=== PATIENT | male | born 1995 | race Two or more races ===

== ENCOUNTER 2021-02-23 09:22 | Inpatient (IN) | payer OTHER, SELFPAY ==
[2021-02-23] VITALS (10 sets, daily range): BP systolic 85–107; BP diastolic 37–70; PULSE 52–71; RESP 12–17; TEMP 36.6–37.1; O2SAT 96–99; BMI 24.3
--- NOTE | 2021-02-23 09:36 | ED_ITS ---
HPI - Psych General Chief Complaint: Overdose Stated Complaint: CRISIS Time Seen by Provider: 02/23/21 09:31 Source: patient and family Mode of arrival: ambulatory Limitations: other (patient is under the influence) History of Present Illness MD complaint: suicidal ideation, feels depressed and substance abuse Onset (ago): day(s) (few) Duration: getting worse History of same: Yes Relieving factors: none Exacerbating factors: drug use Context: recent drug abuse Associated psychiatric symptoms: depression and suicidal ideation Associated symptoms: denies other symptoms Treatments prior to arrival: none If self harm: admits thoughts of self harm, has acted on plan and intentional overdose Related Data Home Medications Medication Instructions Recorded Confirmed buprenorphine 100 mg/0.5 mL 100 mg SUBCUT QWEEK 02/23/21 02/23/21 solution,exten.rel.subcutaneous syringe (Sublocade) buprenorphine 8 mg-naloxone 2 mg 1 strip SUBLINGUAL DAILY 02/23/21 02/23/21 sublingual film (Suboxone) hydroxyzine HCl 25 mg tablet 1 tab PO QID 02/23/21 ibuprofen 600 mg tablet 1 tab PO BID PRN 02/23/21 nicotine (polacrilex) 4 mg buccal mg PO 02/23/21 mini lozenge nicotine (polacrilex) 4 mg gum mg PO 02/23/21 nicotine 21 mg/24 hr daily 1 patch TOPICAL DAILY 02/23/21 transdermal patch quetiapine 200 mg tablet tab PO 02/23/21 quetiapine 50 mg tablet tab PO 02/23/21 Allergies Allergy/AdvReac Type Severity Reaction Status Date / Time No Known Allergies Allergy Unverified 01/12/20 19:49 [No Known Allergies*] Review of Systems Review of Systems: Constitutional : No Fever, No Chills ENT/Mouth : No Ear Pain, No Nasal Congestion, No sore throat Eyes: No Eye Pain, No Swelling, No Redness Cardiovascular : No Chest Pain, No SOB Respiratory : No Cough, No Sputum, No Dyspnea Gastrointestinal : No Nausea, No Vomiting, No Diarrhea, No Hematochezia, No Melena Genitourinary : No Dysuria, No Urinary Frequency, No Hematuria Musculoskeletal : No Myalgias Skin : No Skin Lesions, No rash Neuro : No Weakness, No Numbness, No Paresthesias, No Dizziness, No Headache Psych : positive Anxiety, positive Depression, positive SI no HI Heme/Lymph: No Lymphadenopathy Endocrine : No Polyuria, No Polydipsia All other systems reviewed and are negative [facility] Past Medical History Attestation statement: The following information was validated with the patient. Medical History Substance abuse Social History Social History (Updated 02/23/21 @ 09:39 by Luzmaria Vo DO) Patient Tobacco Use Status: Current everyday Tobacco user Use of substances other than those prescribed or required for medical reasons: Yes Substance Use Type: Crack/Cocaine, Heroin and Opiates Last Used Substance: Just Prior to Admission Advance Directives: No Advance Directives Information Provided: No Physical Exam Vital Signs: Vital Signs: Last Vital Signs Temp 98.1 F 02/23/21 13:46 Pulse 71 02/23/21 13:49 Resp 12 02/23/21 13:46 BP 92/52 L 02/23/21 13:49 Pulse Ox 98 02/23/21 13:46 Oxygen Flow Rate 2 02/23/21 09:26 Body Mass Index 24.3 Appearance: Somnolent but wakes to verbal stimuli Oriented X3. Mild acute distress. Eyes: Pinpoint pupils ENT: Pharynx normal. Neck: Normal inspection. Neck supple. CVS: Normal heart rate and rhythm. Pulses normal. Respiratory: No respiratory distress. Breath sounds normal. Abdomen: Soft and non-tender. Skin: Skin warm and dry. Normal skin color. Normal skin turgor. Extremities: No lower extremity edema. No calf ttp Neuro: Oriented X 3. No motor deficit. No sensory deficit. CN 2-12 intact Psych: under the influence, + SI Course Course Course Narrative: patient used again in bathroom - handed hot pipe over to RN went to use bathroom and locked door - RN tried to get in, at this time his BP is low 80s due to intoxication and not infection or severe sepsis given his low BP and drowsiness will give IM narcan for overdose BP improved will continue to monitor no need for repeat narcan Physician observation started at 1135am Patient placed in physician observation because the patient needed more time for clinical sobriety and BHN evaluation. At the time observation was started the patient's vitals were stable, patient is alert and oriented but slightly agitated, Neuro: nonfocal, CV RRR, Lungs clear blood pressure dropped again, likely due to his recent heroin use - IVF and 1mg narcan ordered responded to IV narcan, ripped IV out before fluids BP 107 no narcan for 2 hours at this time, still refusing IVF BP low due to opiate abuse and not infection or severe sepsis MDM - Psych MDM Narrative Medical decision making narrative: 25 yo male with substance abuse states he tried to go to [place] for detox yesterday, had sublocade on 02/05 ([facility] [employer]) used today in SI attempt and told mom. He is currently still trying to use in our ED. At this time labs, COVID swab, BHN consult, close observation and will repeat BP to ensure he does not need narcan. Lab Data Result diagrams: 02/23/21 10:24 02/23/21 10:24 Labs: Lab Results 02/23/21 02/23/21 02/23/21 Range/Units 10:13 10:24 10:24 WBC 14.2 H (4.8-10.8) X10*3/uL RBC 4.29 L (4.60-5.80) X10*6/uL Hgb 12.3 L (14.0-18.0) g/dl Hct 37.2 L (42.0-52.0) % MCV 86.7 (80.0-98.0) fL MCH 28.7 (27.0-33.0) pg MCHC 33.1 (31.0-36.0) g/dl RDW 13.9 (11.0-16.0) % Plt Count 283 (160-400) X10*3/uL MPV 10.5 (9.4-12.4) fL Immature Gran % (Auto) 0.3 (0.0-0.4) % Neut % (Auto) 69.0 (45-73) % Lymph % (Auto) 22.7 (20-40) % Evangeline % (Auto) 7.1 (2-11) % Eos % (Auto) 0.7 (0-4) % Baso % (Auto) 0.2 (0-2) % Lymph # (Auto) 3.2 (1.2-4.9) X10*3/uL Evangeline # (Auto) 1.0 (0.1-1.2) X10*3/uL Eos # (Auto) 0.1 (0.0-0.4) X10*3/uL Baso # (Auto) 0.0 (0.0-0.2) X10*3/uL Abs Immat Gran (auto) 0.04 H (0.00-0.03) X10*3/uL Absolute Neuts (auto) 9.76 H (2.0-8.3) x10*3/uL Absolute Nucleated RBC 0.000 (0.0-0.012) X10*3/uL Nucleated RBC % (auto) 0.0 (0.0-0.2) /100WBC Sodium 139 (135-145) mmol/L Potassium 3.5 (3.3-5.1) mmol/L Chloride 107 (96-108) mmol/L Carbon Dioxide 23 (22-29) mmol/L Anion Gap 13 (12-20) BUN 12 (9-16) mg/dL Creatinine 1.14 (0.5-1.4) mg/dL Estim Creat Clear Calc 99.0 Estimated GFR > 60 Random Glucose 124 H (60-115) mg/dL Calcium 8.9 (8.4-10.2) mg/dL Magnesium 1.9 (1.6-2.6) mg/dL Total Bilirubin 0.3 (0.0-1.0) mg/dL Direct Bilirubin < 0.2 (0.0-0.5) mg/dL AST 18 (5-37) U/L ALT 17 (0-40) U/L Alkaline Phosphatase 86 (39-117) U/L Total Protein 6.7 (6.5-8.0) g/dL Albumin 4.0 (3.5-5.0) g/dL Urine Opiates Screen POSITIVE H (Not Detect) Urine Fentanyl Screen POSITIVE H (Not Detect) Ur Barbiturates Screen Not Detected (Not Detect) Ur Phencyclidine Scrn Not Detected (Not Detect) Ur Amphetamines Screen Not Detected (Not Detect) U Benzodiazepines Scrn Not Detected (Not Detect) Urine Cocaine Screen POSITIVE H (Not Detect) U Marijuana (THC) Screen Not Detected (Not Detect) Ethyl Alcohol mg/dL COVID-19 (DO) (Negative) COVID-19 Clin Com 02/23/21 02/23/21 Range/Units 10:24 10:24 WBC (4.8-10.8) X10*3/uL RBC (4.60-5.80) X10*6/uL Hgb (14.0-18.0) g/dl Hct (42.0-52.0) % MCV (80.0-98.0) fL MCH (27.0-33.0) pg MCHC (31.0-36.0) g/dl RDW (11.0-16.0) % Plt Count (160-400) X10*3/uL MPV (9.4-12.4) fL Immature Gran % (Auto) (0.0-0.4) % Neut % (Auto) (45-73) % Lymph % (Auto) (20-40) % Evangeline % (Auto) (2-11) % Eos % (Auto) (0-4) % Baso % (Auto) (0-2) % Lymph # (Auto) (1.2-4.9) X10*3/uL Evangeline # (Auto) (0.1-1.2) X10*3/uL Eos # (Auto) (0.0-0.4) X10*3/uL Baso # (Auto) (0.0-0.2) X10*3/uL Abs Immat Gran (auto) (0.00-0.03) X10*3/uL Absolute Neuts (auto) (2.0-8.3) x10*3/uL Absolute Nucleated RBC (0.0-0.012) X10*3/uL Nucleated RBC % (auto) (0.0-0.2) /100WBC Sodium (135-145) mmol/L Potassium (3.3-5.1) mmol/L Chloride (96-108) mmol/L Carbon Dioxide (22-29) mmol/L Anion Gap (12-20) BUN (9-16) mg/dL Creatinine (0.5-1.4) mg/dL Estim Creat Clear Calc Estimated GFR Random Glucose (60-115) mg/dL Calcium (8.4-10.2) mg/dL Magnesium (1.6-2.6) mg/dL Total Bilirubin (0.0-1.0) mg/dL Direct Bilirubin (0.0-0.5) mg/dL AST (5-37) U/L ALT (0-40) U/L Alkaline Phosphatase (39-117) U/L Total Protein (6.5-8.0) g/dL Albumin (3.5-5.0) g/dL Urine Opiates Screen (Not Detect) Urine Fentanyl Screen (Not Detect) Ur Barbiturates Screen (Not Detect) Ur Phencyclidine Scrn (Not Detect) Ur Amphetamines Screen (Not Detect) U Benzodiazepines Scrn (Not Detect) Urine Cocaine Screen (Not Detect) U Marijuana (THC) Screen (Not Detect) Ethyl Alcohol < 10 mg/dL COVID-19 (DO) Positive A (Negative) COVID-19 Clin Com See Note Critical Care Time Critical Care Time Critical Care Time: Yes Total Critical Care Time: 60 Attestation: repeat narcan, observation, labs, reasessments I attest to this time spent taking care of the patient Discharge Plan Discharge Clinical Impression: Opiate abuse, continuous, COVID-19 Drug overdose Qualifiers: Encounter type: initial encounter Injury intent: intentional self-harm Qualified Code(s): T50.902A - Poisoning by unspecified drugs, medicaments and biological substances, intentional self-harm, initial encounter Prescriptions: No Action quetiapine 200 mg tablet PO RF: 0 nicotine (polacrilex) 4 mg gum PO RF: 0 nicotine 21 mg/24 hr patch 24 hour 1 patch topical DAILY RF: 0 hydroxyzine HCl 25 mg tablet 1 tab PO QID RF: 0 ibuprofen 600 mg tablet 1 tab PO BID PRN (Reason: Pain) RF: 0 quetiapine 50 mg tablet PO RF: 0 buprenorphine-naloxone [Suboxone] 8-2 mg film 1 strip sublingual DAILY RF: 0 nicotine (polacrilex) 4 mg mini lozenge PO RF: 0 Sublocade 100 mg/0.5 mL solution, extended rel syringe 100 mg subcut QWEEK RF: 0
--- NOTE | 2021-02-23 10:06 | PC.NURSE ---
PT REPEAT CHIEF WTIH WAREHOUSEMAN, PT USED IN THE BATHROOM. SECURITY CALLED FOR ASSISTANCE
[2021-02-23] MEDS: Ondansetron ODT 4 MG TAB.RAPDIS TRANSLINGU (10:27)
[2021-02-23] MEDS: Naloxone HCl 2 MG/2 ML SYRINGE IM (10:27)
[2021-02-23 10:29] LABS: MANUAL DIFF FLAG NO
[2021-02-23 10:39] LABS: COVID-19 Test Positive (Negative); IDNOW Serial# 9DD0AD1C
[2021-02-23 10:46] LABS: Amphetamine Screen Urine Not Detected (Not Detect); Barbiturates, Urine Not Detected (Not Detect); Benzodiazepines Screen Urine Not Detected (Not Detect); Cannabinoid Screen Urine Not Detected (Not Detect); Cocaine Screen Urine POSITIVE (Not Detect); Fentanyl, urine POSITIVE (Not Detect); Opiate Screen Urine POSITIVE (Not Detect); Phencyclidine Screen Urine Not Detected (Not Detect)
[2021-02-23 10:51] LABS: Alanine Aminotransferase 17 U/L (0-40); Alkaline Phosphatase 86 U/L (39-117); Anion Gap 13 (12-20); Aspartate Amino Transferase 18 U/L (5-37); Basophils Percent Auto 0.2 % (0-2); Bilirubin Direct < 0.2 mg/dL (0.0-0.5); Bilirubin Total 0.3 mg/dL (0.0-1.0); Blood Urea Nitrogen 12 mg/dL (9-16); Calcium 8.9 mg/dL (8.4-10.2); Carbon Dioxide 23 mmol/L (22-29); Chloride 107 mmol/L (96-108); Eosinophils Absolute Auto 0.1 X10*3/uL (0.0-0.4); Eosinophils Percent Auto 0.7 % (0-4); Estimated Glomerular Filt Rate > 60; Glucose Random 124 mg/dL (60-115); Hematocrit 37.2 % (42.0-52.0); Hemoglobin 12.3 g/dl (14.0-18.0); Imm Gran Abs Auto 0.04 X10*3/uL (0.00-0.03); Imm Gran Pct Auto 0.3 % (0.0-0.4); Lymphocytes Absolute Auto 3.2 X10*3/uL (1.2-4.9); Lymphocytes Percent Auto 22.7 % (20-40); Magnesium 1.9 mg/dL (1.6-2.6); Mean Corpuscular HGB Conc 33.1 g/dl (31.0-36.0); Mean Corpuscular Hemoglobin 28.7 pg (27.0-33.0); Mean Corpuscular Volume 86.7 fL (80.0-98.0); Mean Platelet Volume 10.5 fL (9.4-12.4); Monocytes Percent Auto 7.1 % (2-11); Neutrophils Absolute Auto 9.76 x10*3/uL (2.0-8.3); Platelet Count 283 X10*3/uL (160-400); Potassium 3.5 mmol/L (3.3-5.1); Red Blood Count 4.29 X10*6/uL (4.60-5.80); Red Cell Distribution Width 13.9 % (11.0-16.0); Sodium 139 mmol/L (135-145); Total Protein 6.7 g/dL (6.5-8.0); White Blood Count 14.2 X10*3/uL (4.8-10.8)
[2021-02-23 10:57] LABS: Ethanol < 10 mg/dL
--- NOTE | 2021-02-23 11:03 | PC.NURSE ---
MARU data transfer sent over
[2021-02-23] MEDS: 0.9 % Sodium Chloride 1,000 ML 999 ML IV (12:12)
[2021-02-23] MEDS: Naloxone HCl 2 MG/2 ML SYRINGE 1 MG IVPUSH (12:17)
--- NOTE | 2021-02-23 12:30 | PC.NURSE ---
pt received 2mg of Narcan with IV fluids. pt proceeded to become more awake, he pulled his IV out. Pt educated related to the need for fluids as his BP was low at 85/45 - pt said I don't care, you gave me way too much Narcan .
--- NOTE | 2021-02-23 13:19 | PC.NURSE ---
MOTHER REPRESENTED TO THE ED FOR AN UPDATE. (THE PT HAD PROVIDED PERMISSION TO SHARE HIS DISPOSITION WITH MOTHER ON HIS ARRIVAL). SHE IS AWARE HE IS COVID + AND CANNOT HAVE BEDSIDE VISITORS. AWAITING MARU DE DIOS
--- NOTE | 2021-02-23 14:03 | PC.NURSE ---
pt asleep, woke again and encouraged to stay, stay awake - pt BP low again. pt requesting food.
--- NOTE | 2021-02-23 14:22 | PC.NURSE ---
pt asleep, easy to wake. pt ate sandwhich. pt awaiting BHN cristinaal
--- NOTE | 2021-02-23 20:02 | PC.NURSE ---
spoke with [facility] crisis regarding ETA for interview who reported the pt will be seen tomorrow.
--- NOTE | 2021-02-23 20:05 | PC.NURSE ---
spoke with CARE team who is planning on taking over the case from MARU
--- NOTE | 2021-02-24 00:04 | PC.NURSE ---
Patient in bed appears sleeping/snoring, no distress observed/reported, sitter at bedside, patient is on section 12 per report, will continue to monitor.
--- NOTE | 2021-02-24 06:28 | PC.NURSE ---
Patient slept through the night, no distress observed/reported, asymptomatic of withdrawal, patient will be reassess by care team in the morning, behavior non concerning at this time, patient is COVID +, will continue to monitor.
[2021-02-24 06:38] VITALS: BP 105/68; PULSE 50; RESP 16; TEMP 36.3; O2SAT 98
--- NOTE | 2021-02-24 07:20 | PC.NURSE ---
Report recieved from Servando RN, pt to be seen by Care team this morning.
[2021-02-24 11:14] VITALS: BP 93/53; PULSE 55; RESP 16
[2021-02-24 13:52] VITALS: BP 107/61; PULSE 45; RESP 14
--- NOTE | 2021-02-24 15:36 | PC.NURSE ---
Report received, pt resting comfortably in bed at current, no complaints at this time, calm and cooperative, continues to be a section 12 bed search.
[2021-02-24 20:13] LABS: COVID-19 Test Negative (Negative); IDNOW Serial# 9DD0AD1C
--- NOTE | 2021-02-25 05:43 | PC.NURSE ---
Patient slept through the night, no distress observed/reported, behavior non concerning, med rec completed/pending provider's approval, contracted for the safety, patient is on section 12 inpatient bed search, will continue to monitor.
--- NOTE | 2021-02-25 07:01 | PC.NURSE ---
patient appears to remain asleep at present with even unlabored breaths, patient appears in no distress
--- NOTE | 2021-02-25 08:55 | PC.NURSE ---
patient briefly visited by Fadumo Roper, who checked on wd sx, provider informed t/w and patient to update with emergence of wd sx.
[2021-02-25 09:12] VITALS: BP 111/69; PULSE 50; RESP 16; TEMP 36.8; O2SAT 100
[2021-02-25 10:15] LABS: COVID-19 Test Negative (Negative)
--- NOTE | 2021-02-25 14:08 | MHC.CARE ---
Patient to remain in the ED until a psychiatric placement is secured. Referrals sent to dual diagnosis unit [facility].
--- NOTE | 2021-02-25 15:09 | PC.NURSE ---
client had c/o aches and pains, declined offered flexeril
[2021-02-25 17:05] VITALS: BP 105/67; PULSE 71; RESP 18; TEMP 36.8; O2SAT 98
--- NOTE | 2021-02-25 17:21 | MHC.CARE ---
Both facilities full tonight, call in the morning.
--- NOTE | 2021-02-26 | ECG_ITS ---
Test Reason : MEDICAL CLEARANCE Blood Pressure : / mmHG Vent. Rate : 045 BPM Atrial Rate : 045 BPM P-R Int : 172 ms QRS Dur : 098 ms QT Int : 420 ms P-R-T Axes : 038 069 039 degrees QTc Int : 363 ms Sinus bradycardia with sinus arrhythmia peaked T waves Anterior leads Abnormal ECG No previous ECGs available Referred By: Luzmaria Vo Electronically Signed By:TASHIA LYNNE MD
[2021-02-26 00:07] VITALS: BP 112/72; PULSE 57; RESP 16; TEMP 36.6; O2SAT 99
--- NOTE | 2021-02-26 05:13 | PC.NURSE ---
Patient slept through the night, no distress observed/reported, asymptomatic of withdrawal, disposition is section 12 inpatient bed search, appetite good, behavior appropriate and non concerning at this time, VSS, will continue to monitor.
--- NOTE | 2021-02-26 07:25 | PC.NURSE ---
patient appears to remain asleep at present respirations are even and unlabored, patient appears in no distress
[2021-02-26 07:59] VITALS: BP 89/54; PULSE 51; RESP 14; TEMP 36.8; O2SAT 98
[2021-02-26 16:00] VITALS: PULSE 62
[2021-02-26 16:46] VITALS: BMI 23.5
--- NOTE | 2021-02-26 17:16 | PC.ADMIT ---
Pt is a 21 year old male admitted after the pt attempted overdose on heroin. Pt reports using Heroin when he was 18yrs old. However, it increased when the pt lost his sister through drug overdose. Pt has been kicked out of different treatment program due to violence behavior. Diagnosis: Opioid use disorder, severe. VSS, Covid negative. Tox scrfeen show positive for cocaine, fentanyl and opiates. Lab: elevated WBC's 14.2, decreased RBC's 4.29, Hgb 12.3. Pt was engaged during assessment, denies HI/SI, AH/VH. thought is clear with no blocking. Speech is clear with normal rhythm, tone and omero. Provider notified, admission orders obtained.
[2021-02-27 06:00] VITALS: BP 114/68; PULSE 52; RESP 18; TEMP 36.9; O2SAT 100
[2021-02-27 08:00] VITALS: PULSE 52
[2021-02-27 08:39] LABS: Estimated Average Glucose 103 mg/dL; Hemoglobin A1C 123.1284 umol/L; Hemoglobin A1c % 5.2 %
[2021-02-27 08:57] LABS: Cholesterol 159 mg/dL; HDL Cholesterol 45 mg/dL; LDL Cholesterol Calculated 101 mg/dl; Triglycerides 67 mg/dL
[2021-02-27] MEDS: Buprenorphine/Naloxone 8/2 mg FILM 1 FILM SUBLINGUAL (09:02)
[2021-02-27 09:18] LABS: Free T4 (Free Thyroxine) 0.96 ng/dL (0.71-1.85); Thyroid Stimulating Hormone 2.66 uIU/mL (0.32-4.0)
[2021-02-27 09:30] LABS: Folate 15.2 ng/mL (> or = 4.0); Vitamin B12 428 pg/mL (200-900)
--- NOTE | 2021-02-27 14:51 | P.HPPS_ITS ---
HPI Date of Service: 02/27/21 Chief Complaint: S/P Overdose Suicide Attempt Sources of Information: patient interviewed, chart reviewed and crisis/core team assessment reviewed HPI Subjective Notes: Heck Warning, Conditional Voluntary and 3 Day (03/01/21) Healthcare Proxy: No Guardianship: No Medical Problems Affecting Mental Status: No Narrative: 25 yo male s/p suicide attempt via heroin od in front of his mother with intent to , admitted on CV with filing of TDN to on 03/01. Pt reports stressors include losing sister to murder by boyfriend earlier this year in [place]. Thus far, he reports two people have been arrested. Also, watching mother's grief over loss of sister has been overwhelming. Pt reports sister's birthday is coming up and his feelings intensify as the day grows closer. Reports addictive symptoms since age [age], mainly opiates, fentanyl. Toxicology positive for cocaine, opiates, fentanyl. Reports drugs have made him mad-he has been involved in fights, leaving programs, with brief incarcerations. States he believes he needs residential-asks for [facility], a therapist, psychiatrist, physician primary care sports medicine and a good out patient plan. Past Psychiatric History: IP: This is pt's first psychiatric admission. OP: No alliances Trials: Seroquel- 50 mg daily prn and 200 mg hs, some others he does not recall. Medical Evaluation Reviewed: Yes [facility] Medical History Substance abuse Narrative: Pinched nerve left shoulder/arm-Hx Gabapentin Family History: Father-Bipolar, addicted, PTSD Social History: Pt is single, unemployed, homeless with no children. He moved from [place] to [place] at age 8, which he found to be traumatic-he witnessed his first murder at age 8. Father was absent due to addiction and mental illness Pt has a sister-murdered earlier this year and a younger half sister whom he has not seen recently Denies current legal issues, except he is following his sister's case in [place] Substance History: Pt reports addiction since age 20. Daily heroin-up to 50-100 bags, no injecting. Has been to several detoxes and programs. No hx of injecting. Longest sobriety ~7 months Hx of H placments with fighting-dismissals, use while in program Pt reports sublicade has helped Pt has all included support services Trauma History: Affirms Diagnostics Vital Signs (24Hr): Vital Signs - 24 hr 02/27/21 06:00 Temperature 98.4 F Pulse Rate 52 Respiratory Rate 18 Blood Pressure 114/68 Pulse Oximetry 100 Body Mass Index 23.5 Labs Results: 02/23/21 10:24 02/23/21 10:24 Labs: Laboratory Results - last 48 hr 02/27/21 02/27/21 02/27/21 07:48 07:48 07:48 Estimat Average Glucose 103 Hemoglobin A1c % 5.2 Triglycerides 67 Cholesterol 159 LDL Cholesterol, Calc 101 HDL Cholesterol 45 Vitamin B12 428 Folate 15.2 TSH 2.66 Free T4 0.96 EKG EKG: reviewed Meds/Allergies Meds Home Medications Acetaminophen (Acetaminophen 325 Mg Tablet) 650 mg PO Q6H PRN PRN Reason: Headache/Pain Mild Scale (1-3) Al Hydroxide/Mg Hydroxide (Magnesium Hydrox/Alum Hydrox 30 Ml Oral.Susp) 30 ml PO Q6H PRN PRN Reason: Heartburn/Nausea Buprenorphine/Naloxone (Buprenorphine/Naloxone 8/2 Mg Film) 1 film SUBLINGUAL DAILY [facility] Last Admin: 02/27/21 09:02 Dose: 1 film Documented by: Magnesium Hydroxide (Milk Of Magnesia 30 Ml Oral.Susp) 30 ml PO DAILY PRN PRN Reason: Constipation Multivitamins/Vitamin C (Multivitamin Tablet) 1 tab PO DAILY [facility] Last Admin: 02/27/21 09:02 Dose: Not Given Documented by: Nicotine (Nicotine 21 Mg Patch.Td24) 21 mg TRANSDERMA DAILY [facility] Last Admin: 02/27/21 09:01 Dose: Not Given Documented by: Pharmacy Consult (Consult Rx Perform Med Rec) 1 each MISCELLANE ONCE PRN PRN Reason: Consult order Trazodone HCl (Trazodone Hcl 50 Mg Tablet) 50 mg PO BEDTIME PRN PRN Reason: Insomnia Allergies Allergies Allergy/AdvReac Type Severity Reaction Status Date / Time No Known Allergies Allergy Unverified 01/12/20 19:49 [No Known Allergies*] Mental Status Exam Mental Status Exam Patient Appearance: Appropriate Patient Orientation: Person, Place, Time and Situation Level of Consciousness: Awake, Appropriate and Alert Patient Behavior: Guarded, Talkative, Cooperative, Suspicious, Distractible and Good Eye Contact Mood Description: Blunted Affect Description: Blunted Patient Cognition Impaired: No Ability to Follow Directions: Good Speech Pattern: Clear, Appropriate, Spontaneous Speech, Coherent and Soft-Spoken Memory Description: Intact Hallucinations: None Delusions: Not Present Perceptual Disturbances: Depersonalization and Derealization Thought Process: Distracted, Rumination and Goal Oriented Thought Content: positive for [place], positive for Circumstantial, positive for Goal Oriented and positive for Suicidal Ideation (s/p attempt) Depressive Symptoms: Difficulty Sleeping, Loss of Int. in Activity, Unhappiness and Thoughts of /Suicide Abnormal Motor Activity Signs and Symptoms: Restlessness Judgement: Fair Assessment & Plan Assessment & Plan (1) Recurrent major depression-severe: Status: Acute Code(s): F33.2 - Major depressive disorder, recurrent severe without psychotic features (2) PTSD (post-traumatic stress disorder): Status: Acute Code(s): F43.10 - Post-traumatic stress disorder, unspecified (3) Opiate abuse, continuous: Status: Acute Code(s): F11.10 - Opioid abuse, uncomplicated Assessment and Plan: 25 yo male, hx of depression, PTSD, polysubstance abuse s/p OD in response to the murder of his sister and her upcoming birthday along with intolerance of watching his mother grieve this loss. Pt asks for referral to [facility] and for connections with a PCP, Therapist and Prescriber. He has signed a TDN to on 03/01/21. Seroquel 50 mg HS Remeron 7.5 mg HS Addiction Consult Team will work on referral to [facility]. Patient educated on: medication risk/benefits, substance abuse and therapeutic strategies Informed Consent: understands Reason for continued inpatient stay Substantial Risk for: harm to self, harm to others, inability to function and rapid decompensation
[2021-02-27 18:00] VITALS: BP 137/66; PULSE 78; TEMP 36.4
[2021-02-27] MEDS: QUEtiapine Fumarate 50 MG TABLET PO (22:24)
[2021-02-27] MEDS: Mirtazapine 7.5 MG TABLET PO (22:24)
[2021-02-28] MEDS: Buprenorphine/Naloxone 8/2 mg FILM 1 FILM SUBLINGUAL (09:27)
--- NOTE | 2021-02-28 16:20 | HO.SUDE ---
25 yr old male presented to [facility] ED on 02/23 s/p intentional opiate overdose requiring naloxone. Pt received 3 mg while in ED. Once stable, pt was evaluated and admitted to .T/w met with pt in group room on M5 to discuss substance use. Pt reports psych dx: bipolar d/o, PTSD, anxiety, depression. Please see psychiatry notes for further information regarding mental health.? Pt currently receiving Sublocade through [facility] on [address] x 7 months. Pt reports Sublocade has decreased amount and frequency of use.? Prior to that, pt had been receiving Suboxone x 2 years. Past hx (age 21) methadone at [facility], 98 mg daily x 2 years.? Pt began using opiates at age 19, has used on and off since then. Longest time in recovery was 7 months, pt attributes this to working and staying busy. Pt had been using up to 1 pack daily, [place]. Recently, pt has used 5-10 bags approx 3 times weekly, attributes this to Sublocade.? Pt reports first cocaine use age 16, 1 gram, [place], approx every other day. Last use 02/20.? Pt denies other substances.? Pt reports engaging in OUD tx many times including [facility], [facility], [facility], and sober house admissions (including [facility] in [place]). Pts most recent admission was 02/20-02/22 at [facility] in [place]. Pt discharged due to smoking in program.? Currently, pts supports include mother and friends as well as BHN.? Pt being referred to other providers (psych and PCP) while inpatient. Pt also referred to many [facility] programs across [place].? Pt educated regarding additional resources and supports, t/w will f/u tomorrow to provide pt written information.? Pt denies questions or concerns at this time. T/w available as needed.?
--- NOTE | 2021-02-28 16:48 | P.PNPSI_ITS ---
Subjective Subjective Date of Service: 02/28/21 Reason For Visit: S/P Overdose Suicide Attempt Subjective Notes: 3 Day (03/04/21) Healthcare Proxy: No Guardianship: No Medical Problems Affecting Mental Status: No Interim History: Three day notice to on 03/04/21. Pt reports he slept well last evening. Tolerating low dose Seroquel. Denies SI/HI. Denies sx depression, anxiety-affirms having a difficult time with sisters upcoming birthday. Anxious for a placement-referral resources-asking tw several times during the day if we have remembered to apply for services for him. Seen in the evening-in bed-reports feeling bored, wanting to leave, finding some of his peers difficult to tolerate. Medication Compliance: Yes Side effects from medications: No Attending Groups: No Review of Systems Acute medical concerns: No Medical Review of Systems: unchanged Review of Systems Psychiatric: Reports depression, Reports homicidal ideation (denies) and Reports suicidal ideation (denies) Mental Status Exam Mental Status Exam Patient Appearance: Fatigued and Appropriate Patient Orientation: Person, Place, Time and Situation Level of Consciousness: Awake and Alert Patient Behavior: Talkative and Good Eye Contact Mood Description: Withdrawn and Depressed Affect Description: Flat Patient Cognition Impaired: No Ability to Follow Directions: Good Speech Pattern: Spontaneous Speech Memory Description: Intact Hallucinations: None Delusions: Not Present Thought Process: Rumination Thought Content: positive for [place] and positive for Circumstantial Depressive Symptoms: Increased Irritability and Thoughts of /Suicide (denies) Judgement: Fair Diagnostics Vital Signs (24Hr): Vital Signs - 24 hr 02/27/21 18:00 Temperature 97.5 F Pulse Rate 78 Blood Pressure 137/66 Body Mass Index 23.5 Labs Results: 02/23/21 10:24 02/23/21 10:24 Labs: Laboratory Results - last 48 hr 02/27/21 02/27/21 02/27/21 07:48 07:48 07:48 Estimat Average Glucose 103 Hemoglobin A1c % 5.2 Triglycerides 67 Cholesterol 159 LDL Cholesterol, Calc 101 HDL Cholesterol 45 Vitamin B12 428 Folate 15.2 TSH 2.66 Free T4 0.96 Medications Medications Current Medications Acetaminophen (Acetaminophen 325 Mg Tablet) 650 mg PO Q6H PRN PRN Reason: Headache/Pain Mild Scale (1-3) Al Hydroxide/Mg Hydroxide (Magnesium Hydrox/Alum Hydrox 30 Ml Oral.Susp) 30 ml PO Q6H PRN PRN Reason: Heartburn/Nausea Buprenorphine/Naloxone (Buprenorphine/Naloxone 8/2 Mg Film) 1 film SUBLINGUAL DAILY [facility] Last Admin: 02/28/21 09:27 Dose: 1 film Documented by: Magnesium Hydroxide (Milk Of Magnesia 30 Ml Oral.Susp) 30 ml PO DAILY PRN PRN Reason: Constipation Mirtazapine (Mirtazapine 7.5 Mg Tablet) 7.5 mg PO BEDTIME [facility] Last Admin: 02/27/21 22:24 Dose: 7.5 mg Documented by: Multivitamins/Vitamin C (Multivitamin Tablet) 1 tab PO DAILY [facility] Last Admin: 02/28/21 09:05 Dose: Not Given Documented by: Nicotine (Nicotine 21 Mg Patch.Td24) 21 mg TRANSDERMA DAILY [facility] Last Admin: 02/28/21 09:05 Dose: Not Given Documented by: Pharmacy Consult (Consult Rx Perform Med Rec) 1 each MISCELLANE ONCE PRN PRN Reason: Consult order Quetiapine Fumarate (Quetiapine Fumarate 50 Mg Tablet) 50 mg PO BEDTIME [facility] Last Admin: 02/27/21 22:24 Dose: 50 mg Documented by: Trazodone HCl (Trazodone Hcl 50 Mg Tablet) 50 mg PO BEDTIME PRN PRN Reason: Insomnia Allergies Allergies Allergy/AdvReac Type Severity Reaction Status Date / Time No Known Allergies Allergy Unverified 01/12/20 19:49 [No Known Allergies*] Assessment & Plan Assessment & Plan (1) Recurrent major depression-severe: Status: Acute Code(s): F33.2 - Major depressive disorder, recurrent severe without psychotic features (2) PTSD (post-traumatic stress disorder): Status: Acute Code(s): F43.10 - Post-traumatic stress disorder, unspecified (3) Opiate abuse, continuous: Status: Acute Code(s): F11.10 - Opioid abuse, uncomplicated Assessment and Plan: 25 yo male, hx of depression, PTSD, polysubstance abuse s/p OD in response to the murder of his sister and her upcoming birthday along with intolerance of watching his mother grieve this loss. Pt asks for referral to [facility] and for connections with a PCP, Therapist and Prescriber. He has signed a TDN to on 03/01/21. Seroquel 50 mg HS Remeron 7.5 mg HS Addiction Consult Team will work on referral to [facility]. 02/28/21: TDN-new date of expiration 03/04/21. Pt reports regime to be tolerated and helpful at this time Continue current plan of care. I spent 20 minutes with the patient and/or on the patient floor today, greater than?50% of which was spent counseling/coordinating care. Patient educated on: medication risk/benefits Informed Consent: understands Reason for contiued inpatient stay Substantial Risk for: harm to self, inability to function and rapid decompensation
[2021-02-28 18:00] VITALS: BP 122/78; PULSE 74; RESP 16; TEMP 36.1; O2SAT 99
[2021-02-28] MEDS: Mirtazapine 7.5 MG TABLET PO (21:07)
[2021-02-28] MEDS: QUEtiapine Fumarate 50 MG TABLET PO (21:07)
[2021-03-01 06:00] VITALS: BP 108/61; PULSE 63; RESP 16; TEMP 36.6; O2SAT 97
[2021-03-01] MEDS: Buprenorphine/Naloxone 8/2 mg FILM 1 FILM SUBLINGUAL (10:02)
[2021-03-01 16:00] VITALS: PULSE 70
--- NOTE | 2021-03-01 17:43 | P.PNPSI_ITS ---
Subjective Subjective Date of Service: 03/01/21 Reason For Visit: S/P Overdose Suicide Attempt Subjective Notes: Conditional Voluntary and 3 Day Healthcare Proxy: No Guardianship: No Medical Problems Affecting Mental Status: No Interim History: Pt hoping to be accepted to [facility]. He has a TDN active for 03/04/21. Today we learned that he has had 17 placements since April 2020 all substance related. Pt reports regime of medication to be adequate for his needs-sleep, appetite are regulating. Mood he reports to be stable. He denies SI, HI, however sister's birthday is upcoming-a triggering time for pt and he does not have a current mgt plan for sx. Medication Compliance: Yes Side effects from medications: No Attending Groups: No Review of Systems Acute medical concerns: No Medical Review of Systems: unchanged Review of Systems Psychiatric: Reports depression, Reports homicidal ideation (denies) and Reports suicidal ideation (denies) Mental Status Exam Mental Status Exam Patient Appearance: Fatigued and Appropriate Patient Orientation: Person, Place, Time and Situation Level of Consciousness: Awake and Alert Patient Behavior: Talkative and Good Eye Contact Mood Description: Withdrawn and Depressed Affect Description: Flat Patient Cognition Impaired: No Ability to Follow Directions: Good Speech Pattern: Spontaneous Speech Memory Description: Intact Hallucinations: None Delusions: Not Present Thought Process: Rumination Thought Content: positive for [place] and positive for Circumstantial Depressive Symptoms: Increased Irritability and Thoughts of /Suicide (denies) Judgement: Fair Diagnostics Vital Signs (24Hr): Vital Signs - 24 hr 02/28/21 18:00 03/01/21 06:00 Temperature 97 F 97.9 F Pulse Rate 74 63 Respiratory Rate 16 16 Blood Pressure 122/78 108/61 Pulse Oximetry 99 97 Body Mass Index 23.5 Labs Results: 02/23/21 10:24 02/23/21 10:24 Medications Medications Current Medications Acetaminophen (Acetaminophen 325 Mg Tablet) 650 mg PO Q6H PRN PRN Reason: Headache/Pain Mild Scale (1-3) Al Hydroxide/Mg Hydroxide (Magnesium Hydrox/Alum Hydrox 30 Ml Oral.Susp) 30 ml PO Q6H PRN PRN Reason: Heartburn/Nausea Buprenorphine/Naloxone (Buprenorphine/Naloxone 8/2 Mg Film) 1 film SUBLINGUAL DAILY [facility] Last Admin: 03/01/21 10:02 Dose: 1 film Documented by: Magnesium Hydroxide (Milk Of Magnesia 30 Ml Oral.Susp) 30 ml PO DAILY PRN PRN Reason: Constipation Mirtazapine (Mirtazapine 7.5 Mg Tablet) 7.5 mg PO BEDTIME [facility] Last Admin: 02/28/21 21:07 Dose: 7.5 mg Documented by: Multivitamins/Vitamin C (Multivitamin Tablet) 1 tab PO DAILY [facility] Last Admin: 03/01/21 08:09 Dose: Not Given Documented by: Nicotine (Nicotine 21 Mg Patch.Td24) 21 mg TRANSDERMA DAILY [facility] Last Admin: 03/01/21 08:09 Dose: Not Given Documented by: Pharmacy Consult (Consult Rx Perform Med Rec) 1 each MISCELLANE ONCE PRN PRN Reason: Consult order Quetiapine Fumarate (Quetiapine Fumarate 50 Mg Tablet) 50 mg PO BEDTIME [facility] Last Admin: 02/28/21 21:07 Dose: 50 mg Documented by: Trazodone HCl (Trazodone Hcl 50 Mg Tablet) 50 mg PO BEDTIME PRN PRN Reason: Insomnia Allergies Allergies Allergy/AdvReac Type Severity Reaction Status Date / Time lamotrigine [From Lamictal] AdvReac Severe pt reports Verified 03/01/21 17:42 lamictal precipitates panic attacks Assessment & Plan Assessment & Plan (1) Recurrent major depression-severe: Status: Acute Code(s): F33.2 - Major depressive disorder, recurrent severe without psychotic features (2) PTSD (post-traumatic stress disorder): Status: Acute Code(s): F43.10 - Post-traumatic stress disorder, unspecified (3) Opiate abuse, continuous: Status: Acute Code(s): F11.10 - Opioid abuse, uncomplicated Assessment and Plan: 25 yo male, hx of depression, PTSD, polysubstance abuse s/p OD in response to the murder of his sister and her upcoming birthday along with intolerance of watching his mother grieve this loss. Pt asks for referral to [facility] and for connections with a PCP, Therapist and Prescriber. He has signed a TDN to on 03/01/21. Seroquel 50 mg HS Remeron 7.5 mg HS Addiction Consult Team will work on referral to [facility]. 02/28/21: TDN-new date of expiration 03/04/21. Pt reports regime to be tolerated and helpful at this time Continue current plan of care. 03/01/21: REYNALDO 03/04/21 Today we were informed of several interventions for pt this year without success Continue current plan of care. I spent 20 minutes with the patient and/or on the patient floor today, greater than?50% of which was spent counseling/coordinating care. Informed Consent: understands Reason for contiued inpatient stay Substantial Risk for: harm to self, inability to function, rapid decompensation and med/psych decompensation
[2021-03-01] MEDS: Mirtazapine 7.5 MG TABLET PO (20:18)
[2021-03-01] MEDS: QUEtiapine Fumarate 50 MG TABLET PO (20:18)
[2021-03-02] MEDS: Buprenorphine/Naloxone 8/2 mg FILM 1 FILM SUBLINGUAL (09:47)
[2021-03-02 18:00] VITALS: BP 121/73; PULSE 77; RESP 16; TEMP 36.2; O2SAT 99
--- NOTE | 2021-03-02 19:04 | P.PNPSI_ITS ---
Subjective Subjective Date of Service: 03/02/21 Reason For Visit: S/P Overdose Suicide Attempt Medical Problems Affecting Mental Status: No Interim History: patient reported feeling fine and did not want to engage in interview. Did Note from chart that he has been isolative, guarded and anxious. Also noted of his sister and her being around this time. Medication Compliance: Yes Side effects from medications: No Review of Systems Acute medical concerns: No Review of Systems Review of Systems unremarkable Mental Status Exam Mental Status Exam Narrative: seen in room. Isolated. Guarded. Denied depression. No SI or HI evident. No overt psychosis evident. Insight and judgment okay Diagnostics Vital Signs (24Hr): Body Mass Index 23.5 Labs Results: 02/23/21 10:24 02/23/21 10:24 Medications Medications Current Medications Acetaminophen (Acetaminophen 325 Mg Tablet) 650 mg PO Q6H PRN PRN Reason: Headache/Pain Mild Scale (1-3) Al Hydroxide/Mg Hydroxide (Magnesium Hydrox/Alum Hydrox 30 Ml Oral.Susp) 30 ml PO Q6H PRN PRN Reason: Heartburn/Nausea Buprenorphine/Naloxone (Buprenorphine/Naloxone 8/2 Mg Film) 1 film SUBLINGUAL DAILY [facility] Last Admin: 03/02/21 09:47 Dose: 1 film Documented by: Magnesium Hydroxide (Milk Of Magnesia 30 Ml Oral.Susp) 30 ml PO DAILY PRN PRN Reason: Constipation Mirtazapine (Mirtazapine 7.5 Mg Tablet) 7.5 mg PO BEDTIME [facility] Last Admin: 03/01/21 20:18 Dose: 7.5 mg Documented by: Multivitamins/Vitamin C (Multivitamin Tablet) 1 tab PO DAILY [facility] Last Admin: 03/02/21 08:49 Dose: Not Given Documented by: Nicotine (Nicotine 21 Mg Patch.Td24) 21 mg TRANSDERMA DAILY [facility] Last Admin: 03/02/21 08:49 Dose: Not Given Documented by: Pharmacy Consult (Consult Rx Perform Med Rec) 1 each MISCELLANE ONCE PRN PRN Reason: Consult order Quetiapine Fumarate (Quetiapine Fumarate 50 Mg Tablet) 50 mg PO BEDTIME [facility] Last Admin: 03/01/21 20:18 Dose: 50 mg Documented by: Trazodone HCl (Trazodone Hcl 50 Mg Tablet) 50 mg PO BEDTIME PRN PRN Reason: Insomnia Allergies Allergies Allergy/AdvReac Type Severity Reaction Status Date / Time lamotrigine [From Lamictal] AdvReac Severe pt reports Verified 03/01/21 17:42 lamictal precipitates panic attacks Assessment & Plan Assessment & Plan (1) Recurrent major depression-severe: Status: Acute Code(s): F33.2 - Major depressive disorder, recurrent severe without psychotic features (2) PTSD (post-traumatic stress disorder): Status: Acute Code(s): F43.10 - Post-traumatic stress disorder, unspecified (3) Opiate abuse, continuous: Status: Acute Code(s): F11.10 - Opioid abuse, uncomplicated Assessment and Plan: 25 yo male, hx of depression, PTSD, polysubstance abuse s/p OD in response to the murder of his sister and her upcoming birthday along with intolerance of watching his mother grieve this loss. Pt asks for referral to [facility] and for connections with a PCP, Therapist and Prescriber. He has signed a TDN to on 03/01/21. Seroquel 50 mg HS Remeron 7.5 mg HS Addiction Consult Team will work on referral to [facility]. 02/28/21: TDN-new date of expiration 03/04/21. Pt reports regime to be tolerated and helpful at this time Continue current plan of care. 03/01/21: TDN 03/04/21 Today we were informed of several interventions for pt this year without success Continue current plan of care. 03/02/2021: No changes to primary team treatment plan. Exploring [facility] for recovery I spent minutes with the patient and/or on the patient floor today, greater than?50% of which was spent counseling/coordinating care. Reason for contiued inpatient stay Substantial Risk for: harm to self
[2021-03-02] MEDS: QUEtiapine Fumarate 50 MG TABLET PO (20:22)
[2021-03-02] MEDS: Mirtazapine 7.5 MG TABLET PO (20:22)
[2021-03-03] MEDS: Buprenorphine/Naloxone 8/2 mg FILM 1 FILM SUBLINGUAL (09:39)
--- NOTE | 2021-03-03 12:32 | P.PNPSI_ITS ---
Subjective Subjective Date of Service: 03/03/21 Reason For Visit: S/P Overdose Suicide Attempt Medical Problems Affecting Mental Status: No Interim History: patient reported feeling fine and did not want to engage in interview again today. Has been isolative and guarded at times. He did report that he hoped to get in the [facility] and was simply waiting. Medication Compliance: Yes Side effects from medications: No Attending Groups: No Review of Systems Acute medical concerns: No Review of Systems Review of Systems unremarkable Mental Status Exam Mental Status Exam Narrative: seen in room. Isolated. Denied depression. No SI or HI evident. No overt psychosis evident. Insight and judgment okay Diagnostics Vital Signs (24Hr): Vital Signs - 24 hr 03/02/21 18:00 Temperature 97.2 F Pulse Rate 77 Respiratory Rate 16 Blood Pressure 121/73 Pulse Oximetry 99 Body Mass Index 23.5 Labs Results: 02/23/21 10:24 02/23/21 10:24 Medications Medications Current Medications Acetaminophen (Acetaminophen 325 Mg Tablet) 650 mg PO Q6H PRN PRN Reason: Headache/Pain Mild Scale (1-3) Al Hydroxide/Mg Hydroxide (Magnesium Hydrox/Alum Hydrox 30 Ml Oral.Susp) 30 ml PO Q6H PRN PRN Reason: Heartburn/Nausea Buprenorphine/Naloxone (Buprenorphine/Naloxone 8/2 Mg Film) 1 film SUBLINGUAL DAILY [facility] Last Admin: 03/03/21 09:39 Dose: 1 film Documented by: Magnesium Hydroxide (Milk Of Magnesia 30 Ml Oral.Susp) 30 ml PO DAILY PRN PRN Reason: Constipation Mirtazapine (Mirtazapine 7.5 Mg Tablet) 7.5 mg PO BEDTIME [facility] Last Admin: 03/02/21 20:22 Dose: 7.5 mg Documented by: Multivitamins/Vitamin C (Multivitamin Tablet) 1 tab PO DAILY [facility] Last Admin: 03/03/21 08:17 Dose: Not Given Documented by: Nicotine (Nicotine 21 Mg Patch.Td24) 21 mg TRANSDERMA DAILY [facility] Last Admin: 03/03/21 08:17 Dose: Not Given Documented by: Pharmacy Consult (Consult Rx Perform Med Rec) 1 each MISCELLANE ONCE PRN PRN Reason: Consult order Quetiapine Fumarate (Quetiapine Fumarate 50 Mg Tablet) 50 mg PO BEDTIME [facility] Last Admin: 03/02/21 20:22 Dose: 50 mg Documented by: Trazodone HCl (Trazodone Hcl 50 Mg Tablet) 50 mg PO BEDTIME PRN PRN Reason: Insomnia Allergies Allergies Allergy/AdvReac Type Severity Reaction Status Date / Time lamotrigine [From Lamictal] AdvReac Severe pt reports Verified 03/01/21 17:42 lamictal precipitates panic attacks Assessment & Plan Assessment & Plan (1) Recurrent major depression-severe: Status: Acute Code(s): F33.2 - Major depressive disorder, recurrent severe without psychotic features (2) PTSD (post-traumatic stress disorder): Status: Acute Code(s): F43.10 - Post-traumatic stress disorder, unspecified (3) Opiate abuse, continuous: Status: Acute Code(s): F11.10 - Opioid abuse, uncomplicated Assessment and Plan: 25 yo male, hx of depression, PTSD, polysubstance abuse s/p OD in response to the murder of his sister and her upcoming birthday along with intolerance of watching his mother grieve this loss. Pt asks for referral to [facility] and for connections with a PCP, Therapist and Prescriber. He has signed a TDN to on 03/01/21. Seroquel 50 mg HS Remeron 7.5 mg HS Addiction Consult Team will work on referral to [facility]. 02/28/21: TDN-new date of expiration 03/04/21. Pt reports regime to be tolerated and helpful at this time Continue current plan of care. 03/01/21: TDN 03/04/21 Today we were informed of several interventions for pt this year without success Continue current plan of care. 03/03/2021: No changes to primary team treatment plan. Exploring [facility] for recovery I spent minutes with the patient and/or on the patient floor today, greater than?50% of which was spent counseling/coordinating care. Reason for contiued inpatient stay Substantial Risk for: harm to self
[2021-03-03 17:19] VITALS: BP 140/85; PULSE 83; RESP 16; TEMP 36.2; O2SAT 98
[2021-03-03] MEDS: Mirtazapine 7.5 MG TABLET PO (19:47)
[2021-03-03] MEDS: QUEtiapine Fumarate 50 MG TABLET PO (19:47)
[2021-03-04] MEDS: traZODone HCL 50 MG TABLET PO (01:28)
[2021-03-04] MEDS: Buprenorphine/Naloxone 8/2 mg FILM 1 FILM SUBLINGUAL (08:46)
--- NOTE | 2021-03-04 17:30 | P.PNPSI_ITS ---
Subjective Subjective Date of Service: 03/04/21 Reason For Visit: S/P Overdose Suicide Attempt Subjective Notes: Conditional Voluntary Healthcare Proxy: No Guardianship: No Interim History: Pt retracted TDN today-He is hoping for acceptance to [facility] and in discussion will remain to clarify acceptance before discharge. Discussed sister's upcoming birthday and increase risks due to this anniversary along with relapse risk. Pt agrees, stating he can go home with mother, however, will remain until his plan is clarified. Reports regime to be useful, denies SI, HI. Denies medication SE. Medication Compliance: Yes Side effects from medications: No Attending Groups: No Review of Systems Acute medical concerns: No Medical Review of Systems: unchanged Review of Systems Psychiatric: Reports anxiety, Reports depression, Reports homicidal ideation (denies) and Reports suicidal ideation (denies) Mental Status Exam Mental Status Exam Patient Appearance: Appropriate Patient Orientation: Person, Place, Time and Situation Level of Consciousness: Awake and Alert Patient Behavior: Talkative, Cooperative, Isolative and Good Eye Contact Mood Description: Constricted and Flat Affect Description: Constricted and Flat Patient Cognition Impaired: No Ability to Follow Directions: Good Speech Pattern: Spontaneous Speech Memory Description: Intact Hallucinations: None Delusions: Not Present Thought Process: Rumination Thought Content: positive for [place], positive for Circumstantial and positive for Suicidal Ideation (denies) Depressive Symptoms: Low Self Esteem Judgement: Good Diagnostics Vital Signs (24Hr): Body Mass Index 23.5 Labs Results: 02/23/21 10:24 02/23/21 10:24 Medications Medications Current Medications Acetaminophen (Acetaminophen 325 Mg Tablet) 650 mg PO Q6H PRN PRN Reason: Headache/Pain Mild Scale (1-3) Al Hydroxide/Mg Hydroxide (Magnesium Hydrox/Alum Hydrox 30 Ml Oral.Susp) 30 ml PO Q6H PRN PRN Reason: Heartburn/Nausea Buprenorphine/Naloxone (Buprenorphine/Naloxone 8/2 Mg Film) 1 film SUBLINGUAL DAILY [facility] Last Admin: 03/04/21 08:46 Dose: 1 film Documented by: Magnesium Hydroxide (Milk Of Magnesia 30 Ml Oral.Susp) 30 ml PO DAILY PRN PRN Reason: Constipation Mirtazapine (Mirtazapine 7.5 Mg Tablet) 7.5 mg PO BEDTIME [facility] Last Admin: 03/03/21 19:47 Dose: 7.5 mg Documented by: Multivitamins/Vitamin C (Multivitamin Tablet) 1 tab PO DAILY [facility] Last Admin: 03/04/21 08:47 Dose: Not Given Documented by: Nicotine (Nicotine 21 Mg Patch.Td24) 21 mg TRANSDERMA DAILY [facility] Last Admin: 03/04/21 08:47 Dose: Not Given Documented by: Pharmacy Consult (Consult Rx Perform Med Rec) 1 each MISCELLANE ONCE PRN PRN Reason: Consult order Quetiapine Fumarate (Quetiapine Fumarate 50 Mg Tablet) 50 mg PO BEDTIME [facility] Last Admin: 03/03/21 19:47 Dose: 50 mg Documented by: Trazodone HCl (Trazodone Hcl 50 Mg Tablet) 50 mg PO BEDTIME PRN PRN Reason: Insomnia Last Admin: 03/04/21 01:28 Dose: 50 mg Documented by: Allergies Allergies Allergy/AdvReac Type Severity Reaction Status Date / Time lamotrigine [From Lamictal] AdvReac Severe pt reports Verified 03/01/21 17:42 lamictal precipitates panic attacks Assessment & Plan Assessment & Plan (1) Recurrent major depression-severe: Status: Acute Code(s): F33.2 - Major depressive disorder, recurrent severe without psychotic features (2) PTSD (post-traumatic stress disorder): Status: Acute Code(s): F43.10 - Post-traumatic stress disorder, unspecified (3) Opiate abuse, continuous: Status: Acute Code(s): F11.10 - Opioid abuse, uncomplicated Assessment and Plan: 25 yo male, hx of depression, PTSD, polysubstance abuse s/p OD in response to the murder of his sister and her upcoming birthday along with intolerance of watching his mother grieve this loss. Pt asks for referral to [facility] and for connections with a PCP, Therapist and Prescriber. He has signed a TDN to on 03/01/21. Seroquel 50 mg HS Remeron 7.5 mg HS Addiction Consult Team will work on referral to [facility]. 02/28/21: TDN-new date of expiration 03/04/21. Pt reports regime to be tolerated and helpful at this time Continue current plan of care. 03/01/21: TDN 03/04/21 Today we were informed of several interventions for pt this year without success Continue current plan of care. 03/03/2021: No changes to primary team treatment plan. Exploring [facility] for recovery 03/04/21: Pt has retracted TDN. Continue current medication regime. I spent 20 minutes with the patient and/or on the patient floor today, greater than?50% of which was spent counseling/coordinating care. Patient educated on: therapeutic strategies Informed Consent: understands Reason for contiued inpatient stay Substantial Risk for: harm to self, inability to function and rapid decompensation
[2021-03-04 20:20] VITALS: BP 112/62; PULSE 74; RESP 18; TEMP 36.5; O2SAT 97
[2021-03-05] MEDS: QUEtiapine Fumarate 50 MG TABLET PO (00:15)
[2021-03-05] MEDS: Mirtazapine 7.5 MG TABLET PO (00:15)
[2021-03-05] MEDS: Buprenorphine/Naloxone 8/2 mg FILM 1 FILM SUBLINGUAL (08:53)
--- NOTE | 2021-03-05 20:43 | PM.PSYDC ---
DS: Providers Provider Date of Service: 03/05/21 Date of admission: 02/26/21 14:10 Date of discharge: 03/05/21 Primary care physician: Unknown Physician Admitting clinician: Bernice Hanks Attending physician on admission: Jim Wylie Consults: 02/27/21 16:37 Addiction Medicine Routine Consulting Provider: Fadumo Roper Reason for consultation: s/p heroin OD Has provider been notified: No Attending physician on discharge: Jim Wylie Discharging clinician: Bernice Hanks DS: Diagnosis Discharge Diagnosis (1) Recurrent major depression-severe: Status: Acute (2) PTSD (post-traumatic stress disorder): Status: Acute (3) Opiate abuse, continuous: Status: Acute DS: Medications Discharge Medications Home Medications: Home Medications Medication Instructions Recorded Confirmed buprenorphine 100 mg/0.5 mL 100 mg SUBCUT QWEEK 02/23/21 02/23/21 solution,exten.rel.subcutaneous syringe (Sublocade) buprenorphine 8 mg-naloxone 2 mg 1 strip SUBLINGUAL DAILY 02/23/21 02/23/21 sublingual film (Suboxone) Previous Rx's Medication Instructions Recorded mirtazapine 7.5 mg tablet 7.5 mg PO BEDTIME #15 tab 03/05/21 multivitamin (Daily-Faustino) 1 tab PO DAILY #30 tab 03/05/21 naloxone 4 mg/actuation nasal 4 mg INTRANASAL Q2M PRN #2 ea 03/05/21 spray (Narcan) nicotine 21 mg/24 hr daily 1 patch TOPICAL DAILY #30 ea 03/05/21 transdermal patch quetiapine 25 mg tablet (Seroquel) 25 mg PO DAILY PRN #7 tab 03/05/21 quetiapine 50 mg tablet 50 mg PO BEDTIME #15 tab 03/05/21 Mental Status Exam Mental Status Exam Patient Appearance: Appropriate Patient Orientation: Person, Place, Time and Situation Level of Consciousness: Awake and Alert Patient Behavior: Talkative, Cooperative, Isolative and Good Eye Contact Mood Description: Constricted and Flat Affect Description: Constricted and Flat Patient Cognition Impaired: No Ability to Follow Directions: Good Speech Pattern: Spontaneous Speech Memory Description: Intact Hallucinations: None Delusions: Not Present Thought Process: Rumination Thought Content: positive for [place], positive for Circumstantial and positive for Suicidal Ideation (denies) Depressive Symptoms: Low Self Esteem Judgement: Good Data Data Completed and Pending Completed studies during hospitalization [Text1]: 02/27/21 02/27/21 02/27/21 07:48 07:48 07:48 Estimat Average Glucose 103 Hemoglobin A1c % 5.2 Triglycerides 67 Cholesterol 159 LDL Cholesterol, Calc 101 HDL Cholesterol 45 Vitamin B12 428 Folate 15.2 TSH 2.66 Free T4 0.96 DS: Summary Hospital Course Hospital Course: Admission to adult psychiatry to address symptoms of PTSD, severe, recurrent major depression, Opiate use disorder. Care plan, medication regime and out patient plan of care prior to admission were reviewed. Education was provided regarding management of symptoms, medication and side effects. Nursing and social director worked extensively with patient on collateral contacts, plan of care, education regarding management of symptoms, medications and discharge planning. Mirtazapine and Seroquel were initiated. Pt will return to [facility] for Sublocade. Time spent discussing smoking cessation with patient: 3 to 10 minutes Status at Discharge Cognitive/behavioral status at discharge: non-psychotic, non-suicidal Functional status at discharge: independent ambulation Overall status at discharge: patient is back to baseline Time Spent with Patient Time attestation: Total time spent providing and/or coordinating discharge services: 35 Time spent: Greater than 30 minutes Discharge Plan Discharge Patient Disposition: Xfer Other Discharge Diagnosis: PTSD Recurrent Major Depression, Severe Opiate Use [id number]-Zkswygcfrd-Ipumxryna prescribed Referrals: JOYCE Aguilar [Other] - 03/05/21 10:00 am ([facility]erral to [facility] Patient needs to follow-up with program after discharge to assess availability for placement.) [facility]ENETTA DEGROOT [Other] - 1 Week (DR. LOCKETT WILL CALL PATIENT BACK WITH APPOINTMENT DATE) [facility] [Other] - 03/05/21 10:00 am (Referral to [facility] Patient needs to follow-up with program to assess ability for placement at program following [place] [facility] [facility] - 03/05/21 10:00 am ([facility] Patient needs to follow-up with program to assess ability for placement at program following [place] [facility] [facility] [Other] - 03/05/21 10:00 am ([facility]erral to [facility] to [facility] with [facility] [place] [facility] [place] determine availability for placement.) [facility] [Other] - 03/05/21 10:00 am (Referral to [facility] Patient needs to follow-up with [facility] after discharge [place] [facility] to determine availability for placement.) [facility] [Other] - 03/05/21 10:00 am (Referral to [facility] Patient needs to follow-up with [facility] after discharge to determine availability for placement) [facility] [Other] - 03/07/21 2:00 pm (Outpatient Therapy appointment Initial Assessment by Therapist Patient needs to show for Appointment in order to receive medication management services Appointment in office at [facility] ) Elizabeth Huitron [Other] - 04/02/21 10:00 am (Initial Appointment (Psychiatric Evaluation) Patient needs to show for psychiatric evaluation in order to receive medication management services Appointment is in office at [facility]) Elizabeth Huitron [Other] - 04/30/21 11:00 am (Psychiatric Medication Management appointment Patient needs to attend appointment to continue medication management services at [facility] Appointment in Office) Discharge Medications: New multivitamin [Daily-Faustino] Tablet 1 tab PO DAILY Qty: 30 RF: 0 mirtazapine 7.5 mg Tablet 7.5 mg PO BEDTIME Qty: 15 RF: 1 quetiapine 50 mg Tablet 50 mg PO BEDTIME Qty: 15 RF: 1 Narcan 4 mg/actuation spray,non-aerosol 4 mg intranasal Q2M PRN (Reason: opioid overdose) Qty: 2 RF: 0 quetiapine [Seroquel] 25 mg tablet 25 mg PO DAILY PRN (Reason: agitation) Qty: 7 RF: 2 Continued buprenorphine-naloxone [Suboxone] 8-2 mg film 1 strip sublingual DAILY RF: 0 Sublocade 100 mg/0.5 mL solution, extended rel syringe 100 mg subcut QWEEK RF: 0 nicotine 21 mg/24 hr patch 24 hour 1 patch topical DAILY Qty: 30 RF: 0 Discharge Orders: Discharge Order (Routine); Ordered 03/05/21 Ordered By: Bernice Hanks Diet: advance to usual diet Activity on Discharge: As tolerated Stand Alone Forms: Patient Portal Discharge page, Community Support Care Plan Goals: Mood Stabilization Sobriety Health Concerns: PTSD Major Depression Opiate Use Dsorder Plan of Treatment: Continue Sublocade with [facility] provider[facility] Take medications as directed Attend scheduled appointments Assessment: Alert, non-suicidal, non-psychotic. Interviewing with programs prior to discharge for residential level of care. Discharge Date/Time: 03/05/21 13:05
== END 2021-03-05 13:05 | disposition other institution (70) | DRG 751 ==
LOC: HO.ED 02-24 20:40 → HO.PM5 02-26 15:41
PROVIDERS: Internal Medicine; Admitting Provider Psychiatry & Neurology Psychiatry; Emergency Provider Emergency Medicine; Visit Provider Clinical Nurse Specialist Psychiatric/Mental Health, Adult
DX: F33.2 Major depressive disorder, recurrent severe without psychotic features (principal); U07.1 COVID-19; R45.851 Suicidal ideations; F11.20 Opioid dependence, uncomplicated; F43.10 Post-traumatic stress disorder, unspecified; F17.210 Nicotine dependence, cigarettes, uncomplicated; Z59.02 Unsheltered homelessness; Z91.51 Personal history of suicidal behavior; Z71.6 Tobacco abuse counseling; Z79.899 Other long term (current) drug therapy
CPT/HCPCS: 36415; 80048; 80061; 80076; 80307; 82077; 82607; 82746; 83036; 83735; 84439; 84443; 85025; 87635; 93005; 96361; 96372; 96374; 99285; 99291

== ENCOUNTER 2021-12-19 08:34 | Emergency (ER) | payer OTHER, SELFPAY ==
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
[2021-12-19 08:46] VITALS: BP 137/50; PULSE 90; RESP 20; TEMP 36.7; BMI 26.6
[2021-12-19] MEDS: Diphth,Pertus(ACell),Tet Adult 0.5 ML SYRINGE IM (08:59)
[2021-12-19] MEDS: cephALEXin 500 MG CAPSULE PO (08:59)
[2021-12-19] MEDS: Lidocaine HCl 1 % MPF 2 ML VIAL INFILTRATI (09:02)
--- NOTE | 2021-12-19 09:03 | PC.NURSE ---
pt sutured by lorne chinchilla pt yelling and restless during procedure. security at bedside suturing complete medicated as ordered
== END 2021-12-19 09:47 | disposition home or self-care (01) ==
PROVIDERS: Emergency Provider Emergency Medicine Emergency Medical Services
DX: S61.216A Laceration without foreign body of right little finger without damage to nail, initial encounter (principal); X99.1XXA Assault by knife, initial encounter; Y93.9 Activity, unspecified; Y92.9 Unspecified place or not applicable; Y99.9 Unspecified external cause status; F11.20 Opioid dependence, uncomplicated; F19.10 Other psychoactive substance abuse, uncomplicated; F17.200 Nicotine dependence, unspecified, uncomplicated
CPT/HCPCS: 12001; 90471; 90715; 99282; 99284

== ENCOUNTER 2022-03-21 17:10 | Emergency (ER) | payer OTHER, SELFPAY ==
--- NOTE | 2022-03-21 17:51 | ED_ITS ---
HPI - General Adult General Chief complaint: Psychiatric Symptoms <CARLOS Vanegas - Last Filed: 03/21/22 21:54> Stated complaint: crisis <CARLOS Vanegas Last Filed: 03/21/22 21:54> Time Seen by Provider: 03/21/22 17:26 <CARLOS Vanegas Last Filed: 03/21/22 21:54> Source: patient <CARLOS Vanegas - Last Filed: 03/21/22 21:54> Mode of arrival: ambulatory <CARLOS Vanegas Last Filed: 03/21/22 21:54> Limitations: no limitations <CARLOS Vanegas Last Filed: 03/21/22 21:54> History of Present Illness HPI narrative: 26-year-old male history of PTSD, major depression, opiate abuse presenting to the emergency department with suicidal ideation with plan to jump in front of a moving vehicle. Patient presents to the emergency department willingly and tells me that he is full of hatred. He tells me he is going down [address] punching random people and then running away. He reports he has been cutting himself throughout his body. When I went to go evaluate the patient I found him smoking cigarettes in the bathroom. He had cigarettes hit in in the bathroom as well with a tester regulator. Denies visual, auditory tactile hallucinations. Denies drugs, alcohol tobacco however was noted to be smoking. Patient poor historian, unwilling to answer questions. No medical complaints at this time. <CARLOS Vanegas Last Filed: 03/21/22 21:54> Related Data Home medications: Home Medications Medication Instructions Recorded Confirmed buprenorphine 8 mg-naloxone 2 mg 1 strip sublingual DAILY 03/21/22 03/21/22 sublingual film (Suboxone) quetiapine 100 mg tablet 1 tab PO BID@0700,1200 03/21/22 03/21/22 quetiapine 300 mg tablet 1 tab PO BEDTIME 03/21/22 03/21/22 <CRALOS Vanegas Last Filed: 03/21/22 21:54> Allergies/adverse reactions: Allergies Allergy/AdvReac Type Severity Reaction Status Date / Time lamotrigine [From Lamictal] AdvReac Severe pt reports Verified 03/21/22 18:06 lamictal precipitates panic attacks <CARLOS Vanegas - Last Filed: 03/21/22 21:54> Review of Systems Review of Systems: Constitutional : No Fever, No Chills ENT/Mouth : No Ear Pain, No Nasal Congestion, No sore throat Eyes: No Eye Pain, No Swelling, No Redness Cardiovascular : No Chest Pain, No SOB Respiratory : No Cough, No Sputum, No Dyspnea Gastrointestinal : No Nausea, No Vomiting, No Diarrhea, No Hematochezia, No Melena Genitourinary : No Dysuria, No Urinary Frequency, No Hematuria Musculoskeletal : No Myalgias Skin : No Skin Lesions, No rash Neuro : No Weakness, No Numbness, No Paresthesias, No Dizziness, No Headache Psych : positive Anxiety, positive Depression, positive SI, No HI All other systems reviewed and are negative <CARLOS Vanegas - Last Filed: 03/21/22 21:54> Yes all other systems are reviewed and are negative <CARLOS Vanegas - Last Filed: 03/21/22 21:54> PMFSH Past Medical History Attestation statement: The following information was validated with the patient. <CARLOS Vanegas Last Filed: 03/21/22 21:54> Source: old records reviewed and nursing notes reviewed <CARLOS Vanegas - Last Filed: 03/21/22 21:54> Medical History: Medical History COVID-19 Drug overdose Substance abuse <CARLOS Vanegas - Last Filed: 03/21/22 21:54> Social History Social History: Social History Household Members: Other Household Members Other:: Pt states he is homeless Housing: Homeless Do you presently have visiting nurse or other home services: No Alcohol intake: unknown Patient Tobacco Use Status: Current everyday Tobacco user Second Hand Smoke Exposure: No Use of substances other than those prescribed or required for medical reasons: Unknown Substance Use Type: Crack/Cocaine, Heroin, Opiates and Caffiene Advance Directives: No Advance Directives Information Provided: No service: No Sexual orientation: Straight/Heterosexual <CARLOS Vanegas - Last Filed: 03/21/22 21:54> Physical Exam ED Vital Signs: Vital Signs - 24 hr 03/21/22 17:57 03/22/22 06:31 03/22/22 07:54 Temperature 98.1 F 98.3 F Pulse Rate 105 H 82 53 Respiratory Rate 20 16 18 Blood Pressure 138/79 134/72 94/51 L Pulse Oximetry 96 98 96 Oxygen Delivery Method Room Air Room Air Room Air BMI result Body Mass Index 25.8 vss <CARLOS Vanegas - Last Filed: 03/21/22 21:54> Vital Signs - 24 hr 03/21/22 17:57 03/22/22 06:31 03/22/22 07:54 Temperature 98.1 F 98.3 F Pulse Rate 105 H 82 53 Respiratory Rate 20 16 18 Blood Pressure 138/79 134/72 94/51 L Pulse Oximetry 96 98 96 Oxygen Delivery Method Room Air Room Air Room Air BMI result Body Mass Index 25.8 <Tanesha Kathleen MD - Last Filed: 03/22/22 08:19> Appearance: Alert.? Oriented X3.? No acute distress.? Head: Normocephalic, atraumatic, no step-offs or deformities Eyes: Pupils equal, round and reactive to light.? Neck: Normal inspection.? Neck supple.? CVS: Normal heart rate and rhythm.? Pulses normal.? Respiratory: No respiratory distress.? Breath sounds normal.? Abdomen: Soft and nontender.? Skin: Skin warm and dry.? Normal skin color.? Normal skin turgor.?+ old superficial healing self-inflicted wounds to abdomen bilateral forearms. Extremities: No lower extremity edema.? No calf ttp. 5/5 strength to bilateral upper and lower extremities Neuro: Oriented X 3.? No motor deficit.? No sensory deficit. CN 2-12 intact <CARLOS Vanegas - Last Filed: 03/21/22 21:54> Course Reevaluation(s) Reevaluation #1: Patient noted to have a slightly elevated white blood cell count however I do not suspect it is from infectious, it appears to be that patient has chronically elevated white blood cell count. Chemistry with no acute findings. Ethanol negative. <CARLOS Vanegas - Last Filed: 03/21/22 21:54> Time: 20:16 <CARLOS Vanegas - Last Filed: 03/21/22 21:54> Reevaluation #2: UA without infection. Behavioral health team evaluated patient states patient will be N follow-up. <CARLOS Vanegas - Last Filed: 03/21/22 21:54> Time: 21:53 <CARLOS Vanegas - Last Filed: 03/21/22 21:54> Reevaluation #3: 26-year-old male presented with suicidal ideation labs reviewed with chronic leukocytosis, stable vital signs, physician observation to continue. <Tanesha Kathleen MD - Last Filed: 03/22/22 08:19> Time: 08:18 <Tanesha Kathleen MD - Last Filed: 03/22/22 08:19> Medical Decision Making MDM Narrative Medical decision making narrative: 1753 26 year old male presents w/ SI w/ plan. PE benign Plan- labs, urine, hernandez <CARLOS Vanegas - Last Filed: 03/21/22 21:54> Medical Records Medical records reviewed: Yes I reviewed the patient's medical records. <CARLOS Vanegas - Last Filed: 03/21/22 21:54> Lab Data Lab results reviewed: Yes I reviewed the patient's lab results. <CARLOS Vanegas - Last Filed: 03/21/22 21:54> Result diagrams: : 03/21/22 18:06 03/21/22 18:06 <CARLOS Vanegas - Last Filed: 03/21/22 21:54> Labs: Lab Results 03/21/22 03/21/22 03/21/22 Range/Units 18:06 18:06 18:06 WBC 12.0 H (4.8-10.8) X10*3/uL RBC 4.81 (4.60-5.80) X10*6/uL Hgb 13.5 L (14.0-18.0) g/dl Hct 39.7 L (42.0-52.0) % MCV 82.5 (80.0-98.0) fL MCH 28.1 (27.0-33.0) pg MCHC 34.0 (31.0-36.0) g/dl RDW 14.0 (11.0-16.0) % Plt Count 309 (160-400) X10*3/uL MPV 9.9 (9.4-12.4) fL Immature Gran % (Auto) 0.4 (0.0-0.4) % Neut % (Auto) 64.0 (45-73) % Lymph % (Auto) 25.4 (20-40) % [place] % (Auto) 9.7 (2-11) % Eos % (Auto) 0.2 (0-4) % Baso % (Auto) 0.3 (0-2) % Lymph # (Auto) 3.1 (1.2-4.9) X10*3/uL [place] # (Auto) 1.2 (0.1-1.2) X10*3/uL Eos # (Auto) 0.0 (0.0-0.4) X10*3/uL Baso # (Auto) 0.0 (0.0-0.2) X10*3/uL Abs Immat Gran (auto) 0.05 H (0.00-0.03) X10*3/uL Absolute Neuts (auto) 7.7 (2.0-8.3) x10*3/uL Absolute Nucleated RBC 0.000 (0.0-0.012) X10*3/uL Nucleated RBC % (auto) 0.0 (0.0-0.2) /100WBC Sodium 141 (135-145) mmol/L Potassium 4.2 (3.3-5.1) mmol/L Chloride 102 (96-108) mmol/L Carbon Dioxide 27 (22-29) mmol/L Anion Gap 16 (12-20) BUN 11 (9-16) mg/dL Creatinine 0.86 (0.5-1.4) mg/dL Estim Creat Clear Calc 130.1 Estimated GFR > 60 Random Glucose 101 (60-115) mg/dL Calcium 10.0 D (8.4-10.2) mg/dL Magnesium 2.1 (1.6-2.6) mg/dL Total Bilirubin 0.4 (0.0-1.0) mg/dL AST 42 H (5-37) U/L ALT 47 H (0-40) U/L Alkaline Phosphatase 111 (39-117) U/L Total Protein 8.0 (6.5-8.0) g/dL Albumin 4.8 (3.5-5.0) g/dL Urine Color Urine Appearance Urine pH (5.0-9.0) Ur Specific [place] (1.005-1.025) Urine Protein (Neg-Trace) mg/dL Urine Glucose (UA) (Negative) mg/dL Urine Ketones (Negative) mg/dL Urine Blood (Negative) Urine Nitrite (Negative) Ur Leukocyte Esterase (Negative) Urine Opiates Screen (Not Detect) Urine Fentanyl Screen (Not Detect) Ur Barbiturates Screen (Not Detect) Ur Phencyclidine Scrn (Not Detect) Ur Amphetamines Screen (Not Detect) U Benzodiazepines Scrn (Not Detect) Urine Cocaine Screen (Not Detect) U Marijuana (THC) Screen (Not Detect) Ethyl Alcohol mg/dL COVID-19 (DO) Negative (Negative) COVID-19 Clin Com See Note 03/21/22 03/21/22 03/21/22 Range/Units 18:06 21:37 21:37 WBC (4.8-10.8) X10*3/uL RBC (4.60-5.80) X10*6/uL Hgb (14.0-18.0) g/dl Hct (42.0-52.0) % MCV (80.0-98.0) fL MCH (27.0-33.0) pg MCHC (31.0-36.0) g/dl RDW (11.0-16.0) % Plt Count (160-400) X10*3/uL MPV (9.4-12.4) fL Immature Gran % (Auto) (0.0-0.4) % Neut % (Auto) (45-73) % Lymph % (Auto) (20-40) % [place] % (Auto) (2-11) % Eos % (Auto) (0-4) % Baso % (Auto) (0-2) % Lymph # (Auto) (1.2-4.9) X10*3/uL [place] # (Auto) (0.1-1.2) X10*3/uL Eos # (Auto) (0.0-0.4) X10*3/uL Baso # (Auto) (0.0-0.2) X10*3/uL Abs Immat Gran (auto) (0.00-0.03) X10*3/uL Absolute Neuts (auto) (2.0-8.3) x10*3/uL Absolute Nucleated RBC (0.0-0.012) X10*3/uL Nucleated RBC % (auto) (0.0-0.2) /100WBC Sodium (135-145) mmol/L Potassium (3.3-5.1) mmol/L Chloride (96-108) mmol/L Carbon Dioxide (22-29) mmol/L Anion Gap (12-20) BUN (9-16) mg/dL Creatinine (0.5-1.4) mg/dL Estim Creat Clear Calc Estimated GFR Random Glucose (60-115) mg/dL Calcium (8.4-10.2) mg/dL Magnesium (1.6-2.6) mg/dL Total Bilirubin (0.0-1.0) mg/dL AST (5-37) U/L ALT (0-40) U/L Alkaline Phosphatase (39-117) U/L Total Protein (6.5-8.0) g/dL Albumin (3.5-5.0) g/dL Urine Color Yellow Urine Appearance Clear Urine pH 6.5 (5.0-9.0) Ur Specific [place] 1.025 (1.005-1.025) Urine Protein Negative (Neg-Trace) mg/dL Urine Glucose (UA) Negative (Negative) mg/dL Urine Ketones Negative (Negative) mg/dL Urine Blood Negative (Negative) Urine Nitrite Negative (Negative) Ur Leukocyte Esterase Negative (Negative) Urine Opiates Screen POSITIVE H (Not Detect) Urine Fentanyl Screen POSITIVE H (Not Detect) Ur Barbiturates Screen Not Detected (Not Detect) Ur Phencyclidine Scrn Not Detected (Not Detect) Ur Amphetamines Screen Not Detected (Not Detect) U Benzodiazepines Scrn Not Detected (Not Detect) Urine Cocaine Screen POSITIVE H (Not Detect) U Marijuana (THC) Screen Not Detected (Not Detect) Ethyl Alcohol < 10 mg/dL COVID-19 (DO) (Negative) COVID-19 Clin Com <CARLOS Vanegas - Last Filed: 03/21/22 21:54> Lab Results 03/21/22 03/21/22 03/21/22 Range/Units 18:06 18:06 18:06 WBC 12.0 H (4.8-10.8) X10*3/uL RBC 4.81 (4.60-5.80) X10*6/uL Hgb 13.5 L (14.0-18.0) g/dl Hct 39.7 L (42.0-52.0) % MCV 82.5 (80.0-98.0) fL MCH 28.1 (27.0-33.0) pg MCHC 34.0 (31.0-36.0) g/dl RDW 14.0 (11.0-16.0) % Plt Count 309 (160-400) X10*3/uL MPV 9.9 (9.4-12.4) fL Immature Gran % (Auto) 0.4 (0.0-0.4) % Neut % (Auto) 64.0 (45-73) % Lymph % (Auto) 25.4 (20-40) % [place] % (Auto) 9.7 (2-11) % Eos % (Auto) 0.2 (0-4) % Baso % (Auto) 0.3 (0-2) % Lymph # (Auto) 3.1 (1.2-4.9) X10*3/uL [place] # (Auto) 1.2 (0.1-1.2) X10*3/uL Eos # (Auto) 0.0 (0.0-0.4) X10*3/uL Baso # (Auto) 0.0 (0.0-0.2) X10*3/uL Abs Immat Gran (auto) 0.05 H (0.00-0.03) X10*3/uL Absolute Neuts (auto) 7.7 (2.0-8.3) x10*3/uL Absolute Nucleated RBC 0.000 (0.0-0.012) X10*3/uL Nucleated RBC % (auto) 0.0 (0.0-0.2) /100WBC Sodium 141 (135-145) mmol/L Potassium 4.2 (3.3-5.1) mmol/L Chloride 102 (96-108) mmol/L Carbon Dioxide 27 (22-29) mmol/L Anion Gap 16 (12-20) BUN 11 (9-16) mg/dL Creatinine 0.86 (0.5-1.4) mg/dL Estim Creat Clear Calc 130.1 Estimated GFR > 60 Random Glucose 101 (60-115) mg/dL Calcium 10.0 D (8.4-10.2) mg/dL Magnesium 2.1 (1.6-2.6) mg/dL Total Bilirubin 0.4 (0.0-1.0) mg/dL AST 42 H (5-37) U/L ALT 47 H (0-40) U/L Alkaline Phosphatase 111 (39-117) U/L Total Protein 8.0 (6.5-8.0) g/dL Albumin 4.8 (3.5-5.0) g/dL Urine Color Urine Appearance Urine pH (5.0-9.0) Ur Specific [place] (1.005-1.025) Urine Protein (Neg-Trace) mg/dL Urine Glucose (UA) (Negative) mg/dL Urine Ketones (Negative) mg/dL Urine Blood (Negative) Urine Nitrite (Negative) Ur Leukocyte Esterase (Negative) Urine Opiates Screen (Not Detect) Urine Fentanyl Screen (Not Detect) Ur Barbiturates Screen (Not Detect) Ur Phencyclidine Scrn (Not Detect) Ur Amphetamines Screen (Not Detect) U Benzodiazepines Scrn (Not Detect) Urine Cocaine Screen (Not Detect) U Marijuana (THC) Screen (Not Detect) Ethyl Alcohol mg/dL COVID-19 (DO) Negative (Negative) COVID-19 Clin Com See Note 03/21/22 03/21/22 03/21/22 Range/Units 18:06 21:37 21:37 WBC (4.8-10.8) X10*3/uL RBC (4.60-5.80) X10*6/uL Hgb (14.0-18.0) g/dl Hct (42.0-52.0) % MCV (80.0-98.0) fL MCH (27.0-33.0) pg MCHC (31.0-36.0) g/dl RDW (11.0-16.0) % Plt Count (160-400) X10*3/uL MPV (9.4-12.4) fL Immature Gran % (Auto) (0.0-0.4) % Neut % (Auto) (45-73) % Lymph % (Auto) (20-40) % [place] % (Auto) (2-11) % Eos % (Auto) (0-4) % Baso % (Auto) (0-2) % Lymph # (Auto) (1.2-4.9) X10*3/uL [place] # (Auto) (0.1-1.2) X10*3/uL Eos # (Auto) (0.0-0.4) X10*3/uL Baso # (Auto) (0.0-0.2) X10*3/uL Abs Immat Gran (auto) (0.00-0.03) X10*3/uL Absolute Neuts (auto) (2.0-8.3) x10*3/uL Absolute Nucleated RBC (0.0-0.012) X10*3/uL Nucleated RBC % (auto) (0.0-0.2) /100WBC Sodium (135-145) mmol/L Potassium (3.3-5.1) mmol/L Chloride (96-108) mmol/L Carbon Dioxide (22-29) mmol/L Anion Gap (12-20) BUN (9-16) mg/dL Creatinine (0.5-1.4) mg/dL Estim Creat Clear Calc Estimated GFR Random Glucose (60-115) mg/dL Calcium (8.4-10.2) mg/dL Magnesium (1.6-2.6) mg/dL Total Bilirubin (0.0-1.0) mg/dL AST (5-37) U/L ALT (0-40) U/L Alkaline Phosphatase (39-117) U/L Total Protein (6.5-8.0) g/dL Albumin (3.5-5.0) g/dL Urine Color Yellow Urine Appearance Clear Urine pH 6.5 (5.0-9.0) Ur Specific [place] 1.025 (1.005-1.025) Urine Protein Negative (Neg-Trace) mg/dL Urine Glucose (UA) Negative (Negative) mg/dL Urine Ketones Negative (Negative) mg/dL Urine Blood Negative (Negative) Urine Nitrite Negative (Negative) Ur Leukocyte Esterase Negative (Negative) Urine Opiates Screen POSITIVE H (Not Detect) Urine Fentanyl Screen POSITIVE H (Not Detect) Ur Barbiturates Screen Not Detected (Not Detect) Ur Phencyclidine Scrn Not Detected (Not Detect) Ur Amphetamines Screen Not Detected (Not Detect) U Benzodiazepines Scrn Not Detected (Not Detect) Urine Cocaine Screen POSITIVE H (Not Detect) U Marijuana (THC) Screen Not Detected (Not Detect) Ethyl Alcohol < 10 mg/dL COVID-19 (DO) (Negative) COVID-19 Clin Com <Tanesha Kathleen MD - Last Filed: 03/22/22 08:19> Critical Care Time Critical Care Time Critical Care Time: No <CARLOS Vanegas - Last Filed: 03/21/22 21:54> Discharge Plan Discharge Clinical Impression: Suicidal ideation, Opiate abuse, continuous <CARLOS Vanegas - Last Filed: 03/21/22 21:54> Patient Disposition: Still a Patient <CARLOS Vanegas - Last Filed: 03/21/22 21:54> Prescriptions: No Action quetiapine 100 mg tablet 1 tab PO BID@0700,1200 buprenorphine-naloxone [Suboxone] 8-2 mg film 1 strip sublingual DAILY quetiapine 300 mg tablet 1 tab PO BEDTIME <CARLOS Vanegas - Last Filed: 03/21/22 21:54> Interventions: [place]-Suicide Risk Severity Scale Last Done: 03/22/22 06:29 <CARLOS Vanegas - Last Filed: 03/21/22 21:54>
[2022-03-21 17:57] VITALS: BP 138/79; PULSE 105; RESP 20; TEMP 36.7; O2SAT 96; BMI 25.8
[2022-03-21 18:19] LABS: MANUAL DIFF FLAG NO
[2022-03-21 18:21] LABS: Basophils Percent Auto 0.3 % (0-2); Eosinophils Percent Auto 0.2 % (0-4); Hematocrit 39.7 % (42.0-52.0); Hemoglobin 13.5 g/dl (14.0-18.0); Imm Gran Abs Auto 0.05 X10*3/uL (0.00-0.03); Imm Gran Pct Auto 0.4 % (0.0-0.4); Lymphocytes Absolute Auto 3.1 X10*3/uL (1.2-4.9); Lymphocytes Percent Auto 25.4 % (20-40); Mean Corpuscular Hemoglobin 28.1 pg (27.0-33.0); Mean Corpuscular Volume 82.5 fL (80.0-98.0); Mean Platelet Volume 9.9 fL (9.4-12.4); Monocytes Absolute Auto 1.2 X10*3/uL (0.1-1.2); Monocytes Percent Auto 9.7 % (2-11); Neutrophils Absolute Auto 7.7 x10*3/uL (2.0-8.3); Platelet Count 309 X10*3/uL (160-400); Red Blood Count 4.81 X10*6/uL (4.60-5.80)
[2022-03-21 18:35] LABS: Alanine Aminotransferase 47 U/L (0-40); Albumin Level 4.8 g/dL (3.5-5.0); Alkaline Phosphatase 111 U/L (39-117); Anion Gap 16 (12-20); Aspartate Amino Transferase 42 U/L (5-37); Bilirubin Total 0.4 mg/dL (0.0-1.0); Blood Urea Nitrogen 11 mg/dL (9-16); COVID-19 Test Negative (Negative); Carbon Dioxide 27 mmol/L (22-29); Chloride 102 mmol/L (96-108); Creatinine Clr Calc Pharmacy 130.1; Estimated Glomerular Filt Rate > 60; Ethanol < 10 mg/dL; Glucose Random 101 mg/dL (60-115); IDNOW Serial# 16C4AD1C; Magnesium 2.1 mg/dL (1.6-2.6); Potassium 4.2 mmol/L (3.3-5.1); Sodium 141 mmol/L (135-145)
--- NOTE | 2022-03-21 18:53 | PC.NURSE ---
report given to NICK Al
--- NOTE | 2022-03-21 21:19 | PC.NURSE ---
Patient was just assessed by [facility], patient had a difficulty staying alert and awake during assessment required multiple attempts to wake him up, it is suspected that patient did something in bathroom during disaster recovery specialist when provider found him smoking, nothing was reported to this RN during report and no note was written, charge nurse made aware of the episode, will continue to monitor.
[2022-03-21 21:44] LABS: Appearance Urine Clear; Color Urine Yellow; Glucose Urine UA Negative (Negative); Leukocyte Esterase Urine Negative (Negative); Nitrite Urine Negative (Negative); PH 6.5 (5.0-9.0); Specific Gravity - Urine 1.025 (1.005-1.025); Urine Blood Negative (Negative); Urine Ketones Negative (Negative); Urine Protein Negative (Neg-Trace)
[2022-03-21 21:53] LABS: Amphetamine Screen Urine Not Detected (Not Detect); Barbiturates, Urine Not Detected (Not Detect); Benzodiazepines Screen Urine Not Detected (Not Detect); Cannabinoid Screen Urine Not Detected (Not Detect); Cocaine Screen Urine POSITIVE (Not Detect); Fentanyl, urine POSITIVE (Not Detect); Opiate Screen Urine POSITIVE (Not Detect); Phencyclidine Screen Urine Not Detected (Not Detect)
[2022-03-22 06:31] VITALS: BP 134/72; PULSE 82; RESP 16; O2SAT 98
--- NOTE | 2022-03-22 06:31 | PC.NURSE ---
Patient slept through the night, no distress observed/reported, med rec completed/pending provider's approval, disposition per N is EMANI follow up in the morning, VSS, behavior non concerning, will continue to monitor.
--- NOTE | 2022-03-22 07:26 | PC.NURSE ---
Addendum entered by Alona Bustamante 03/22/22 12:59: Pt requesting lyft to [address] [place] [address] in [place]. Care team aware. Original Note: No acute changes reported on overnight.
[2022-03-22 07:54] VITALS: BP 94/51; PULSE 53; RESP 18; TEMP 36.8; O2SAT 96
[2022-03-22] MEDS: QUEtiapine Fumarate 100 MG TABLET PO (12:39)
[2022-03-22] MEDS: Buprenorphine/Naloxone 8/2 mg FILM 1 FILM SUBLINGUAL (12:39)
== END 2022-03-22 13:14 | disposition home or self-care (01) ==
PROVIDERS: Physician Assistant; Emergency Provider Emergency Medicine
DX: R45.851 Suicidal ideations (principal); F11.20 Opioid dependence, uncomplicated; Z20.822 Contact with and (suspected) exposure to COVID-19; F43.10 Post-traumatic stress disorder, unspecified; F33.2 Major depressive disorder, recurrent severe without psychotic features; F17.200 Nicotine dependence, unspecified, uncomplicated; Z91.52 Personal history of nonsuicidal self-harm; Z79.899 Other long term (current) drug therapy
CPT/HCPCS: 36415; 80053; 80307; 81003; 82077; 83735; 85025; 87635; 99284; 99285

== ENCOUNTER 2022-12-05 12:48 | Inpatient (IN) | payer OTHER, SELFPAY ==
[2022-12-05 13:00] VITALS: BP 133/81; PULSE 82; RESP 16; TEMP 36.8; O2SAT 94; BMI 39.2
--- NOTE | 2022-12-05 13:00 | ED.GENADULT ---
HPI - General Adult General Chief complaint: Psychiatric Symptoms Stated complaint: SI Depression Time Seen by Provider: 12/05/22 15:17 Source: patient, RN notes reviewed and old records reviewed Mode of arrival: ambulatory Limitations: no limitations History of Present Illness HPI narrative: 27-year-old male with PMHx of MDD, PTSD, bipolar disorder, substance use d/o and SI presents to the ED today for depression, thoughts of SI with plan to shoot himself with a gun, noncompliance with his medications, and insomnia x1 wk. States he's thought of killing himself with a gun & has access to firearms at his friends house. Has not taken his prescribed medications in 2 weeks. Admits to snorting heroin and consuming etoh yesterday. Reports both visual and auditory hallucinations. Denies HI, tactile hallucinations. Denies IVDU. Denies fever, chills, CP, SOB, abd pain, N/V, diarrhea, or constipation. MD complaint: depression/SI Onset (ago): hour(s) Related Data Home Medications Medication Instructions Recorded Confirmed buprenorphine 8 mg-naloxone 2 mg 1 strip sublingual BID 03/21/22 12/05/22 sublingual film (Suboxone) quetiapine 100 mg tablet 1 tab PO BID@0700,1200 03/21/22 12/05/22 quetiapine 300 mg tablet 1 tab PO BEDTIME 03/21/22 12/05/22 buprenorphine 300 mg/1.5 mL 300 mg subcut QMONTH 12/05/22 12/05/22 solution,exten.rel.subcutaneous syringe (Sublocade) clonidine HCl 0.1 mg tablet 0.1 mg PO QID PRN Anxiety 12/05/22 12/05/22 hydroxyzine HCl 50 mg tablet 50 mg PO BID PRN Anxiety 12/05/22 12/05/22 ibuprofen 600 mg tablet 600 mg PO BID PRN Pain 12/05/22 12/05/22 nicotine 14 mg/24 hr daily 1 patch topical DAILY 12/05/22 12/05/22 transdermal patch Allergies Allergy/AdvReac Type Severity Reaction Status Date / Time lamotrigine [From Lamictal] AdvReac Severe pt reports Verified 03/21/22 18:06 lamictal precipitates panic attacks Review of Systems Review of Systems: Constitutional: No Weight loss, No Fever, No Chills, + insomnia Eyes: No Eye Pain, No Swelling, No Redness,No Vision Changes Cardiovascular: No Chest Pain, No SOB, No Edema, No Palpitations Respiratory: No Cough, No Sputum, No Dyspnea Gastrointestinal: No Nausea, No Vomiting, No Diarrhea, No Constipation, No Abdominal pain Genitourinary: No Dysuria, No Urinary Frequency Musculoskeletal: No joint pain, No Myalgias, No Joint Swelling Skin: No Skin Lesions, No rash Neuro: No Weakness, No Numbness, No Paresthesias Psych: No Anxiety/Panic, + Depression, + SI, No HI, +AH/VH, + Social Issues Yes all other systems are reviewed and are negative Constitutional: Constitutional: Reports as per [facility] Past Medical History Attestation statement: The following information was validated with the patient. Source: old records reviewed Medical History COVID-19 Drug overdose Substance abuse Social History Social History Household Members: Other Household Members Other:: Pt states he is homeless Housing: Homeless Do you presently have visiting nurse or other home services: No Alcohol intake: unknown Patient Tobacco Use Status: Current everyday Tobacco user Second Hand Smoke Exposure: No Substance Use Type: Crack/Cocaine, Heroin, Opiates and Caffiene Advance Directives: No Advance Directives Information Provided: No service: No Sexual orientation: Straight/Heterosexual Physical Exam ED Vital Signs: Vital Signs - 24 hr 12/05/22 13:00 Temperature 98.3 F Pulse Rate 82 Respiratory Rate 16 Blood Pressure 133/81 Pulse Oximetry 94 Oxygen Delivery Method Room Air BMI result Body Mass Index 39.2 Const General: cooperative and no acute distress Orientation/consciousness: patient oriented x3 Limitations: no limitations HENMT Head: Yes normal to inspection and Yes atraumatic Ears: hearing grossly normal bilaterally General nose exam: Normal external nose present Face and sinus: Yes normal facial exam Eyes General: appearance normal, both eyes and all related structures EOM: EOMs intact bilaterally Neck Neck: Yes normal visual inspection and Yes no meningeal signs Resp Effort & Inspection: normal respiratory effort and no respiratory distress Auscultation: clear to auscultation bilaterally Cardio Rate: regular rate Heart sounds: S1 normal heart sound present and S2 normal heart sound present GI Inspection: Yes normal to inspection Palpation (GI): Soft to palpation, nontender, no guarding and not rigid Skin Rashes: no rashes Wounds: no wounds Neuro General: patient oriented x3, gait normal, tone normal, moves all extremities, no meningeal signs, no focal motor deficits and CN's II-XI intact bilaterally Cranial nerves: Yes CN's II-XII intact bilaterally Gait exam (Neuro): Normal gait present Extrem General: Yes normal to inspection Psych Attitude: cooperative Thought content: Suicidality present, no homicidality, Hallucination(s) present auditory and visual and Depressive thoughts present Course Course Course Narrative: Patient is a 27 year old male with a history of depression, bipolar disorder, PTSD, and prior suicide attempts who presents feeling very depressed and has a plan to commit suicide. Patient is not currently taking any medications. Patient admits to heroin use (last yesterday). He admits to attempting suicide in the past years ago. He also reports having trouble sleeping for the past week. Reevaluation(s) Reevaluation #1: -1525-- no leukocytosis. no acute electrolyte abnormalities requiring intervention. tox positive for opiates, fentanyl, cocaine, THC. > plan to medically clear patient for care team consult -1628-- UA without infection. -1808--patient was evaluated by care team and will be an inpatient bed search. ED care transferred to [facility] pending BS -1844 - Patient will remain an inpatient bed search. Section 12 will be filled out to ensure patient stays within the department. Medical Decision Making Medical Decision Making [facility] Narrative: 27-year-old male with PMHx of MDD, PTSD, bipolar disorder, substance use d/o and SI presents to the ED today for depression, thoughts of SI with plan, noncompliance with medications, and insomnia x1 wk. + access to firearms. Vital signs stable. Physical exam unremarkable. Concern for SI vs substance use vs medication noncompliance. Plan: labs, UA, CARE team evaluation Please refer to course for remaining clinical decision making, interpretation of labs/imaging results, and discussions with consultants and/or family members. Differential Diagnosis Differential Diagnoses: The differential diagnosis associated with the presentation includes As above Consult Healthcare Provider Management of the patient was discussed with: Behavioral Health Provider Lab Data [facility] Lab Attestation statement: I reviewed the patient's lab results. 12/05/22 14:22 12/05/22 14:22 Labs: Lab Results 12/05/22 12/05/22 12/05/22 Range/Units 14:22 14:22 14:22 WBC 10.6 (4.8-10.8) X10*3/uL RBC 5.09 (4.60-5.80) X10*6/uL Hgb 14.4 (14.0-18.0) g/dl Hct 42.5 (42.0-52.0) % MCV 83.5 (80.0-98.0) fL MCH 28.3 (27.0-33.0) pg MCHC 33.9 (31.0-36.0) g/dl RDW 13.9 (11.0-16.0) % Plt Count 322 (160-400) X10*3/uL MPV 10.0 (9.4-12.4) fL Absolute Nucleated RBC 0.000 (0.0-0.012) X10*3/uL Nucleated RBC % (auto) 0.0 (0.0-0.2) /100WBC Sodium 140 (135-145) mmol/L Potassium 3.9 (3.3-5.1) mmol/L Chloride 98 (96-108) mmol/L Carbon Dioxide 32 H (22-29) mmol/L Anion Gap 14 (12-20) BUN 15 (9-16) mg/dL Creatinine 1.06 (0.5-1.4) mg/dL Estim Creat Clear Calc 98.3 Estimated GFR > 60 Random Glucose 116 H (60-115) mg/dL Calcium 10.2 (8.4-10.2) mg/dL Urine Color Urine Appearance Urine pH (5.0-9.0) Ur Specific [place] (1.005-1.025) Urine Protein (Neg-Trace) mg/dL Urine Glucose (UA) (Negative) mg/dL Urine Ketones (Negative) mg/dL Urine Blood (Negative) Urine Nitrite (Negative) Ur Leukocyte Esterase (Negative) Urine RBC (0-2) /HPF Urine WBC (0-5) /HPF Ur Squamous Epith Cells (0-2) /HPF Urine Bacteria (None Seen) Hyaline Casts (0-2) /LPF Salicylates < 5.0 L (15-30) mg/dL Urine Opiates Screen (Not Detect) Urine Fentanyl Screen (Not Detect) Acetaminophen < 17 (<30) mcg/mL Ur Barbiturates Screen (Not Detect) Ur Phencyclidine Scrn (Not Detect) Ur Amphetamines Screen (Not Detect) U Benzodiazepines Scrn (Not Detect) Urine Cocaine Screen (Not Detect) U Marijuana (THC) Screen (Not Detect) Ethyl Alcohol mg/dL 12/05/22 12/05/22 12/05/22 Range/Units 14:22 16:06 16:06 WBC (4.8-10.8) X10*3/uL RBC (4.60-5.80) X10*6/uL Hgb (14.0-18.0) g/dl Hct (42.0-52.0) % MCV (80.0-98.0) fL MCH (27.0-33.0) pg MCHC (31.0-36.0) g/dl RDW (11.0-16.0) % Plt Count (160-400) X10*3/uL MPV (9.4-12.4) fL Absolute Nucleated RBC (0.0-0.012) X10*3/uL Nucleated RBC % (auto) (0.0-0.2) /100WBC Sodium (135-145) mmol/L Potassium (3.3-5.1) mmol/L Chloride (96-108) mmol/L Carbon Dioxide (22-29) mmol/L Anion Gap (12-20) BUN (9-16) mg/dL Creatinine (0.5-1.4) mg/dL Estim Creat Clear Calc Estimated GFR Random Glucose (60-115) mg/dL Calcium (8.4-10.2) mg/dL Urine Color Yellow Urine Appearance Clear Urine pH 7.0 (5.0-9.0) Ur Specific [place] 1.025 (1.005-1.025) Urine Protein Trace (Neg-Trace) mg/dL Urine Glucose (UA) Negative (Negative) mg/dL Urine Ketones Trace (Negative) mg/dL Urine Blood Negative (Negative) Urine Nitrite Negative (Negative) Ur Leukocyte Esterase Negative (Negative) Urine RBC 0-2 (0-2) /HPF Urine WBC 0-5 (0-5) /HPF Ur Squamous Epith Cells 0-2 (0-2) /HPF Urine Bacteria None Seen (None Seen) Hyaline Casts 0-2 (0-2) /LPF Salicylates (15-30) mg/dL Urine Opiates Screen POSITIVE H (Not Detect) Urine Fentanyl Screen POSITIVE H (Not Detect) Acetaminophen (<30) mcg/mL Ur Barbiturates Screen Not Detected (Not Detect) Ur Phencyclidine Scrn Not Detected (Not Detect) Ur Amphetamines Screen Not Detected (Not Detect) U Benzodiazepines Scrn Not Detected (Not Detect) Urine Cocaine Screen POSITIVE H (Not Detect) U Marijuana (THC) Screen POSITIVE H (Not Detect) Ethyl Alcohol < 10 mg/dL Radiology Impression Discussion of test interpretation with radiology: I have reviewed the radiologist's reading. External Record Review External record reviewed: Inpatient record, Office record, Outpatient record, Prior outpatient labs, Prior outpatient radiology, Primary care record and Outside ED record Tests considered The following testing was considered but not selected: As above Social Determinants Patient?s care significantly limited by Social Determinants of Health including: Alcoholism and drug addiction in family, Problems related to primary support group and Other Social Determinant of Health Discharge Plan Discharge Clinical Impression: Suicidal ideations, Depression, Polysubstance abuse Patient Disposition: Still a Patient Prescriptions: No Action quetiapine 100 mg tablet 1 tab PO BID@0700,1200 buprenorphine-naloxone [Suboxone] 8-2 mg film 1 strip sublingual BID quetiapine 300 mg tablet 1 tab PO BEDTIME nicotine 14 mg/24 hr patch 24 hour 1 patch topical DAILY hydroxyzine HCl 50 mg tablet 50 mg PO BID PRN (Reason: Anxiety) ibuprofen 600 mg tablet 600 mg PO BID PRN (Reason: Pain) Sublocade 300 mg/1.5 mL solution, extended rel syringe 300 mg subcut QMONTH clonidine HCl 0.1 mg tablet 0.1 mg PO QID PRN (Reason: Anxiety) Interventions: [place]-Suicide Risk Severity Scale Last Done: 12/05/22 15:10
[2022-12-05 14:26] LABS: Hematocrit 42.5 % (42.0-52.0); Hemoglobin 14.4 g/dl (14.0-18.0); Mean Corpuscular HGB Conc 33.9 g/dl (31.0-36.0); Mean Corpuscular Hemoglobin 28.3 pg (27.0-33.0); Mean Corpuscular Volume 83.5 fL (80.0-98.0); Platelet Count 322 X10*3/uL (160-400); Red Blood Count 5.09 X10*6/uL (4.60-5.80); Red Cell Distribution Width 13.9 % (11.0-16.0); White Blood Count 10.6 X10*3/uL (4.8-10.8)
--- NOTE | 2022-12-05 14:37 | PHA.MEDREC ---
Pharmacy Consult ? Medication Reconciliation Pharmacy has completed the medication reconciliation. Spoke to patient to confirm meds.
[2022-12-05 14:47] LABS: Anion Gap 14 (12-20); Blood Urea Nitrogen 15 mg/dL (9-16); Calcium 10.2 mg/dL (8.4-10.2); Carbon Dioxide 32 mmol/L (22-29); Chloride 98 mmol/L (96-108); Creatinine Clr Calc Pharmacy 98.3; Estimated Glomerular Filt Rate > 60; Ethanol < 10 mg/dL; Glucose Random 116 mg/dL (60-115); Potassium 3.9 mmol/L (3.3-5.1); Sodium 140 mmol/L (135-145)
[2022-12-05 14:56] LABS: Acetaminophen LAB < 17 mcg/mL (<30); Salicylate < 5.0 mg/dL (15-30)
[2022-12-05 16:20] LABS: Appearance Urine Clear; Color Urine Yellow; Glucose Urine UA Negative (Negative); Leukocyte Esterase Urine Negative (Negative); Nitrite Urine Negative (Negative); Specific Gravity - Urine 1.025 (1.005-1.025); Urine Blood Negative (Negative); Urine Ketones Trace mg/dL (Negative); Urine Protein Trace mg/dL (Neg-Trace)
[2022-12-05 16:25] LABS: Bacteria Urine None Seen (None Seen); Hyaline Casts Urine 0-2 /LPF (0-2); RBC Urine 0-2 /HPF (0-2); Squamous Epithelial Cell Urine 0-2 /HPF (0-2); WBC Urine 0-5 /HPF (0-5)
--- NOTE | 2022-12-05 16:33 | PC.NURSE ---
Sd came in reporting SI and recent heroin abuse. He reports he is feeling hopeless and needs help. Complaint and cooperative with changing his clothes over and giving lab samples. Sd ate 100% of his lunch. Care team to evaluate when labs are back. Since arriving Sd has been resting quietly in his room.
[2022-12-05 17:26] LABS: Amphetamine Screen Urine Not Detected (Not Detect); Barbiturates, Urine Not Detected (Not Detect); Benzodiazepines Screen Urine Not Detected (Not Detect); Cannabinoid Screen Urine POSITIVE (Not Detect); Cocaine Screen Urine POSITIVE (Not Detect); Fentanyl, urine POSITIVE (Not Detect); Opiate Screen Urine POSITIVE (Not Detect); Phencyclidine Screen Urine Not Detected (Not Detect)
[2022-12-05 21:07] VITALS: BP 144/66; PULSE 88; RESP 18; TEMP 36.6; O2SAT 98
[2022-12-05] MEDS: QUEtiapine Fumarate 300 MG TABLET PO (21:23)
[2022-12-05] MEDS: cloNIDine HCL 0.1 MG TABLET PO (21:24)
[2022-12-05] MEDS: hydrOXYzine HCL 50 MG TABLET PO (21:24)
--- NOTE | 2022-12-06 01:14 | PC.NURSE ---
RN to RN report given to M5 RN. Patient transported by Nurse to unit with security
[2022-12-06 02:58] VITALS: BP 130/78; PULSE 80; RESP 18; TEMP 36.7; O2SAT 99
--- NOTE | 2022-12-06 04:43 | PC.NURSE ---
RN brought patient to the floor on M5 at 0115. Patient was calm, cooperative but falling asleep upon interview. Patient had reported not sleeping for a very long time and seroquel administered in ED. Patient was able to answer and sign most paperwork and questions but wanted to sleep. He reports hx of SI. Drug use, no alcohol, needs COW ordered, currently not complaining of any withdrawl symptoms. He reports his girlfriend was trigger and that he wanted to shoot himself but also reported wanting to hurt someone else but reports it wasnt his girlfriend. He also states his family interactions trigger him and that isolation is his response. He is homeless, denies current SI/HI, has been here once before. Ambulatory and independent, no acute issues tonight. WIll let patient sleep and re-address needs in morning with team.
[2022-12-06] MEDS: QUEtiapine Fumarate 100 MG TABLET PO (09:43)
[2022-12-06 09:45] VITALS: BP 98/55; PULSE 97; RESP 18; TEMP 36.3; O2SAT 98
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
[2022-12-06 16:29] VITALS: BP 131/76; PULSE 81; TEMP 36.1; O2SAT 97
[2022-12-06] MEDS: Mirtazapine 15 MG TABLET PO (21:11)
[2022-12-06] MEDS: hydrOXYzine HCL 50 MG TABLET PO (21:12)
[2022-12-06] MEDS: OLANZapine 10 MG TABLET PO (21:12)
[2022-12-07 08:47] VITALS: BP 108/69; PULSE 56; RESP 14; TEMP 36.3; O2SAT 97
--- NOTE | 2022-12-07 13:12 | HO.PSYCHPN ---
Subjective Subjective Date of Service: 12/07/22 Reason For Visit: SI Subjective Notes: Conditional Voluntary Interim History: The nursing staff reported the patient had not been taking his Suboxone because he said that he still has opiates in his blood. He slept well and took Zyprexa last night. On interview the patient denies new symptoms he feels a little better but still sedated. Mental Status Exam Mental Status Exam Patient Appearance: Unkempt Patient Orientation: Person and Situation Level of Consciousness: Awake Patient Behavior: Guarded and Passive Mood Description: Calm Affect Description: Constricted and Labile Ability to Follow Directions: Good Speech Pattern: Clear Hallucinations: None Delusions: Not Present Thought Process: Evasive and Slowed Thinking Thought Content: positive for [place] and positive for Circumstantial Judgement: Fair Diagnostics Vital Signs (24Hr): Vital Signs - 24 hr 12/06/22 16:29 12/07/22 08:47 Temperature 96.9 F 97.3 F Pulse Rate 81 56 Respiratory Rate 14 Blood Pressure 131/76 108/69 Pulse Oximetry 97 97 Oxygen Delivery Method Room Air Room Air BMI result Body Mass Index 39.2 Labs 12/05/22 14:22 12/05/22 14:22 Labs: Laboratory Results - last 48 hr 12/05/22 12/05/22 12/05/22 14:22 14:22 14:22 WBC 10.6 RBC 5.09 Hgb 14.4 Hct 42.5 MCV 83.5 MCH 28.3 MCHC 33.9 RDW 13.9 Plt Count 322 MPV 10.0 Absolute Nucleated RBC 0.000 Nucleated RBC % (auto) 0.0 Sodium 140 Potassium 3.9 Chloride 98 Carbon Dioxide 32 H Anion Gap 14 BUN 15 Creatinine 1.06 Estim Creat Clear Calc 98.3 Estimated GFR > 60 Random Glucose 116 H Calcium 10.2 Urine Color Urine Appearance Urine pH Ur Specific [place] Urine Protein Urine Glucose (UA) Urine Ketones Urine Blood Urine Nitrite Ur Leukocyte Esterase Urine RBC Urine WBC Ur Squamous Epith Cells Urine Bacteria Hyaline Casts Salicylates < 5.0 L Urine Opiates Screen Urine Fentanyl Screen Acetaminophen < 17 Ur Barbiturates Screen Ur Phencyclidine Scrn Ur Amphetamines Screen U Benzodiazepines Scrn Urine Cocaine Screen U Marijuana (THC) Screen Ethyl Alcohol 12/05/22 12/05/22 12/05/22 14:22 16:06 16:06 WBC RBC Hgb Hct MCV MCH MCHC RDW Plt Count MPV Absolute Nucleated RBC Nucleated RBC % (auto) Sodium Potassium Chloride Carbon Dioxide Anion Gap BUN Creatinine Estim Creat Clear Calc Estimated GFR Random Glucose Calcium Urine Color Yellow Urine Appearance Clear Urine pH 7.0 Ur Specific [place] 1.025 Urine Protein Trace Urine Glucose (UA) Negative Urine Ketones Trace Urine Blood Negative Urine Nitrite Negative Ur Leukocyte Esterase Negative Urine RBC 0-2 Urine WBC 0-5 Ur Squamous Epith Cells 0-2 Urine Bacteria None Seen Hyaline Casts 0-2 Salicylates Urine Opiates Screen POSITIVE H Urine Fentanyl Screen POSITIVE H Acetaminophen Ur Barbiturates Screen Not Detected Ur Phencyclidine Scrn Not Detected Ur Amphetamines Screen Not Detected U Benzodiazepines Scrn Not Detected Urine Cocaine Screen POSITIVE H U Marijuana (THC) Screen POSITIVE H Ethyl Alcohol < 10 Medications Medications Current Medications Acetaminophen (Acetaminophen 325 Mg Tablet) 650 mg PO Q6H PRN PRN Reason: Headache/Pain Mild Scale (1-3) Al Hydroxide/Mg Hydroxide (Magnesium Hydrox/Alum Hydrox 30 Ml Oral.Susp) 30 ml PO Q6H PRN PRN Reason: Heartburn/Nausea Buprenorphine/Naloxone (Buprenorphine/Naloxone 8/2 Mg Film) 1 film SUBLINGUAL BID [facility] Last Admin: 12/07/22 09:29 Dose: Not Given Clonidine HCl (Clonidine Hcl 0.1 Mg Tablet) 0.1 mg PO QID PRN; Protocol PRN Reason: Anxiety Last Admin: 12/05/22 21:24 Dose: 0.1 mg Hydroxyzine HCl (Hydroxyzine Hcl 50 Mg Tablet) 50 mg PO BID PRN PRN Reason: Anxiety Last Admin: 12/06/22 21:12 Dose: 50 mg Magnesium Hydroxide (Milk Of Magnesia 30 Ml Oral.Susp) 30 ml PO DAILY PRN PRN Reason: Constipation Mirtazapine (Mirtazapine 15 Mg Tablet) 15 mg PO BEDTIME [facility] Last Admin: 12/06/22 21:11 Dose: 15 mg Nicotine (Nicotine 14 Mg Patch.Td24) 14 mg TRANSDERMA DAILY [facility] Last Admin: 12/07/22 09:29 Dose: Not Given Olanzapine (Olanzapine 10 Mg Tablet) 10 mg PO BEDTIME [facility] Last Admin: 12/06/22 21:12 Dose: 10 mg Pharmacy Consult (Consult Rx Perform Med Rec) 1 each MISCELLANE ONCE PRN PRN Reason: Consult order Trazodone HCl (Trazodone Hcl 50 Mg Tablet) 50 mg PO BEDTIME MRX1 PRN PRN Reason: Insomnia Allergies Allergies Allergy/AdvReac Type Severity Reaction Status Date / Time lamotrigine [From Lamictal] AdvReac Severe pt reports Verified 03/21/22 18:06 lamictal precipitates panic attacks Assessment & Plan Assessment & Plan (1) Polysubstance abuse: Status: Acute Code(s): F19.10 - Other psychoactive substance abuse, uncomplicated (2) Mood disorder: Status: Acute Code(s): F39 - Unspecified mood [affective] disorder Plan The patient is an adult descent male with a past history of cocaine use disorder, opiate use disorder, alcohol use disorder and episodes of depression with racing thoughts. The patient is chronically homeless and he has limited social support due to his substance abuse. He self presented to the emergency room complaining of suicidal ideation. Plan 1. Gather collateral information. We will try to contact his mother. 2. Start Zyprexa 10 mg p.o. q.h.s. as a mood stabilizer. 3. Start Remeron 15 mg p.o. q.h.s. to target depression. 4. Addiction consult. 5. Continue with medical treatment. 6. Reassessment with results Reason for continued inpatient stay Substantial Risk for: inability to function, rapid decompensation and med/psych decompensation Time Spent With Patient Time: Total time managing care of this patient today __20__ minutes.
[2022-12-07 15:33] LABS: Alanine Aminotransferase 28 U/L (0-40); Albumin Level 3.7 g/dL (3.5-5.0); Alkaline Phosphatase 107 U/L (39-117); Anion Gap 11 (12-20); Aspartate Amino Transferase 19 U/L (5-37); Bilirubin Total 0.2 mg/dL (0.0-1.0); Blood Urea Nitrogen 11 mg/dL (9-16); Calcium 9.4 mg/dL (8.4-10.2); Carbon Dioxide 28 mmol/L (22-29); Chloride 108 mmol/L (96-108); Cholesterol 161 mg/dL; Creatinine Clr Calc Pharmacy 128.7; Estimated Glomerular Filt Rate > 60; Glucose Fasting 96 mg/dL (60-99); HDL Cholesterol 40 mg/dL; LDL Cholesterol Calculated 95 mg/dl; Potassium 4.7 mmol/L (3.3-5.1); Sodium 142 mmol/L (135-145); Total Protein 6.7 g/dL (6.5-8.0); Triglycerides 131 mg/dL
[2022-12-07 16:48] VITALS: BP 123/77; PULSE 58; TEMP 37; O2SAT 98
[2022-12-07] MEDS: OLANZapine 10 MG TABLET PO (21:05)
[2022-12-07] MEDS: Mirtazapine 15 MG TABLET PO (21:05)
[2022-12-08 06:00] VITALS: BP 118/76; PULSE 52; RESP 18
--- NOTE | 2022-12-08 15:22 | P.PNPSI_ITS ---
Subjective Subjective Date of Service: 12/08/22 Reason For Visit: SI Subjective Notes: Conditional Voluntary Healthcare Proxy: No Guardianship: No Medical Problems Affecting Mental Status: No Interim History: Met with pt and Marlene PAREKH. Pt reports he would like to transfer to a dual dx program such as [facility]. He prefers not to go through [facility]. States he is here due to everyday problems. 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 Reports hx of SI a few years ago after his sister . He has made a previous attempt via jumping from a bridge and was here at [facility] by history. Declines med changes, reports Mirtazapine is helpful for him. Denies medical issues. Medication Compliance: Yes Side effects from medications: No Attending Groups: Yes Review of Systems Acute medical concerns: No Medical Review of Systems: unchanged Mental Status Exam Mental Status Exam Patient Appearance: Unkempt Patient Orientation: Person and Situation Level of Consciousness: Awake Patient Behavior: Guarded and Passive Mood Description: Calm Affect Description: Constricted and Labile Ability to Follow Directions: Good Speech Pattern: Clear Hallucinations: None Delusions: Not Present Thought Process: Evasive and Slowed Thinking Thought Content: positive for [place] and positive for Circumstantial Judgement: Fair Diagnostics Vital Signs (24Hr): Vital Signs - 24 hr 12/07/22 16:48 12/08/22 06:00 Temperature 98.6 F Pulse Rate 58 52 Respiratory Rate 18 Blood Pressure 123/77 118/76 Pulse Oximetry 98 Oxygen Delivery Method Room Air Room Air BMI result Body Mass Index 39.2 Labs 12/05/22 14:22 12/07/22 14:49 Labs: Laboratory Results - last 48 hr 12/07/22 14:49 Sodium 142 Potassium 4.7 D Chloride 108 Carbon Dioxide 28 Anion Gap 11 L BUN 11 Creatinine 0.81 Estim Creat Clear Calc 128.7 Estimated GFR > 60 Fasting Glucose 96 Calcium 9.4 D Total Bilirubin 0.2 AST 19 ALT 28 Alkaline Phosphatase 107 Total Protein 6.7 Albumin 3.7 Triglycerides 131 Cholesterol 161 LDL Cholesterol, Calc 95 HDL Cholesterol 40 Medications Medications Current Medications Acetaminophen (Acetaminophen 325 Mg Tablet) 650 mg PO Q6H PRN PRN Reason: Headache/Pain Mild Scale (1-3) Al Hydroxide/Mg Hydroxide (Magnesium Hydrox/Alum Hydrox 30 Ml Oral.Susp) 30 ml PO Q6H PRN PRN Reason: Heartburn/Nausea Buprenorphine/Naloxone (Buprenorphine/Naloxone 8/2 Mg Film) 1 film SUBLINGUAL BID [facility] Last Admin: 12/08/22 08:27 Dose: Not Given Clonidine HCl (Clonidine Hcl 0.1 Mg Tablet) 0.1 mg PO QID PRN; Protocol PRN Reason: Anxiety Last Admin: 12/05/22 21:24 Dose: 0.1 mg Hydroxyzine HCl (Hydroxyzine Hcl 50 Mg Tablet) 50 mg PO BID PRN PRN Reason: Anxiety Last Admin: 12/06/22 21:12 Dose: 50 mg Magnesium Hydroxide (Milk Of Magnesia 30 Ml Oral.Susp) 30 ml PO DAILY PRN PRN Reason: Constipation Mirtazapine (Mirtazapine 15 Mg Tablet) 15 mg PO BEDTIME [facility] Last Admin: 12/07/22 21:05 Dose: 15 mg Nicotine (Nicotine 14 Mg Patch.Td24) 14 mg TRANSDERMA DAILY [facility] Last Admin: 12/08/22 08:27 Dose: Not Given Olanzapine (Olanzapine 10 Mg Tablet) 10 mg PO BEDTIME [facility] Last Admin: 12/07/22 21:05 Dose: 10 mg Pharmacy Consult (Consult Rx Perform Med Rec) 1 each MISCELLANE ONCE PRN PRN Reason: Consult order Trazodone HCl (Trazodone Hcl 50 Mg Tablet) 50 mg PO BEDTIME MRX1 PRN PRN Reason: Insomnia Allergies Allergies Allergy/AdvReac Type Severity Reaction Status Date / Time lamotrigine [From Lamictal] AdvReac Severe pt reports Verified 03/21/22 18:06 lamictal precipitates panic attacks Assessment & Plan Assessment & Plan (1) Polysubstance abuse: Status: Acute Code(s): F19.10 - Other psychoactive substance abuse, uncomplicated (2) Mood disorder: Status: Acute Code(s): F39 - Unspecified mood [affective] disorder Plan The patient is an adult descent male with a past history of cocaine use disorder, opiate use disorder, alcohol use disorder and episodes of depression with racing thoughts. The patient is chronically homeless and he has limited social support due to his substance abuse. He self presented to the emergency room complaining of suicidal ideation. Plan 1. Gather collateral information. We will try to contact his mother. 2. Start Zyprexa 10 mg p.o. q.h.s. as a mood stabilizer. 3. Start Remeron 15 mg p.o. q.h.s. to target depression. 4. Addiction consult. 5. Continue with medical treatment. 6. Reassessment with results 12/08/22 Continue current plan. Pt asking for residential options today. Patient educated on: medication risk/benefits and therapeutic strategies Informed Consent: understands Reason for continued inpatient stay Substantial Risk for: rapid decompensation Time Spent With Patient Time: Total time managing care of this patient today ____ minutes.
[2022-12-08 17:56] VITALS: BP 132/79; PULSE 82; TEMP 36.3; O2SAT 98
[2022-12-08] MEDS: Mirtazapine 15 MG TABLET PO (21:24)
[2022-12-08] MEDS: OLANZapine 10 MG TABLET PO (21:24)
[2022-12-09] MEDS: Acetaminophen 325 MG TABLET 650 MG PO (01:16)
[2022-12-09] MEDS: traZODone HCL 50 MG TABLET PO (01:16)
--- NOTE | 2022-12-09 10:06 | P.PNPSI_ITS ---
Subjective Subjective Date of Service: 12/09/22 Reason For Visit: SI Subjective Notes: Conditional Voluntary Healthcare Proxy: No Guardianship: No Medical Problems Affecting Mental Status: No Interim History: Isolative, depressed. In bed, denies issues of concern. States he is catching up on sleep. No questions on medications. Continues with significant interest in a program after discharge. Medication Compliance: Yes Side effects from medications: No Attending Groups: No Review of Systems Acute medical concerns: No Medical Review of Systems: unchanged Mental Status Exam Mental Status Exam Patient Appearance: Unkempt Patient Orientation: Person and Situation Level of Consciousness: Awake Patient Behavior: Guarded and Passive Mood Description: Calm Affect Description: Constricted and Labile Ability to Follow Directions: Good Speech Pattern: Clear Hallucinations: None Delusions: Not Present Thought Process: Evasive and Slowed Thinking Thought Content: positive for [place] and positive for Circumstantial Judgement: Fair Diagnostics Vital Signs (24Hr): Vital Signs - 24 hr 12/08/22 17:56 Temperature 97.3 F Pulse Rate 82 Blood Pressure 132/79 Pulse Oximetry 98 Oxygen Delivery Method Room Air BMI result Body Mass Index 39.2 Labs 12/05/22 14:22 12/07/22 14:49 Labs: Laboratory Results - last 48 hr 12/07/22 14:49 Sodium 142 Potassium 4.7 D Chloride 108 Carbon Dioxide 28 Anion Gap 11 L BUN 11 Creatinine 0.81 Estim Creat Clear Calc 128.7 Estimated GFR > 60 Fasting Glucose 96 Calcium 9.4 D Total Bilirubin 0.2 AST 19 ALT 28 Alkaline Phosphatase 107 Total Protein 6.7 Albumin 3.7 Triglycerides 131 Cholesterol 161 LDL Cholesterol, Calc 95 HDL Cholesterol 40 Medications Medications Current Medications Acetaminophen (Acetaminophen 325 Mg Tablet) 650 mg PO Q6H PRN PRN Reason: Headache/Pain Mild Scale (1-3) Last Admin: 12/09/22 01:16 Dose: 650 mg Al Hydroxide/Mg Hydroxide (Magnesium Hydrox/Alum Hydrox 30 Ml Oral.Susp) 30 ml PO Q6H PRN PRN Reason: Heartburn/Nausea Buprenorphine/Naloxone (Buprenorphine/Naloxone 8/2 Mg Film) 1 film SUBLINGUAL BID [facility] Last Admin: 12/09/22 08:47 Dose: Not Given Clonidine HCl (Clonidine Hcl 0.1 Mg Tablet) 0.1 mg PO QID PRN; Protocol PRN Reason: Anxiety Last Admin: 12/05/22 21:24 Dose: 0.1 mg Hydroxyzine HCl (Hydroxyzine Hcl 50 Mg Tablet) 50 mg PO BID PRN PRN Reason: Anxiety Last Admin: 12/06/22 21:12 Dose: 50 mg Magnesium Hydroxide (Milk Of Magnesia 30 Ml Oral.Susp) 30 ml PO DAILY PRN PRN Reason: Constipation Mirtazapine (Mirtazapine 15 Mg Tablet) 15 mg PO BEDTIME [facility] Last Admin: 12/08/22 21:24 Dose: 15 mg Nicotine (Nicotine 14 Mg Patch.Td24) 14 mg TRANSDERMA DAILY [facility] Last Admin: 12/09/22 08:48 Dose: Not Given Olanzapine (Olanzapine 10 Mg Tablet) 10 mg PO BEDTIME [facility] Last Admin: 12/08/22 21:24 Dose: 10 mg Pharmacy Consult (Consult Rx Perform Med Rec) 1 each MISCELLANE ONCE PRN PRN Reason: Consult order Trazodone HCl (Trazodone Hcl 50 Mg Tablet) 50 mg PO BEDTIME MRX1 PRN PRN Reason: Insomnia Last Admin: 12/09/22 01:16 Dose: 50 mg Allergies Allergies Allergy/AdvReac Type Severity Reaction Status Date / Time lamotrigine [From Lamictal] AdvReac Severe pt reports Verified 03/21/22 18:06 lamictal precipitates panic attacks Assessment & Plan Assessment & Plan (1) Polysubstance abuse: Status: Acute Code(s): F19.10 - Other psychoactive substance abuse, uncomplicated (2) Mood disorder: Status: Acute Code(s): F39 - Unspecified mood [affective] disorder Plan The patient is an adult descent male with a past history of cocaine use disorder, opiate use disorder, alcohol use disorder and episodes of depression with racing thoughts. The patient is chronically homeless and he has limited social support due to his substance abuse. He self presented to the emergency room complaining of suicidal ideation. Plan 1. Gather collateral information. We will try to contact his mother. 2. Start Zyprexa 10 mg p.o. q.h.s. as a mood stabilizer. 3. Start Remeron 15 mg p.o. q.h.s. to target depression. 4. Addiction consult. 5. Continue with medical treatment. 6. Reassessment with results 12/08/22 Continue current plan. Pt asking for residential options today. 12/09/22 Continue current regime and plan of care. Informed Consent: understands Reason for continued inpatient stay Substantial Risk for: rapid decompensation Time Spent With Patient Time: Total time managing care of this patient today ____ minutes.
[2022-12-09 13:48] VITALS: BP 119/67; PULSE 66; RESP 16; TEMP 36.8; O2SAT 95
[2022-12-09 18:00] VITALS: BP 126/68; PULSE 72; RESP 16; TEMP 36.9; O2SAT 97
[2022-12-09] MEDS: OLANZapine 10 MG TABLET PO (20:38)
[2022-12-09] MEDS: Mirtazapine 15 MG TABLET PO (20:38)
[2022-12-10 08:30] VITALS: BP 118/65; PULSE 65; RESP 18; TEMP 36.4; O2SAT 98
--- NOTE | 2022-12-10 10:15 | P.PNPSI_ITS ---
Subjective Subjective Date of Service: 12/10/22 Reason For Visit: SI Subjective Notes: Conditional Voluntary Healthcare Proxy: No Guardianship: No Medical Problems Affecting Mental Status: No Interim History: Declined Suboxone today. Remains isolative, spending time resting, not attending group/milieu offered activities. No questions or concerns today. Medication Compliance: Intermittent Side effects from medications: No Attending Groups: No Review of Systems Acute medical concerns: No Medical Review of Systems: unchanged Mental Status Exam Mental Status Exam Patient Appearance: Fatigued Patient Orientation: Person, Place and Situation Level of Consciousness: Awake Patient Behavior: Guarded and Passive Mood Description: Constricted Affect Description: Constricted Patient Cognition Impaired: No Ability to Follow Directions: Good Speech Pattern: Clear Memory Description: Intact Hallucinations: None Delusions: Not Present Thought Process: Evasive and Slowed Thinking Thought Content: positive for [place] and positive for Circumstantial Judgement: Fair Diagnostics Vital Signs (24Hr): Vital Signs - 24 hr 12/09/22 13:48 12/09/22 18:00 12/10/22 08:30 Temperature 98.2 F 98.4 F 97.6 F Pulse Rate 66 72 65 Respiratory Rate 16 16 18 Blood Pressure 119/67 126/68 118/65 Pulse Oximetry 95 97 98 Oxygen Delivery Method Room Air Room Air Room Air BMI result Body Mass Index 39.2 Labs 12/05/22 14:22 12/07/22 14:49 Medications Medications Current Medications Acetaminophen (Acetaminophen 325 Mg Tablet) 650 mg PO Q6H PRN PRN Reason: Headache/Pain Mild Scale (1-3) Last Admin: 12/09/22 01:16 Dose: 650 mg Al Hydroxide/Mg Hydroxide (Magnesium Hydrox/Alum Hydrox 30 Ml Oral.Susp) 30 ml PO Q6H PRN PRN Reason: Heartburn/Nausea Buprenorphine/Naloxone (Buprenorphine/Naloxone 8/2 Mg Film) 1 film SUBLINGUAL BID [facility] Last Admin: 12/10/22 08:34 Dose: Not Given Clonidine HCl (Clonidine Hcl 0.1 Mg Tablet) 0.1 mg PO QID PRN; Protocol PRN Reason: Anxiety Last Admin: 12/05/22 21:24 Dose: 0.1 mg Hydroxyzine HCl (Hydroxyzine Hcl 50 Mg Tablet) 50 mg PO BID PRN PRN Reason: Anxiety Last Admin: 12/06/22 21:12 Dose: 50 mg Magnesium Hydroxide (Milk Of Magnesia 30 Ml Oral.Susp) 30 ml PO DAILY PRN PRN Reason: Constipation Mirtazapine (Mirtazapine 15 Mg Tablet) 15 mg PO BEDTIME [facility] Last Admin: 12/09/22 20:38 Dose: 15 mg Nicotine (Nicotine 14 Mg Patch.Td24) 14 mg TRANSDERMA DAILY [facility] Last Admin: 12/10/22 08:35 Dose: Not Given Olanzapine (Olanzapine 10 Mg Tablet) 10 mg PO BEDTIME [facility] Last Admin: 12/09/22 20:38 Dose: 10 mg Pharmacy Consult (Consult Rx Perform Med Rec) 1 each MISCELLANE ONCE PRN PRN Reason: Consult order Trazodone HCl (Trazodone Hcl 50 Mg Tablet) 50 mg PO BEDTIME MRX1 PRN PRN Reason: Insomnia Last Admin: 12/09/22 01:16 Dose: 50 mg Allergies Allergies Allergy/AdvReac Type Severity Reaction Status Date / Time lamotrigine [From Lamictal] AdvReac Severe pt reports Verified 03/21/22 18:06 lamictal precipitates panic attacks Assessment & Plan Assessment & Plan (1) Polysubstance abuse: Status: Acute Code(s): F19.10 - Other psychoactive substance abuse, uncomplicated (2) Mood disorder: Status: Acute Code(s): F39 - Unspecified mood [affective] disorder Plan The patient is an adult descent male with a past history of cocaine use disorder, opiate use disorder, alcohol use disorder and episodes of depression with racing thoughts. The patient is chronically homeless and he has limited social support due to his substance abuse. He self presented to the emergency room complaining of suicidal ideation. Plan 1. Gather collateral information. We will try to contact his mother. 2. Start Zyprexa 10 mg p.o. q.h.s. as a mood stabilizer. 3. Start Remeron 15 mg p.o. q.h.s. to target depression. 4. Addiction consult. 5. Continue with medical treatment. 6. Reassessment with results 12/08/22 Continue current plan. Pt asking for residential options today. 12/09/22 Continue current regime and plan of care. 12/10/22 Continue current regime and plan of care. Informed Consent: understands Reason for continued inpatient stay Substantial Risk for: rapid decompensation Time Spent With Patient Time: Total time managing care of this patient today ____ minutes.
[2022-12-10 18:00] VITALS: BP 128/84; PULSE 78; RESP 16; TEMP 36.6; O2SAT 98
[2022-12-10] MEDS: OLANZapine 10 MG TABLET PO (20:16)
--- NOTE | 2022-12-10 20:17 | PC.NURSE ---
Addendum entered by Cash Alfaro RN 12/10/22 21:06: Pt took mirtazipine but refused suboxone. Original Note: Pt refused scheduled night time Mirtazapine. 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
[2022-12-10] MEDS: Mirtazapine 15 MG TABLET PO (21:09)
[2022-12-10] MEDS: Acetaminophen 325 MG TABLET 650 MG PO (22:58)
[2022-12-11] MEDS: Acetaminophen 325 MG TABLET 650 MG PO (04:25)
[2022-12-11] MEDS: hydrOXYzine HCL 50 MG TABLET PO (09:03)
[2022-12-11 09:30] VITALS: BP 98/67; PULSE 68; RESP 18; TEMP 36.3; O2SAT 95
--- NOTE | 2022-12-11 10:14 | P.PNPSI_ITS ---
Subjective Subjective Date of Service: 12/11/22 Reason For Visit: SI Subjective Notes: Conditional Voluntary Healthcare Proxy: No Guardianship: No Medical Problems Affecting Mental Status: No Interim History: Pt reports finally beginning to feel some improvement. 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 Continues with interest in CSS or respite. Asks that Mirtazapine be stopped. By hx Tyrone has worked. Before we change everything will increase Olanzapine to see if that is helpful with sx mgt. Interactive with peers and team today, visable, out of bed, improved engagement in milieu overall. Medication Compliance: Yes Side effects from medications: No Attending Groups: Intermittent Review of Systems Acute medical concerns: No Medical Review of Systems: unchanged Mental Status Exam Mental Status Exam Patient Appearance: Appropriate Patient Orientation: Person, Place, Time and Situation Level of Consciousness: Alert Patient Behavior: Talkative and Good Eye Contact Mood Description: Depressed and Anxious Affect Description: Apprehensive Patient Cognition Impaired: No Ability to Follow Directions: Good Speech Pattern: Spontaneous Speech Memory Description: Intact Hallucinations: None Delusions: Not Present Thought Process: Goal Oriented Thought Content: positive for Goal Oriented Depressive Symptoms: Increased Anxiety Judgement: Fair Diagnostics Vital Signs (24Hr): Vital Signs - 24 hr 12/10/22 18:00 Temperature 97.8 F Pulse Rate 78 Respiratory Rate 16 Blood Pressure 128/84 Pulse Oximetry 98 Oxygen Delivery Method Room Air BMI result Body Mass Index 39.2 Labs 12/05/22 14:22 12/07/22 14:49 Medications Medications Current Medications Acetaminophen (Acetaminophen 325 Mg Tablet) 650 mg PO Q6H PRN PRN Reason: Headache/Pain Mild Scale (1-3) Last Admin: 12/11/22 04:25 Dose: 650 mg Al Hydroxide/Mg Hydroxide (Magnesium Hydrox/Alum Hydrox 30 Ml Oral.Susp) 30 ml PO Q6H PRN PRN Reason: Heartburn/Nausea Buprenorphine/Naloxone (Buprenorphine/Naloxone 8/2 Mg Film) 1 film SUBLINGUAL BID CHRISTEN Last Admin: 12/11/22 09:05 Dose: Not Given Clonidine HCl (Clonidine Hcl 0.1 Mg Tablet) 0.1 mg PO QID PRN; Protocol PRN Reason: Anxiety Last Admin: 12/05/22 21:24 Dose: 0.1 mg Hydroxyzine HCl (Hydroxyzine Hcl 50 Mg Tablet) 50 mg PO BID PRN PRN Reason: Anxiety Last Admin: 12/11/22 09:03 Dose: 50 mg Magnesium Hydroxide (Milk Of Magnesia 30 Ml Oral.Susp) 30 ml PO DAILY PRN PRN Reason: Constipation Mirtazapine (Mirtazapine 15 Mg Tablet) 15 mg PO BEDTIME CHRISTEN Last Admin: 12/10/22 21:09 Dose: 15 mg Nicotine (Nicotine 14 Mg Patch.Td24) 14 mg TRANSDERMA DAILY [facility] Last Admin: 12/11/22 09:05 Dose: Not Given Olanzapine (Olanzapine 10 Mg Tablet) 10 mg PO BEDTIME CHRISTEN Last Admin: 12/10/22 20:16 Dose: 10 mg Pharmacy Consult (Consult Rx Perform Med Rec) 1 each MISCELLANE ONCE PRN PRN Reason: Consult order Trazodone HCl (Trazodone Hcl 50 Mg Tablet) 50 mg PO BEDTIME MRX1 PRN PRN Reason: Insomnia Last Admin: 12/09/22 01:16 Dose: 50 mg Allergies Allergies Allergy/AdvReac Type Severity Reaction Status Date / Time lamotrigine [From Lamictal] AdvReac Severe pt reports Verified 03/21/22 18:06 lamictal precipitates panic attacks Assessment & Plan Assessment & Plan (1) Polysubstance abuse: Status: Acute Code(s): F19.10 - Other psychoactive substance abuse, uncomplicated (2) Mood disorder: Status: Acute Code(s): F39 - Unspecified mood [affective] disorder Plan The patient is an adult descent male with a past history of cocaine use disorder, opiate use disorder, alcohol use disorder and episodes of depression with racing thoughts. The patient is chronically homeless and he has limited social support due to his substance abuse. He self presented to the emergency room complaining of suicidal ideation. Plan 1. Gather collateral information. We will try to contact his mother. 2. Start Zyprexa 10 mg p.o. q.h.s. as a mood stabilizer. 3. Start Remeron 15 mg p.o. q.h.s. to target depression. 4. Addiction consult. 5. Continue with medical treatment. 6. Reassessment with results 12/08/22 Continue current plan. Pt asking for residential options today. 12/09/22 Continue current regime and plan of care. 12/10/22 Continue current regime and plan of care. 12/11/22 Discontinue Mirtazapine Increase Olanzapine to 20 mg HS Patient educated on: therapeutic strategies Informed Consent: understands Reason for continued inpatient stay Substantial Risk for: rapid decompensation Time Spent With Patient Time: Total time managing care of this patient today ____ minutes.
[2022-12-11 18:00] VITALS: BP 122/74; PULSE 78; RESP 18; TEMP 36.4; O2SAT 96
[2022-12-11] MEDS: OLANZapine 10 MG TABLET 20 MG PO (19:58)
--- NOTE | 2022-12-12 09:02 | HO.PSYCHPN ---
Subjective Subjective Date of Service: 12/12/22 Reason For Visit: SI Subjective Notes: Conditional Voluntary Healthcare Proxy: No Guardianship: No Medical Problems Affecting Mental Status: No Interim History: Reviewed in team meeting. Today, isolative, sleeping more. Team report pt did sleep throughout the night. Will decrease back to Olanzapine to 10 mg No adverse effects from him stopping Mirtazapine. No questions or concerns from pt today. Hoping for acceptance into residential Medication Compliance: Yes Side effects from medications: Yes (sedation?) Attending Groups: No Review of Systems Acute medical concerns: No Medical Review of Systems: unchanged Mental Status Exam Mental Status Exam Patient Appearance: Fatigued Patient Orientation: Person, Place, Time and Situation Level of Consciousness: Sedated and Alert Patient Behavior: Fatigued Mood Description: Flat Patient Cognition Impaired: No Ability to Follow Directions: Good Speech Pattern: Spontaneous Speech Memory Description: Intact Hallucinations: None Delusions: Not Present Thought Process: Goal Oriented Thought Content: positive for Goal Oriented Depressive Symptoms: Increased Anxiety and Sleeping More Than Usual Judgement: Good Diagnostics Vital Signs (24Hr): Vital Signs - 24 hr 12/11/22 09:30 12/11/22 18:00 Temperature 97.4 F 97.6 F Pulse Rate 68 78 Respiratory Rate 18 18 Blood Pressure 98/67 122/74 Pulse Oximetry 95 96 Oxygen Delivery Method Room Air Room Air BMI result Body Mass Index 39.2 Labs 12/05/22 14:22 12/07/22 14:49 Medications Medications Current Medications Acetaminophen (Acetaminophen 325 Mg Tablet) 650 mg PO Q6H PRN PRN Reason: Headache/Pain Mild Scale (1-3) Last Admin: 12/11/22 04:25 Dose: 650 mg Al Hydroxide/Mg Hydroxide (Magnesium Hydrox/Alum Hydrox 30 Ml Oral.Susp) 30 ml PO Q6H PRN PRN Reason: Heartburn/Nausea Buprenorphine/Naloxone (Buprenorphine/Naloxone 8/2 Mg Film) 1 film SUBLINGUAL BID CHRISTEN Last Admin: 12/11/22 19:58 Dose: 1 film Clonidine HCl (Clonidine Hcl 0.1 Mg Tablet) 0.1 mg PO QID PRN; Protocol PRN Reason: Anxiety Last Admin: 12/05/22 21:24 Dose: 0.1 mg Hydroxyzine HCl (Hydroxyzine Hcl 50 Mg Tablet) 50 mg PO BID PRN PRN Reason: Anxiety Last Admin: 12/11/22 09:03 Dose: 50 mg Magnesium Hydroxide (Milk Of Magnesia 30 Ml Oral.Susp) 30 ml PO DAILY PRN PRN Reason: Constipation Nicotine (Nicotine 14 Mg Patch.Td24) 14 mg TRANSDERMA DAILY [facility] Last Admin: 12/11/22 09:05 Dose: Not Given Olanzapine (Olanzapine 10 Mg Tablet) 20 mg PO BEDTIME [facility] Last Admin: 12/11/22 19:58 Dose: 20 mg Pharmacy Consult (Consult Rx Perform Med Rec) 1 each MISCELLANE ONCE PRN PRN Reason: Consult order Quetiapine Fumarate (Quetiapine Fumarate 50 Mg Tablet) 50 mg PO BEDTIME PRN PRN Reason: insomnia Trazodone HCl (Trazodone Hcl 50 Mg Tablet) 50 mg PO BEDTIME MRX1 PRN PRN Reason: Insomnia Last Admin: 12/09/22 01:16 Dose: 50 mg Allergies Allergies Allergy/AdvReac Type Severity Reaction Status Date / Time lamotrigine [From Lamictal] AdvReac Severe pt reports Verified 03/21/22 18:06 lamictal precipitates panic attacks Assessment & Plan Assessment & Plan (1) Polysubstance abuse: Status: Acute Code(s): F19.10 - Other psychoactive substance abuse, uncomplicated (2) Mood disorder: Status: Acute Code(s): F39 - Unspecified mood [affective] disorder Plan The patient is an adult descent male with a past history of cocaine use disorder, opiate use disorder, alcohol use disorder and episodes of depression with racing thoughts. The patient is chronically homeless and he has limited social support due to his substance abuse. He self presented to the emergency room complaining of suicidal ideation. Plan 1. Gather collateral information. We will try to contact his mother. 2. Start Zyprexa 10 mg p.o. q.h.s. as a mood stabilizer. 3. Start Remeron 15 mg p.o. q.h.s. to target depression. 4. Addiction consult. 5. Continue with medical treatment. 6. Reassessment with results 12/08/22 Continue current plan. Pt asking for residential options today. 12/09/22 Continue current regime and plan of care. 12/10/22 Continue current regime and plan of care. 12/11/22 Discontinue Mirtazapine Increase Olanzapine to 20 mg HS 12/12/22 Decrease Olanzapine back to 10 mg Informed Consent: understands Reason for continued inpatient stay Substantial Risk for: rapid decompensation Time Spent With Patient Time: Total time managing care of this patient today ____ minutes.
[2022-12-12 09:13] VITALS: BP 109/68; PULSE 72; RESP 16; TEMP 36.2; O2SAT 99
[2022-12-12 15:52] VITALS: BP 124/79; PULSE 96; RESP 16; TEMP 36; O2SAT 99
[2022-12-12] MEDS: OLANZapine 10 MG TABLET PO (22:05)
[2022-12-12] MEDS: traZODone HCL 50 MG TABLET PO (22:55)
[2022-12-13] MEDS: Acetaminophen 325 MG TABLET 650 MG PO ×2 (00:38→20:45)
--- NOTE | 2022-12-13 10:18 | PC.NURSE ---
Vape removed from patient's room. Provider made aware.
--- NOTE | 2022-12-13 12:02 | P.PNPSI_ITS ---
Subjective Subjective Date of Service: 12/13/22 Reason For Visit: SI Subjective Notes: Conditional Voluntary Interim History: discussed with nursing. pt had cape on unit which was confiscated. pt irritable Medication Compliance: Yes Side effects from medications: No Attending Groups: No Review of Systems Acute medical concerns: No Review of Systems Review of Systems Constitutional: No Weight loss, No Fever, No Chills, + insomnia Eyes: No Eye Pain, No Swelling, No Redness,No Vision Changes Cardiovascular: No Chest Pain, No SOB, No Edema, No Palpitations Respiratory: No Cough, No Sputum, No Dyspnea Gastrointestinal: No Nausea, No Vomiting, No Diarrhea, No Constipation, No Abdominal pain Genitourinary: No Dysuria, No Urinary Frequency Musculoskeletal: No joint pain, No Myalgias, No Joint Swelling Skin: No Skin Lesions, No rash Neuro: No Weakness, No Numbness, No Paresthesias Psych: No Anxiety/Panic, + Depression, + SI, No HI, +AH/VH, + Social Issues Yes all other systems are reviewed and are negative Constitutional: Reports as per [facility] Mental Status Exam Mental Status Exam Patient Appearance: Fatigued Patient Orientation: Person, Place, Time and Situation Level of Consciousness: Sedated and Alert Patient Behavior: Fatigued Mood Description: Angry and Flat Affect Description: Apprehensive Patient Cognition Impaired: No Ability to Follow Directions: Good Speech Pattern: Spontaneous Speech Memory Description: Intact Thought Process: Intact Thought Content: positive for Intact Judgement: Poor Diagnostics Vital Signs (24Hr): Vital Signs - 24 hr 12/12/22 15:52 Temperature 96.8 F Pulse Rate 96 Respiratory Rate 16 Blood Pressure 124/79 Pulse Oximetry 99 Oxygen Delivery Method Room Air BMI result Body Mass Index 39.2 Labs 12/05/22 14:22 12/07/22 14:49 Medications Medications Current Medications Acetaminophen (Acetaminophen 325 Mg Tablet) 650 mg PO Q6H PRN PRN Reason: Headache/Pain Mild Scale (1-3) Last Admin: 12/13/22 00:38 Dose: 650 mg Al Hydroxide/Mg Hydroxide (Magnesium Hydrox/Alum Hydrox 30 Ml Oral.Susp) 30 ml PO Q6H PRN PRN Reason: Heartburn/Nausea Clonidine HCl (Clonidine Hcl 0.1 Mg Tablet) 0.1 mg PO QID PRN; Protocol PRN Reason: Anxiety Last Admin: 12/05/22 21:24 Dose: 0.1 mg Hydroxyzine HCl (Hydroxyzine Hcl 50 Mg Tablet) 50 mg PO BID PRN PRN Reason: Anxiety Last Admin: 12/11/22 09:03 Dose: 50 mg Magnesium Hydroxide (Milk Of Magnesia 30 Ml Oral.Susp) 30 ml PO DAILY PRN PRN Reason: Constipation Nicotine (Nicotine 14 Mg Patch.Td24) 14 mg TRANSDERMA DAILY [facility] Last Admin: 12/13/22 09:24 Dose: Not Given Olanzapine (Olanzapine 10 Mg Tablet) 10 mg PO BEDTIME CHRISTEN Last Admin: 12/12/22 22:05 Dose: 10 mg Pharmacy Consult (Consult Rx Perform Med Rec) 1 each MISCELLANE ONCE PRN PRN Reason: Consult order Quetiapine Fumarate (Quetiapine Fumarate 50 Mg Tablet) 50 mg PO BEDTIME PRN PRN Reason: insomnia Trazodone HCl (Trazodone Hcl 50 Mg Tablet) 50 mg PO BEDTIME MRX1 PRN PRN Reason: Insomnia Last Admin: 12/12/22 22:55 Dose: 50 mg Allergies Allergies Allergy/AdvReac Type Severity Reaction Status Date / Time lamotrigine [From Lamictal] AdvReac Severe pt reports Verified 03/21/22 18:06 lamictal precipitates panic attacks Assessment & Plan Assessment & Plan (1) Polysubstance abuse: Status: Acute Code(s): F19.10 - Other psychoactive substance abuse, uncomplicated (2) Mood disorder: Status: Acute Code(s): F39 - Unspecified mood [affective] disorder Plan The patient is an adult descent male with a past history of cocaine use disorder, opiate use disorder, alcohol use disorder and episodes of depression with racing thoughts. The patient is chronically homeless and he has limited social support due to his substance abuse. He self presented to the emergency room complaining of suicidal ideation. Plan 1. Gather collateral information. We will try to contact his mother. 2. Start Zyprexa 10 mg p.o. q.h.s. as a mood stabilizer. 3. Start Remeron 15 mg p.o. q.h.s. to target depression. 4. Addiction consult. 5. Continue with medical treatment. 6. Reassessment with results 12/08/22 Continue current plan. Pt asking for residential options today. 12/09/22 Continue current regime and plan of care. 12/10/22 Continue current regime and plan of care. 12/11/22 Discontinue Mirtazapine Increase Olanzapine to 20 mg HS 12/12/22 Decrease Olanzapine back to 10 mg 12/13/22 no changes; continue current treatmetn Reason for continued inpatient stay Substantial Risk for: harm to self, inability to function and rapid decompensation Time Spent With Patient Time: Total time managing care of this patient today ____ minutes.
[2022-12-13] MEDS: Nicotine 14 MG PATCH.TD24 TRANSDERMA (13:56)
[2022-12-13] MEDS: Nicotine Polacrilex 2 MG GUM 4 MG BUCCAL (13:56)
[2022-12-13] MEDS: OLANZapine 10 MG TABLET PO (22:56)
[2022-12-13] MEDS: traZODone HCL 50 MG TABLET PO (22:56)
--- NOTE | 2022-12-14 12:31 | HO.PSYCHPN ---
Subjective Subjective Date of Service: 12/14/22 Reason For Visit: SI Subjective Notes: Conditional Voluntary Interim History: discussed with nursing. pt had vape on unit which was confiscated. started on nicotine patch and gum pt irritable Medication Compliance: Yes Side effects from medications: No Attending Groups: Intermittent Review of Systems Acute medical concerns: No Medical Review of Systems: unchanged Review of Systems Review of Systems Constitutional: No Weight loss, No Fever, No Chills, + insomnia Eyes: No Eye Pain, No Swelling, No Redness,No Vision Changes Cardiovascular: No Chest Pain, No SOB, No Edema, No Palpitations Respiratory: No Cough, No Sputum, No Dyspnea Gastrointestinal: No Nausea, No Vomiting, No Diarrhea, No Constipation, No Abdominal pain Genitourinary: No Dysuria, No Urinary Frequency Musculoskeletal: No joint pain, No Myalgias, No Joint Swelling Skin: No Skin Lesions, No rash Neuro: No Weakness, No Numbness, No Paresthesias Psych: No Anxiety/Panic, + Depression, + SI, No HI, +AH/VH, + Social Issues Yes all other systems are reviewed and are negative Constitutional: Reports as per HPI Mental Status Exam Mental Status Exam Patient Appearance: Fatigued Patient Orientation: Person, Place, Time and Situation Level of Consciousness: Sedated and Alert Patient Behavior: Fatigued Mood Description: Angry and Flat Affect Description: Apprehensive Patient Cognition Impaired: No Ability to Follow Directions: Good Speech Pattern: Spontaneous Speech Memory Description: Intact Judgement: Fair Judgement and Insight: fair- poor Diagnostics Vital Signs (24Hr): BMI result Body Mass Index 39.2 Labs 12/05/22 14:22 12/07/22 14:49 Medications Medications Current Medications Acetaminophen (Acetaminophen 325 Mg Tablet) 650 mg PO Q6H PRN PRN Reason: Headache/Pain Mild Scale (1-3) Last Admin: 12/13/22 20:45 Dose: 650 mg Al Hydroxide/Mg Hydroxide (Magnesium Hydrox/Alum Hydrox 30 Ml Oral.Susp) 30 ml PO Q6H PRN PRN Reason: Heartburn/Nausea Clonidine HCl (Clonidine Hcl 0.1 Mg Tablet) 0.1 mg PO QID PRN; Protocol PRN Reason: Anxiety Last Admin: 12/05/22 21:24 Dose: 0.1 mg Hydroxyzine HCl (Hydroxyzine Hcl 50 Mg Tablet) 50 mg PO BID PRN PRN Reason: Anxiety Last Admin: 12/11/22 09:03 Dose: 50 mg Magnesium Hydroxide (Milk Of Magnesia 30 Ml Oral.Susp) 30 ml PO DAILY PRN PRN Reason: Constipation Nicotine (Nicotine 14 Mg Patch.Td24) 14 mg TRANSDERMA DAILY [facility]RISTEN Last Admin: 12/14/22 09:52 Dose: Not Given Nicotine Polacrilex (Nicotine Polacrilex 2 Mg Gum) 4 mg BUCCAL Q2H PRN PRN Reason: Nicotine Cravings Last Admin: 12/13/22 13:56 Dose: 2 mg Olanzapine (Olanzapine 10 Mg Tablet) 10 mg PO BEDTIME CHRISTEN Last Admin: 12/13/22 22:56 Dose: 10 mg Pharmacy Consult (Consult Rx Perform Med Rec) 1 each MISCELLANE ONCE PRN PRN Reason: Consult order Quetiapine Fumarate (Quetiapine Fumarate 50 Mg Tablet) 50 mg PO BEDTIME PRN PRN Reason: insomnia Trazodone HCl (Trazodone Hcl 50 Mg Tablet) 50 mg PO BEDTIME MRX1 PRN PRN Reason: Insomnia Last Admin: 12/13/22 22:56 Dose: 50 mg Allergies Allergies Allergy/AdvReac Type Severity Reaction Status Date / Time lamotrigine [From Lamictal] AdvReac Severe pt reports Verified 03/21/22 18:06 lamictal precipitates panic attacks Assessment & Plan Assessment & Plan (1) Polysubstance abuse: Status: Acute Code(s): F19.10 - Other psychoactive substance abuse, uncomplicated (2) Mood disorder: Status: Acute Code(s): F39 - Unspecified mood [affective] disorder Plan The patient is an adult descent male with a past history of cocaine use disorder, opiate use disorder, alcohol use disorder and episodes of depression with racing thoughts. The patient is chronically homeless and he has limited social support due to his substance abuse. He self presented to the emergency room complaining of suicidal ideation. Plan 1. Gather collateral information. We will try to contact his mother. 2. Start Zyprexa 10 mg p.o. q.h.s. as a mood stabilizer. 3. Start Remeron 15 mg p.o. q.h.s. to target depression. 4. Addiction consult. 5. Continue with medical treatment. 6. Reassessment with results 12/08/22 Continue current plan. Pt asking for residential options today. 12/09/22 Continue current regime and plan of care. 12/10/22 Continue current regime and plan of care. 12/11/22 Discontinue Mirtazapine Increase Olanzapine to 20 mg HS 12/12/22 Decrease Olanzapine back to 10 mg 12/13/22 no changes; continue current treatment 12/14 started on nicotine patch and gum Reason for continued inpatient stay Substantial Risk for: inability to function and rapid decompensation Time Spent With Patient Time: Total time managing care of this patient today ____ minutes.
[2022-12-14] MEDS: traZODone HCL 50 MG TABLET PO (22:42)
[2022-12-14] MEDS: OLANZapine 10 MG TABLET PO (22:42)
[2022-12-15] MEDS: Acetaminophen 325 MG TABLET 650 MG PO ×3 (00:40→21:05)
[2022-12-15 10:09] VITALS: RESP 18
--- NOTE | 2022-12-15 15:20 | HO.PSYCHPN ---
Subjective Subjective Date of Service: 12/15/22 Reason For Visit: SI Subjective Notes: Conditional Voluntary Healthcare Proxy: No Guardianship: No Medical Problems Affecting Mental Status: No Interim History: Full medication review. Pt would like to change back to previous Seroquel dose he was using prior to admission. Reports Olanzapine was not as effective Team reports pt to be withdrawn from [facility], not participating in groups. Lópeze #2 was found in his belongings per team over the weekend. He reports this was a gift from another patient. Aware that this cannot be on his person on the unit. Awaiting [facility] admission. Medication Compliance: Yes Side effects from medications: No Attending Groups: No Review of Systems Acute medical concerns: No Medical Review of Systems: unchanged Mental Status Exam Mental Status Exam Patient Appearance: Appropriate Patient Orientation: Person, Place, Time and Situation Level of Consciousness: Alert Patient Behavior: Talkative Mood Description: Withdrawn Affect Description: Flat Patient Cognition Impaired: No Ability to Follow Directions: Good Speech Pattern: Spontaneous Speech Memory Description: Episodic Impaired Hallucinations: None Delusions: Not Present Thought Process: Goal Oriented Thought Content: positive for Goal Oriented Depressive Symptoms: Isolating-Friends/Family and Thoughts of /Suicide (denies) Judgement: Good Diagnostics Vital Signs (24Hr): Vital Signs - 24 hr 12/15/22 10:09 Respiratory Rate 18 BMI result Body Mass Index 39.2 Labs 12/05/22 14:22 12/07/22 14:49 Medications Medications Current Medications Acetaminophen (Acetaminophen 325 Mg Tablet) 650 mg PO Q6H PRN PRN Reason: Headache/Pain Mild Scale (1-3) Last Admin: 12/15/22 13:08 Dose: 650 mg Al Hydroxide/Mg Hydroxide (Magnesium Hydrox/Alum Hydrox 30 Ml Oral.Susp) 30 ml PO Q6H PRN PRN Reason: Heartburn/Nausea Clonidine HCl (Clonidine Hcl 0.1 Mg Tablet) 0.1 mg PO QID PRN; Protocol PRN Reason: Anxiety Last Admin: 12/05/22 21:24 Dose: 0.1 mg Hydroxyzine HCl (Hydroxyzine Hcl 50 Mg Tablet) 50 mg PO BID PRN PRN Reason: Anxiety Last Admin: 12/11/22 09:03 Dose: 50 mg Magnesium Hydroxide (Milk Of Magnesia 30 Ml Oral.Susp) 30 ml PO DAILY PRN PRN Reason: Constipation Nicotine (Nicotine 14 Mg Patch.Td24) 14 mg TRANSDERMA DAILY [facility]RISTEN Last Admin: 12/15/22 10:10 Dose: Not Given Nicotine Polacrilex (Nicotine Polacrilex 2 Mg Gum) 4 mg BUCCAL Q2H PRN PRN Reason: Nicotine Cravings Last Admin: 12/13/22 13:56 Dose: 2 mg Quetiapine Fumarate (Quetiapine Fumarate 300 Mg Tablet) 300 mg PO BEDTIME CHRISTEN Trazodone HCl (Trazodone Hcl 50 Mg Tablet) 50 mg PO BEDTIME MRX1 PRN PRN Reason: Insomnia Last Admin: 12/14/22 22:42 Dose: 50 mg Allergies Allergies Allergy/AdvReac Type Severity Reaction Status Date / Time lamotrigine [From Lamictal] AdvReac Severe pt reports Verified 03/21/22 18:06 lamictal precipitates panic attacks Assessment & Plan Assessment & Plan (1) Polysubstance abuse: Status: Acute Code(s): F19.10 - Other psychoactive substance abuse, uncomplicated (2) Mood disorder: Status: Acute Code(s): F39 - Unspecified mood [affective] disorder Plan The patient is an adult descent male with a past history of cocaine use disorder, opiate use disorder, alcohol use disorder and episodes of depression with racing thoughts. The patient is chronically homeless and he has limited social support due to his substance abuse. He self presented to the emergency room complaining of suicidal ideation. Plan 1. Gather collateral information. We will try to contact his mother. 2. Start Zyprexa 10 mg p.o. q.h.s. as a mood stabilizer. 3. Start Remeron 15 mg p.o. q.h.s. to target depression. 4. Addiction consult. 5. Continue with medical treatment. 6. Reassessment with results 12/08/22 Continue current plan. Pt asking for residential options today. 12/09/22 Continue current regime and plan of care. 12/10/22 Continue current regime and plan of care. 12/11/22 Discontinue Mirtazapine Increase Olanzapine to 20 mg HS 12/12/22 Decrease Olanzapine back to 10 mg 12/13/22 no changes; continue current treatment 12/14 started on nicotine patch and gum 12/15 discontinue Olanzapine Return to Seroquel 300 mg HS Patient educated on: medication risk/benefits and therapeutic strategies Informed Consent: understands Reason for continued inpatient stay Substantial Risk for: rapid decompensation Time Spent With Patient Time: Total time managing care of this patient today ____ minutes.
[2022-12-15 18:00] VITALS: BP 129/60; PULSE 69; RESP 18; TEMP 37.2; O2SAT 97
[2022-12-15] MEDS: QUEtiapine Fumarate 300 MG TABLET PO (21:43)
[2022-12-15] MEDS: Ibuprofen 600 MG TABLET PO (21:43)
[2022-12-16] MEDS: Ibuprofen 600 MG TABLET PO ×2 (06:09→14:19)
[2022-12-16] MEDS: Acetaminophen 325 MG TABLET 650 MG PO ×2 (06:09→12:01)
[2022-12-16 08:16] VITALS: RESP 18
[2022-12-16] MEDS: oxyCODONE HCl Immed Release 5 MG TABLET PO ×2 (09:25→14:18)
[2022-12-16] MEDS: Amoxicillin 500 MG CAPSULE PO (09:25)
[2022-12-16] MEDS: Benzocaine 20 % Oral Gel 9 GM TUBE 1 APPL MUCOUS MEM ×2 (10:07→12:03)
[2022-12-16] MEDS: Penicillin V Potassium 250 MG TABLET 500 MG PO (12:57)
--- NOTE | 2022-12-16 18:11 | P.DS_ITS ---
DS: Providers Provider Date of Service: 12/16/22 Date of admission: 12/06/22 00:27 Date of discharge: 12/16/22 Primary care physician: Ashlie Olea DO Admitting clinician: Taj Reno Attending physician on admission: Taj Reno Attending physician on discharge: Jim Wylie Discharging clinician: Bernice Hanks DS: Diagnosis Discharge Diagnosis (1) Polysubstance abuse: Status: Acute (2) Mood disorder: Status: Acute DS: Medications Discharge Medications Home Medications: Home Medications Medication Instructions Recorded Confirmed hydroxyzine HCl 50 mg tablet 50 mg PO BID PRN Anxiety 12/05/22 12/05/22 ibuprofen 600 mg tablet 600 mg PO BID PRN Pain 12/05/22 12/05/22 Previous Rx's Medication Instructions Recorded acetaminophen 325 mg tablet 650 mg PO Q6H PRN Headache/Pain 12/16/22 Mild Scale (1-3) #0 tabs clonidine HCl 0.1 mg tablet 0.1 mg PO QID PRN Anxiety #14 tabs 12/16/22 ibuprofen 600 mg tablet 600 mg PO Q8H PRN Pain, 12/16/22 Moderate(Pain Scale 4-6) #0 tabs nicotine (polacrilex) 2 mg gum 4 mg buccal Q2H PRN Nicotine 12/16/22 Cravings #60 ea nicotine 14 mg/24 hr daily 1 patch topical DAILY #30 ea 12/16/22 transdermal patch penicillin V potassium 250 mg 500 mg PO Q12H #14 tabs 12/16/22 tablet quetiapine 300 mg tablet 1 tab PO BEDTIME #7 tabs 12/16/22 Mental Status Exam Mental Status Exam Patient Appearance: Appropriate Patient Orientation: Person, Place, Time and Situation Level of Consciousness: Alert Patient Behavior: Talkative Mood Description: Withdrawn Affect Description: Flat Patient Cognition Impaired: No Ability to Follow Directions: Good Speech Pattern: Spontaneous Speech Memory Description: Episodic Impaired Hallucinations: None Delusions: Not Present Thought Process: Goal Oriented Thought Content: positive for Goal Oriented Depressive Symptoms: Isolating-Friends/Family and Thoughts of /Suicide (denies) Judgement: Good DS: Summary Hospital Course Hospital Course: Admission to adult psychiatry for exacerbation of polysubstance use, opiates,cocaine, SI in context of homelessness and multiple psychosocial stressors, increase in depressive sx. Pt completed detox, medications were assessed, adjusted. Olanzapine was trialed however, pt requested to return to [facility] for mood lability sx. Pt filed a three day notice and discharged to attend a dental appointment to address tooth pain he reports has been an ongoing issue. Time spent discussing smoking cessation with patient: 3 to 10 minutes Status at Discharge Functional status at discharge: independent ambulation Overall status at discharge: patient is back to baseline Time Spent with Patient Time attestation: Total time managing care of this patient today ____ minutes. Time spent: Greater than 30 minutes Discharge Plan Discharge Anticipated Discharge Date/Time: 12/16/22 14:45 Patient Disposition: Home, Self-Care Discharge Diagnosis: Polysubstance Use Disorder Mood Disorder Referrals: Ashlie Castillo DO [Primary Care Provider] - 12/22/22 2:00 pm (in office) Discharge Medications: New penicillin V potassium 250 mg Tablet 500 mg PO Q12H Qty: 14 0RF acetaminophen 325 mg Tablet 650 mg PO Q6H PRN (Reason: Headache/Pain Mild Scale (1-3)) Qty: 0 0RF nicotine (polacrilex) 2 mg Gum 4 mg buccal Q2H PRN (Reason: Nicotine Cravings) Qty: 60 0RF ibuprofen 600 mg Tablet 600 mg PO Q8H PRN (Reason: Pain, Moderate(Pain Scale 4-6)) Qty: 0 0RF Continued hydroxyzine HCl 50 mg tablet 50 mg PO BID PRN (Reason: Anxiety) ibuprofen 600 mg tablet 600 mg PO BID PRN (Reason: Pain) clonidine HCl 0.1 mg tablet 0.1 mg PO QID PRN (Reason: Anxiety) Qty: 14 0RF nicotine 14 mg/24 hr patch 24 hour 1 patch topical DAILY Qty: 30 0RF quetiapine 300 mg tablet 1 tab PO BEDTIME Qty: 7 0RF Discontinued quetiapine 100 mg tablet 1 tab PO BID@0700,1200 buprenorphine-naloxone [Suboxone] 8-2 mg film 1 strip sublingual BID Sublocade 300 mg/1.5 mL solution, extended rel syringe 300 mg subcut QMONTH Discharge Orders: Discharge Order (Routine); Ordered 12/16/22 Ordered By: Bernice Hanks Diet: Advance to usual diet Activity on Discharge: As tolerated Stand Alone Forms: Patient Portal Discharge page, Community Support Care Plan Goals: Sobriety Mood and Behavioral Stabilization Health Concerns: Sobriety Mood and Behavioral Stabilization Plan of Treatment: Three day notice to 12/17/22. Pt asks to leave today due to tooth pain. He has a dental appt this week for evaluation. Call to his dentist, [facility], [address] [place] [address] . They will see if they can accomodate him today, however, were not able to give a confirmation immediately. Pt will need to call them. They will also call our service back to answer this question. Follow up with appointments Take medications as directed Assessment: Three day notice to 12/17/22. Pt is without SI,HI. He is fully oriented. He has insight and demonstrates appropriate judgment about wanting to pursue treatment, [facility] is his plan. He is not in imminent risk of harm to self or others and has a safety plan that included presenting to the closest ER or calling 911 if feeling unsafe. Pt has been observed closely by nursing and unit staff throughout admission Pt has not engaged in any behaviors that suggest dangerousness to self or others and has demonstrated appropriate behaviors and impulse control. Discharge Date/Time: 12/16/22 14:42
== END 2022-12-16 14:42 | disposition home or self-care (01) | DRG 753 ==
LOC: HO.ED 18:09 → HO.PM5 12-06 00:39
PROVIDERS: Physician Assistant; Admitting Provider Psychiatry & Neurology Psychiatry; Emergency Provider Emergency Medicine Emergency Medical Services; PCP Internal Medicine; Visit Provider Clinical Nurse Specialist Psychiatric/Mental Health, Adult
DX: F39 Unspecified mood [affective] disorder (principal); R45.851 Suicidal ideations; Z91.148 Patient's other noncompliance with medication regimen for other reason; F43.10 Post-traumatic stress disorder, unspecified; F19.10 Other psychoactive substance abuse, uncomplicated; F17.210 Nicotine dependence, cigarettes, uncomplicated; Z59.02 Unsheltered homelessness; Z71.6 Tobacco abuse counseling; Z79.899 Other long term (current) drug therapy
CPT/HCPCS: 36415; 80048; 80053; 80061; 80143; 80179; 80307; 81001; 85027; 99285; S9485

== ENCOUNTER → 2022-12-06 00:27 | Outpatient (BNV) | payer OTHER, SELFPAY | PROVIDERS: Admitting Provider Psychiatry & Neurology Psychiatry; Emergency Provider Emergency Medicine Emergency Medical Services; PCP Internal Medicine; Visit Provider Psychiatry & Neurology Psychiatry | DX: F19.10 Other psychoactive substance abuse, uncomplicated (principal); F39 Unspecified mood [affective] disorder | CPT/HCPCS: 90792; 99231; 99232; 99239 ==

== ENCOUNTER 2023-05-17 18:24 | Inpatient (IN) | payer OTHER, SELFPAY ==
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
[2023-05-17 18:30] VITALS: BP 128/72; PULSE 73; RESP 16; TEMP 36.6; O2SAT 97; BMI 31.2
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
[2023-05-17 19:00] LABS: MANUAL DIFF FLAG NO
[2023-05-17 19:02] LABS: Basophils Percent Auto 0.2 % (0-2); Eosinophils Absolute Auto 0.1 X10*3/uL (0.0-0.4); Eosinophils Percent Auto 1.1 % (0-4); Hematocrit 40.7 % (42.0-52.0); Hemoglobin 13.5 g/dl (14.0-18.0); Imm Gran Abs Auto 0.02 X10*3/uL (0.00-0.03); Imm Gran Pct Auto 0.2 % (0.0-0.4); Lymphocytes Percent Auto 36.5 % (20-40); Mean Corpuscular HGB Conc 33.2 g/dl (31.0-36.0); Mean Corpuscular Hemoglobin 27.4 pg (27.0-33.0); Mean Corpuscular Volume 82.6 fL (80.0-98.0); Mean Platelet Volume 9.9 fL (9.4-12.4); Monocytes Absolute Auto 0.6 X10*3/uL (0.1-1.2); Monocytes Percent Auto 7.2 % (2-11); Neutrophils Absolute Auto 4.4 x10*3/uL (2.0-8.3); Neutrophils Percent Auto 54.8 % (45-73); Platelet Count 306 X10*3/uL (160-400); Red Blood Count 4.93 X10*6/uL (4.60-5.80); Red Cell Distribution Width 14.5 % (11.0-16.0); White Blood Count 8.1 X10*3/uL (4.8-10.8)
[2023-05-17 19:04] LABS: Appearance Urine Clear; Color Urine Yellow; Glucose Urine UA Negative (Negative); Leukocyte Esterase Urine Negative (Negative); Nitrite Urine Negative (Negative); Specific Gravity - Urine 1.025 (1.005-1.025); Urine Blood Negative (Negative); Urine Ketones Trace mg/dL (Negative); Urine Protein Negative (Neg-Trace)
[2023-05-17 19:11] LABS: Amphetamine Screen Urine Not Detected (Not Detect); Barbiturates, Urine Not Detected (Not Detect); Benzodiazepines Screen Urine Not Detected (Not Detect); Cannabinoid Screen Urine Not Detected (Not Detect); Cocaine Screen Urine Not Detected (Not Detect); Fentanyl, urine POSITIVE (Not Detect); Opiate Screen Urine POSITIVE (Not Detect); Phencyclidine Screen Urine Not Detected (Not Detect)
[2023-05-17 19:15] LABS: COVID-19 Test Negative (Negative); IDNOW Serial# 152EDE1D
[2023-05-17 19:18] LABS: Alanine Aminotransferase 29 U/L (0-40); Alkaline Phosphatase 98 U/L (39-117); Anion Gap 12 (12-20); Aspartate Amino Transferase 19 U/L (5-37); Bilirubin Total 0.3 mg/dL (0.0-1.0); Blood Urea Nitrogen 10 mg/dL (9-16); Carbon Dioxide 26 mmol/L (22-29); Chloride 110 mmol/L (96-108); Creatinine Clr Calc Pharmacy 120.5; Estimated Glomerular Filt Rate > 60; Ethanol < 10 mg/dL; Glucose Random 87 mg/dL (60-115); Potassium 4.3 mmol/L (3.3-5.1); Sodium 144 mmol/L (135-145); Total Protein 7.4 g/dL (6.5-8.0)
[2023-05-17] MEDS: QUEtiapine Fumarate 300 MG TABLET PO (21:09)
--- NOTE | 2023-05-18 | ECG_ITS ---
Test Reason : MED CLEAR Blood Pressure : / mmHG Vent. Rate : 063 BPM Atrial Rate : 063 BPM P-R Int : 170 ms QRS Dur : 090 ms QT Int : 390 ms P-R-T Axes : 075 051 011 degrees QTc Int : 399 ms Normal sinus rhythm with sinus arrhythmia Normal ECG When compared with ECG of 26-FEB-2021 10:32, No significant change was found Referred By: Yoselin Thomas Electronically Signed By:Jeffery Spears
[2023-05-18 06:35] VITALS: BP 111/73; PULSE 62; RESP 16; TEMP 36.6; O2SAT 96
--- NOTE | 2023-05-18 12:17 | PC.NURSE ---
Assumed care of patient at 1100, patient appears to be sleeping, respirations even and unlabored, no apparent distress. Pending CARE team at this time
--- NOTE | 2023-05-18 13:55 | MHC.CARE ---
Patient evaluated by the CARE Team, disposition for inpatient psychiatric treatment.
[2023-05-18 14:18] VITALS: RESP 14
--- NOTE | 2023-05-18 18:32 | PHA.MEDREC ---
Pharmacy Consult ? Medication Reconciliation Pharmacy has REVIEWED the medication reconciliation.
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
[2023-05-18] MEDS: QUEtiapine Fumarate 300 MG TABLET PO (22:35)
[2023-05-18 23:05] VITALS: BMI 29.3
[2023-05-19 08:25] VITALS: BP 107/65; PULSE 70; RESP 16; TEMP 36.6; O2SAT 97
[2023-05-19] MEDS: QUEtiapine Fumarate 100 MG TABLET PO (13:18)
[2023-05-19] MEDS: LORazepam 1 MG TABLET PO ×2 (13:18→23:57)
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
[2023-05-19 18:00] VITALS: BP 118/70; PULSE 70; RESP 18; TEMP 36.7; O2SAT 98
[2023-05-19] MEDS: Gabapentin 100 MG CAPSULE 200 MG PO (20:01)
[2023-05-19] MEDS: QUEtiapine Fumarate 300 MG TABLET PO (20:01)
[2023-05-20] MEDS: Gabapentin 100 MG CAPSULE 200 MG PO ×2 (09:21→23:11)
[2023-05-20] MEDS: cloNIDine HCL 0.1 MG TABLET PO (12:14)
[2023-05-20] MEDS: LORazepam 1 MG TABLET PO ×2 (12:14→23:16)
[2023-05-20 12:18] VITALS: BP 128/91; PULSE 101; RESP 18; TEMP 36.2; O2SAT 98
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
[2023-05-20 23:00] VITALS: BP 106/64; PULSE 78; TEMP 36.7
[2023-05-20] MEDS: QUEtiapine Fumarate 300 MG TABLET PO (23:11)
[2023-05-20] MEDS: traZODone HCL 50 MG TABLET PO (23:16)
[2023-05-21] MEDS: Gabapentin 100 MG CAPSULE 200 MG PO ×2 (09:59→23:13)
[2023-05-21 10:05] VITALS: BP 121/75; PULSE 110; RESP 16; TEMP 36.9; O2SAT 97
[2023-05-21] MEDS: Acetaminophen 325 MG TABLET 650 MG PO (13:05)
--- NOTE | 2023-05-21 15:29 | HO.PSYCHPN ---
Subjective Subjective Date of Service: 05/21/23 Reason For Visit: SI Subjective Notes: Conditional Voluntary Healthcare Proxy: No Guardianship: No Medical Problems Affecting Mental Status: No Interim History: Visable in the milieu today. Discussed further treatment. Team has applied for [facility]. Pt is unsure he reports, but feels he needs further treatment due to relapses. Visited this afternoon with a peer. Discussed potential Seroquel increase to assist with mood. Medication Compliance: Intermittent Side effects from medications: No Attending Groups: No Review of Systems Acute medical concerns: No Medical Review of Systems: unchanged Review of Systems Review of Systems Yes all other systems are reviewed and are negative (denies) Mental Status Exam Mental Status Exam Patient Appearance: Fatigued Patient Orientation: Person, Place, Time and Situation Level of Consciousness: Alert Patient Behavior: Talkative and Good Eye Contact Mood Description: Depressed Affect Description: Flat Patient Cognition Impaired: No Ability to Follow Directions: Good Speech Pattern: Spontaneous Speech Memory Description: Episodic Impaired Hallucinations: None Delusions: Not Present Perceptual Disturbances: Depersonalization and Derealization Thought Process: Rumination Thought Content: positive for Perseveration, positive for Suicidal Ideation (denies) and positive for Homicidal Ideation (to the person who murdered his sister) Depressive Symptoms: Thoughts of /Suicide (denies) Judgement: Fair Diagnostics Vital Signs (24Hr): Vital Signs - 24 hr 05/20/23 23:00 05/21/23 10:05 Temperature 98.1 F 98.4 F Pulse Rate 78 110 H Respiratory Rate 16 Blood Pressure 106/64 121/75 Pulse Oximetry 97 Oxygen Delivery Method Room Air BMI result Body Mass Index 29.3 Labs 05/17/23 18:55 05/17/23 18:55 Medications Medications Current Medications Acetaminophen (Acetaminophen 325 Mg Tablet) 650 mg PO Q6H PRN PRN Reason: Headache/Pain Mild Scale (1-3) Last Admin: 05/21/23 13:05 Dose: 650 mg Al Hydroxide/Mg Hydroxide (Magnesium Hydrox/Alum Hydrox 30 Ml Oral.Susp) 30 ml PO Q6H PRN PRN Reason: Heartburn/Nausea Buprenorphine/Naloxone (Buprenorphine/Naloxone 8/2 Mg Film) 1 film SUBLINGUAL BID [facility] Last Admin: 05/21/23 08:45 Dose: Not Given Clonidine HCl (Clonidine Hcl 0.1 Mg Tablet) 0.1 mg PO Q4H PRN; Protocol PRN Reason: signs of opioid withdrawal Last Admin: 05/20/23 12:14 Dose: 0.1 mg Dicyclomine HCl (Dicyclomine Hcl 10 Mg Capsule) 10 mg PO QIDACHS PRN PRN Reason: cramps Gabapentin (Gabapentin 100 Mg Capsule) 200 mg PO BID [facility] Last Admin: 05/21/23 09:59 Dose: 200 mg Hydroxyzine HCl (Hydroxyzine Hcl 25 Mg Tablet) 25 mg PO Q6H PRN PRN Reason: Anxiety Ibuprofen (Ibuprofen 600 Mg Tablet) 600 mg PO Q6H PRN PRN Reason: Pain, Moderate(Pain Scale 4-6) Lorazepam (Lorazepam 1 Mg Tablet) 1 mg PO Q4H PRN PRN Reason: Severe anxiety Last Admin: 05/20/23 23:16 Dose: 1 mg Magnesium Hydroxide (Milk Of Magnesia 30 Ml Oral.Susp) 30 ml PO DAILY PRN PRN Reason: Constipation Nicotine Polacrilex (Nicotine Polacrilex 2 Mg Gum) 4 mg BUCCAL Q2H PRN PRN Reason: Nicotine Cravings Quetiapine Fumarate (Quetiapine Fumarate 100 Mg Tablet) 100 mg PO BID PRN PRN Reason: Agitation Last Admin: 05/19/23 13:18 Dose: 100 mg Quetiapine Fumarate (Quetiapine Fumarate 300 Mg Tablet) 300 mg PO BEDTIME [facility] Last Admin: 05/20/23 23:11 Dose: 300 mg Trazodone HCl (Trazodone Hcl 50 Mg Tablet) 50 mg PO BEDTIME MRX1 PRN PRN Reason: Insomnia Last Admin: 05/20/23 23:16 Dose: 50 mg Allergies Allergies Allergy/AdvReac Type Severity Reaction Status Date / Time lamotrigine [From Lamictal] AdvReac Severe pt reports Verified 05/17/23 18:35 lamictal precipitates panic attacks Assessment & Plan Assessment & Plan (1) Mood disorder: Status: Acute Code(s): F39 - Unspecified mood [affective] disorder (2) Polysubstance abuse: Status: Acute Code(s): F19.10 - Other psychoactive substance abuse, uncomplicated (3) PTSD (post-traumatic stress disorder): Status: Acute Code(s): F43.10 - Post-traumatic stress disorder, unspecified (4) Opiate abuse, continuous: Status: Acute Code(s): F11.10 - Opioid abuse, uncomplicated (5) Suicidal ideations: Status: Acute Code(s): R45.851 - Suicidal ideations Plan 28 yo male, history of Opiate Use, Polysubstance use and mood disorder. Probable PTSD due to loss of sister who was murdered in 2020. Pt reports using 1 bundle daily/Fentanyl. Currently on suboxone. Reports SI with plans and stressors contributing to relapse and SI are financial, conflict with the mother of his child, and unresolved grief regarding sisters murder and chronic homelessness. Plan: Collateral contact Gabapentin 200 mg bid Lorazepam 1 mg q 4 H prn anxiety Pt asks for assitance in locating [facility]/Respite/[facility] Home 05/21/23: Continue current tx. Encouraged CSS transfer Patient educated on: medication risk/benefits and therapeutic strategies Informed Consent: understands Reason for continued inpatient stay Substantial Risk for: harm to self, harm to others and rapid decompensation Time Spent With Patient Time: Total time managing care of this patient today ____ minutes.
[2023-05-21 23:00] VITALS: BP 140/61; PULSE 100; TEMP 37.2
[2023-05-21] MEDS: QUEtiapine Fumarate 300 MG TABLET PO (23:14)
[2023-05-22] MEDS: QUEtiapine Fumarate 100 MG TABLET PO (08:38)
[2023-05-22 08:50] VITALS: BP 114/72; PULSE 125; RESP 18; TEMP 36.4; O2SAT 99
--- NOTE | 2023-05-22 15:29 | HO.PSYCHPN ---
Subjective Subjective Date of Service: 05/22/23 Reason For Visit: SI Subjective Notes: Conditional Voluntary Healthcare Proxy: No Guardianship: No Medical Problems Affecting Mental Status: No Interim History: Continued discussion with pt regarding mood stability. Seroquel will be increased to 400 mg HS. Pt asking for increase in Lorazepam-encouraged to trial Seroquel increase to assess efficacy. Pt resting in bed, isolative, refused a.m. medications. Medication Compliance: Intermittent Side effects from medications: No Attending Groups: No Review of Systems Acute medical concerns: No Medical Review of Systems: unchanged Review of Systems Review of Systems Yes all other systems are reviewed and are negative Mental Status Exam Mental Status Exam Patient Appearance: Fatigued Patient Orientation: Person, Place, Time and Situation Level of Consciousness: Alert Patient Behavior: Talkative and Good Eye Contact Mood Description: Depressed Affect Description: Flat Patient Cognition Impaired: No Ability to Follow Directions: Good Speech Pattern: Spontaneous Speech Memory Description: Episodic Impaired Hallucinations: None Delusions: Not Present Perceptual Disturbances: Depersonalization and Derealization Thought Process: Rumination Thought Content: positive for Perseveration, positive for Suicidal Ideation (denies) and positive for Homicidal Ideation (to the person who murdered his sister) Depressive Symptoms: Thoughts of /Suicide (denies) Judgement: Fair Diagnostics Vital Signs (24Hr): Vital Signs - 24 hr 05/21/23 23:00 05/22/23 08:50 Temperature 98.9 F 97.6 F Pulse Rate 100 125 H Respiratory Rate 18 Blood Pressure 140/61 H 114/72 Pulse Oximetry 99 Oxygen Delivery Method Room Air BMI result Body Mass Index 29.3 Labs 05/17/23 18:55 05/17/23 18:55 Medications Medications Current Medications Acetaminophen (Acetaminophen 325 Mg Tablet) 650 mg PO Q6H PRN PRN Reason: Headache/Pain Mild Scale (1-3) Last Admin: 05/21/23 13:05 Dose: 650 mg Al Hydroxide/Mg Hydroxide (Magnesium Hydrox/Alum Hydrox 30 Ml Oral.Susp) 30 ml PO Q6H PRN PRN Reason: Heartburn/Nausea Buprenorphine/Naloxone (Buprenorphine/Naloxone 8/2 Mg Film) 1 film SUBLINGUAL BID [facility] Last Admin: 05/22/23 08:39 Dose: Not Given Clonidine HCl (Clonidine Hcl 0.1 Mg Tablet) 0.1 mg PO Q4H PRN; Protocol PRN Reason: signs of opioid withdrawal Last Admin: 05/20/23 12:14 Dose: 0.1 mg Dicyclomine HCl (Dicyclomine Hcl 10 Mg Capsule) 10 mg PO QIDACHS PRN PRN Reason: cramps Gabapentin (Gabapentin 100 Mg Capsule) 200 mg PO BID [facility] Last Admin: 05/22/23 08:39 Dose: Not Given Hydroxyzine HCl (Hydroxyzine Hcl 25 Mg Tablet) 25 mg PO Q6H PRN PRN Reason: Anxiety Ibuprofen (Ibuprofen 600 Mg Tablet) 600 mg PO Q6H PRN PRN Reason: Pain, Moderate(Pain Scale 4-6) Lorazepam (Lorazepam 1 Mg Tablet) 1 mg PO Q4H PRN PRN Reason: Severe anxiety Last Admin: 05/20/23 23:16 Dose: 1 mg Magnesium Hydroxide (Milk Of Magnesia 30 Ml Oral.Susp) 30 ml PO DAILY PRN PRN Reason: Constipation Nicotine Polacrilex (Nicotine Polacrilex 2 Mg Gum) 4 mg BUCCAL Q2H PRN PRN Reason: Nicotine Cravings Quetiapine Fumarate (Quetiapine Fumarate 100 Mg Tablet) 100 mg PO BID PRN PRN Reason: Agitation Last Admin: 05/22/23 08:38 Dose: 100 mg Quetiapine Fumarate (Quetiapine Fumarate 400 Mg Tablet) 400 mg PO BEDTIME [facility] Trazodone HCl (Trazodone Hcl 50 Mg Tablet) 50 mg PO BEDTIME MRX1 PRN PRN Reason: Insomnia Last Admin: 05/20/23 23:16 Dose: 50 mg Allergies Allergies Allergy/AdvReac Type Severity Reaction Status Date / Time lamotrigine [From Lamictal] AdvReac Severe pt reports Verified 05/17/23 18:35 lamictal precipitates panic attacks Assessment & Plan Assessment & Plan (1) Mood disorder: Status: Acute Code(s): F39 - Unspecified mood [affective] disorder (2) Polysubstance abuse: Status: Acute Code(s): F19.10 - Other psychoactive substance abuse, uncomplicated (3) PTSD (post-traumatic stress disorder): Status: Acute Code(s): F43.10 - Post-traumatic stress disorder, unspecified (4) Opiate abuse, continuous: Status: Acute Code(s): F11.10 - Opioid abuse, uncomplicated (5) Suicidal ideations: Status: Acute Code(s): R45.851 - Suicidal ideations Plan 28 yo male, history of Opiate Use, Polysubstance use and mood disorder. Probable PTSD due to loss of sister who was murdered in 2020. Pt reports using 1 bundle daily/Fentanyl. Currently on suboxone. Reports SI with plans and stressors contributing to relapse and SI are financial, conflict with the mother of his child, and unresolved grief regarding sisters murder and chronic homelessness. Plan: Collateral contact Gabapentin 200 mg bid Lorazepam 1 mg q 4 H prn anxiety Pt asks for assitance in locating [facility]pite/[facility] Home 05/21/23: Continue current tx. Encouraged CSS transfer 05/22/23 Increase Seroquel to 400 mg HS Patient educated on: medication risk/benefits and therapeutic strategies Informed Consent: understands Reason for continued inpatient stay Substantial Risk for: rapid decompensation Time Spent With Patient Time: Total time managing care of this patient today ____ minutes.
[2023-05-22 17:18] VITALS: BP 112/75; PULSE 113; RESP 18; TEMP 36.6; O2SAT 98
[2023-05-22] MEDS: LORazepam 1 MG TABLET PO (22:40)
[2023-05-22] MEDS: Gabapentin 100 MG CAPSULE 200 MG PO (22:40)
[2023-05-22] MEDS: QUEtiapine Fumarate 400 MG TABLET PO (22:42)
[2023-05-23 08:00] VITALS: RESP 18
--- NOTE | 2023-05-23 12:09 | HO.PSYCHPN ---
Subjective Subjective Date of Service: 05/23/23 Reason For Visit: SI Interim History: Pt resting in bed, isolative, difficult to engage in conversation; refused a.m. medications. Medication Compliance: No Side effects from medications: No Attending Groups: No Review of Systems Acute medical concerns: No Medical Review of Systems: unchanged Review of Systems Review of Systems Yes all other systems are reviewed and are negative Mental Status Exam Mental Status Exam Patient Appearance: Fatigued Patient Orientation: Person, Place, Time and Situation Level of Consciousness: Alert Patient Behavior: Talkative and Good Eye Contact Mood Description: Depressed Affect Description: Flat Patient Cognition Impaired: No Ability to Follow Directions: Good Speech Pattern: Spontaneous Speech Memory Description: Episodic Impaired Diagnostics Vital Signs (24Hr): Vital Signs - 24 hr 05/22/23 17:18 05/23/23 08:00 Temperature 97.8 F Pulse Rate 113 H Respiratory Rate 18 18 Blood Pressure 112/75 Pulse Oximetry 98 Oxygen Delivery Method Room Air BMI result Body Mass Index 29.3 Labs 05/17/23 18:55 05/17/23 18:55 Medications Medications Current Medications Acetaminophen (Acetaminophen 325 Mg Tablet) 650 mg PO Q6H PRN PRN Reason: Headache/Pain Mild Scale (1-3) Last Admin: 05/21/23 13:05 Dose: 650 mg Al Hydroxide/Mg Hydroxide (Magnesium Hydrox/Alum Hydrox 30 Ml Oral.Susp) 30 ml PO Q6H PRN PRN Reason: Heartburn/Nausea Buprenorphine/Naloxone (Buprenorphine/Naloxone 8/2 Mg Film) 1 film SUBLINGUAL BID [facility] Last Admin: 05/23/23 08:47 Dose: Not Given Clonidine HCl (Clonidine Hcl 0.1 Mg Tablet) 0.1 mg PO Q4H PRN; Protocol PRN Reason: signs of opioid withdrawal Last Admin: 05/20/23 12:14 Dose: 0.1 mg Dicyclomine HCl (Dicyclomine Hcl 10 Mg Capsule) 10 mg PO QIDACHS PRN PRN Reason: cramps Gabapentin (Gabapentin 100 Mg Capsule) 200 mg PO BID [facility] Last Admin: 05/23/23 08:47 Dose: Not Given Hydroxyzine HCl (Hydroxyzine Hcl 25 Mg Tablet) 25 mg PO Q6H PRN PRN Reason: Anxiety Ibuprofen (Ibuprofen 600 Mg Tablet) 600 mg PO Q6H PRN PRN Reason: Pain, Moderate(Pain Scale 4-6) Lorazepam (Lorazepam 1 Mg Tablet) 1 mg PO Q4H PRN PRN Reason: Severe anxiety Last Admin: 05/22/23 22:40 Dose: 1 mg Magnesium Hydroxide (Milk Of Magnesia 30 Ml Oral.Susp) 30 ml PO DAILY PRN PRN Reason: Constipation Nicotine Polacrilex (Nicotine Polacrilex 2 Mg Gum) 4 mg BUCCAL Q2H PRN PRN Reason: Nicotine Cravings Quetiapine Fumarate (Quetiapine Fumarate 100 Mg Tablet) 100 mg PO BID PRN PRN Reason: Agitation Last Admin: 05/22/23 08:38 Dose: 100 mg Quetiapine Fumarate (Quetiapine Fumarate 400 Mg Tablet) 400 mg PO BEDTIME [facility] Last Admin: 05/22/23 22:42 Dose: 400 mg Trazodone HCl (Trazodone Hcl 50 Mg Tablet) 50 mg PO BEDTIME MRX1 PRN PRN Reason: Insomnia Last Admin: 05/20/23 23:16 Dose: 50 mg Allergies Allergies Allergy/AdvReac Type Severity Reaction Status Date / Time lamotrigine [From Lamictal] AdvReac Severe pt reports Verified 05/17/23 18:35 lamictal precipitates panic attacks Assessment & Plan Assessment & Plan (1) Mood disorder: Status: Acute Code(s): F39 - Unspecified mood [affective] disorder (2) Polysubstance abuse: Status: Acute Code(s): F19.10 - Other psychoactive substance abuse, uncomplicated (3) PTSD (post-traumatic stress disorder): Status: Acute Code(s): F43.10 - Post-traumatic stress disorder, unspecified (4) Opiate abuse, continuous: Status: Acute Code(s): F11.10 - Opioid abuse, uncomplicated (5) Suicidal ideations: Status: Acute Code(s): R45.851 - Suicidal ideations Plan 28 yo male, history of Opiate Use, Polysubstance use and mood disorder. Probable PTSD due to loss of sister who was murdered in 2020. Pt reports using 1 bundle daily/Fentanyl. Currently on suboxone. Reports SI with plans and stressors contributing to relapse and SI are financial, conflict with the mother of his child, and unresolved grief regarding sisters murder and chronic homelessness. Plan: Collateral contact Gabapentin 200 mg bid Lorazepam 1 mg q 4 H prn anxiety Pt asks for assitance in locating [facility]/Respite/[facility] Home 05/21/23: Continue current tx. Encouraged CSS transfer 05/22/23 Increase Seroquel to 400 mg HS 05/23/23 no changes continue tx plan Reason for continued inpatient stay Substantial Risk for: harm to self, inability to function and rapid decompensation Time Spent With Patient Time: Total time managing care of this patient today ____ minutes.
[2023-05-23] MEDS: LORazepam 1 MG TABLET PO ×2 (18:47→22:57)
[2023-05-23] MEDS: QUEtiapine Fumarate 400 MG TABLET PO (22:57)
[2023-05-24 08:00] VITALS: RESP 18
--- NOTE | 2023-05-24 18:03 | HO.PSYCHPN ---
Subjective Subjective Date of Service: 05/24/23 Reason For Visit: SI Interim History: Pt resting in bed, isolative, difficult to engage in conversation; refused a.m. medications. Medication Compliance: No Side effects from medications: No Attending Groups: No Review of Systems Acute medical concerns: No Medical Review of Systems: unchanged Review of Systems Review of Systems Yes all other systems are reviewed and are negative Mental Status Exam Mental Status Exam Patient Appearance: Fatigued Patient Orientation: Person, Place, Time and Situation Level of Consciousness: Alert Patient Behavior: Guarded and Avoidant Mood Description: Depressed Affect Description: Flat Patient Cognition Impaired: No Ability to Follow Directions: Good Speech Pattern: Soft-Spoken and Delayed Memory Description: Episodic Impaired Judgement: Fair Diagnostics Vital Signs (24Hr): Vital Signs - 24 hr 05/24/23 08:00 Respiratory Rate 18 BMI result Body Mass Index 29.3 Labs 05/17/23 18:55 05/17/23 18:55 Medications Medications Current Medications Acetaminophen (Acetaminophen 325 Mg Tablet) 650 mg PO Q6H PRN PRN Reason: Headache/Pain Mild Scale (1-3) Last Admin: 05/21/23 13:05 Dose: 650 mg Al Hydroxide/Mg Hydroxide (Magnesium Hydrox/Alum Hydrox 30 Ml Oral.Susp) 30 ml PO Q6H PRN PRN Reason: Heartburn/Nausea Buprenorphine/Naloxone (Buprenorphine/Naloxone 8/2 Mg Film) 1 film SUBLINGUAL BID REPLACED BY [facility] Last Admin: 05/24/23 09:25 Dose: Not Given Clonidine HCl (Clonidine Hcl 0.1 Mg Tablet) 0.1 mg PO Q4H PRN; Protocol PRN Reason: signs of opioid withdrawal Last Admin: 05/20/23 12:14 Dose: 0.1 mg Dicyclomine HCl (Dicyclomine Hcl 10 Mg Capsule) 10 mg PO QIDACHS PRN PRN Reason: cramps Gabapentin (Gabapentin 100 Mg Capsule) 200 mg PO BID REPLACED BY [facility] Last Admin: 05/24/23 09:25 Dose: Not Given Hydroxyzine HCl (Hydroxyzine Hcl 25 Mg Tablet) 25 mg PO Q6H PRN PRN Reason: Anxiety Ibuprofen (Ibuprofen 600 Mg Tablet) 600 mg PO Q6H PRN PRN Reason: Pain, Moderate(Pain Scale 4-6) Lorazepam (Lorazepam 1 Mg Tablet) 1 mg PO Q4H PRN PRN Reason: Severe anxiety Last Admin: 05/23/23 22:57 Dose: 1 mg Magnesium Hydroxide (Milk Of Magnesia 30 Ml Oral.Susp) 30 ml PO DAILY PRN PRN Reason: Constipation Nicotine Polacrilex (Nicotine Polacrilex 2 Mg Gum) 4 mg BUCCAL Q2H PRN PRN Reason: Nicotine Cravings Quetiapine Fumarate (Quetiapine Fumarate 100 Mg Tablet) 100 mg PO BID PRN PRN Reason: Agitation Last Admin: 05/22/23 08:38 Dose: 100 mg Quetiapine Fumarate (Quetiapine Fumarate 400 Mg Tablet) 400 mg PO BEDTIME [facility] Last Admin: 05/23/23 22:57 Dose: 400 mg Trazodone HCl (Trazodone Hcl 50 Mg Tablet) 50 mg PO BEDTIME MRX1 PRN PRN Reason: Insomnia Last Admin: 05/20/23 23:16 Dose: 50 mg Allergies Allergies Allergy/AdvReac Type Severity Reaction Status Date / Time lamotrigine [From Lamictal] AdvReac Severe pt reports Verified 05/17/23 18:35 lamictal precipitates panic attacks Assessment & Plan Assessment & Plan (1) Mood disorder: Status: Acute Code(s): F39 - Unspecified mood [affective] disorder (2) Polysubstance abuse: Status: Acute Code(s): F19.10 - Other psychoactive substance abuse, uncomplicated (3) PTSD (post-traumatic stress disorder): Status: Acute Code(s): F43.10 - Post-traumatic stress disorder, unspecified (4) Opiate abuse, continuous: Status: Acute Code(s): F11.10 - Opioid abuse, uncomplicated (5) Suicidal ideations: Status: Acute Code(s): R45.851 - Suicidal ideations Plan 28 yo male, history of Opiate Use, Polysubstance use and mood disorder. Probable PTSD due to loss of sister who was murdered in 2020. Pt reports using 1 bundle daily/Fentanyl. Currently on suboxone. Reports SI with plans and stressors contributing to relapse and SI are financial, conflict with the mother of his child, and unresolved grief regarding sisters murder and chronic homelessness. Plan: Collateral contact Gabapentin 200 mg bid Lorazepam 1 mg q 4 H prn anxiety Pt asks for assitance in locating [facility] Home 05/21/23: Continue current tx. Encouraged [facility] transfer 05/22/23 Increase Seroquel to 400 mg HS 05/23/23 no changes continue tx plan 05/24/23 continue tx plan Reason for continued inpatient stay Substantial Risk for: harm to self and inability to function Time Spent With Patient Time: Total time managing care of this patient today ____ minutes.
[2023-05-24] MEDS: Gabapentin 100 MG CAPSULE 200 MG PO (23:26)
[2023-05-24] MEDS: LORazepam 1 MG TABLET PO (23:26)
[2023-05-24] MEDS: QUEtiapine Fumarate 400 MG TABLET PO (23:26)
[2023-05-24] MEDS: QUEtiapine Fumarate 100 MG TABLET PO (23:26)
[2023-05-25 09:02] VITALS: BP 110/69; PULSE 90; RESP 16; TEMP 36.7; O2SAT 98
--- NOTE | 2023-05-25 17:38 | HO.PSYCHPN ---
Subjective Subjective Date of Service: 05/25/23 Reason For Visit: SI Subjective Notes: Conditional Voluntary Healthcare Proxy: No Guardianship: No Medical Problems Affecting Mental Status: No Interim History: Pt asking today to increase Seroquel. By hx he has used 800 mg daily. Discussed sedation risks and titration. He asks to resume dosing 200 mg bid and continue 400 mg HS. Will trial as he requests and observe for excessive sedation. Pt was denied admission to [facility] due to hx of SI. [facility] is still an option. Pt also is open to a brief respite stay as well. Medication Compliance: Yes Side effects from medications: No Attending Groups: No Review of Systems Acute medical concerns: No Medical Review of Systems: unchanged Review of Systems Review of Systems Yes all other systems are reviewed and are negative Mental Status Exam Mental Status Exam Patient Appearance: Fatigued Patient Orientation: Person, Place, Time and Situation Level of Consciousness: Alert Patient Behavior: Guarded and Avoidant Mood Description: Depressed Affect Description: Flat Patient Cognition Impaired: No Ability to Follow Directions: Good Speech Pattern: Soft-Spoken and Delayed Memory Description: Episodic Impaired Judgement: Fair Diagnostics Vital Signs (24Hr): Vital Signs - 24 hr 05/25/23 09:02 Temperature 98.0 F Pulse Rate 90 Respiratory Rate 16 Blood Pressure 110/69 Pulse Oximetry 98 Oxygen Delivery Method Room Air BMI result Body Mass Index 29.3 Labs 05/17/23 18:55 05/17/23 18:55 Medications Medications Current Medications Acetaminophen (Acetaminophen 325 Mg Tablet) 650 mg PO Q6H PRN PRN Reason: Headache/Pain Mild Scale (1-3) Last Admin: 05/21/23 13:05 Dose: 650 mg Al Hydroxide/Mg Hydroxide (Magnesium Hydrox/Alum Hydrox 30 Ml Oral.Susp) 30 ml PO Q6H PRN PRN Reason: Heartburn/Nausea Buprenorphine/Naloxone (Buprenorphine/Naloxone 8/2 Mg Film) 1 film SUBLINGUAL BID [facility] Last Admin: 05/25/23 09:37 Dose: Not Given Clonidine HCl (Clonidine Hcl 0.1 Mg Tablet) 0.1 mg PO Q4H PRN; Protocol PRN Reason: signs of opioid withdrawal Last Admin: 05/20/23 12:14 Dose: 0.1 mg Dicyclomine HCl (Dicyclomine Hcl 10 Mg Capsule) 10 mg PO QIDACHS PRN PRN Reason: cramps Gabapentin (Gabapentin 100 Mg Capsule) 200 mg PO BID [facility] Last Admin: 05/24/23 23:26 Dose: 200 mg Hydroxyzine HCl (Hydroxyzine Hcl 25 Mg Tablet) 25 mg PO Q6H PRN PRN Reason: Anxiety Ibuprofen (Ibuprofen 600 Mg Tablet) 600 mg PO Q6H PRN PRN Reason: Pain, Moderate(Pain Scale 4-6) Lorazepam (Lorazepam 1 Mg Tablet) 1 mg PO Q4H PRN PRN Reason: Severe anxiety Last Admin: 05/24/23 23:26 Dose: 1 mg Magnesium Hydroxide (Milk Of Magnesia 30 Ml Oral.Susp) 30 ml PO DAILY PRN PRN Reason: Constipation Nicotine Polacrilex (Nicotine Polacrilex 2 Mg Gum) 4 mg BUCCAL Q2H PRN PRN Reason: Nicotine Cravings Quetiapine Fumarate (Quetiapine Fumarate 100 Mg Tablet) 100 mg PO BID PRN PRN Reason: Agitation Last Admin: 05/24/23 23:26 Dose: 100 mg Quetiapine Fumarate (Quetiapine Fumarate 400 Mg Tablet) 400 mg PO BEDTIME [facility] Last Admin: 05/24/23 23:26 Dose: 400 mg Trazodone HCl (Trazodone Hcl 50 Mg Tablet) 50 mg PO BEDTIME MRX1 PRN PRN Reason: Insomnia Last Admin: 05/20/23 23:16 Dose: 50 mg Allergies Allergies Allergy/AdvReac Type Severity Reaction Status Date / Time lamotrigine [From Lamictal] AdvReac Severe pt reports Verified 05/17/23 18:35 lamictal precipitates panic attacks Assessment & Plan Assessment & Plan (1) Mood disorder: Status: Acute Code(s): F39 - Unspecified mood [affective] disorder (2) Polysubstance abuse: Status: Acute Code(s): F19.10 - Other psychoactive substance abuse, uncomplicated (3) PTSD (post-traumatic stress disorder): Status: Acute Code(s): F43.10 - Post-traumatic stress disorder, unspecified (4) Opiate abuse, continuous: Status: Acute Code(s): F11.10 - Opioid abuse, uncomplicated (5) Suicidal ideations: Status: Acute Code(s): R45.851 - Suicidal ideations Plan 28 yo male, history of Opiate Use, Polysubstance use and mood disorder. Probable PTSD due to loss of sister who was murdered in 2020. Pt reports using 1 bundle daily/Fentanyl. Currently on suboxone. Reports SI with plans and stressors contributing to relapse and SI are financial, conflict with the mother of his child, and unresolved grief regarding sisters murder and chronic homelessness. Plan: Collateral contact Gabapentin 200 mg bid Lorazepam 1 mg q 4 H prn anxiety Pt asks for assitance in locating [facility] Home 05/21/23: Continue current tx. Encouraged [facility] transfer 05/22/23 Increase Seroquel to 400 mg HS 05/23/23 no changes continue tx plan 05/24/23 continue tx plan 05/25/23 Trial of Seroquel 200 mg bid. Continue 400 mg HS. Pt finding dosing helpful with psychiatric sx as well as cravings he reports. Patient educated on: medication risk/benefits and therapeutic strategies Informed Consent: understands Reason for continued inpatient stay Substantial Risk for: rapid decompensation Time Spent With Patient Time: Total time managing care of this patient today ____ minutes.
[2023-05-25] MEDS: LORazepam 1 MG TABLET PO (22:39)
[2023-05-25] MEDS: QUEtiapine Fumarate 400 MG TABLET PO (22:39)
[2023-05-26 08:00] VITALS: BP 97/53; PULSE 85; RESP 16; TEMP 36.2; O2SAT 97
--- NOTE | 2023-05-26 09:54 | P.PNPSI_ITS ---
Subjective Subjective Date of Service: 05/26/23 Reason For Visit: SI Subjective Notes: Conditional Voluntary Healthcare Proxy: No Guardianship: No Medical Problems Affecting Mental Status: No Interim History: Pt presents today as overmedicated. Will decrease daytime Seroquel to 50 mg bid and titrate as he tolerates this. Pt pending transfer to [facility], and will not be able to sleep during program time during the day. Medication Compliance: Yes Side effects from medications: Yes (Sedation) Attending Groups: No Review of Systems Acute medical concerns: No Medical Review of Systems: unchanged Review of Systems Review of Systems Yes all other systems are reviewed and are negative Mental Status Exam Mental Status Exam Patient Appearance: Fatigued Patient Orientation: Person, Place, Time and Situation Level of Consciousness: Alert Patient Behavior: Guarded and Avoidant Mood Description: Depressed Affect Description: Flat Patient Cognition Impaired: No Ability to Follow Directions: Good Speech Pattern: Soft-Spoken and Delayed Memory Description: Episodic Impaired Judgement: Fair Diagnostics Vital Signs (24Hr): Vital Signs - 24 hr 05/26/23 08:00 Temperature 97.2 F Pulse Rate 85 Respiratory Rate 16 Blood Pressure 97/53 L Pulse Oximetry 97 Oxygen Delivery Method Room Air BMI result Body Mass Index 29.3 Labs 05/17/23 18:55 05/17/23 18:55 Medications Medications Current Medications Acetaminophen (Acetaminophen 325 Mg Tablet) 650 mg PO Q6H PRN PRN Reason: Headache/Pain Mild Scale (1-3) Last Admin: 05/21/23 13:05 Dose: 650 mg Al Hydroxide/Mg Hydroxide (Magnesium Hydrox/Alum Hydrox 30 Ml Oral.Susp) 30 ml PO Q6H PRN PRN Reason: Heartburn/Nausea Buprenorphine/Naloxone (Buprenorphine/Naloxone 8/2 Mg Film) 1 film SUBLINGUAL BID [facility] Last Admin: 05/26/23 08:39 Dose: Not Given Clonidine HCl (Clonidine Hcl 0.1 Mg Tablet) 0.1 mg PO Q4H PRN; Protocol PRN Reason: signs of opioid withdrawal Last Admin: 05/20/23 12:14 Dose: 0.1 mg Dicyclomine HCl (Dicyclomine Hcl 10 Mg Capsule) 10 mg PO QIDACHS PRN PRN Reason: cramps Gabapentin (Gabapentin 100 Mg Capsule) 200 mg PO BID [facility] Last Admin: 05/26/23 08:39 Dose: Not Given Hydroxyzine HCl (Hydroxyzine Hcl 25 Mg Tablet) 25 mg PO Q6H PRN PRN Reason: Anxiety Ibuprofen (Ibuprofen 600 Mg Tablet) 600 mg PO Q6H PRN PRN Reason: Pain, Moderate(Pain Scale 4-6) Lorazepam (Lorazepam 1 Mg Tablet) 1 mg PO Q4H PRN PRN Reason: Severe anxiety Last Admin: 05/25/23 22:39 Dose: 1 mg Magnesium Hydroxide (Milk Of Magnesia 30 Ml Oral.Susp) 30 ml PO DAILY PRN PRN Reason: Constipation Nicotine Polacrilex (Nicotine Polacrilex 2 Mg Gum) 4 mg BUCCAL Q2H PRN PRN Reason: Nicotine Cravings Quetiapine Fumarate (Quetiapine Fumarate 400 Mg Tablet) 400 mg PO BEDTIME [facility] Last Admin: 05/25/23 22:39 Dose: 400 mg Quetiapine Fumarate (Quetiapine Fumarate 200 Mg Tablet) 200 mg PO BID@0900,1500 [facility] Last Admin: 05/26/23 08:40 Dose: Not Given Trazodone HCl (Trazodone Hcl 50 Mg Tablet) 50 mg PO BEDTIME MRX1 PRN PRN Reason: Insomnia Last Admin: 05/20/23 23:16 Dose: 50 mg Allergies Allergies Allergy/AdvReac Type Severity Reaction Status Date / Time lamotrigine [From Lamictal] AdvReac Severe pt reports Verified 05/17/23 18:35 lamictal precipitates panic attacks Assessment & Plan Assessment & Plan (1) Mood disorder: Status: Acute Code(s): F39 - Unspecified mood [affective] disorder (2) Polysubstance abuse: Status: Acute Code(s): F19.10 - Other psychoactive substance abuse, uncomplicated (3) PTSD (post-traumatic stress disorder): Status: Acute Code(s): F43.10 - Post-traumatic stress disorder, unspecified (4) Opiate abuse, continuous: Status: Acute Code(s): F11.10 - Opioid abuse, uncomplicated (5) Suicidal ideations: Status: Acute Code(s): R45.851 - Suicidal ideations Plan 28 yo male, history of Opiate Use, Polysubstance use and mood disorder. Probable PTSD due to loss of sister who was murdered in 2020. Pt reports using 1 bundle daily/Fentanyl. Currently on suboxone. Reports SI with plans and stressors contributing to relapse and SI are financial, conflict with the mother of his child, and unresolved grief regarding sisters murder and chronic homelessness. Plan: Collateral contact Gabapentin 200 mg bid Lorazepam 1 mg q 4 H prn anxiety Pt asks for assitance in locating [facility] Home 05/21/23: Continue current tx. Encouraged [facility] transfer 05/22/23 Increase Seroquel to 400 mg HS 05/23/23 no changes continue tx plan 05/24/23 continue tx plan 05/26/23 decrease Seroquel to 50 mg bid, 400 mg HS. Informed Consent: understands Reason for continued inpatient stay Substantial Risk for: rapid decompensation Time Spent With Patient Time: Total time managing care of this patient today ____ minutes.
[2023-05-26] MEDS: QUEtiapine Fumarate 200 MG TABLET PO (14:59)
[2023-05-26 22:40] VITALS: BP 119/79; PULSE 113; RESP 18
[2023-05-26] MEDS: QUEtiapine Fumarate 400 MG TABLET PO (22:45)
[2023-05-26] MEDS: LORazepam 1 MG TABLET PO (22:46)
[2023-05-26] MEDS: cloNIDine HCL 0.1 MG TABLET PO (22:46)
[2023-05-26] MEDS: Magnesium Hydrox/Alum Hydrox 30 ML ORAL.SUSP PO (22:46)
[2023-05-27 06:00] VITALS: RESP 16
--- NOTE | 2023-05-27 13:33 | P.PNPSI_ITS ---
Subjective Subjective Date of Service: 05/27/23 Reason For Visit: SI Subjective Notes: Conditional Voluntary Healthcare Proxy: No Guardianship: No Medical Problems Affecting Mental Status: No Interim History: Isolative Not participating in [place] Makes an association with increasing Seroquel to stopping/managing cravings, however increase in dosing causing daytime sedation. Pt states he wants to sleep through all of this. Refusing medications and treatment. Medication Compliance: Intermittent Side effects from medications: Yes (??Sedation vs withdrawl from milieu and anger) Attending Groups: No Review of Systems Acute medical concerns: No Medical Review of Systems: unchanged Review of Systems Review of Systems Yes Unobtainable due to mental status Mental Status Exam Mental Status Exam Patient Appearance: Fatigued Patient Orientation: Person, Place, Time and Situation Level of Consciousness: Alert Patient Behavior: Guarded and Avoidant Mood Description: Constricted, Depressed and Angry Affect Description: Constricted, Angry and Flat Patient Cognition Impaired: No Ability to Follow Directions: Good Speech Pattern: Soft-Spoken and Delayed Memory Description: Episodic Impaired Judgement: Fair Diagnostics Vital Signs (24Hr): Vital Signs - 24 hr 05/26/23 22:40 05/27/23 06:00 Pulse Rate 113 H Respiratory Rate 18 16 Blood Pressure 119/79 BMI result Body Mass Index 29.3 Labs 05/17/23 18:55 05/17/23 18:55 Medications Medications Current Medications Acetaminophen (Acetaminophen 325 Mg Tablet) 650 mg PO Q6H PRN PRN Reason: Headache/Pain Mild Scale (1-3) Last Admin: 05/21/23 13:05 Dose: 650 mg Al Hydroxide/Mg Hydroxide (Magnesium Hydrox/Alum Hydrox 30 Ml Oral.Susp) 30 ml PO Q6H PRN PRN Reason: Heartburn/Nausea Last Admin: 05/26/23 22:46 Dose: 30 ml Buprenorphine/Naloxone (Buprenorphine/Naloxone 8/2 Mg Film) 1 film SUBLINGUAL BID [facility] Last Admin: 05/27/23 09:24 Dose: Not Given Clonidine HCl (Clonidine Hcl 0.1 Mg Tablet) 0.1 mg PO Q4H PRN; Protocol PRN Reason: signs of opioid withdrawal Last Admin: 05/26/23 22:46 Dose: 0.1 mg Dicyclomine HCl (Dicyclomine Hcl 10 Mg Capsule) 10 mg PO QIDACHS PRN PRN Reason: cramps Gabapentin (Gabapentin 100 Mg Capsule) 200 mg PO BID [facility] Last Admin: 05/27/23 09:24 Dose: Not Given Hydroxyzine HCl (Hydroxyzine Hcl 25 Mg Tablet) 25 mg PO Q6H PRN PRN Reason: Anxiety Ibuprofen (Ibuprofen 600 Mg Tablet) 600 mg PO Q6H PRN PRN Reason: Pain, Moderate(Pain Scale 4-6) Lorazepam (Lorazepam 1 Mg Tablet) 1 mg PO Q4H PRN PRN Reason: Severe anxiety Last Admin: 05/26/23 22:46 Dose: 1 mg Magnesium Hydroxide (Milk Of Magnesia 30 Ml Oral.Susp) 30 ml PO DAILY PRN PRN Reason: Constipation Nicotine Polacrilex (Nicotine Polacrilex 2 Mg Gum) 4 mg BUCCAL Q2H PRN PRN Reason: Nicotine Cravings Quetiapine Fumarate (Quetiapine Fumarate 400 Mg Tablet) 400 mg PO BEDTIME [facility] Last Admin: 05/26/23 22:45 Dose: 400 mg Quetiapine Fumarate (Quetiapine Fumarate 50 Mg Tablet) 50 mg PO BID@0900,1500 [facility] Last Admin: 05/27/23 09:25 Dose: Not Given Trazodone HCl (Trazodone Hcl 50 Mg Tablet) 50 mg PO BEDTIME MRX1 PRN PRN Reason: Insomnia Last Admin: 05/20/23 23:16 Dose: 50 mg Allergies Allergies Allergy/AdvReac Type Severity Reaction Status Date / Time lamotrigine [From Lamictal] AdvReac Severe pt reports Verified 05/17/23 18:35 lamictal precipitates panic attacks Assessment & Plan Assessment & Plan (1) Mood disorder: Status: Acute Code(s): F39 - Unspecified mood [affective] disorder (2) Polysubstance abuse: Status: Acute Code(s): F19.10 - Other psychoactive substance abuse, uncomplicated (3) PTSD (post-traumatic stress disorder): Status: Acute Code(s): F43.10 - Post-traumatic stress disorder, unspecified (4) Opiate abuse, continuous: Status: Acute Code(s): F11.10 - Opioid abuse, uncomplicated (5) Suicidal ideations: Status: Acute Code(s): R45.851 - Suicidal ideations Plan 28 yo male, history of Opiate Use, Polysubstance use and mood disorder. Probable PTSD due to loss of sister who was murdered in 2020. Pt reports using 1 bundle daily/Fentanyl. Currently on suboxone. Reports SI with plans and stressors contributing to relapse and SI are financial, conflict with the mother of his child, and unresolved grief regarding sisters murder and chronic homelessness. Plan: Collateral contact Gabapentin 200 mg bid Lorazepam 1 mg q 4 H prn anxiety Pt asks for assitance in locating [facility] Home 05/21/23: Continue current tx. Encouraged [facility] transfer 05/22/23 Increase Seroquel to 400 mg HS 05/23/23 no changes continue tx plan 05/24/23 continue tx plan 05/26/23 decrease Seroquel to 50 mg bid, 400 mg HS. Reason for continued inpatient stay Substantial Risk for: harm to self, harm to others and rapid decompensation Time Spent With Patient Time: Total time managing care of this patient today ____ minutes.
[2023-05-27 18:00] VITALS: BP 132/71; PULSE 108; TEMP 36.3; O2SAT 98
[2023-05-27] MEDS: QUEtiapine Fumarate 400 MG TABLET PO (21:24)
[2023-05-28] MEDS: LORazepam 1 MG TABLET PO ×2 (00:13→22:24)
[2023-05-28 09:40] VITALS: BP 110/77; PULSE 97; RESP 16; TEMP 36.4; O2SAT 98
--- NOTE | 2023-05-28 17:23 | HO.PSYCHPN ---
Subjective Subjective Date of Service: 05/28/23 Reason For Visit: SI Subjective Notes: Conditional Voluntary Healthcare Proxy: No Guardianship: No Medical Problems Affecting Mental Status: No Interim History: Declined to meet to discuss medicine concerns. Team reports pt to be withdrawn, craving, irritable, interactive with peers, isolative. Medication Compliance: Intermittent Side effects from medications: No Attending Groups: No Review of Systems Acute medical concerns: No Medical Review of Systems: unchanged Review of Systems Review of Systems Yes Unobtainable due to mental status Mental Status Exam Mental Status Exam Patient Appearance: Fatigued Patient Orientation: Person, Place, Time and Situation Level of Consciousness: Alert Patient Behavior: Guarded and Avoidant Mood Description: Constricted, Depressed and Angry Affect Description: Constricted, Angry and Flat Patient Cognition Impaired: No Ability to Follow Directions: Good Speech Pattern: Soft-Spoken and Delayed Memory Description: Episodic Impaired Judgement: Fair Diagnostics Vital Signs (24Hr): Vital Signs - 24 hr 05/27/23 18:00 05/28/23 09:40 Temperature 97.3 F 97.6 F Pulse Rate 108 H 97 Respiratory Rate 16 Blood Pressure 132/71 110/77 Pulse Oximetry 98 98 Oxygen Delivery Method Room Air Room Air BMI result Body Mass Index 29.3 Labs 05/17/23 18:55 05/17/23 18:55 Medications Medications Current Medications Acetaminophen (Acetaminophen 325 Mg Tablet) 650 mg PO Q6H PRN PRN Reason: Headache/Pain Mild Scale (1-3) Last Admin: 05/21/23 13:05 Dose: 650 mg Al Hydroxide/Mg Hydroxide (Magnesium Hydrox/Alum Hydrox 30 Ml Oral.Susp) 30 ml PO Q6H PRN PRN Reason: Heartburn/Nausea Last Admin: 05/26/23 22:46 Dose: 30 ml Buprenorphine/Naloxone (Buprenorphine/Naloxone 8/2 Mg Film) 1 film SUBLINGUAL BID [facility] Last Admin: 05/28/23 09:00 Dose: Not Given Clonidine HCl (Clonidine Hcl 0.1 Mg Tablet) 0.1 mg PO Q4H PRN; Protocol PRN Reason: signs of opioid withdrawal Last Admin: 05/26/23 22:46 Dose: 0.1 mg Dicyclomine HCl (Dicyclomine Hcl 10 Mg Capsule) 10 mg PO QIDACHS PRN PRN Reason: cramps Gabapentin (Gabapentin 100 Mg Capsule) 200 mg PO BID [facility] Last Admin: 05/28/23 09:00 Dose: Not Given Hydroxyzine HCl (Hydroxyzine Hcl 25 Mg Tablet) 25 mg PO Q6H PRN PRN Reason: Anxiety Ibuprofen (Ibuprofen 600 Mg Tablet) 600 mg PO Q6H PRN PRN Reason: Pain, Moderate(Pain Scale 4-6) Lorazepam (Lorazepam 1 Mg Tablet) 1 mg PO Q4H PRN PRN Reason: Severe anxiety Last Admin: 05/28/23 00:13 Dose: 1 mg Magnesium Hydroxide (Milk Of Magnesia 30 Ml Oral.Susp) 30 ml PO DAILY PRN PRN Reason: Constipation Nicotine Polacrilex (Nicotine Polacrilex 2 Mg Gum) 4 mg BUCCAL Q2H PRN PRN Reason: Nicotine Cravings Quetiapine Fumarate (Quetiapine Fumarate 400 Mg Tablet) 400 mg PO BEDTIME [facility] Last Admin: 05/27/23 21:24 Dose: 400 mg Quetiapine Fumarate (Quetiapine Fumarate 50 Mg Tablet) 50 mg PO BID@0900,1500 [facility] Last Admin: 05/28/23 15:23 Dose: Not Given Trazodone HCl (Trazodone Hcl 50 Mg Tablet) 50 mg PO BEDTIME MRX1 PRN PRN Reason: Insomnia Last Admin: 05/20/23 23:16 Dose: 50 mg Allergies Allergies Allergy/AdvReac Type Severity Reaction Status Date / Time lamotrigine [From Lamictal] AdvReac Severe pt reports Verified 05/17/23 18:35 lamictal precipitates panic attacks Assessment & Plan Assessment & Plan (1) Mood disorder: Status: Acute Code(s): F39 - Unspecified mood [affective] disorder (2) Polysubstance abuse: Status: Acute Code(s): F19.10 - Other psychoactive substance abuse, uncomplicated (3) PTSD (post-traumatic stress disorder): Status: Acute Code(s): F43.10 - Post-traumatic stress disorder, unspecified (4) Opiate abuse, continuous: Status: Acute Code(s): F11.10 - Opioid abuse, uncomplicated (5) Suicidal ideations: Status: Acute Code(s): R45.851 - Suicidal ideations Plan 28 yo male, history of Opiate Use, Polysubstance use and mood disorder. Probable PTSD due to loss of sister who was murdered in 2020. Pt reports using 1 bundle daily/Fentanyl. Currently on suboxone. Reports SI with plans and stressors contributing to relapse and SI are financial, conflict with the mother of his child, and unresolved grief regarding sisters murder and chronic homelessness. Plan: Collateral contact Gabapentin 200 mg bid Lorazepam 1 mg q 4 H prn anxiety Pt asks for assitance in locating [facility] Home 05/21/23: Continue current tx. Encouraged [facility] transfer 05/22/23 Increase Seroquel to 400 mg HS 05/23/23 no changes continue tx plan 05/24/23 continue tx plan 05/26/23 decrease Seroquel to 50 mg bid, 400 mg HS. 05/28/23 Encourage treatment participation. Informed Consent: understands Reason for continued inpatient stay Substantial Risk for: rapid decompensation Time Spent With Patient Time: Total time managing care of this patient today ____ minutes.
[2023-05-28 18:00] VITALS: BP 136/87; PULSE 80; RESP 16; TEMP 36.2; O2SAT 97
[2023-05-28] MEDS: QUEtiapine Fumarate 400 MG TABLET PO (22:24)
[2023-05-28] MEDS: cloNIDine HCL 0.1 MG TABLET PO (22:24)
[2023-05-28 23:00] VITALS: BP 116/73; PULSE 77
[2023-05-29 08:00] VITALS: BP 115/54; PULSE 79; RESP 16; TEMP 36.7; O2SAT 97
--- NOTE | 2023-05-29 16:15 | HO.PSYCHPN ---
Subjective Subjective Date of Service: 05/29/23 Reason For Visit: SI Subjective Notes: Conditional Voluntary Healthcare Proxy: No Guardianship: No Medical Problems Affecting Mental Status: No Interim History: Met with pt to discuss medicines and aftercare planning. Pt reports he would like admission to [facility]. He is aware of the requirement to attend milieu groups and will do so. Discussed Seroquel benefits-he reports it is helpful with his maintaining sobriety and helpful for managing emotions related to the loss of his sister-helping him to remain focused in the present. We will add prn Seroquel and stop daily dosing to trial this weekend. Pt is approving of this plan. Pt requests urine tox for probation-ordered for 05/30/23 Reports sleep/appetite to be adequate, denies over sleeping. Fully awake alert and engaged when we met. Medication Compliance: Intermittent Side effects from medications: No Attending Groups: No Review of Systems Acute medical concerns: No Medical Review of Systems: unchanged Review of Systems Review of Systems Yes all other systems are reviewed and are negative (denies) Mental Status Exam Mental Status Exam Patient Appearance: Appropriate Patient Orientation: Person, Place, Time and Situation Level of Consciousness: Alert Patient Behavior: Talkative and Good Eye Contact Mood Description: Constricted Affect Description: Constricted Patient Cognition Impaired: No Ability to Follow Directions: Good Speech Pattern: Soft-Spoken Memory Description: Episodic Impaired Hallucinations: None Delusions: Not Present Thought Process: Intact and Goal Oriented Thought Content: positive for Intact and positive for Goal Oriented Depressive Symptoms: Thoughts of /Suicide (denies) Judgement: Good Diagnostics Vital Signs (24Hr): Vital Signs - 24 hr 05/28/23 18:00 05/28/23 23:00 05/29/23 08:00 Temperature 97.2 F 98.1 F Pulse Rate 80 77 79 Respiratory Rate 16 16 Blood Pressure 136/87 116/73 115/54 L Pulse Oximetry 97 97 Oxygen Delivery Method Room Air Room Air BMI result Body Mass Index 29.3 Labs 05/17/23 18:55 05/17/23 18:55 Medications Medications Current Medications Acetaminophen (Acetaminophen 325 Mg Tablet) 650 mg PO Q6H PRN PRN Reason: Headache/Pain Mild Scale (1-3) Last Admin: 05/21/23 13:05 Dose: 650 mg Al Hydroxide/Mg Hydroxide (Magnesium Hydrox/Alum Hydrox 30 Ml Oral.Susp) 30 ml PO Q6H PRN PRN Reason: Heartburn/Nausea Last Admin: 05/26/23 22:46 Dose: 30 ml Buprenorphine/Naloxone (Buprenorphine/Naloxone 8/2 Mg Film) 1 film SUBLINGUAL BID [facility] Last Admin: 05/29/23 10:57 Dose: Not Given Clonidine HCl (Clonidine Hcl 0.1 Mg Tablet) 0.1 mg PO Q4H PRN; Protocol PRN Reason: signs of opioid withdrawal Last Admin: 05/28/23 22:24 Dose: 0.1 mg Dicyclomine HCl (Dicyclomine Hcl 10 Mg Capsule) 10 mg PO QIDACHS PRN PRN Reason: cramps Gabapentin (Gabapentin 100 Mg Capsule) 200 mg PO BID [facility] Last Admin: 05/29/23 10:57 Dose: Not Given Hydroxyzine HCl (Hydroxyzine Hcl 25 Mg Tablet) 25 mg PO Q6H PRN PRN Reason: Anxiety Ibuprofen (Ibuprofen 600 Mg Tablet) 600 mg PO Q6H PRN PRN Reason: Pain, Moderate(Pain Scale 4-6) Lorazepam (Lorazepam 1 Mg Tablet) 1 mg PO Q4H PRN PRN Reason: Severe anxiety Last Admin: 05/28/23 22:24 Dose: 1 mg Magnesium Hydroxide (Milk Of Magnesia 30 Ml Oral.Susp) 30 ml PO DAILY PRN PRN Reason: Constipation Nicotine Polacrilex (Nicotine Polacrilex 2 Mg Gum) 4 mg BUCCAL Q2H PRN PRN Reason: Nicotine Cravings Quetiapine Fumarate (Quetiapine Fumarate 400 Mg Tablet) 400 mg PO BEDTIME [facility] Last Admin: 05/28/23 22:24 Dose: 400 mg Quetiapine Fumarate (Quetiapine Fumarate 50 Mg Tablet) 50 mg PO BID@0900,1500 [facility] Last Admin: 05/29/23 10:58 Dose: Not Given Trazodone HCl (Trazodone Hcl 50 Mg Tablet) 50 mg PO BEDTIME MRX1 PRN PRN Reason: Insomnia Last Admin: 05/20/23 23:16 Dose: 50 mg Allergies Allergies Allergy/AdvReac Type Severity Reaction Status Date / Time lamotrigine [From Lamictal] AdvReac Severe pt reports Verified 05/17/23 18:35 lamictal precipitates panic attacks Assessment & Plan Assessment & Plan (1) Mood disorder: Status: Acute Code(s): F39 - Unspecified mood [affective] disorder (2) Polysubstance abuse: Status: Acute Code(s): F19.10 - Other psychoactive substance abuse, uncomplicated (3) PTSD (post-traumatic stress disorder): Status: Acute Code(s): F43.10 - Post-traumatic stress disorder, unspecified (4) Opiate abuse, continuous: Status: Acute Code(s): F11.10 - Opioid abuse, uncomplicated (5) Suicidal ideations: Status: Acute Code(s): R45.851 - Suicidal ideations Plan 28 yo male, history of Opiate Use, Polysubstance use and mood disorder. Probable PTSD due to loss of sister who was murdered in 2020. Pt reports using 1 bundle daily/Fentanyl. Currently on suboxone. Reports SI with plans and stressors contributing to relapse and SI are financial, conflict with the mother of his child, and unresolved grief regarding sisters murder and chronic homelessness. Plan: Collateral contact Gabapentin 200 mg bid Lorazepam 1 mg q 4 H prn anxiety Pt asks for assitance in locating [facility] Home 05/21/23: Continue current tx. Encouraged [facility] transfer 05/22/23 Increase Seroquel to 400 mg HS 05/23/23 no changes continue tx plan 05/24/23 continue tx plan 05/26/23 decrease Seroquel to 50 mg bid, 400 mg HS. 05/28/23 Encourage treatment participation. 05/29/23 Discontinue bid Seroquel 50 mg Seroquel 200 mg bid prn agitation, anxiety, PTSD hyperarousal sx. Patient educated on: medication risk/benefits and therapeutic strategies Informed Consent: understands Reason for continued inpatient stay Substantial Risk for: rapid decompensation Time Spent With Patient Time: Total time managing care of this patient today ____ minutes.
[2023-05-29] MEDS: QUEtiapine Fumarate 50 MG TABLET PO (16:27)
[2023-05-29] MEDS: LORazepam 1 MG TABLET PO ×2 (16:32→23:06)
[2023-05-29] MEDS: hydrOXYzine HCL 25 MG TABLET PO (17:19)
--- NOTE | 2023-05-29 18:55 | PC.NURSE ---
Assumed care of pt at 18:45, currently pacing halls. Appears to be in no distress, offers no complaints at this time.
[2023-05-29] MEDS: QUEtiapine Fumarate 400 MG TABLET PO (23:06)
[2023-05-30] MEDS: QUEtiapine Fumarate 200 MG TABLET PO (08:38)
[2023-05-30 09:11] LABS: Amphetamine Screen Urine Not Detected (Not Detect); Barbiturates, Urine Not Detected (Not Detect); Benzodiazepines Screen Urine Not Detected (Not Detect); Cannabinoid Screen Urine Not Detected (Not Detect); Cocaine Screen Urine Not Detected (Not Detect); Fentanyl, urine POSITIVE (Not Detect); Opiate Screen Urine Not Detected (Not Detect); Phencyclidine Screen Urine Not Detected (Not Detect)
[2023-05-30 09:22] VITALS: BP 118/62; PULSE 84; RESP 18; TEMP 36.6; O2SAT 98
--- NOTE | 2023-05-30 10:55 | HO.PSYCHPN ---
Subjective Subjective Date of Service: 05/30/23 Reason For Visit: SI Interim History: met with patient. Discussed with Nursing. Chart reviewed. Been declining scheduled medications. 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 Aware that this would be a discussion he will have with his primary treatment team. Hopeful for rehab program. Denies SI. No HI. No psychosis. Has been isolative in room. Medication Compliance: Intermittent Side effects from medications: No Attending Groups: No Review of Systems Acute medical concerns: No Review of Systems Review of Systems Yes all other systems are reviewed and are negative Mental Status Exam Mental Status Exam Patient Appearance: Appropriate Patient Orientation: Person, Place, Time and Situation Level of Consciousness: Alert Patient Behavior: Talkative and Good Eye Contact Mood Description: Constricted Affect Description: Constricted Patient Cognition Impaired: No Ability to Follow Directions: Good Speech Pattern: Soft-Spoken Hallucinations: None Delusions: Not Present Thought Process: Intact and Goal Oriented Thought Content: positive for Intact and positive for Goal Oriented Depressive Symptoms: Thoughts of /Suicide (denies) Judgement: Good Diagnostics Vital Signs (24Hr): Vital Signs - 24 hr 05/30/23 09:22 Temperature 97.8 F Pulse Rate 84 Respiratory Rate 18 Blood Pressure 118/62 Pulse Oximetry 98 Oxygen Delivery Method Room Air BMI result Body Mass Index 29.3 Labs 05/17/23 18:55 05/17/23 18:55 Labs: Laboratory Results - last 48 hr 05/30/23 08:32 Urine Opiates Screen Not Detected Urine Fentanyl Screen POSITIVE H Ur Barbiturates Screen Not Detected Ur Phencyclidine Scrn Not Detected Ur Amphetamines Screen Not Detected U Benzodiazepines Scrn Not Detected Urine Cocaine Screen Not Detected U Marijuana (THC) Screen Not Detected Medications Medications Current Medications Acetaminophen (Acetaminophen 325 Mg Tablet) 650 mg PO Q6H PRN PRN Reason: Headache/Pain Mild Scale (1-3) Last Admin: 05/21/23 13:05 Dose: 650 mg Al Hydroxide/Mg Hydroxide (Magnesium Hydrox/Alum Hydrox 30 Ml Oral.Susp) 30 ml PO Q6H PRN PRN Reason: Heartburn/Nausea Last Admin: 05/26/23 22:46 Dose: 30 ml Buprenorphine/Naloxone (Buprenorphine/Naloxone 8/2 Mg Film) 1 film SUBLINGUAL BID [facility] Last Admin: 05/30/23 08:50 Dose: Not Given Clonidine HCl (Clonidine Hcl 0.1 Mg Tablet) 0.1 mg PO Q4H PRN; Protocol PRN Reason: signs of opioid withdrawal Last Admin: 05/28/23 22:24 Dose: 0.1 mg Dicyclomine HCl (Dicyclomine Hcl 10 Mg Capsule) 10 mg PO QIDACHS PRN PRN Reason: cramps Gabapentin (Gabapentin 100 Mg Capsule) 200 mg PO BID [facility] Last Admin: 05/30/23 08:51 Dose: Not Given Hydroxyzine HCl (Hydroxyzine Hcl 25 Mg Tablet) 25 mg PO Q6H PRN PRN Reason: Anxiety Last Admin: 05/29/23 17:19 Dose: 25 mg Ibuprofen (Ibuprofen 600 Mg Tablet) 600 mg PO Q6H PRN PRN Reason: Pain, Moderate(Pain Scale 4-6) Lorazepam (Lorazepam 1 Mg Tablet) 1 mg PO Q4H PRN PRN Reason: Severe anxiety Last Admin: 05/29/23 23:06 Dose: 1 mg Magnesium Hydroxide (Milk Of Magnesia 30 Ml Oral.Susp) 30 ml PO DAILY PRN PRN Reason: Constipation Nicotine Polacrilex (Nicotine Polacrilex 2 Mg Gum) 4 mg BUCCAL Q2H PRN PRN Reason: Nicotine Cravings Quetiapine Fumarate (Quetiapine Fumarate 400 Mg Tablet) 400 mg PO BEDTIME [facility] Last Admin: 05/29/23 23:06 Dose: 400 mg Quetiapine Fumarate (Quetiapine Fumarate 200 Mg Tablet) 200 mg PO BID PRN PRN Reason: agitation,anxiety Last Admin: 05/30/23 08:38 Dose: 200 mg Trazodone HCl (Trazodone Hcl 50 Mg Tablet) 50 mg PO BEDTIME MRX1 PRN PRN Reason: Insomnia Last Admin: 05/20/23 23:16 Dose: 50 mg Allergies Allergies Allergy/AdvReac Type Severity Reaction Status Date / Time lamotrigine [From Lamictal] AdvReac Severe pt reports Verified 05/17/23 18:35 lamictal precipitates panic attacks Assessment & Plan Assessment & Plan (1) Mood disorder: Status: Acute Code(s): F39 - Unspecified mood [affective] disorder (2) Polysubstance abuse: Status: Acute Code(s): F19.10 - Other psychoactive substance abuse, uncomplicated (3) PTSD (post-traumatic stress disorder): Status: Acute Code(s): F43.10 - Post-traumatic stress disorder, unspecified (4) Opiate abuse, continuous: Status: Acute Code(s): F11.10 - Opioid abuse, uncomplicated (5) Suicidal ideations: Status: Acute Code(s): R45.851 - Suicidal ideations Plan 28 yo male, history of Opiate Use, Polysubstance use and mood disorder. Probable PTSD due to loss of sister who was murdered in 2020. Pt reports using 1 bundle daily/Fentanyl. Currently on suboxone. Reports SI with plans and stressors contributing to relapse and SI are financial, conflict with the mother of his child, and unresolved grief regarding sisters murder and chronic homelessness. Plan: Collateral contact Gabapentin 200 mg bid Lorazepam 1 mg q 4 H prn anxiety Pt asks for assitance in locating [facility]pite/[facility] Home 05/21/23: Continue current tx. Encouraged [facility] transfer 05/22/23 Increase Seroquel to 400 mg HS 05/23/23 no changes continue tx plan 05/24/23 continue tx plan 05/26/23 decrease Seroquel to 50 mg bid, 400 mg HS. 05/28/23 Encourage treatment participation. 05/29/23 Discontinue bid Seroquel 50 mg Seroquel 200 mg bid prn agitation, anxiety, PTSD hyperarousal sx. 05/30: no changes Reason for continued inpatient stay Substantial Risk for: rapid decompensation Time Spent With Patient Time: Total time managing care of this patient today ____ minutes.
[2023-05-30] MEDS: LORazepam 1 MG TABLET PO ×2 (17:39→22:33)
[2023-05-30] MEDS: QUEtiapine Fumarate 400 MG TABLET PO (22:30)
[2023-05-31 06:00] VITALS: RESP 16
--- NOTE | 2023-05-31 12:12 | HO.PSYCHPN ---
Subjective Subjective Date of Service: 05/31/23 Reason For Visit: SI Interim History: Met with patient. Discussed with Nursing. Irritable. Declining scheduled medications. Sleep OK. Eating. Reported having nothing to talk about today and no concerns and wanted to wait for primary team tomorrow to discuss medications. No evidence of SI, HI, psychosis. Has been isolative in room. Medication Compliance: No Side effects from medications: No Attending Groups: No Review of Systems Acute medical concerns: No Review of Systems Review of Systems unremarkable Mental Status Exam Mental Status Exam Narrative: In room. Fair self care. Casually dressed. Some irritability. Reports having nothing to talk about today and wanted to see primary team tomorrow. No evidence of SI, HI, psychosis. Diagnostics Vital Signs (24Hr): Vital Signs - 24 hr 05/31/23 06:00 Respiratory Rate 16 BMI result Body Mass Index 29.3 Labs 05/17/23 18:55 05/17/23 18:55 Labs: Laboratory Results - last 48 hr 05/30/23 08:32 Urine Opiates Screen Not Detected Urine Fentanyl Screen POSITIVE H Ur Barbiturates Screen Not Detected Ur Phencyclidine Scrn Not Detected Ur Amphetamines Screen Not Detected U Benzodiazepines Scrn Not Detected Urine Cocaine Screen Not Detected U Marijuana (THC) Screen Not Detected Medications Medications Current Medications Acetaminophen (Acetaminophen 325 Mg Tablet) 650 mg PO Q6H PRN PRN Reason: Headache/Pain Mild Scale (1-3) Last Admin: 05/21/23 13:05 Dose: 650 mg Al Hydroxide/Mg Hydroxide (Magnesium Hydrox/Alum Hydrox 30 Ml Oral.Susp) 30 ml PO Q6H PRN PRN Reason: Heartburn/Nausea Last Admin: 05/26/23 22:46 Dose: 30 ml Buprenorphine/Naloxone (Buprenorphine/Naloxone 8/2 Mg Film) 1 film SUBLINGUAL BID [facility] Last Admin: 05/31/23 09:19 Dose: Not Given Clonidine HCl (Clonidine Hcl 0.1 Mg Tablet) 0.1 mg PO Q4H PRN; Protocol PRN Reason: signs of opioid withdrawal Last Admin: 05/28/23 22:24 Dose: 0.1 mg Dicyclomine HCl (Dicyclomine Hcl 10 Mg Capsule) 10 mg PO QIDACHS PRN PRN Reason: cramps Gabapentin (Gabapentin 100 Mg Capsule) 200 mg PO BID [facility] Last Admin: 05/31/23 09:19 Dose: Not Given Hydroxyzine HCl (Hydroxyzine Hcl 25 Mg Tablet) 25 mg PO Q6H PRN PRN Reason: Anxiety Last Admin: 05/29/23 17:19 Dose: 25 mg Ibuprofen (Ibuprofen 600 Mg Tablet) 600 mg PO Q6H PRN PRN Reason: Pain, Moderate(Pain Scale 4-6) Lorazepam (Lorazepam 1 Mg Tablet) 1 mg PO Q4H PRN PRN Reason: Severe anxiety Last Admin: 05/30/23 22:33 Dose: 1 mg Magnesium Hydroxide (Milk Of Magnesia 30 Ml Oral.Susp) 30 ml PO DAILY PRN PRN Reason: Constipation Nicotine Polacrilex (Nicotine Polacrilex 2 Mg Gum) 4 mg BUCCAL Q2H PRN PRN Reason: Nicotine Cravings Quetiapine Fumarate (Quetiapine Fumarate 400 Mg Tablet) 400 mg PO BEDTIME [facility] Last Admin: 05/30/23 22:30 Dose: 400 mg Quetiapine Fumarate (Quetiapine Fumarate 200 Mg Tablet) 200 mg PO BID PRN PRN Reason: agitation,anxiety Last Admin: 05/30/23 08:38 Dose: 200 mg Trazodone HCl (Trazodone Hcl 50 Mg Tablet) 50 mg PO BEDTIME MRX1 PRN PRN Reason: Insomnia Last Admin: 05/20/23 23:16 Dose: 50 mg Allergies Allergies Allergy/AdvReac Type Severity Reaction Status Date / Time lamotrigine [From Lamictal] AdvReac Severe pt reports Verified 05/17/23 18:35 lamictal precipitates panic attacks Assessment & Plan Assessment & Plan (1) Mood disorder: Status: Acute Code(s): F39 - Unspecified mood [affective] disorder (2) Polysubstance abuse: Status: Acute Code(s): F19.10 - Other psychoactive substance abuse, uncomplicated (3) PTSD (post-traumatic stress disorder): Status: Acute Code(s): F43.10 - Post-traumatic stress disorder, unspecified (4) Opiate abuse, continuous: Status: Acute Code(s): F11.10 - Opioid abuse, uncomplicated (5) Suicidal ideations: Status: Acute Code(s): R45.851 - Suicidal ideations Plan 28 yo male, history of Opiate Use, Polysubstance use and mood disorder. Probable PTSD due to loss of sister who was murdered in 2020. Pt reports using 1 bundle daily/Fentanyl. Currently on suboxone. Reports SI with plans and stressors contributing to relapse and SI are financial, conflict with the mother of his child, and unresolved grief regarding sisters murder and chronic homelessness. Plan: Collateral contact Gabapentin 200 mg bid Lorazepam 1 mg q 4 H prn anxiety Pt asks for assitance in locating [facility] Home 05/21/23: Continue current tx. Encouraged [facility] transfer 05/22/23 Increase Seroquel to 400 mg HS 05/23/23 no changes continue tx plan 05/24/23 continue tx plan 05/26/23 decrease Seroquel to 50 mg bid, 400 mg HS. 05/28/23 Encourage treatment participation. 05/29/23 Discontinue bid Seroquel 50 mg Seroquel 200 mg bid prn agitation, anxiety, PTSD hyperarousal sx. 05/30: no changes 05/31: no changes Reason for continued inpatient stay Substantial Risk for: rapid decompensation Time Spent With Patient Time: Total time managing care of this patient today ____ minutes.
[2023-05-31 19:45] VITALS: BP 115/69; PULSE 87; TEMP 36.2
[2023-05-31] MEDS: QUEtiapine Fumarate 200 MG TABLET PO (19:51)
[2023-05-31] MEDS: QUEtiapine Fumarate 400 MG TABLET PO (22:54)
[2023-05-31] MEDS: LORazepam 1 MG TABLET PO (22:57)
[2023-06-01] MEDS: Acetaminophen 325 MG TABLET 650 MG PO ×2 (03:56→09:10)
[2023-06-01] MEDS: Ibuprofen 600 MG TABLET PO ×2 (04:02→09:10)
--- NOTE | 2023-06-01 15:04 | PM.PSYDC ---
DS: Providers Provider Date of Service: 06/01/23 Date of admission: 05/18/23 17:35 Date of discharge: 06/01/23 Primary care physician: Unknown Physician Admitting clinician: Bernice Hanks Attending physician on admission: Jim Wylie Attending physician on discharge: Jim Wylie Discharging clinician: Bernice Hanks DS: Diagnosis Discharge Diagnosis (1) Mood disorder: Status: Acute (2) Polysubstance abuse: Status: Acute (3) PTSD (post-traumatic stress disorder): Status: Acute (4) Opiate abuse, continuous: Status: Acute (5) Suicidal ideations: Status: Resolved DS: Medications Discharge Medications Home Medications: Previous Rx's Medication Instructions Recorded quetiapine 200 mg tablet 200 mg PO BID PRN 06/01/23 agitation,anxiety #14 tabs quetiapine 400 mg tablet 400 mg PO BEDTIME #7 tabs 06/01/23 Mental Status Exam Mental Status Exam Patient Appearance: Appropriate Patient Orientation: Person, Place, Time and Situation Level of Consciousness: Alert Patient Behavior: Talkative and Good Eye Contact Mood Description: Constricted Affect Description: Constricted Patient Cognition Impaired: No Ability to Follow Directions: Good Speech Pattern: Soft-Spoken Memory Description: Episodic Impaired Hallucinations: None Delusions: Not Present Thought Process: Intact and Goal Oriented Thought Content: positive for Intact and positive for Goal Oriented Depressive Symptoms: Thoughts of /Suicide (denies) Judgement: Good Data Data Completed and Pending Completed studies during hospitalization [Text1]: 05/30/23 08:32 Urine Opiates Screen Not Detected Urine Fentanyl Screen POSITIVE H Ur Barbiturates Screen Not Detected Ur Phencyclidine Scrn Not Detected Ur Amphetamines Screen Not Detected U Benzodiazepines Scrn Not Detected Urine Cocaine Screen Not Detected U Marijuana (THC) Screen Not Detected DS: Summary Hospital Course Hospital Course: Admission to adult psychiatry for exacerbation of PTSD, Mood Disorder, Opiate and Polysubstance Use Disorder. Pt reported an increase in depressive sx with SI due to discord with his child's mother, financial stressors and homelessness. Also, sister was murdered in [place] in 2020. Pt continues to grieve and has several unresolved feelings as he has not received details of what occurred leaving him with several questions. Medications were evaluated and adjusted. CSS search was completed. Pt chose to return to his family home and will follow up with out patient and residential resources as he chooses. Status at Discharge Functional status at discharge: independent ambulation Overall status at discharge: patient is progressing back to baseline Time Spent with Patient Time attestation: Total time managing care of this patient today ____ minutes. Time spent: Less than 30 minutes Discharge Plan Discharge Anticipated Discharge Date/Time: 06/01/23 12:32 Patient Disposition: Home, Self-Care Discharge Diagnosis: PTSD Mood Disorder, NOS Polysubstance Use Disorder Opiate Use Disorder-refuses Suboxone Referrals: [facility] [Other] - 1 Week (Patient referred to [facility] for substance abuse treatment Patient may follow-up on referral after discharge ) [facility] [Other] - 1 Week (Patient referred to [facility]) [facility] [Other] - 1 Week (Patient referred to [facility] Patient on wait list for placement Patient should follow-up on referral after discharge for substance use treatment ) [facility]: [Other] - 1 Week (Hospital discharge appointment with outpatient therapy provider.) [facility] [Other] - 1 Week (Patient should follow-up with [facility] for medication management services) [facility] [Other] - 06/12/23 11:30 am ([place] [facility]) Physician,Unknown J [Primary Care Provider] - 1 Week Discharge Medications: Discontinued quetiapine 300 mg tablet 300 mg PO BEDTIME quetiapine 100 mg tablet 100 mg PO BID PRN (Reason: Agitation) buprenorphine-naloxone [Suboxone] 8-2 mg film 8 mg sublingual BID No Action quetiapine 300 mg tablet 300 mg PO BEDTIME hydroxyzine HCl 50 mg tablet 50 mg PO TID PRN (Reason: Anxiety) ibuprofen 600 mg tablet 600 mg PO Q6H PRN (Reason: Toothache) quetiapine 100 mg tablet 100 mg PO TID PRN (Reason: Agitation) amoxicillin 500 mg capsule 500 mg PO TID Discharge Orders: Discharge Order (Routine); Ordered 06/01/23 Ordered By: Bernice Hanks Diet: Advance to usual diet Activity on Discharge: As tolerated Stand Alone Forms: Patient Portal Discharge page, Community Support Care Plan Goals: Mood and Behavioral Stabilization Work on Sobriety Health Concerns: Mood and Behavioral Stabilization Sobriety Plan of Treatment: Attend scheduled appointments Take medications as directed Scheduled discharge Assessment: Pt interviewed prior to discharge and found to be fully oriented and without SI/HI. Pt has insight and demonstrates good judgment in terms of wanting to pursue treatment. Pt is not in imminent risk of harm to self or others and has a safety plan that includes presenting to the closest ER or calling 911 if feeling unsafe. Pt has been observed closely by nursing and unit staff throughout admission. Pt has not engaged in any behaviors that suggest dangerousness to self or others and has demonstrated appropriate behaviors and impulse control. Discharge Date/Time: 06/01/23 11:30
== END 2023-06-01 11:30 | disposition home or self-care (01) | DRG 753 ==
LOC: HO.ED 19:13 → HO.PM5 05-18 17:43
PROVIDERS: Nurse Practitioner Family; Admitting Provider Psychiatry & Neurology Psychiatry; Emergency Provider Emergency Medicine; Visit Provider Clinical Nurse Specialist Psychiatric/Mental Health, Adult
DX: F39 Unspecified mood [affective] disorder (principal); R45.851 Suicidal ideations; R45.850 Homicidal ideations; F11.20 Opioid dependence, uncomplicated; F19.10 Other psychoactive substance abuse, uncomplicated; F43.10 Post-traumatic stress disorder, unspecified; F17.210 Nicotine dependence, cigarettes, uncomplicated; Z71.6 Tobacco abuse counseling; Z20.822 Contact with and (suspected) exposure to COVID-19; Z59.02 Unsheltered homelessness
CPT/HCPCS: 36415; 80053; 80307; 81003; 85025; 87635; 93005; 99285; S9485

== ENCOUNTER → 2023-05-18 13:43 | Outpatient (BNV) | payer OTHER, SELFPAY | PROVIDERS: Emergency Provider Emergency Medicine; Visit Provider Internal Medicine Cardiovascular Disease | DX: R41.82 Altered mental status, unspecified (principal); R45.851 Suicidal ideations | CPT/HCPCS: 93010 ==

== ENCOUNTER → 2023-05-18 17:35 | Outpatient (BNV) | payer OTHER, SELFPAY | PROVIDERS: Admitting Provider Psychiatry & Neurology Psychiatry; Emergency Provider Emergency Medicine; Visit Provider Clinical Nurse Specialist Psychiatric/Mental Health, Adult | DX: F39 Unspecified mood [affective] disorder (principal); F19.10 Other psychoactive substance abuse, uncomplicated; F11.10 Opioid abuse, uncomplicated; F43.11 Post-traumatic stress disorder, acute; R45.851 Suicidal ideations | CPT/HCPCS: 90792; 99231; 99232; 99238 ==

== ENCOUNTER 2023-06-30 18:19 | Inpatient (IN) | payer OTHER, SELFPAY ==
[2023-06-30 18:26] VITALS: BP 138/81; PULSE 100; RESP 20; TEMP 37.1; O2SAT 97; BMI 33.4
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
[2023-06-30 18:49] LABS: MANUAL DIFF FLAG NO
[2023-06-30 18:50] LABS: Basophils Percent Auto 0.3 % (0-2); Eosinophils Absolute Auto 0.2 X10*3/uL (0.0-0.4); Hematocrit 38.6 % (42.0-52.0); Hemoglobin 13.3 g/dl (14.0-18.0); Imm Gran Abs Auto 0.02 X10*3/uL (0.00-0.03); Imm Gran Pct Auto 0.3 % (0.0-0.4); Lymphocytes Absolute Auto 2.3 X10*3/uL (1.2-4.9); Lymphocytes Percent Auto 35.6 % (20-40); Mean Corpuscular HGB Conc 34.5 g/dl (31.0-36.0); Mean Corpuscular Hemoglobin 28.3 pg (27.0-33.0); Mean Corpuscular Volume 82.1 fL (80.0-98.0); Monocytes Absolute Auto 0.5 X10*3/uL (0.1-1.2); Monocytes Percent Auto 7.8 % (2-11); Neutrophils Absolute Auto 3.4 x10*3/uL (2.0-8.3); Platelet Count 256 X10*3/uL (160-400); Red Cell Distribution Width 14.4 % (11.0-16.0); White Blood Count 6.4 X10*3/uL (4.8-10.8)
[2023-06-30 19:12] LABS: Acetaminophen LAB < 3 mcg/mL (<30); Alanine Aminotransferase 23 U/L (0-40); Albumin Level 4.1 g/dL (3.5-5.0); Alkaline Phosphatase 122 U/L (39-117); Anion Gap 11 (12-20); Aspartate Amino Transferase 26 U/L (5-37); Bilirubin Total 0.2 mg/dL (0.0-1.0); Blood Urea Nitrogen 13 mg/dL (9-16); Calcium 9.1 mg/dL (8.4-10.2); Carbon Dioxide 24 mmol/L (22-29); Chloride 108 mmol/L (96-108); Creatinine Clr Calc Pharmacy 155.4; Estimated Glomerular Filt Rate > 60; Ethanol < 10 mg/dL; Glucose Random 97 mg/dL (60-115); Salicylate < 5.0 mg/dL (15-30); Sodium 139 mmol/L (135-145); Total Protein 7.4 g/dL (6.5-8.0)
--- NOTE | 2023-06-30 19:31 | PC.NURSE ---
client during admit refused to relenquish jewelry, refused to comply with directions, soon thereafter was asked to submit to another search from security and was very reluctant to comply. t/w went to provider to ask about dc because client is creating unsafe situation for others, provider did not agree.
[2023-06-30 19:40] LABS: Appearance Urine Clear; Color Urine Yellow; Glucose Urine UA Negative (Negative); Leukocyte Esterase Urine Negative (Negative); Nitrite Urine Negative (Negative); Specific Gravity - Urine >= 1.030 (1.005-1.025); Urine Blood Negative (Negative); Urine Ketones Trace mg/dL (Negative); Urine Protein Negative (Neg-Trace)
[2023-06-30 20:07] LABS: Amphetamine Screen Urine Not Detected (Not Detect); Barbiturates, Urine Not Detected (Not Detect); Benzodiazepines Screen Urine Not Detected (Not Detect); Cannabinoid Screen Urine Not Detected (Not Detect); Cocaine Screen Urine POSITIVE (Not Detect); Fentanyl, urine POSITIVE (Not Detect); Opiate Screen Urine POSITIVE (Not Detect); Phencyclidine Screen Urine Not Detected (Not Detect)
[2023-06-30 21:23] VITALS: BP 130/66; PULSE 74; RESP 16; TEMP 36.8; O2SAT 96
--- NOTE | 2023-06-30 22:16 | MHC.CARE ---
Care team evaluation complete. Pt is a psychiatric bedsearch. On a section 12a but is voluntary for treatment. POD RN, ED provider and Pt are aware of disposition.
--- NOTE | 2023-07-01 | ECG_ITS ---
Test Reason : QT INTERVAL Blood Pressure : / mmHG Vent. Rate : 069 BPM Atrial Rate : 069 BPM P-R Int : 168 ms QRS Dur : 096 ms QT Int : 378 ms P-R-T Axes : 036 051 034 degrees QTc Int : 405 ms Normal sinus rhythm Normal ECG When compared with ECG of 18-MAY-2023 13:43, No significant change was found Referred By: Shelbie Vo Electronically Signed By:Jeffery Spears
[2023-07-01 01:58] VITALS: BP 130/93; PULSE 70; RESP 17; TEMP 36.8; O2SAT 99
[2023-07-01] MEDS: Ibuprofen 600 MG TABLET PO (01:58)
[2023-07-01] MEDS: QUEtiapine Fumarate 300 MG TABLET PO ×2 (01:59→23:04)
[2023-07-01] MEDS: Amoxicillin 500 MG CAPSULE PO ×3 (08:43→23:04)
[2023-07-01 09:20] LABS: COVID-19 Test Negative (Negative); IDNOW Serial# 152EDE1D
--- NOTE | 2023-07-01 09:24 | PC.NURSE ---
Assumed care of patient at 0700, patient resting on bed in BH 2, respirations even and unlabored, no apparent distress. Pt offers no complaints to this RN, continue plan of care for inpt bedsearch
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
--- NOTE | 2023-07-01 15:04 | MHC.CLN ---
RE: CONSULT PT REPORTED 12# WT LOSS HT 68 WT 219.5# BMI 33.4 PT IS 142.5% IBW INDICATES OBESE FOR HT PREVIOUS WT HX REVEALS: 99.79KG (06/30/23) 91.1KG (12/05/22) PT WITH 9.5% NONSIGNIFICANT WT GAIN X 7 MONTHS REVIEWED LABS-UNREMARKABLE PT RECEIVING REGULAR DIET -APPROPRIATE NO NEW ORDERS AT THIS TIME CONTINUE CURRENT CARE PLAN
--- NOTE | 2023-07-01 16:44 | PC.NURSE ---
pt declined flu vaccine
[2023-07-01 23:00] VITALS: BP 135/98; PULSE 76; RESP 18; TEMP 36.4; O2SAT 98
[2023-07-01] MEDS: cloNIDine HCL 0.1 MG TABLET PO (23:04)
[2023-07-02 07:00] VITALS: BMI 31.6
[2023-07-02] MEDS: Amoxicillin 500 MG CAPSULE PO ×3 (08:32→22:07)
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
--- NOTE | 2023-07-02 11:42 | PC.NURSE ---
Spoke with Alex from [facility], pt received Sublocade 300mg on 06/30/23. Fadumo santoro.
[2023-07-02] MEDS: QUEtiapine Fumarate 100 MG TABLET PO ×2 (15:23→22:08)
[2023-07-02 15:24] VITALS: BP 110/61; PULSE 89
[2023-07-02] MEDS: cloNIDine HCL 0.1 MG TABLET PO ×2 (15:25→22:08)
[2023-07-02 15:35] LABS: COVID-19 Test Negative (Negative); IDNOW Serial# 08D9AD1C
--- NOTE | 2023-07-02 16:24 | HO.ADDICTCON ---
History of Present Illness Date of Service: 07/02/23 Chief Complaint: SI Reason for Consult: CARLI Discussed with referring provider: Yes Sources of Information: patient interviewed and chart reviewed HPI Narrative: Patient is a 28 year old currently admitted to unit with suicidal and homocidal ideation. Consult requested as patient reported acute withdrawal sx. related opiate use. Patient seen very briefly in room 324--laying in bed, eyes closed, minimally participating in interview. He did not appear diaphoretic or restless. Appeared very tired. Mass Pat checked and it showed that patient has been receiving Sublocade, RN called N Radha alexander and confirmed that patient received Sublocade 300mg injection on 06/30/23. He did report additional substance use to admitting provider, unclear how much or how often, regardless sx should be minimal as he just received injection--and has been receiving for several months. Past Psychiatric History: hx of multiple psychiatric inpatient admissions. hx of detox admissions. Therapist: Dr. Peters at [facility] [phone] Review of Systems Review of Systems Yes Unobtainable due to mental status Diagnostics Vital Signs (24Hr): Vital Signs - 24 hr 07/01/23 23:00 07/02/23 15:24 Temperature 97.5 F Pulse Rate 76 89 Respiratory Rate 18 Blood Pressure 135/98 H 110/61 Pulse Oximetry 98 Oxygen Delivery Method Room Air BMI result Body Mass Index 31.6 Labs 06/30/23 18:43 06/30/23 18:43 Labs: Laboratory Results - last 48 hr 06/30/23 06/30/23 07/01/23 18:43 19:29 08:57 WBC 6.4 RBC 4.70 Hgb 13.3 L Hct 38.6 L MCV 82.1 MCH 28.3 MCHC 34.5 RDW 14.4 Plt Count 256 MPV 10.0 Immature Gran % (Auto) 0.3 Neut % (Auto) 53.0 Lymph % (Auto) 35.6 [place] % (Auto) 7.8 Eos % (Auto) 3.0 Baso % (Auto) 0.3 Lymph # (Auto) 2.3 [place] # (Auto) 0.5 Eos # (Auto) 0.2 Baso # (Auto) 0.0 Abs Immat Gran (auto) 0.02 Absolute Neuts (auto) 3.4 Absolute Nucleated RBC 0.000 Nucleated RBC % (auto) 0.0 Sodium 139 Potassium 4.0 Chloride 108 Carbon Dioxide 24 Anion Gap 11 L BUN 13 Creatinine 0.81 Estim Creat Clear Calc 155.4 Estimated GFR > 60 Random Glucose 97 Calcium 9.1 Total Bilirubin 0.2 AST 26 ALT 23 Alkaline Phosphatase 122 H Total Protein 7.4 Albumin 4.1 Urine Color Yellow Urine Appearance Clear Urine pH 7.0 Ur Specific [place] >= 1.030 H Urine Protein Negative Urine Glucose (UA) Negative Urine Ketones Trace Urine Blood Negative Urine Nitrite Negative Ur Leukocyte Esterase Negative Salicylates < 5.0 L Urine Opiates Screen POSITIVE H Urine Fentanyl Screen POSITIVE H Acetaminophen < 3 Ur Barbiturates Screen Not Detected Ur Phencyclidine Scrn Not Detected Ur Amphetamines Screen Not Detected U Benzodiazepines Scrn Not Detected Urine Cocaine Screen POSITIVE H U Marijuana (THC) Screen Not Detected Ethyl Alcohol < 10 COVID-19 (DO) Negative COVID-Buy With Fetch Com See Note 07/02/23 14:40 WBC RBC Hgb Hct MCV MCH MCHC RDW Plt Count MPV Immature Gran % (Auto) Neut % (Auto) Lymph % (Auto) [place] % (Auto) Eos % (Auto) Baso % (Auto) Lymph # (Auto) [place] # (Auto) Eos # (Auto) Baso # (Auto) Abs Immat Gran (auto) Absolute Neuts (auto) Absolute Nucleated RBC Nucleated RBC % (auto) Sodium Potassium Chloride Carbon Dioxide Anion Gap BUN Creatinine Estim Creat Clear Calc Estimated GFR Random Glucose Calcium Total Bilirubin AST ALT Alkaline Phosphatase Total Protein Albumin Urine Color Urine Appearance Urine pH Ur Specific [place] Urine Protein Urine Glucose (UA) Urine Ketones Urine Blood Urine Nitrite Ur Leukocyte Esterase Salicylates Urine Opiates Screen Urine Fentanyl Screen Acetaminophen Ur Barbiturates Screen Ur Phencyclidine Scrn Ur Amphetamines Screen U Benzodiazepines Scrn Urine Cocaine Screen U Marijuana (THC) Screen Ethyl Alcohol COVID-19 (DO) Negative COVID-19 [employer] See Note Mental Status Exam Mental Status Exam Level of Consciousness: Drowsy Patient Behavior: Asleep Medications Medications Current Medications Acetaminophen (Acetaminophen 325 Mg Tablet) 650 mg PO Q6H PRN PRN Reason: Headache/Pain Mild Scale (1-3) Al Hydroxide/Mg Hydroxide (Magnesium Hydrox/Alum Hydrox 30 Ml Oral.Susp) 30 ml PO Q6H PRN PRN Reason: Heartburn/Nausea Amoxicillin (Amoxicillin 500 Mg Capsule) 500 mg PO TID CHRISTEN Last Admin: 07/02/23 14:31 Dose: 500 mg Clonidine HCl (Clonidine Hcl 0.1 Mg Tablet) 0.1 mg PO TID PRN; Protocol PRN Reason: Anxiety Last Admin: 07/02/23 15:25 Dose: 0.1 mg Hydroxyzine HCl (Hydroxyzine Hcl 50 Mg Tablet) 50 mg PO TID PRN PRN Reason: Anxiety Ibuprofen (Ibuprofen 600 Mg Tablet) 600 mg PO Q6H PRN PRN Reason: Toothache Last Admin: 07/01/23 01:58 Dose: 600 mg Magnesium Hydroxide (Milk Of Magnesia 30 Ml Oral.Susp) 30 ml PO DAILY PRN PRN Reason: Constipation Nicotine Polacrilex (Nicotine Polacrilex 2 Mg Gum) 4 mg BUCCAL Q2H PRN PRN Reason: Nicotine Cravings Quetiapine Fumarate (Quetiapine Fumarate 100 Mg Tablet) 100 mg PO TID PRN PRN Reason: Agitation Last Admin: 07/02/23 15:23 Dose: 100 mg Quetiapine Fumarate (Quetiapine Fumarate 300 Mg Tablet) 300 mg PO BEDTIME CHRISTEN Last Admin: 07/01/23 23:04 Dose: 300 mg Trazodone HCl (Trazodone Hcl 50 Mg Tablet) 50 mg PO BEDTIME MRX1 PRN PRN Reason: Insomnia Allergies Allergies Allergy/AdvReac Type Severity Reaction Status Date / Time lamotrigine [From Lamictal] AdvReac Severe pt reports Verified 06/30/23 18:30 lamictal precipitates panic attacks Assessment & Plan Assessment & Plan (1) Opioid use disorder: Status: Acute Code(s): F11.90 - Opioid use, unspecified, uncomplicated Assessment and Plan: comfort medications as needed just received Sublocade 300mg injection 2 days ago in some cases patients may require supplemental films in btwn injections Total time managing care of this patient today ____ minutes. PMFSH Past Medical History Medical History COVID-19 Drug overdose Substance abuse Social History Social History Household Members: Significant Other and Children Household Members Other:: Mother Housing: Apartment Do you presently have visiting nurse or other home services: No Alcohol intake: unknown Patient Tobacco Use Status: Current everyday Tobacco user Tobacco use type: Cigarette Cigarette Packs Per Day: 1 Cigarettes Per Day: 20.0 Smoked in Last 30 Days: Yes e-Cigarette/Vaping Use: Never Used Frequency of e-Cigarette/Vaping Use: Daily Patient Interested in Nicotine Replacement: Yes Patient Given Instructions on How to Stop Smoking: Yes Date Education Initiated: 07/01/23 Second Hand Smoke Exposure: No Use of substances other than those prescribed or required for medical reasons: Yes Substance Use Type: Crack/Cocaine, Heroin and Opiates Substance Use Frequency: Daily Last Used Substance: Just Prior to Admission Currently Displaying Signs/Symptoms of Drug Intoxication Withdrawal: No Any prior treatment program specific to substance use: Yes (hx detox) Have you been hit, kicked, punched, or otherwise hurt by someone within the past year? If so, by whom?: No Do you feel safe in your current relationship?: Yes Is there a partner from a previous relationship who is making you feel unsafe now?: No Are you made to feel afraid or neglected: No Advance Directives: No Advance Directives Information Provided: No Healthcare Proxy: No Guardian: No Do you have thoughts of harming others: None Do you have a plan to hurt others: No Plan Recently lost weight without trying: Yes How much weight loss: 2-13 pounds Eating poorly because of decreased appetite: Yes Nutrition screen score: 4 Nutrition Risks: No Nutritional Risk Poor oral hygiene: No service: No Sexual orientation: Straight/Heterosexual
[2023-07-02] MEDS: QUEtiapine Fumarate 300 MG TABLET PO (22:07)
[2023-07-02] MEDS: Acetaminophen 325 MG TABLET 650 MG PO (22:07)
[2023-07-02] MEDS: Nicotine Polacrilex 2 MG GUM 4 MG BUCCAL (22:09)
[2023-07-02 22:35] VITALS: BP 111/70; PULSE 80; RESP 16; TEMP 36.7; O2SAT 100
--- NOTE | 2023-07-03 09:01 | P.PNPSI_ITS ---
Subjective Subjective Date of Service: 07/03/23 Reason For Visit: SI Subjective Notes: Conditional Voluntary Interim History: Reviewed with Dr. Wylie. Keeping to self. Laying in bed most of shift. Guarded, irritable, pt kept 1:1 brief. Pt reports feeling depressed today; pt stated, my life is making me suicidal. I'm stressed about my mom getting knee surgery cause she won't be able to walk for a year . Pt reports he has been staying with his mother; he is requesting to be referred to a substance abuse program after hospital admission. Continues to report suicidal ideation. Denies HI/VH/AH. Medication Compliance: Yes Side effects from medications: No Attending Groups: No Review of Systems Constitutional: Reports as per HPI Eyes: Reports as per HPI Reports as per HPI Cardiovascular: Reports as per HPI Respiratory: Reports as per HPI Gastrointestinal: Reports as per HPI Genitourinary: Reports as per HPI Musculoskeletal: Reports as per HPI Skin/Breast: Reports as per HPI Reports as per HPI Psychiatric: Reports as per HPI Endocrine: Reports as per HPI Hematologic/Lymphatic: Reports as per HPI Allergic/Immunologic: Reports as per HPI Mental Status Exam Mental Status Exam Narrative: Pt is alert and oriented; behavior is guarded; dressed in casual attire; mood is described as depressed ; eye contact appropriate; Speech is normal rate, volume and prosody and not pressured; thought process is organized and goal directed; Thought content is on tx; denies HI/VH/AH. Pt reports suicidal ideation with plan to go into traffic. Diagnostics Vital Signs (24Hr): Vital Signs - 24 hr 07/02/23 15:24 07/02/23 22:35 Temperature 98.1 F Pulse Rate 89 80 Respiratory Rate 16 Blood Pressure 110/61 111/70 Pulse Oximetry 100 Oxygen Delivery Method Room Air BMI result Body Mass Index 31.6 Labs 06/30/23 18:43 06/30/23 18:43 Labs: Laboratory Results - last 48 hr 07/01/23 07/02/23 08:57 14:40 COVID-19 (DO) Negative Negative COVID-19 Clin Com See Note See Note Medications Medications Current Medications Acetaminophen (Acetaminophen 325 Mg Tablet) 650 mg PO Q6H PRN PRN Reason: Headache/Pain Mild Scale (1-3) Last Admin: 07/02/23 22:07 Dose: 650 mg Al Hydroxide/Mg Hydroxide (Magnesium Hydrox/Alum Hydrox 30 Ml Oral.Susp) 30 ml PO Q6H PRN PRN Reason: Heartburn/Nausea Amoxicillin (Amoxicillin 500 Mg Capsule) 500 mg PO TID CHRISTEN Last Admin: 07/02/23 22:07 Dose: 500 mg Clonidine HCl (Clonidine Hcl 0.1 Mg Tablet) 0.1 mg PO TID PRN; Protocol PRN Reason: Anxiety Last Admin: 07/02/23 22:08 Dose: 0.1 mg Hydroxyzine HCl (Hydroxyzine Hcl 50 Mg Tablet) 50 mg PO TID PRN PRN Reason: Anxiety Ibuprofen (Ibuprofen 600 Mg Tablet) 600 mg PO Q6H PRN PRN Reason: Toothache Last Admin: 07/01/23 01:58 Dose: 600 mg Magnesium Hydroxide (Milk Of Magnesia 30 Ml Oral.Susp) 30 ml PO DAILY PRN PRN Reason: Constipation Nicotine Polacrilex (Nicotine Polacrilex 2 Mg Gum) 4 mg BUCCAL Q2H PRN PRN Reason: Nicotine Cravings Last Admin: 07/02/23 22:09 Dose: 4 mg Quetiapine Fumarate (Quetiapine Fumarate 100 Mg Tablet) 100 mg PO TID PRN PRN Reason: Agitation Last Admin: 07/02/23 22:08 Dose: 100 mg Quetiapine Fumarate (Quetiapine Fumarate 300 Mg Tablet) 300 mg PO BEDTIME CHRISTEN Last Admin: 07/02/23 22:07 Dose: 300 mg Trazodone HCl (Trazodone Hcl 50 Mg Tablet) 50 mg PO BEDTIME MRX1 PRN PRN Reason: Insomnia Allergies Allergies Allergy/AdvReac Type Severity Reaction Status Date / Time lamotrigine [From Lamictal] AdvReac Severe pt reports Verified 06/30/23 18:30 lamictal precipitates panic attacks Assessment & Plan Assessment & Plan (1) MDD (major depressive disorder), recurrent episode: Status: Acute Code(s): F33.9 - Major depressive disorder, recurrent, unspecified (2) PTSD (post-traumatic stress disorder): Status: Acute Code(s): F43.10 - Post-traumatic stress disorder, unspecified (3) Opioid use disorder: Status: Acute Code(s): F11.90 - Opioid use, unspecified, uncomplicated Assessment and Plan: * comfort medications as needed * just received Sublocade 300mg injection 2 days ago * in some cases patients may require supplemental films in btwn injections (4) Cocaine use disorder: Status: Acute Code(s): F14.10 - Cocaine abuse, uncomplicated Plan Patient is a 28 year old male with hx of MDD, PTSD, opiate use d/o, and cocaine use d/o who self presented to [facility] secondary to suicidal ideation d/t increased depressive symptoms. Plan: CV 15 minute safety checks addiction medicine consult continue home medication referral to outpatient provider referral to outpatient program discharge planning 07/02: Keeping to self. Laying in bed most of shift. Guarded, irritable, pt kept 1:1 brief. Pt reports feeling depressed today; pt stated, my life is making me suicidal. I'm stressed about my mom getting knee surgery cause she won't be able to walk for a year . Pt reports he has been staying with his mother; he is requesting to be referred to a substance abuse program after hospital admission. Continues to report suicidal ideation. Denies HI/VH/AH. Discuss medication options when pt become tolerable of longer conversation. pt seen by addiction medication, per note: -comfort medications as needed -just received Sublocade 300mg injection 2 days ago -in some cases patients may require supplemental films in btwn injections Patient educated on: diagnosis and substance abuse Informed Consent: understands Reason for continued inpatient stay Substantial Risk for: harm to self and med/psych decompensation Time Spent With Patient Time: Total time managing care of this patient today _20___ minutes.
[2023-07-03] MEDS: Amoxicillin 500 MG CAPSULE PO ×3 (09:42→22:58)
[2023-07-03 10:34] LABS: COVID-19 Test Negative (Negative); IDNOW Serial# 08D9AD1C
[2023-07-03 18:17] VITALS: BP 126/68; PULSE 89; RESP 15; TEMP 36.6; O2SAT 97
[2023-07-03] MEDS: cloNIDine HCL 0.1 MG TABLET PO (18:26)
[2023-07-03] MEDS: Buprenorphine/Naloxone 4/1 mg FILM 1 FILM SUBLINGUAL (19:53)
[2023-07-03] MEDS: QUEtiapine Fumarate 300 MG TABLET PO (22:58)
--- NOTE | 2023-07-04 11:10 | P.PNPSI_ITS ---
Subjective Subjective Date of Service: 07/04/23 Reason For Visit: SI Subjective Notes: Conditional Voluntary Interim History: met with patient. Discussed with Nursing. Flat. Isolative. Not attending groups. Reported not wanting to engage with headline writer today, and preferred to speak tomorrow and denies any acute issues Medication Compliance: Yes Side effects from medications: No Attending Groups: No Review of Systems Acute medical concerns: No Review of Systems Review of Systems Yes Unobtainable due to mental status Mental Status Exam Mental Status Exam Narrative: flat. In bed. Self-care fair. Did not want to engage in therefore unable to formally evaluate SI, HI psychosis etc. . None obvious from nursing observation etc. Diagnostics Vital Signs (24Hr): Vital Signs - 24 hr 07/03/23 18:17 Temperature 97.8 F Pulse Rate 89 Respiratory Rate 15 Blood Pressure 126/68 Pulse Oximetry 97 Oxygen Delivery Method Room Air BMI result Body Mass Index 31.6 Labs 06/30/23 18:43 06/30/23 18:43 Labs: Laboratory Results - last 48 hr 07/02/23 07/03/23 14:40 09:51 COVID-19 (DO) Negative Negative COVID-19 Clin Com See Note See Note Medications Medications Current Medications Acetaminophen (Acetaminophen 325 Mg Tablet) 650 mg PO Q6H PRN PRN Reason: Headache/Pain Mild Scale (1-3) Last Admin: 07/02/23 22:07 Dose: 650 mg Al Hydroxide/Mg Hydroxide (Magnesium Hydrox/Alum Hydrox 30 Ml Oral.Susp) 30 ml PO Q6H PRN PRN Reason: Heartburn/Nausea Amoxicillin (Amoxicillin 500 Mg Capsule) 500 mg PO TID [facility] Last Admin: 07/04/23 09:49 Dose: Not Given Buprenorphine/Naloxone (Buprenorphine/Naloxone 4/1 Mg Film) 1 film SUBLINGUAL ONCE PRN PRN Reason: withdrawal symptoms Clonidine HCl (Clonidine Hcl 0.1 Mg Tablet) 0.1 mg PO TID PRN; Protocol PRN Reason: Anxiety Last Admin: 07/03/23 18:26 Dose: 0.1 mg Hydroxyzine HCl (Hydroxyzine Hcl 50 Mg Tablet) 50 mg PO TID PRN PRN Reason: Anxiety Ibuprofen (Ibuprofen 600 Mg Tablet) 600 mg PO Q6H PRN PRN Reason: Toothache Last Admin: 07/01/23 01:58 Dose: 600 mg Magnesium Hydroxide (Milk Of Magnesia 30 Ml Oral.Susp) 30 ml PO DAILY PRN PRN Reason: Constipation Nicotine Polacrilex (Nicotine Polacrilex 2 Mg Gum) 4 mg BUCCAL Q2H PRN PRN Reason: Nicotine Cravings Last Admin: 07/02/23 22:09 Dose: 4 mg Quetiapine Fumarate (Quetiapine Fumarate 100 Mg Tablet) 100 mg PO TID PRN PRN Reason: Agitation Last Admin: 07/02/23 22:08 Dose: 100 mg Quetiapine Fumarate (Quetiapine Fumarate 300 Mg Tablet) 300 mg PO BEDTIME CHRISTEN Last Admin: 07/03/23 22:58 Dose: 300 mg Trazodone HCl (Trazodone Hcl 50 Mg Tablet) 50 mg PO BEDTIME MRX1 PRN PRN Reason: Insomnia Allergies Allergies Allergy/AdvReac Type Severity Reaction Status Date / Time lamotrigine [From Lamictal] AdvReac Severe pt reports Verified 06/30/23 18:30 lamictal precipitates panic attacks Assessment & Plan Assessment & Plan (1) MDD (major depressive disorder), recurrent episode: Status: Acute Code(s): F33.9 - Major depressive disorder, recurrent, unspecified (2) PTSD (post-traumatic stress disorder): Status: Acute Code(s): F43.10 - Post-traumatic stress disorder, unspecified (3) Opioid use disorder: Status: Acute Code(s): F11.90 - Opioid use, unspecified, uncomplicated Assessment and Plan: * comfort medications as needed * just received Sublocade 300mg injection 2 days ago * in some cases patients may require supplemental films in btwn injections (4) Cocaine use disorder: Status: Acute Code(s): F14.10 - Cocaine abuse, uncomplicated Plan Patient is a 28 year old male with hx of MDD, PTSD, opiate use d/o, and cocaine use d/o who self [place] [facility] [place] secondary to suicidal ideation d/t increased depressive symptoms. Plan: CV 15 minute safety checks addiction medicine consult continue home medication referral to outpatient provider referral to outpatient program discharge planning 07/02: Keeping to self. Laying in bed most of shift. Guarded, irritable, pt kept 1:1 brief. Pt reports feeling depressed today; pt stated, my life is making me suicidal. I'm stressed about my mom getting knee surgery cause she won't be able to walk for a year . Pt reports he has been staying with his mother; he is requesting to be referred to a substance abuse program after hospital admission. Continues to report suicidal ideation. Denies HI/VH/AH. Discuss medication options when pt become tolerable of longer conversation. pt seen by addiction medication, per note: -comfort medications as needed -just received Sublocade 300mg injection 2 days ago -in some cases patients may require supplemental films in btwn injections 07/04/2023: No changes to current plan Reason for continued inpatient stay Substantial Risk for: rapid decompensation Time Spent With Patient Time: Total time managing care of this patient today ____ minutes.
[2023-07-04] MEDS: Amoxicillin 500 MG CAPSULE PO ×2 (15:14→22:57)
[2023-07-04] MEDS: Buprenorphine/Naloxone 4/1 mg FILM 1 FILM SUBLINGUAL (18:44)
[2023-07-04] MEDS: Ibuprofen 600 MG TABLET PO (19:25)
[2023-07-04] MEDS: hydrOXYzine HCL 50 MG TABLET PO (19:26)
[2023-07-04] MEDS: cloNIDine HCL 0.1 MG TABLET PO (19:26)
[2023-07-04 19:27] VITALS: BP 129/73; PULSE 87
[2023-07-04] MEDS: QUEtiapine Fumarate 300 MG TABLET PO (22:57)
--- NOTE | 2023-07-05 14:11 | P.PNPSI_ITS ---
Subjective Subjective Date of Service: 07/05/23 Reason For Visit: SI Subjective Notes: Conditional Voluntary Interim History: Met with patient. Discussed with Nursing. Flat. Isolative. Not attending groups. Reports things are ok , but still having withdrawal symptoms on prn suboxone 4mg. Discussed increasing to 8mg and scheduling- preferred prn 8mg. Otherwise denied SI, psychosis. Medication Compliance: Yes Side effects from medications: No Attending Groups: No Review of Systems Acute medical concerns: No Review of Systems Review of Systems nil acute Mental Status Exam Mental Status Exam Narrative: flat. In bed. Self-care fair. Denied depression. NO SI, HI, psychosis. Insight fair. Diagnostics Vital Signs (24Hr): Vital Signs - 24 hr 07/04/23 19:27 Pulse Rate 87 Blood Pressure 129/73 BMI result Body Mass Index 31.6 Labs 06/30/23 18:43 06/30/23 18:43 Medications Medications Current Medications Acetaminophen (Acetaminophen 325 Mg Tablet) 650 mg PO Q6H PRN PRN Reason: Headache/Pain Mild Scale (1-3) Last Admin: 07/02/23 22:07 Dose: 650 mg Al Hydroxide/Mg Hydroxide (Magnesium Hydrox/Alum Hydrox 30 Ml Oral.Susp) 30 ml PO Q6H PRN PRN Reason: Heartburn/Nausea Amoxicillin (Amoxicillin 500 Mg Capsule) 500 mg PO TID [facility]RISTEN Last Admin: 07/05/23 09:19 Dose: Not Given Buprenorphine/Naloxone (Buprenorphine/Naloxone 4/1 Mg Film) 1 film SUBLINGUAL DAILY PRN PRN Reason: withdrawal symptoms Last Admin: 07/04/23 18:44 Dose: 1 film Clonidine HCl (Clonidine Hcl 0.1 Mg Tablet) 0.1 mg PO TID PRN; Protocol PRN Reason: Anxiety Last Admin: 07/04/23 19:26 Dose: 0.1 mg Hydroxyzine HCl (Hydroxyzine Hcl 50 Mg Tablet) 50 mg PO TID PRN PRN Reason: Anxiety Last Admin: 07/04/23 19:26 Dose: 50 mg Ibuprofen (Ibuprofen 600 Mg Tablet) 600 mg PO Q6H PRN PRN Reason: Toothache Last Admin: 07/04/23 19:25 Dose: 600 mg Magnesium Hydroxide (Milk Of Magnesia 30 Ml Oral.Susp) 30 ml PO DAILY PRN PRN Reason: Constipation Nicotine Polacrilex (Nicotine Polacrilex 2 Mg Gum) 4 mg BUCCAL Q2H PRN PRN Reason: Nicotine Cravings Last Admin: 07/02/23 22:09 Dose: 4 mg Quetiapine Fumarate (Quetiapine Fumarate 100 Mg Tablet) 100 mg PO TID PRN PRN Reason: Agitation Last Admin: 07/02/23 22:08 Dose: 100 mg Quetiapine Fumarate (Quetiapine Fumarate 300 Mg Tablet) 300 mg PO BEDTIME CHRISTEN Last Admin: 07/04/23 22:57 Dose: 300 mg Trazodone HCl (Trazodone Hcl 50 Mg Tablet) 50 mg PO BEDTIME MRX1 PRN PRN Reason: Insomnia Allergies Allergies Allergy/AdvReac Type Severity Reaction Status Date / Time lamotrigine [From Lamictal] AdvReac Severe pt reports Verified 06/30/23 18:30 lamictal precipitates panic attacks Assessment & Plan Assessment & Plan (1) MDD (major depressive disorder), recurrent episode: Status: Acute Code(s): F33.9 - Major depressive disorder, recurrent, unspecified (2) PTSD (post-traumatic stress disorder): Status: Acute Code(s): F43.10 - Post-traumatic stress disorder, unspecified (3) Opioid use disorder: Status: Acute Code(s): F11.90 - Opioid use, unspecified, uncomplicated Assessment and Plan: * comfort medications as needed * just received Sublocade 300mg injection 2 days ago * in some cases patients may require supplemental films in btwn injections (4) Cocaine use disorder: Status: Acute Code(s): F14.10 - Cocaine abuse, uncomplicated Plan Patient is a 28 year old male with hx of MDD, PTSD, opiate use d/o, and cocaine use d/o who self presented to [facility] [place] [facility] secondary to suicidal ideation d/t increased depressive symptoms. Plan: CV 15 minute safety checks addiction medicine consult continue home medication referral to outpatient provider referral to outpatient program discharge planning 07/02: Keeping to self. Laying in bed most of shift. Guarded, irritable, pt kept 1:1 brief. Pt reports feeling depressed today; pt stated, my life is making me suicidal. I'm stressed about my mom getting knee surgery cause she won't be able to walk for a year . Pt reports he has been staying with his mother; he is requesting to be referred to a substance abuse program after hospital admission. Continues to report suicidal ideation. Denies HI/VH/AH. Discuss medication options when pt become tolerable of longer conversation. pt seen by addiction medication, per note: -comfort medications as needed -just received Sublocade 300mg injection 2 days ago -in some cases patients may require supplemental films in btwn injections 07/04/2023: No changes to current plan 07/04: having withdrawal symptoms on prn suboxone 4mg. Discussed increasing to 8mg and scheduling- preferred 8mg prn Reason for continued inpatient stay Substantial Risk for: inability to function Time Spent With Patient Time: Total time managing care of this patient today ____ minutes.
[2023-07-05] MEDS: Amoxicillin 500 MG CAPSULE PO ×2 (15:41→21:19)
[2023-07-05] MEDS: hydrOXYzine HCL 50 MG TABLET PO (21:19)
[2023-07-05] MEDS: cloNIDine HCL 0.1 MG TABLET PO (21:19)
[2023-07-05 21:22] VITALS: BP 112/72; PULSE 79
[2023-07-05] MEDS: QUEtiapine Fumarate 300 MG TABLET PO (23:11)
[2023-07-05] MEDS: traZODone HCL 50 MG TABLET PO (23:11)
[2023-07-05] MEDS: QUEtiapine Fumarate 100 MG TABLET PO (23:18)
--- NOTE | 2023-07-06 08:43 | HO.PSYCHPN ---
Subjective Subjective Date of Service: 07/06/23 Reason For Visit: SI Subjective Notes: Conditional Voluntary Interim History: Reviewed with Dr. Wylie. isolating to room in the morning. laying in bed. guarded. Pt stated, I'm feeling okay; I'm not having withdrawals. I'm just tired. I want to go to the [facility] after here . Pt educated regarding benefits of attending groups while on the unit. Pt reports he will try to go to some . denies SI/HI/VH/AH. Medication Compliance: Yes Side effects from medications: No Attending Groups: No Review of Systems Constitutional: Reports as per HPI Eyes: Reports as per HPI Reports as per HPI Cardiovascular: Reports as per HPI Respiratory: Reports as per HPI Gastrointestinal: Reports as per HPI Genitourinary: Reports as per HPI Musculoskeletal: Reports as per HPI Skin/Breast: Reports as per HPI Reports as per HPI Psychiatric: Reports as per HPI Endocrine: Reports as per HPI Hematologic/Lymphatic: Reports as per HPI Allergic/Immunologic: Reports as per HPI Mental Status Exam Mental Status Exam Narrative: Pt is alert and oriented; behavior is guarded; dressed in casual attire; mood is described as okay ; eye contact appropriate; Speech is normal rate, volume and prosody and not pressured; thought process is organized and goal directed; Thought content is on tx; denies SI/HI/VH/AH. Diagnostics Vital Signs (24Hr): Vital Signs - 24 hr 07/05/23 21:22 Pulse Rate 79 Blood Pressure 112/72 BMI result Body Mass Index 31.6 Labs 06/30/23 18:43 06/30/23 18:43 Medications Medications Current Medications Acetaminophen (Acetaminophen 325 Mg Tablet) 650 mg PO Q6H PRN PRN Reason: Headache/Pain Mild Scale (1-3) Last Admin: 07/02/23 22:07 Dose: 650 mg Al Hydroxide/Mg Hydroxide (Magnesium Hydrox/Alum Hydrox 30 Ml Oral.Susp) 30 ml PO Q6H PRN PRN Reason: Heartburn/Nausea Amoxicillin (Amoxicillin 500 Mg Capsule) 500 mg PO TID [facility] Last Admin: 07/05/23 21:19 Dose: 500 mg Buprenorphine/Naloxone (Buprenorphine/Naloxone 8/2 Mg Film) 1 film SUBLINGUAL DAILY PRN PRN Reason: withdrawal symptoms Clonidine HCl (Clonidine Hcl 0.1 Mg Tablet) 0.1 mg PO TID PRN; Protocol PRN Reason: Anxiety Last Admin: 07/05/23 21:19 Dose: 0.1 mg Hydroxyzine HCl (Hydroxyzine Hcl 50 Mg Tablet) 50 mg PO TID PRN PRN Reason: Anxiety Last Admin: 07/05/23 21:19 Dose: 50 mg Ibuprofen (Ibuprofen 600 Mg Tablet) 600 mg PO Q6H PRN PRN Reason: Toothache Last Admin: 07/04/23 19:25 Dose: 600 mg Magnesium Hydroxide (Milk Of Magnesia 30 Ml Oral.Susp) 30 ml PO DAILY PRN PRN Reason: Constipation Nicotine Polacrilex (Nicotine Polacrilex 2 Mg Gum) 4 mg BUCCAL Q2H PRN PRN Reason: Nicotine Cravings Last Admin: 07/02/23 22:09 Dose: 4 mg Quetiapine Fumarate (Quetiapine Fumarate 100 Mg Tablet) 100 mg PO TID PRN PRN Reason: Agitation Last Admin: 07/05/23 23:18 Dose: 100 mg Quetiapine Fumarate (Quetiapine Fumarate 300 Mg Tablet) 300 mg PO BEDTIME CHRISTEN Last Admin: 07/05/23 23:11 Dose: 300 mg Trazodone HCl (Trazodone Hcl 50 Mg Tablet) 50 mg PO BEDTIME MRX1 PRN PRN Reason: Insomnia Last Admin: 07/05/23 23:11 Dose: 50 mg Allergies Allergies Allergy/AdvReac Type Severity Reaction Status Date / Time lamotrigine [From Lamictal] AdvReac Severe pt reports Verified 06/30/23 18:30 lamictal precipitates panic attacks Assessment & Plan Assessment & Plan (1) MDD (major depressive disorder), recurrent episode: Status: Acute Code(s): F33.9 - Major depressive disorder, recurrent, unspecified (2) PTSD (post-traumatic stress disorder): Status: Acute Code(s): F43.10 - Post-traumatic stress disorder, unspecified (3) Opioid use disorder: Status: Acute Code(s): F11.90 - Opioid use, unspecified, uncomplicated Assessment and Plan: comfort medications as needed just received Sublocade 300mg injection 2 days ago in some cases patients may require supplemental films in btwn injections (4) Cocaine use disorder: Status: Acute Code(s): F14.10 - Cocaine abuse, uncomplicated Plan Patient is a 28 year old male with hx of MDD, PTSD, opiate use d/o, and cocaine use d/o who self presented to [facility] [place] secondary to suicidal ideation d/t increased depressive symptoms. Plan: CV 15 minute safety checks addiction medicine consult continue home medication referral to outpatient provider referral to outpatient program discharge planning 07/02: Keeping to self. Laying in bed most of shift. Guarded, irritable, pt kept 1:1 brief. Pt reports feeling depressed today; pt stated, my life is making me suicidal. I'm stressed about my mom getting knee surgery cause she won't be able to walk for a year . Pt reports he has been staying with his mother; he is requesting to be referred to a substance abuse program after hospital admission. Continues to report suicidal ideation. Denies HI/VH/AH. Discuss medication options when pt become tolerable of longer conversation. pt seen by addiction medication, per note: -comfort medications as needed -just received Sublocade 300mg injection 2 days ago -in some cases patients may require supplemental films in btwn injections 07/04/2023: No changes to current plan 07/04: having withdrawal symptoms on prn suboxone 4mg. Discussed increasing to 8mg and scheduling- preferred 8mg prn 07/05: isolating to room in the morning. laying in bed. guarded. Pt stated, I'm feeling okay; I'm not having withdrawals. I'm just tired. I want to go to the [facility] after here . Pt educated regarding benefits of attending groups while on the unit. Pt reports he will try to go to some . denies SI/HI/VH/AH. Patient educated on: diagnosis, medication risk/benefits and therapeutic strategies Informed Consent: understands Reason for continued inpatient stay Substantial Risk for: med/psych decompensation Time Spent With Patient Time: Total time managing care of this patient today _20___ minutes.
[2023-07-06] MEDS: Amoxicillin 500 MG CAPSULE PO ×3 (08:55→23:14)
[2023-07-06 12:08] LABS: COVID-19 Test Negative (Negative); IDNOW Serial# 152EDE1D
[2023-07-06] MEDS: QUEtiapine Fumarate 100 MG TABLET PO (23:15)
[2023-07-06] MEDS: QUEtiapine Fumarate 300 MG TABLET PO (23:15)
[2023-07-06] MEDS: traZODone HCL 50 MG TABLET PO (23:15)
[2023-07-06 23:22] VITALS: BP 120/76; PULSE 86; RESP 14; TEMP 36.6; O2SAT 97
[2023-07-07 06:00] VITALS: RESP 16
--- NOTE | 2023-07-07 08:36 | HO.PSYCHPN ---
Subjective Subjective Date of Service: 07/07/23 Reason For Visit: SI Subjective Notes: Conditional Voluntary Interim History: Reviewed with Dr. Wylie. isolating to room in the morning. laying in bed. guarded. Pt stated, I'm feeling fine. I'm not depressed. O usually leave my bed in the afternoon . Pt reports he feels like Seroquel is helping my mood . denies SI/HI/VH/AH. Pt reports he is waiting to hear if he was accepted to [facility]. Medication Compliance: Yes Side effects from medications: No Attending Groups: No Review of Systems Constitutional: Reports as per HPI Eyes: Reports as per HPI Reports as per HPI Cardiovascular: Reports as per HPI Respiratory: Reports as per HPI Gastrointestinal: Reports as per HPI Genitourinary: Reports as per HPI Musculoskeletal: Reports as per HPI Skin/Breast: Reports as per HPI Reports as per HPI Psychiatric: Reports as per HPI Endocrine: Reports as per HPI Hematologic/Lymphatic: Reports as per HPI Allergic/Immunologic: Reports as per HPI Mental Status Exam Mental Status Exam Narrative: Pt is alert and oriented; behavior is guarded; dressed in casual attire; mood is described as fine ; eye contact appropriate; Speech is normal rate, volume and prosody and not pressured; thought process is organized and goal directed; Thought content is on tx; denies SI/HI/VH/AH. Level of Consciousness: Drowsy Patient Behavior: Asleep Diagnostics Vital Signs (24Hr): Vital Signs - 24 hr 07/06/23 23:22 Temperature 97.8 F Pulse Rate 86 Respiratory Rate 14 Blood Pressure 120/76 Pulse Oximetry 97 Oxygen Delivery Method Room Air BMI result Body Mass Index 31.6 Labs 06/30/23 18:43 06/30/23 18:43 Labs: Laboratory Results - last 48 hr 07/06/23 11:35 COVID-19 (DO) Negative COVID-19 Clin Com See Note Medications Medications Current Medications Acetaminophen (Acetaminophen 325 Mg Tablet) 650 mg PO Q6H PRN PRN Reason: Headache/Pain Mild Scale (1-3) Last Admin: 07/02/23 22:07 Dose: 650 mg Al Hydroxide/Mg Hydroxide (Magnesium Hydrox/Alum Hydrox 30 Ml Oral.Susp) 30 ml PO Q6H PRN PRN Reason: Heartburn/Nausea Amoxicillin (Amoxicillin 500 Mg Capsule) 500 mg PO TID [facility] Last Admin: 07/06/23 23:14 Dose: 500 mg Buprenorphine/Naloxone (Buprenorphine/Naloxone 8/2 Mg Film) 1 film SUBLINGUAL DAILY PRN PRN Reason: withdrawal symptoms Clonidine HCl (Clonidine Hcl 0.1 Mg Tablet) 0.1 mg PO TID PRN; Protocol PRN Reason: Anxiety Last Admin: 07/05/23 21:19 Dose: 0.1 mg Hydroxyzine HCl (Hydroxyzine Hcl 50 Mg Tablet) 50 mg PO TID PRN PRN Reason: Anxiety Last Admin: 07/05/23 21:19 Dose: 50 mg Ibuprofen (Ibuprofen 600 Mg Tablet) 600 mg PO Q6H PRN PRN Reason: Toothache Last Admin: 07/04/23 19:25 Dose: 600 mg Magnesium Hydroxide (Milk Of Magnesia 30 Ml Oral.Susp) 30 ml PO DAILY PRN PRN Reason: Constipation Nicotine Polacrilex (Nicotine Polacrilex 2 Mg Gum) 4 mg BUCCAL Q2H PRN PRN Reason: Nicotine Cravings Last Admin: 07/02/23 22:09 Dose: 4 mg Quetiapine Fumarate (Quetiapine Fumarate 100 Mg Tablet) 100 mg PO TID PRN PRN Reason: Agitation Last Admin: 07/06/23 23:15 Dose: 100 mg Quetiapine Fumarate (Quetiapine Fumarate 300 Mg Tablet) 300 mg PO BEDTIME CHRISTEN Last Admin: 07/06/23 23:15 Dose: 300 mg Trazodone HCl (Trazodone Hcl 50 Mg Tablet) 50 mg PO BEDTIME MRX1 PRN PRN Reason: Insomnia Last Admin: 07/06/23 23:15 Dose: 50 mg Allergies Allergies Allergy/AdvReac Type Severity Reaction Status Date / Time lamotrigine [From Lamictal] AdvReac Severe pt reports Verified 06/30/23 18:30 lamictal precipitates panic attacks Assessment & Plan Assessment & Plan (1) MDD (major depressive disorder), recurrent episode: Status: Acute Code(s): F33.9 - Major depressive disorder, recurrent, unspecified (2) PTSD (post-traumatic stress disorder): Status: Acute Code(s): F43.10 - Post-traumatic stress disorder, unspecified (3) Opioid use disorder: Status: Acute Code(s): F11.90 - Opioid use, unspecified, uncomplicated Assessment and Plan: comfort medications as needed just received Sublocade 300mg injection 2 days ago in some cases patients may require supplemental films in btwn injections (4) Cocaine use disorder: Status: Acute Code(s): F14.10 - Cocaine abuse, uncomplicated Plan Patient is a 28 year old male with hx of MDD, PTSD, opiate use d/o, and cocaine use d/o who self presented to [facility] secondary to suicidal ideation d/t increased depressive symptoms. Plan: CV 15 minute safety checks addiction medicine consult continue home medication referral to outpatient provider referral to outpatient program discharge planning 07/02: Keeping to self. Laying in bed most of shift. Guarded, irritable, pt kept 1:1 brief. Pt reports feeling depressed today; pt stated, my life is making me suicidal. I'm stressed about my mom getting knee surgery cause she won't be able to walk for a year . Pt reports he has been staying with his mother; he is requesting to be referred to a substance abuse program after hospital admission. Continues to report suicidal ideation. Denies HI/VH/AH. Discuss medication options when pt become tolerable of longer conversation. pt seen by addiction medication, per note: -comfort medications as needed -just received Sublocade 300mg injection 2 days ago -in some cases patients may require supplemental films in btwn injections 07/04/2023: No changes to current plan 07/04: having withdrawal symptoms on prn suboxone 4mg. Discussed increasing to 8mg and scheduling- preferred 8mg prn 07/05: isolating to room in the morning. laying in bed. guarded. Pt stated, I'm feeling okay; I'm not having withdrawals. I'm just tired. I want to go to the [facility] after here . Pt educated regarding benefits of attending groups while on the unit. Pt reports he will try to go to some . denies SI/HI/VH/AH. 07/06: isolating to room in the morning. laying in bed. guarded. Pt stated, I'm feeling fine. I'm not depressed. O usually leave my bed in the afternoon . Pt reports he feels like Seroquel is helping my mood . denies SI/HI/VH/AH. Pt reports he is waiting to hear if he was accepted to [facility]. Patient educated on: diagnosis and medication risk/benefits Informed Consent: understands Reason for continued inpatient stay Substantial Risk for: med/psych decompensation Time Spent With Patient Time: Total time managing care of this patient today _20___ minutes.
[2023-07-07 22:30] VITALS: BP 130/78; PULSE 97; RESP 16; TEMP 36.8; O2SAT 98
[2023-07-07] MEDS: QUEtiapine Fumarate 100 MG TABLET PO (22:37)
[2023-07-07] MEDS: QUEtiapine Fumarate 300 MG TABLET PO (22:37)
[2023-07-07] MEDS: cloNIDine HCL 0.1 MG TABLET PO (22:37)
[2023-07-07] MEDS: Amoxicillin 500 MG CAPSULE PO (22:37)
[2023-07-07] MEDS: traZODone HCL 50 MG TABLET PO (22:37)
[2023-07-07] MEDS: Buprenorphine/Naloxone 4/1 mg FILM 1 FILM SUBLINGUAL (22:37)
[2023-07-07] MEDS: hydrOXYzine HCL 50 MG TABLET PO (22:37)
--- NOTE | 2023-07-08 09:20 | P.PNPSI_ITS ---
Subjective Subjective Date of Service: 07/08/23 Reason For Visit: SI Subjective Notes: Conditional Voluntary Interim History: Reviewed with Dr. Wylie. laying in bed. guarded. Pt stated, I'm feeling okay. If I don't get into the [facility] by tomorrow then I'm going to go back to my mom's house and then go to a sober house . Pt reports he is feeling better than when I came in here . denies SI/HI/VH/AH. Medication Compliance: Yes Side effects from medications: No Attending Groups: No Review of Systems Constitutional: Reports as per HPI Eyes: Reports as per HPI Reports as per HPI Cardiovascular: Reports as per HPI Respiratory: Reports as per HPI Gastrointestinal: Reports as per HPI Genitourinary: Reports as per HPI Musculoskeletal: Reports as per HPI Skin/Breast: Reports as per HPI Reports as per HPI Psychiatric: Reports as per HPI Endocrine: Reports as per HPI Hematologic/Lymphatic: Reports as per HPI Allergic/Immunologic: Reports as per HPI Mental Status Exam Mental Status Exam Narrative: Pt is alert and oriented; behavior is guarded; dressed in casual attire; mood is described as okay ; eye contact appropriate; Speech is normal rate, volume and prosody and not pressured; thought process is organized and goal directed; Thought content is on tx; denies SI/HI/VH/AH. Diagnostics Vital Signs (24Hr): Vital Signs - 24 hr 07/07/23 22:30 Temperature 98.3 F Pulse Rate 97 Respiratory Rate 16 Blood Pressure 130/78 Pulse Oximetry 98 Oxygen Delivery Method Room Air BMI result Body Mass Index 31.6 Labs 06/30/23 18:43 06/30/23 18:43 Labs: Laboratory Results - last 48 hr 07/06/23 11:35 COVID-19 (DO) Negative COVID-19 Clin Com See Note Medications Medications Current Medications Acetaminophen (Acetaminophen 325 Mg Tablet) 650 mg PO Q6H PRN PRN Reason: Headache/Pain Mild Scale (1-3) Last Admin: 07/02/23 22:07 Dose: 650 mg Al Hydroxide/Mg Hydroxide (Magnesium Hydrox/Alum Hydrox 30 Ml Oral.Susp) 30 ml PO Q6H PRN PRN Reason: Heartburn/Nausea Amoxicillin (Amoxicillin 500 Mg Capsule) 500 mg PO TID [facility] Last Admin: 07/07/23 22:37 Dose: 500 mg Clonidine HCl (Clonidine Hcl 0.1 Mg Tablet) 0.1 mg PO TID PRN; Protocol PRN Reason: Anxiety Last Admin: 07/07/23 22:37 Dose: 0.1 mg Hydroxyzine HCl (Hydroxyzine Hcl 50 Mg Tablet) 50 mg PO TID PRN PRN Reason: Anxiety Last Admin: 07/07/23 22:37 Dose: 50 mg Ibuprofen (Ibuprofen 600 Mg Tablet) 600 mg PO Q6H PRN PRN Reason: Toothache Last Admin: 07/04/23 19:25 Dose: 600 mg Magnesium Hydroxide (Milk Of Magnesia 30 Ml Oral.Susp) 30 ml PO DAILY PRN PRN Reason: Constipation Nicotine Polacrilex (Nicotine Polacrilex 2 Mg Gum) 4 mg BUCCAL Q2H PRN PRN Reason: Nicotine Cravings Last Admin: 07/02/23 22:09 Dose: 4 mg Quetiapine Fumarate (Quetiapine Fumarate 100 Mg Tablet) 100 mg PO TID PRN PRN Reason: Agitation Last Admin: 07/07/23 22:37 Dose: 100 mg Quetiapine Fumarate (Quetiapine Fumarate 300 Mg Tablet) 300 mg PO BEDTIME CHRISTEN Last Admin: 07/07/23 22:37 Dose: 300 mg Trazodone HCl (Trazodone Hcl 50 Mg Tablet) 50 mg PO BEDTIME MRX1 PRN PRN Reason: Insomnia Last Admin: 07/07/23 22:37 Dose: 50 mg Allergies Allergies Allergy/AdvReac Type Severity Reaction Status Date / Time lamotrigine [From Lamictal] AdvReac Severe pt reports Verified 06/30/23 18:30 lamictal precipitates panic attacks Assessment & Plan Assessment & Plan (1) MDD (major depressive disorder), recurrent episode: Status: Acute Code(s): F33.9 - Major depressive disorder, recurrent, unspecified (2) PTSD (post-traumatic stress disorder): Status: Acute Code(s): F43.10 - Post-traumatic stress disorder, unspecified (3) Opioid use disorder: Status: Acute Code(s): F11.90 - Opioid use, unspecified, uncomplicated Assessment and Plan: * comfort medications as needed * just received Sublocade 300mg injection 2 days ago * in some cases patients may require supplemental films in btwn injections (4) Cocaine use disorder: Status: Acute Code(s): F14.10 - Cocaine abuse, uncomplicated Plan Patient is a 28 year old male with hx of MDD, PTSD, opiate use d/o, and cocaine use d/o who self presented [place] [facility] secondary to suicidal ideation d/t increased depressive symptoms. Plan: CV 15 minute safety checks addiction medicine consult continue home medication referral to outpatient provider referral to outpatient program discharge planning 07/02: Keeping to self. Laying in bed most of shift. Guarded, irritable, pt kept 1:1 brief. Pt reports feeling depressed today; pt stated, my life is making me suicidal. I'm stressed about my mom getting knee surgery cause she won't be able to walk for a year . Pt reports he has been staying with his mother; he is requesting to be referred to a substance abuse program after hospital admission. Continues to report suicidal ideation. Denies HI/VH/AH. Discuss medication options when pt become tolerable of longer conversation. pt seen by addiction medication, per note: -comfort medications as needed -just received Sublocade 300mg injection 2 days ago -in some cases patients may require supplemental films in btwn injections 07/04/2023: No changes to current plan 07/04: having withdrawal symptoms on prn suboxone 4mg. Discussed increasing to 8mg and scheduling- preferred 8mg prn 07/05: isolating to room in the morning. laying in bed. guarded. Pt stated, I'm feeling okay; I'm not having withdrawals. I'm just tired. I want to go to the [facility] after here . Pt educated regarding benefits of attending groups while on the unit. Pt reports he will try to go to some . denies SI/HI/VH/AH. 07/06: isolating to room in the morning. laying in bed. guarded. Pt stated, I'm feeling fine. I'm not depressed. O usually leave my bed in the afternoon . Pt reports he feels like Seroquel is helping my mood . denies SI/HI/VH/AH. Pt reports he is waiting to hear if he was accepted to [facility]. 07/07: laying in bed. guarded. Pt stated, I'm feeling okay. If I don't get into the [facility] by tomorrow then I'm going to go back to my mom's house and then go to a sober house . Pt reports he is feeling better than when I came in here . denies SI/HI/VH/AH. Patient educated on: diagnosis, medication risk/benefits and substance abuse Informed Consent: understands Reason for continued inpatient stay Substantial Risk for: stable for discharge Time Spent With Patient Time: Total time managing care of this patient today _20___ minutes.
[2023-07-08 14:38] LABS: Influenza A PCR NEGATIVE (Negative); Influenza B PCR NEGATIVE (Negative); Resp Syncy Virus RNA Qual PCR NEGATIVE (Negative); SARS COV2 PCR INHOUSE NEGATIVE (Negative)
[2023-07-08] MEDS: Amoxicillin 500 MG CAPSULE PO ×2 (14:55→22:11)
[2023-07-08 18:00] VITALS: RESP 16
[2023-07-08] MEDS: QUEtiapine Fumarate 300 MG TABLET PO (22:11)
[2023-07-08] MEDS: QUEtiapine Fumarate 100 MG TABLET PO (22:12)
[2023-07-08] MEDS: traZODone HCL 50 MG TABLET PO (22:12)
[2023-07-09] MEDS: Amoxicillin 500 MG CAPSULE PO (09:00)
--- NOTE | 2023-07-09 09:13 | PM.PSYDC ---
DS: Providers Provider Date of Service: 07/09/23 Date of admission: 07/01/23 10:51 Date of discharge: 07/09/23 Primary care physician: Unknown Physician Admitting clinician: Romelia Ball Attending physician on admission: Jim Wylie Consults: 07/02/23 11:05 Addiction Medicine Routine Consulting Provider: Addiction Covering Reason for consultation: interested in suboxone and process coach. Has provider been notified: Yes Attending physician on discharge: Jim Wylie Discharging clinician: Romelia Ball DS: Diagnosis Discharge Diagnosis (1) MDD (major depressive disorder), recurrent episode: Status: Acute (2) PTSD (post-traumatic stress disorder): Status: Acute (3) Opioid use disorder: Status: Acute (4) Cocaine use disorder: Status: Acute DS: Medications Discharge Medications Home Medications: Home Medications Medication Instructions Recorded Confirmed amoxicillin 500 mg capsule 500 mg PO TID 07/01/23 07/01/23 Previous Rx's Medication Instructions Recorded clonidine HCl 0.1 mg tablet 0.1 mg PO TID PRN Anxiety 30 days 07/08/23 #90 tabs quetiapine 100 mg tablet 100 mg PO TID PRN Agitation 30 07/08/23 days #90 tabs quetiapine 300 mg tablet 300 mg PO BEDTIME 30 days #30 tabs 07/08/23 trazodone 50 mg tablet 50 mg PO BEDTIME PRN Insomnia 14 07/08/23 days #14 tabs Mental Status Exam Mental Status Exam Narrative: Pt is alert and oriented; behavior is guarded; dressed in casual attire; mood is described as good ; eye contact appropriate; Speech is normal rate, volume and prosody and not pressured; thought process is organized and goal directed; Thought content is on tx; denies SI/HI/VH/AH. Data Data Completed and Pending Completed studies during hospitalization [Text1]: 07/02/23 07/03/23 07/06/23 14:40 09:51 11:35 COVID-19 (DO) Negative Negative Negative COVID-19 Clin Com See Note See Note See Note Influenza Type A (PCR) Influenza Type B (PCR) RSV RNA Qual (PCR) SARS-CoV-2 RNA (RT-PCR) 07/08/23 10:45 COVID-19 (DO) COVID-19 Clin Com Influenza Type A (PCR) NEGATIVE Influenza Type B (PCR) NEGATIVE RSV RNA Qual (PCR) NEGATIVE SARS-CoV-2 RNA (RT-PCR) NEGATIVE DS: Summary Hospital Course Hospital Course: Patient is a 28 year old male with hx of MDD, PTSD, opiate use d/o, and cocaine use d/o who self presented to [facility] secondary to suicidal ideation d/t increased depressive symptoms. Per crisis report, pt presented depressed and irritable. He reported suicidal ideation with plan to jump in front of a truck. Pt reportedly went to [facility] but then left. Patient reports struggling with SI on and off for the last couple of years since my sister's , fighting with my family and having nowhere to go . Pt reported being medication compliant but believes he needs higher dosages. Utox positive for opiates, fentanyl and cocaine. Patient's mother reported, pt did not follow up on referral to [facility] CSS from last inpatient admission. Pt declined to meet for admission assessment; pt laying in bed and stated, I'm too tired to meet with you, can we talk tomorrow? . Pt did answer some questions prior to going back to sleep. Pt reports he has been using four bundles of heroin and cocaine for the past four days. He reports being interested in a substance abuse program, process coach and taking sublocade again. Will place addiction medicine consult. Patient reports suicidal ideation with plan to walk in front of a car . When asked about homicidal ideation, pt reports his sister's ex-boyfriend last week of an overdose . denies HI/VH/AH. During hospital course, CV 15 minute safety checks addiction medicine consult continue home medication referral to outpatient provider referral to outpatient program discharge planning Keeping to self. Laying in bed most of shift. Guarded, irritable, pt kept 1:1 brief. Pt reports feeling depressed today; pt stated, my life is making me suicidal. I'm stressed about my mom getting knee surgery cause she won't be able to walk for a year . Pt reports he has been staying with his mother; he is requesting to be referred to a substance abuse program after hospital admission. Continues to report suicidal ideation. Denies HI/VH/AH. Discuss medication options when pt become tolerable of longer conversation. pt seen by addiction medication, per note: -comfort medications as needed -just received Sublocade 300mg injection 2 days ago -in some cases patients may require supplemental films in btwn injections having withdrawal symptoms on prn suboxone 4mg. Discussed increasing to 8mg and scheduling- preferred 8mg prn isolating to room in the morning. laying in bed. guarded. Pt stated, I'm feeling okay; I'm not having withdrawals. I'm just tired. I want to go to the [facility] after here . Pt educated regarding benefits of attending groups while on the unit. Pt reports he will try to go to some . denies SI/HI/VH/AH. isolating to room in the morning. laying in bed. guarded. Pt stated, I'm feeling fine. I'm not depressed. O usually leave my bed in the afternoon . Pt reports he feels like Seroquel is helping my mood . denies SI/HI/VH/AH. Pt reports he is waiting to hear if he was accepted to [facility]. Pt stated, I'm feeling okay. If I don't get into the [facility] by tomorrow then I'm going to go back to my mom's house and then go to a sober house . Pt reports he is feeling better than when I came in here . denies SI/HI/VH/AH. Pt reports he plans on following up with his outpatient providers. Time spent discussing smoking cessation with patient: 3 to 10 minutes Status at Discharge Cognitive/behavioral status at discharge: Patient was interviewed prior to discharge and found to be fully oriented and without any SI or HI. Patient has insight and demonstrates good judgment in terms of wanting to pursue treatment. Patient has a safety plan that includes presenting to the closest ER or calling 911 if feeling unsafe. Functional status at discharge: independent ambulation Overall status at discharge: patient is back to baseline Time Spent with Patient Time attestation: Total time managing care of this patient today _30___ minutes. Time spent: Less than 30 minutes Discharge Plan Discharge Anticipated Discharge Date/Time: 07/09/23 12:00 Patient Disposition: Home, Self-Care Discharge Diagnosis: MDD, PTSD, opioid use d/o, cocaine use d/o Referrals: [facility] (Therapy) [Other] - 1 Week (*Your therapist will reach out to you regarding your follow up appointment.) Psychiatry [Other] - 1 Week (*The staff at the above clinic have been informed of your need for medication management in the community. Please speak with your therapist in regards to a referral. ) [facility] [Provider Group] - 07/14/23 12:30 pm Discharge Medications: New clonidine HCl 0.1 mg Tablet 0.1 mg PO TID PRN (Reason: Anxiety) 30 Days Qty: 90 0RF Protocol: Hold for SBP< HOLD for SBP < : 90 trazodone 50 mg Tablet 50 mg PO BEDTIME PRN (Reason: Insomnia) 14 Days Qty: 14 0RF Continued amoxicillin 500 mg capsule 500 mg PO TID quetiapine 300 mg tablet 300 mg PO BEDTIME 30 Days Qty: 30 0RF quetiapine 100 mg tablet 100 mg PO TID PRN (Reason: Agitation) 30 Days Qty: 90 0RF Discontinued hydroxyzine HCl 50 mg tablet 50 mg PO TID PRN (Reason: Anxiety) ibuprofen 600 mg tablet 600 mg PO Q6H PRN (Reason: Toothache) Discharge Orders: Discharge Order (Routine); Ordered 07/09/23 Ordered By: Romelia Ball Diet: Regular diet Activity on Discharge: As tolerated Stand Alone Forms: Patient Portal Discharge page, Community Support Care Plan Goals: Maintain mood and safe behaviors Take medications as prescribed Continue to pursue sobriety Practice coping skills Continue with outpatient providers and reach out to them as needed Health Concerns: Mood stability and behaviors Sobriety Plan of Treatment: Follow up with your PCP, psychiatric provider and other outpatient providers regarding above concerns Take medications as prescribed Assessment: Patient was interviewed prior to discharge and found to be fully oriented and without any SI or HI. Patient has insight and demonstrates good judgment in terms of wanting to pursue treatment. Patient has a safety plan that includes presenting to the closest ER or calling 911 if feeling unsafe. Discharge Date/Time: 07/09/23 11:28
[2023-07-09] MEDS: Naloxone HCl Nasal TAKE HOME 4 MG SPRAY 8 MG NOSTRILALT (11:21)
== END 2023-07-09 11:28 | disposition home or self-care (01) | DRG 751 ==
LOC: HO.ED 22:44 → HO.PADLT16 07-01 11:11
PROVIDERS: Physician Assistant; Admitting Provider Psychiatry & Neurology Psychiatry; Emergency Provider Emergency Medicine; Responsible Provider Registered Nurse; Visit Provider Psychiatry & Neurology Psychiatry
DX: F33.9 Major depressive disorder, recurrent, unspecified (principal); R45.851 Suicidal ideations; R45.850 Homicidal ideations; F14.10 Cocaine abuse, uncomplicated; F17.210 Nicotine dependence, cigarettes, uncomplicated; F11.90 Opioid use, unspecified, uncomplicated; F43.10 Post-traumatic stress disorder, unspecified; Z20.822 Contact with and (suspected) exposure to COVID-19; Z71.6 Tobacco abuse counseling; Z79.899 Other long term (current) drug therapy
CPT/HCPCS: 0241U; 36415; 80053; 80143; 80179; 80307; 81003; 85025; 87635; 93005; 99285; S9485

== ENCOUNTER → 2023-07-01 08:47 | Outpatient (BNV) | payer OTHER, SELFPAY | PROVIDERS: Admitting Provider Psychiatry & Neurology Psychiatry; Emergency Provider Emergency Medicine; Responsible Provider Registered Nurse; Visit Provider Internal Medicine Cardiovascular Disease | DX: T14.91XA Suicide attempt, initial encounter (principal); F11.90 Opioid use, unspecified, uncomplicated | CPT/HCPCS: 93010 ==

== ENCOUNTER → 2023-07-01 10:51 | Outpatient (BNV) | payer OTHER, SELFPAY | PROVIDERS: Admitting Provider Psychiatry & Neurology Psychiatry; Emergency Provider Emergency Medicine; Responsible Provider Registered Nurse; Visit Provider Nurse Practitioner Psychiatric/Mental Health | DX: F33.2 Major depressive disorder, recurrent severe without psychotic features (principal); F14.10 Cocaine abuse, uncomplicated; F43.11 Post-traumatic stress disorder, acute; F11.90 Opioid use, unspecified, uncomplicated | CPT/HCPCS: 90792; 99231; 99232; 99238; 99499 ==

== ENCOUNTER 2023-08-01 02:20 | Emergency (ER) | payer OTHER, SELFPAY ==
--- NOTE | 2023-08-01 | ECG_ITS ---
Test Reason : drugs Blood Pressure : / mmHG Vent. Rate : 079 BPM Atrial Rate : 079 BPM P-R Int : 174 ms QRS Dur : 094 ms QT Int : 382 ms P-R-T Axes : 062 069 033 degrees QTc Int : 438 ms Normal sinus rhythm Normal ECG When compared with ECG of 01-JUL-2023 08:47, No significant change was found Referred By: Chanel Ramsey Electronically Signed By:TAD REDMOND MD
[2023-08-01 02:23] VITALS: BP 100/81; PULSE 100; RESP 20; TEMP 36.8; O2SAT 100; BMI 30.7
--- NOTE | 2023-08-01 03:04 | PC.NURSE ---
PT admits to snorting 5g of cocaine prior to arrival. 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 Ramsey). Per Dr. Ramsey, continuous cardiac monitoring not necessary.
[2023-08-01 03:06] LABS: Appearance Urine Clear; Color Urine Dark Yellow; Glucose Urine UA Negative (Negative); Leukocyte Esterase Urine Negative (Negative); Nitrite Urine Negative (Negative); PH 5.5 (5.0-9.0); Specific Gravity - Urine >= 1.030 (1.005-1.025); UMIC TRIGGER UACC YES; Urine Blood Negative (Negative); Urine Ketones 80 mg/dL (Negative); Urine Protein 30 (1+) mg/dL (Neg-Trace)
[2023-08-01 03:16] LABS: Bacteria Urine None Seen (None Seen); Hyaline Casts Urine 0-2 /LPF (0-2); RBC Urine 0-2 /HPF (0-2); Squamous Epithelial Cell Urine 0-2 /HPF (0-2); WBC Urine 0-5 /HPF (0-5)
[2023-08-01 03:18] LABS: Amphetamine Screen Urine Not Detected (Not Detect); Barbiturates, Urine Not Detected (Not Detect); Benzodiazepines Screen Urine Not Detected (Not Detect); Cannabinoid Screen Urine Not Detected (Not Detect); Cocaine Screen Urine POSITIVE (Not Detect); Fentanyl, urine POSITIVE (Not Detect); Opiate Screen Urine POSITIVE (Not Detect); Phencyclidine Screen Urine Not Detected (Not Detect)
--- NOTE | 2023-08-01 03:19 | ED.PSYCH ---
HPI - Psych General Chief Complaint: Psychiatric Symptoms Stated Complaint: SI Time Seen by Provider: 08/01/23 03:09 Source: patient Mode of arrival: ambulatory Limitations: no limitations History of Present Illness HPI Narrative: Patient comes to the emergency room complaining of suicidal ideation. Patient states that he used 5 bags of cocaine. Patient states that he had an argument with his girlfriend hansel, reports SI, states that he wants to shoot himself with a gun. Related Data Home Medications ?Medication ?Instructions ?Recorded ?Confirmed amoxicillin 500 mg capsule 500 mg PO TID 07/01/23 07/01/23 Previous Rx's ?Medication ?Instructions ?Recorded clonidine HCl 0.1 mg tablet 0.1 mg PO TID PRN Anxiety 30 days 07/08/23 #90 tabs quetiapine 100 mg tablet 100 mg PO TID PRN Agitation 30 07/08/23 days #90 tabs quetiapine 300 mg tablet 300 mg PO BEDTIME 30 days #30 tabs 07/08/23 trazodone 50 mg tablet 50 mg PO BEDTIME PRN Insomnia 14 07/08/23 days #14 tabs Allergies Allergy/AdvReac Type Severity Reaction Status Date / Time lamotrigine [From Lamictal] AdvReac Severe pt reports Verified 08/01/23 02:29 lamictal precipitates panic attacks Review of Systems Review of Systems: Constitutional : No Weight loss, No Fever, No Chills, No Night Sweats, No Fatigue, No Malaise ENT/Mouth : No Hearing loss, No Ear Pain, No Nasal Congestion, No Sinus Pain, No Hoarseness, No sore throat, No Rhinorrhea, No Swallowing Difficulty Eyes: No Eye Pain, No Swelling, No Redness, No Foreign Body, No Discharge, No Vision Changes Cardiovascular : No Chest Pain, No SOB, No Dyspnea on Exertion, No Orthopnea, No Edema, No Palpitations Respiratory : No Cough, No Sputum, No Wheezing, No Smoke Exposure, No Dyspnea Gastrointestinal : No Nausea, No Vomiting, No Diarrhea, No Constipation, No abdominal Pain, No Hematochezia, No Melena Genitourinary : no irregular bleeding, No Dysuria, No Urinary Frequency, No Hematuria, No Urinary Incontinence, No Urgency, No Flank Pain, No Urinary Flow Changes, No Hesitancy Musculoskeletal : No joint pain, No Myalgias, No Joint Swelling Skin : No Skin Lesions, No rash Neuro : No Weakness, No Numbness, No Paresthesias, No Loss of Consciousness, No Dizziness, No Headache Psych : No Anxiety/Panic, No Depression, denies SI, complaining of HI, admits that he has been using drugs. Heme/Lymph: No Bruising, No Bleeding,No Lymphadenopathy Endocrine : No Polyuria, No Polydipsia, No Temperature Intolerance PMF Past Medical History Medical History COVID-19 Drug overdose Substance abuse Social History Social History Household Members: Significant Other and Children Household Members Other:: Mother Housing: Apartment Do you presently have visiting nurse or other home services: No Alcohol intake: unknown Patient Tobacco Use Status: Current everyday Tobacco user Tobacco use type: Cigarette Cigarette Packs Per Day: 1 Cigarettes Per Day: 20.0 Smoked in Last 30 Days: Yes e-Cigarette/Vaping Use: Never Used Second Hand Smoke Exposure: No Use of substances other than those prescribed or required for medical reasons: Yes Substance Use Type: Crack/Cocaine, Heroin and Opiates Substance Use Frequency: Recent Binge Last Used Substance: Just Prior to Admission Any prior treatment program specific to substance use: No Advance Directives: No Advance Directives Information Provided: Yes service: No Sexual orientation: Straight/Heterosexual Physical Exam Vital Signs: Vital Signs: Last Vital Signs Temp 98.3 F 08/01/23 02:23 Pulse 100 08/01/23 02:23 Resp 20 08/01/23 02:23 BP 100/81 08/01/23 02:23 Pulse Ox 100 08/01/23 02:23 O2 Del Method Room Air 08/01/23 02:23 BMI result Body Mass Index 30.7 Const: Other: Appearance: Alert. Oriented X3. No acute distress. Somnolent but easily arousable, Eyes: Pupils equal, round and reactive to light. ENT: Pharynx normal. Neck: Normal inspection. Neck supple. No lymph nodes noted. No crepitus CVS: Normal heart rate and rhythm. Pulses normal. Normal S1 and S2 Respiratory: No respiratory distress. Breath sounds normal. No Wheezing. No rales Abdomen: Soft and nontender. No rigidity. No distention. Skin: Skin warm and dry. Normal skin color. Normal skin turgor. Extremities: No lower extremity edema. No Lacerations. No Rash Neuro: Oriented X 3. No motor deficit. No sensory deficit. Moving all extremities. No slurred speech. CN 2 through 12 grossly intact Psych: calm, cooperative, normal affect Course Course Course Narrative: -patient is on a Section 12 -care team consult pending Medical Decision Making Medical Decision Making [facility] Narrative: -reviewing patient's records, patient was discharged from this facility approximately 3 weeks ago on July 08, patient was diagnosed with major depressive disorder, PTSD, opiate abuse and cocaine abuse Differential Diagnosis Differential Diagnoses: The differential diagnosis associated with the presentation includes (Anxiety, depression, PTSD, polysubstance abuse, SI) Admission/Observation Consideration of admission/observation: Escalation of care including admission/observation considered (Patient is on a Section 12, waiting to be seen by the care team to determine patient's disposition) Lab Data Labs: Lab Results 08/01/23 Range/Units 02:58 Urine Color Dark Yellow Urine Appearance Clear Urine pH 5.5 (5.0-9.0) Ur Specific [place] >= 1.030 H (1.005-1.025) Urine Protein 30 (1+) H (Neg-Trace) mg/dL Urine Glucose (UA) Negative (Negative) mg/dL Urine Ketones 80 (Negative) mg/dL Urine Blood Negative (Negative) Urine Nitrite Negative (Negative) Ur Leukocyte Esterase Negative (Negative) Urine RBC 0-2 (0-2) /HPF Urine WBC 0-5 (0-5) /HPF Ur Squamous Epith Cells 0-2 (0-2) /HPF Urine Bacteria None Seen (None Seen) Hyaline Casts 0-2 (0-2) /LPF Urine Opiates Screen POSITIVE H (Not Detect) Urine Fentanyl Screen POSITIVE H (Not Detect) Ur Barbiturates Screen Not Detected (Not Detect) Ur Phencyclidine Scrn Not Detected (Not Detect) Ur Amphetamines Screen Not Detected (Not Detect) U Benzodiazepines Scrn Not Detected (Not Detect) Urine Cocaine Screen POSITIVE H (Not Detect) U Marijuana (THC) Screen Not Detected (Not Detect) Discharge Plan Discharge Clinical Impression: Polysubstance abuse, MDD (major depressive disorder), recurrent episode Patient Disposition: Still a Patient Prescriptions: No Action amoxicillin 500 mg capsule 500 mg PO TID clonidine HCl 0.1 mg Tablet 0.1 mg PO TID PRN (Reason: Anxiety) 30 Days Qty: 90 0RF Protocol: Hold for SBP< HOLD for SBP < : 90 trazodone 50 mg Tablet 50 mg PO BEDTIME PRN (Reason: Insomnia) 14 Days Qty: 14 0RF quetiapine 300 mg tablet 300 mg PO BEDTIME 30 Days Qty: 30 0RF quetiapine 100 mg tablet 100 mg PO TID PRN (Reason: Agitation) 30 Days Qty: 90 0RF Interventions: [place]-Suicide Risk Severity Scale Last Done: 08/01/23 02:57 Print Language: Singaporean
[2023-08-01 04:00] VITALS: BP 104/82; PULSE 98; RESP 16; TEMP 36.6; O2SAT 97
--- NOTE | 2023-08-01 04:19 | PC.NURSE ---
PT reports to this RN that he attempted suicide after a fight with his girlfriend. PT reports he held a gun to his head but the gun jammed. PT subsequently snorted 5g of cocaine. TOX + for Fentanyl, opiates and cocaine which he reports he used in a recent binge. Pt reports he is not actively suicidal @ this time.
[2023-08-01 04:22] LABS: MANUAL DIFF FLAG NO
[2023-08-01 04:23] LABS: Basophils Percent Auto 0.3 % (0-2); Eosinophils Percent Auto 0.2 % (0-4); Hematocrit 39.1 % (42.0-52.0); Hemoglobin 13.2 g/dl (14.0-18.0); Imm Gran Abs Auto 0.03 X10*3/uL (0.00-0.03); Imm Gran Pct Auto 0.2 % (0.0-0.4); Lymphocytes Absolute Auto 3.6 X10*3/uL (1.2-4.9); Lymphocytes Percent Auto 28.8 % (20-40); Mean Corpuscular HGB Conc 33.8 g/dl (31.0-36.0); Mean Corpuscular Hemoglobin 28.2 pg (27.0-33.0); Mean Corpuscular Volume 83.5 fL (80.0-98.0); Monocytes Absolute Auto 1.4 X10*3/uL (0.1-1.2); Monocytes Percent Auto 10.7 % (2-11); Neutrophils Absolute Auto 7.5 x10*3/uL (2.0-8.3); Neutrophils Percent Auto 59.8 % (45-73); Platelet Count 273 X10*3/uL (160-400); Red Blood Count 4.68 X10*6/uL (4.60-5.80); Red Cell Distribution Width 14.1 % (11.0-16.0); White Blood Count 12.6 X10*3/uL (4.8-10.8)
[2023-08-01 04:40] LABS: Alanine Aminotransferase 56 U/L (0-40); Albumin Level 4.3 g/dL (3.5-5.0); Alkaline Phosphatase 120 U/L (39-117); Anion Gap 14 (12-20); Aspartate Amino Transferase 38 U/L (5-37); Bilirubin Direct 0.3 mg/dL (0.0-0.5); Bilirubin Total 0.8 mg/dL (0.0-1.0); Blood Urea Nitrogen 19 mg/dL (9-16); Calcium 9.2 mg/dL (8.4-10.2); Carbon Dioxide 27 mmol/L (22-29); Chloride 102 mmol/L (96-108); Creatinine Clr Calc Pharmacy 128.5; Estimated Glomerular Filt Rate > 60; Ethanol < 10 mg/dL; Glucose Random 118 mg/dL (60-115); Potassium 3.6 mmol/L (3.3-5.1); Sodium 139 mmol/L (135-145); Total Protein 7.8 g/dL (6.5-8.0)
--- NOTE | 2023-08-01 08:06 | PC.NURSE ---
Assumed care of patient at 0700, patient appears to be sleeping (half on the bed/ half off the bed), respirations even and unlabored, skin pwd, no apparent distress. Continue plan of care for CARE team kevin
[2023-08-01 12:49] LABS: COVID-19 Test Negative (Negative); IDNOW Serial# 152EDE1D
--- NOTE | 2023-08-01 13:41 | MHC.CARE ---
Anabell @[facility] called to accept Sd for today at [facility]. Address is [address] [place] [id number]. The accepting provider is Dr. Gonzalez. ETA is LAVELLE. Pod RN and CARE Team were notified of acceptance. Pod RN will work on transport and discharge documentation. CARE Team will work on a 12A.
--- NOTE | 2023-08-01 14:31 | MHC.CARE ---
Plan is for pt to be admitted to [facility] dual dx program. sec 12 completed for transportation
--- NOTE | 2023-08-01 14:39 | PC.NURSE ---
Pt signed for transport. Aware of plan of care for transport to [facility]
[2023-08-01 15:42] VITALS: BP 127/71; PULSE 97; RESP 14; TEMP 37.1; O2SAT 99
== END 2023-08-01 15:42 ==
PROVIDERS: Emergency Provider Emergency Medicine
DX: F33.9 Major depressive disorder, recurrent, unspecified (principal); F14.10 Cocaine abuse, uncomplicated; F11.10 Opioid abuse, uncomplicated; Z11.52 Encounter for screening for COVID-19
CPT/HCPCS: 36415; 80053; 80307; 81001; 82248; 85025; 87635; 93005; 99285; S9485

== ENCOUNTER → 2023-08-01 03:55 | Outpatient (BNV) | payer OTHER, SELFPAY | PROVIDERS: Emergency Provider Emergency Medicine; Visit Provider Internal Medicine Cardiovascular Disease | DX: R45.851 Suicidal ideations (principal); F14.10 Cocaine abuse, uncomplicated | CPT/HCPCS: 93010 ==

== ENCOUNTER 2023-10-01 19:59 | Inpatient (IN) | payer OTHER, SELFPAY ==
[2023-10-01 20:03] VITALS: BP 117/78; PULSE 88; RESP 16; TEMP 36.3; O2SAT 97; BMI 32.2
--- NOTE | 2023-10-01 20:45 | PC.NURSE ---
pts mom Valentine ; pt gave permission to call her with updates.
[2023-10-01 20:52] LABS: Appearance Urine Clear; Color Urine Dark Yellow; Glucose Urine UA Negative (Negative); Leukocyte Esterase Urine Negative (Negative); Nitrite Urine Negative (Negative); Specific Gravity - Urine >= 1.030 (1.005-1.025); Urine Blood Negative (Negative); Urine Ketones Trace mg/dL (Negative); Urine Protein Trace mg/dL (Neg-Trace)
[2023-10-01 21:11] LABS: MANUAL DIFF FLAG NO
[2023-10-01 21:14] LABS: Basophils Percent Auto 0.4 % (0-2); Eosinophils Absolute Auto 0.2 X10*3/uL (0.0-0.4); Eosinophils Percent Auto 2.7 % (0-4); Hematocrit 37.6 % (42.0-52.0); Hemoglobin 13.1 g/dl (14.0-18.0); Imm Gran Abs Auto 0.01 X10*3/uL (0.00-0.03); Imm Gran Pct Auto 0.1 % (0.0-0.4); Lymphocytes Absolute Auto 3.4 X10*3/uL (1.2-4.9); Lymphocytes Percent Auto 45.8 % (20-40); Mean Corpuscular HGB Conc 34.8 g/dl (31.0-36.0); Mean Corpuscular Hemoglobin 29.2 pg (27.0-33.0); Mean Corpuscular Volume 83.7 fL (80.0-98.0); Mean Platelet Volume 10.5 fL (9.4-12.4); Monocytes Absolute Auto 0.5 X10*3/uL (0.1-1.2); Monocytes Percent Auto 7.2 % (2-11); Neutrophils Absolute Auto 3.2 x10*3/uL (2.0-8.3); Neutrophils Percent Auto 43.8 % (45-73); Platelet Count 238 X10*3/uL (160-400); Red Blood Count 4.49 X10*6/uL (4.60-5.80); Red Cell Distribution Width 14.4 % (11.0-16.0); White Blood Count 7.4 X10*3/uL (4.8-10.8)
--- NOTE | 2023-10-01 21:15 | ED.PSYCH ---
HPI - Psych General Chief Complaint: Psychiatric Symptoms Stated Complaint: SI Time Seen by Provider: 10/01/23 21:04 History of Present Illness HPI Narrative: Patient 28 years old lots of stress in life. Everything in his life is falling apart. Patient's girlfriend kicked him out of the apartment. He feels suicidal was on the street. Had no way to go thought about running into traffic. Use heroin today. He claims he did it in an attempt to kill himself. Also had thoughts of jumping in front of trucks. Related Data Home Medications ?Medication ?Instructions ?Recorded ?Confirmed buprenorphine 8 mg-naloxone 2 mg 1 film sublingual BID 10/01/23 10/01/23 sublingual film (Suboxone) Previous Rx's ?Medication ?Instructions ?Recorded quetiapine 100 mg tablet 100 mg PO TID PRN Agitation 30 07/08/23 days #90 tabs quetiapine 300 mg tablet 300 mg PO BEDTIME 30 days #30 tabs 07/08/23 Allergies Allergy/AdvReac Type Severity Reaction Status Date / Time lamotrigine [From Lamictal] AdvReac Severe pt reports Verified 10/01/23 20:09 lamictal precipitates panic attacks Review of Systems Review of Systems: Positive SI Yes all other systems are reviewed and are negative [facility] Past Medical History Attestation statement: The following information was validated with the patient. Medical History COVID-19 Drug overdose Substance abuse Social History Social History Household Members: Significant Other and Children Household Members Other:: Mother Housing: Apartment Do you presently have visiting nurse or other home services: No Alcohol intake: unknown Patient Tobacco Use Status: Current everyday Tobacco user Tobacco use type: Cigarette Cigarette Packs Per Day: 1 Cigarettes Per Day: 20.0 Smoked in Last 30 Days: Yes e-Cigarette/Vaping Use: Never Used Second Hand Smoke Exposure: No Substance Use Type: Crack/Cocaine, Heroin and Opiates Substance Use Type Other:: Fentanyl Advance Directives: No Advance Directives Information Provided: No Do you have a plan to hurt others: No Plan service: No Sexual orientation: Straight/Heterosexual Physical Exam Vital Signs: Vital Signs: Last Vital Signs Temp 97.6 F 10/02/23 02:06 Pulse 89 10/02/23 02:06 Resp 16 10/01/23 20:03 BP 121/76 10/02/23 02:06 Pulse Ox 97 10/02/23 02:06 O2 Del Method Room Air 10/02/23 02:06 BMI result Body Mass Index 32.2 Appearance: Alert. Oriented X3. No acute distress. Eyes: Pupils equal, round and reactive to light. ENT: Pharynx normal. Neck: Normal inspection. Neck supple. No lymph nodes noted. No crepitus CVS: Normal heart rate and rhythm. Pulses normal. Normal S1 and S2 Respiratory: No respiratory distress. Breath sounds normal. No Wheezing. No rales Abdomen: Soft and nontender. No rigidity. No distention. good BS x4 Skin: Skin warm and dry. Normal skin color. Normal skin turgor. Extremities: No lower extremity edema. Neurovascular intact to all extremities. No Lacerations. No Rash Neuro: Oriented X 3. No motor deficit. No sensory deficit. Moving all extermities. No slurred speech. Cranial nerves grossly intact Medications Administered Generic Name Dose Route Start Last Admin Trade Name Freq PRN Reason Stop Dose Admin Quetiapine Fumarate 300 mg 10/01/23 21:30 10/01/23 21:29 Quetiapine Fumarate 300 Mg Tablet PO 300 mg BEDTIME CHRISTEN Administration Discontinued Medications Generic Name Dose Route Start Last Admin Trade Name Freq PRN Reason Stop Dose Admin Al Hydroxide/Mg Hydroxide 30 ml 10/02/23 03:32 10/02/23 03:35 Magnesium Hydrox/Alum Hydrox 30 Ml Oral.Susp PO 10/02/23 03:33 30 ml ONCE ONE Administration Medical Decision Making Medical Decision Making MDM Narrative: Well-appearing not acute distress. Medically cleared will get crisis evaluate patient Lab Data 10/01/23 21:06 10/01/23 21:06 Labs: Lab Results 10/01/23 10/01/23 Range/Units 20:37 21:06 WBC 7.4 (4.8-10.8) X10*3/uL RBC 4.49 L (4.60-5.80) X10*6/uL Hgb 13.1 L (14.0-18.0) g/dl Hct 37.6 L (42.0-52.0) % MCV 83.7 (80.0-98.0) fL MCH 29.2 (27.0-33.0) pg MCHC 34.8 (31.0-36.0) g/dl RDW 14.4 (11.0-16.0) % Plt Count 238 (160-400) X10*3/uL MPV 10.5 (9.4-12.4) fL Immature Gran % (Auto) 0.1 (0.0-0.4) % Neut % (Auto) 43.8 L (45-73) % Lymph % (Auto) 45.8 H (20-40) % [place] % (Auto) 7.2 (2-11) % Eos % (Auto) 2.7 (0-4) % Baso % (Auto) 0.4 (0-2) % Lymph # (Auto) 3.4 (1.2-4.9) X10*3/uL [place] # (Auto) 0.5 (0.1-1.2) X10*3/uL Eos # (Auto) 0.2 (0.0-0.4) X10*3/uL Baso # (Auto) 0.0 (0.0-0.2) X10*3/uL Abs Immat Gran (auto) 0.01 (0.00-0.03) X10*3/uL Absolute Neuts (auto) 3.2 (2.0-8.3) x10*3/uL Absolute Nucleated RBC 0.000 (0.0-0.012) X10*3/uL Nucleated RBC % (auto) 0.0 (0.0-0.2) /100WBC Sodium 142 (135-145) mmol/L Potassium 3.4 (3.3-5.1) mmol/L Chloride 105 (96-108) mmol/L Carbon Dioxide 24 (22-29) mmol/L Anion Gap 16 (12-20) BUN 13 (9-16) mg/dL Creatinine 0.86 (0.5-1.4) mg/dL Estim Creat Clear Calc 143.8 Estimated GFR > 60 Random Glucose 124 H (60-115) mg/dL Calcium 8.8 (8.4-10.2) mg/dL Magnesium 2.0 (1.6-2.6) mg/dL Total Bilirubin 0.5 (0.0-1.0) mg/dL AST 26 (5-37) U/L ALT 27 (0-40) U/L Alkaline Phosphatase 118 H (39-117) U/L Total Protein 7.6 (6.5-8.0) g/dL Albumin 4.3 (3.5-5.0) g/dL Lipase 10 (8-78) U/L Urine Color Dark Yellow Urine Appearance Clear Urine pH 6.0 (5.0-9.0) Ur Specific [place] >= 1.030 H (1.005-1.025) Urine Protein Trace (Neg-Trace) mg/dL Urine Glucose (UA) Negative (Negative) mg/dL Urine Ketones Trace (Negative) mg/dL Urine Blood Negative (Negative) Urine Nitrite Negative (Negative) Ur Leukocyte Esterase Negative (Negative) Urine Opiates Screen POSITIVE H (Not Detect) Ur Buprenorphine Scrn Positive H (Not Detect) ng/mL Ur Oxycodone Screen Not Detected (Not Detect) ng/mL Urine Methadone Screen Not Detected (Not Detect) ng/mL Urine Fentanyl Screen POSITIVE H (Not Detect) Ur Barbiturates Screen Not Detected (Not Detect) Ur Phencyclidine Scrn Not Detected (Not Detect) Ur Amphetamines Screen Not Detected (Not Detect) U Benzodiazepines Scrn Not Detected (Not Detect) Urine Cocaine Screen POSITIVE H (Not Detect) U Marijuana (THC) Screen Not Detected (Not Detect) Ethyl Alcohol < 10 mg/dL Discharge Plan Discharge Clinical Impression: Polysubstance abuse, Suicidal ideation Patient Disposition: Still a Patient Prescriptions: No Action quetiapine 300 mg tablet 300 mg PO BEDTIME 30 Days Qty: 30 0RF quetiapine 100 mg tablet 100 mg PO TID PRN (Reason: Agitation) 30 Days Qty: 90 0RF buprenorphine-naloxone [Suboxone] 8-2 mg film 1 film sublingual BID Interventions: [place]-Suicide Risk Severity Scale Last Done: 10/01/23 20:52 Print Language: Khmer
--- NOTE | 2023-10-01 21:20 | PC.NURSE ---
regarding home meds pt states he only takes Seroquel - rpts taking Seroquel 150mg PO TID and Seroquel 300mg PO @. notified. meds ordered.
[2023-10-01 21:27] LABS: Amphetamine Screen Urine Not Detected (Not Detect); Barbiturates, Urine Not Detected (Not Detect); Benzodiazepines Screen Urine Not Detected (Not Detect); Buprenorphine Scr Positive (Not Detect); Cannabinoid Screen Urine Not Detected (Not Detect); Cocaine Screen Urine POSITIVE (Not Detect); Fentanyl, urine POSITIVE (Not Detect); Methadone Screen, Urine Not Detected (Not Detect); Opiate Screen Urine POSITIVE (Not Detect); Oxycodone Screen Urine Not Detected (Not Detect); Phencyclidine Screen Urine Not Detected (Not Detect)
[2023-10-01 21:29] LABS: Alanine Aminotransferase 27 U/L (0-40); Albumin Level 4.3 g/dL (3.5-5.0); Alkaline Phosphatase 118 U/L (39-117); Anion Gap 16 (12-20); Aspartate Amino Transferase 26 U/L (5-37); Bilirubin Total 0.5 mg/dL (0.0-1.0); Blood Urea Nitrogen 13 mg/dL (9-16); Calcium 8.8 mg/dL (8.4-10.2); Carbon Dioxide 24 mmol/L (22-29); Chloride 105 mmol/L (96-108); Creatinine Clr Calc Pharmacy 143.8; Estimated Glomerular Filt Rate > 60; Ethanol < 10 mg/dL; Glucose Random 124 mg/dL (60-115); Lipase 10 U/L (8-78); Potassium 3.4 mmol/L (3.3-5.1); Sodium 142 mmol/L (135-145); Total Protein 7.6 g/dL (6.5-8.0)
[2023-10-01] MEDS: QUEtiapine Fumarate 300 MG TABLET PO (21:29)
--- NOTE | 2023-10-01 22:14 | MHC.CARE ---
Pt was medicated at 21:30 and currently is sleeping soundly.
--- NOTE | 2023-10-02 | ECG_ITS ---
Test Reason : RULE OUT QTC PROLONGATION Blood Pressure : / mmHG Vent. Rate : 072 BPM Atrial Rate : 072 BPM P-R Int : 152 ms QRS Dur : 098 ms QT Int : 354 ms P-R-T Axes : 022 061 -01 degrees QTc Int : 387 ms Normal sinus rhythm Possible Lateral infarct , age undetermined Nonspecific ST and T wave abnormality Abnormal ECG When compared with ECG of 01-AUG-2023 03:55, Nonspecific T wave abnormality, worse in Inferior leads Nonspecific T wave abnormality now evident in Lateral leads QT has shortened Referred By: Anuel Nova Electronically Signed By:TAD REDMOND MD
[2023-10-02 02:06] VITALS: BP 121/76; PULSE 89; TEMP 36.4; O2SAT 97
[2023-10-02] MEDS: Magnesium Hydrox/Alum Hydrox 30 ML ORAL.SUSP PO (03:35)
--- NOTE | 2023-10-02 07:06 | PC.NURSE ---
Assumed care of patient at 0645, patient appears to be sleeping, respirations even and unlabored, no apparent distress noted. Pending CARE re-eval
--- NOTE | 2023-10-02 12:51 | PC.NURSE ---
At approximately 1115, ARTUR Kern went in to [facility] to do an EKG. This RN noted from the nurses station that the patient was becoming loud and angry, when approaching room, patient was reporting that he was not ready for an ekg and that he was naked under the blanket . Patient was noted to be moving his hands around a lot under the blanket but was also noted to be currently wearing a patient gown, hence not being unclothed. This RN attempted to reason with the patient explain that he does not need to be fully clothed and we can keep him covered while doing the EKG. The patient continued to become defensive, stating ally, give me a bit and shut the damn lights off . ARUTR Kern returned the EKG to the main ED and while doing so, the patient exited his room yelling at this RN ally, why did yall leave, I can do the EKG now, just lemme go to the bathroom dude . Patient then ambulated to the bathroom independently. Upon returning to [facility], this RN brought EKG to his room and noted patient was fidgeting with his blanket. This RN attempted to address this however patient became defensive once again. Patient then laid down and this RN began placing stickers on patient for the EKG. When this Rn attempted to place stickers on patient's ankles, patient sat up immediately, pulled his socks up, got up and went to the bathroom. ARTUR Kern attempted to visualize patient in the bathroom however, all that was heard was flushing of the toilet immediately as the patient walked into the bathroom. Patient ambulated back to [facility] and allowed this RN to complete EKG. Once this RN was done with the EKG, the patient immediately got back up to go to the bathroom which ARTUR Kern followed him. Patient was visualized getting into the shower, fully clothed and shutting the shower curtain. This RN then attempted to talk with patient about what is going on, the patient immediately became defensive again, stating I don't know why yall are targeting me, I ain't doing nothing, I just wanna shower . This RN and ARTUR Kern explained to the patient that he appeared to be acting very suspicious and that we just want to help him and make sure he and everyone else in the pod is safe. Patient replied back I ain't doing nothing, I ain't paranoid, just lemme shower . Patient was provided with shower supplies and allowed back into the shower. Erlin SIDDIQUI visualizing. This RN then called security at 1142 to ask them to come search the patient due to the patient's suspicious behavior. While waiting for security, ARTUR Kern was speaking with the patient attempting to understand the situation better when the patient stated you're rashaun I don't fucking take you out . Patient was then redirected by this RN and security arrived. Upon security arrival, patient was changing over into the new clothes provided by this RN. Patient was noted to have not showered like he demanded. Security brought patient his room and began speaking with him. Patient was found to have one bag of heroin in his hospital provided sock. Security continued to talk with the patient and then exited the room. When security exited the room, the patient was noted to bring the blanket over his head began making suspicious hand movements again. DomSecurity entered the room again to speak with the patient, patient then handed over a vape to security. Patient explained to Security Cooper that he snuck the heroin in during the changeover last night. He was changing in the bathroom with a staff member present with him. He asked the staff member to look away when he took his clothes off and in the second that the staff member looked away for privacy, he threw his heroin behind the toilet and retrieved it later. He explained that he has been keeping the vape between his buttocks since arrival as well. This RN now observes patient to be resting on bed in 5, no apparent distress, calm and cooperative, no staff injuries, no patient injuries noted. All drugs are with security at this time. NICK Mcelroy (charge) aware of incident NICK Garza (clinical program manager) aware of incident
--- NOTE | 2023-10-02 13:20 | PC.NURSE ---
Patient continues to rest on bed in BH 5, no apparent distress is noted. VSS. Aware of plan of care for admission to
[2023-10-02 13:21] VITALS: PULSE 68; RESP 16; O2SAT 98
[2023-10-02 16:03] VITALS: BMI 32.0
[2023-10-02 16:12] VITALS: BP 120/80; PULSE 70; RESP 16; TEMP 36.7; O2SAT 97
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
[2023-10-02 20:00] VITALS: BP 114/61; PULSE 56; RESP 20; TEMP 36.6; O2SAT 95
[2023-10-02] MEDS: QUEtiapine Fumarate 300 MG TABLET PO (20:50)
[2023-10-03 09:22] VITALS: BP 91/55; PULSE 60; RESP 16; TEMP 36.6; O2SAT 99
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
[2023-10-03] MEDS: QUEtiapine Fumarate 300 MG TABLET PO (20:41)
[2023-10-03 21:00] VITALS: BP 136/83; PULSE 72; RESP 18; TEMP 36.5; O2SAT 98
[2023-10-04 08:00] VITALS: BP 109/72; PULSE 60; RESP 16; TEMP 36.5; O2SAT 96
--- NOTE | 2023-10-04 15:25 | HO.PSYCHPN ---
Subjective Subjective Date of Service: 10/04/23 Reason For Visit: SI Interim History: says he is not feeling sick, only used for a bit. doesn't want suboxone. asking about discharge tomorrow. no other complaints or requests. per staff, no grps, isolative. refusing COWS. Mental Status Exam Mental Status Exam Narrative: Pt is alert and oriented; behavior is guarded; dressed in casual attire; mood is not assessed. eye contact appropriate; Speech is normal rate, volume and prosody and not pressured; thought process is organized and goal directed; Thought content is on tx; no SI/HI/VH/AH expressed. Diagnostics Vital Signs (24Hr): Vital Signs - 24 hr 10/03/23 21:00 10/04/23 08:00 Temperature 97.7 F 97.7 F Pulse Rate 72 60 Respiratory Rate 18 16 Blood Pressure 136/83 109/72 Pulse Oximetry 98 96 Oxygen Delivery Method Room Air Room Air BMI result Body Mass Index 32.0 Labs 10/01/23 21:06 10/01/23 21:06 Medications Medications Current Medications Acetaminophen (Acetaminophen 325 Mg Tablet) 650 mg PO Q6H PRN PRN Reason: Headache/Pain Mild Scale (1-3) Al Hydroxide/Mg Hydroxide (Magnesium Hydrox/Alum Hydrox 30 Ml Oral.Susp) 30 ml PO Q6H PRN PRN Reason: Heartburn/Nausea Hydroxyzine HCl (Hydroxyzine Hcl 25 Mg Tablet) 25 mg PO Q6H PRN PRN Reason: Anxiety Magnesium Hydroxide (Milk Of Magnesia 30 Ml Oral.Susp) 30 ml PO DAILY PRN PRN Reason: Constipation Nicotine (Nicotine 21 Mg Patch.Td24) 21 mg TRANSDERMA DAILY [facility] Last Admin: 10/04/23 09:58 Dose: Not Given Nicotine Polacrilex (Nicotine Polacrilex 2 Mg Gum) 2 mg BUCCAL Q2H PRN PRN Reason: Nicotine Cravings Quetiapine Fumarate (Quetiapine Fumarate 100 Mg Tablet) 100 mg PO TID PRN PRN Reason: Agitation Quetiapine Fumarate (Quetiapine Fumarate 300 Mg Tablet) 300 mg PO BEDTIME [facility] Last Admin: 10/03/23 20:41 Dose: 300 mg Trazodone HCl (Trazodone Hcl 50 Mg Tablet) 50 mg PO BEDTIME MRX1 PRN PRN Reason: Insomnia Allergies Allergies Allergy/AdvReac Type Severity Reaction Status Date / Time lamotrigine [From Lamictal] AdvReac Severe pt reports Verified 10/01/23 20:09 lamictal precipitates panic attacks Assessment & Plan Assessment & Plan (1) Cocaine use disorder: Status: Acute Code(s): F14.10 - Cocaine abuse, uncomplicated (2) Opioid use disorder: Status: Acute Code(s): F11.90 - Opioid use, unspecified, uncomplicated (3) Mood disorder: Status: Acute Code(s): F39 - Unspecified mood [affective] disorder (4) PTSD (post-traumatic stress disorder): Status: Acute Code(s): F43.10 - Post-traumatic stress disorder, unspecified Plan 10/02: restart seroquel per pt request. restart suboxone when pt in moderate opioid withdrawal per COWS. 10/03: pt not feeling sick. asking to discharge tomorrow. declines suboxone. COWS DCed. Reason for continued inpatient stay Substantial Risk for: inability to function Time Spent With Patient Time: Total time managing care of this patient today ____ minutes.
[2023-10-04] MEDS: QUEtiapine Fumarate 300 MG TABLET PO (21:27)
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
== END 2023-10-05 14:00 | disposition home or self-care (01) | DRG 753 ==
LOC: HO.ED 10-02 08:11 → HO.PADLT16 10-02 14:06
PROVIDERS: Physician Assistant Medical; Admitting Provider Psychiatry & Neurology Psychiatry; Emergency Provider Emergency Medicine Emergency Medical Services; Visit Provider Psychiatry & Neurology Psychiatry
DX: F39 Unspecified mood [affective] disorder (principal); R45.851 Suicidal ideations; F11.23 Opioid dependence with withdrawal; F14.10 Cocaine abuse, uncomplicated; F43.10 Post-traumatic stress disorder, unspecified; F19.10 Other psychoactive substance abuse, uncomplicated; F17.210 Nicotine dependence, cigarettes, uncomplicated; Z59.02 Unsheltered homelessness; Z71.6 Tobacco abuse counseling; Z79.899 Other long term (current) drug therapy; Z91.51 Personal history of suicidal behavior
CPT/HCPCS: 36415; 80053; 80307; 81003; 83690; 83735; 85025; 93005; 99285; S9485

== ENCOUNTER → 2023-10-02 11:25 | Outpatient (BNV) | payer OTHER, SELFPAY | PROVIDERS: Admitting Provider Psychiatry & Neurology Psychiatry; Emergency Provider Emergency Medicine Emergency Medical Services; Visit Provider Internal Medicine Cardiovascular Disease | DX: R94.31 Abnormal electrocardiogram [ECG] [EKG] (principal) | CPT/HCPCS: 93010 ==

== ENCOUNTER → 2023-10-02 14:01 | Outpatient (BNV) | payer OTHER, SELFPAY | PROVIDERS: Admitting Provider Psychiatry & Neurology Psychiatry; Emergency Provider Emergency Medicine Emergency Medical Services; Visit Provider Psychiatry & Neurology Psychiatry | DX: F39 Unspecified mood [affective] disorder (principal); F14.10 Cocaine abuse, uncomplicated; F11.90 Opioid use, unspecified, uncomplicated; F43.11 Post-traumatic stress disorder, acute | CPT/HCPCS: 90792; 99231; 99232; 99239 ==

== ENCOUNTER 2024-01-05 13:09 | Inpatient (IN) | payer OTHER, SELFPAY ==
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
[2024-01-05 13:14] VITALS: BP 144/86; PULSE 104; RESP 18; TEMP 36.8; O2SAT 98; BMI 32.5
[2024-01-05 13:47] LABS: Appearance Urine Clear; Color Urine Dark Yellow; Glucose Urine UA Negative (Negative); Leukocyte Esterase Urine Negative (Negative); Nitrite Urine Negative (Negative); Specific Gravity - Urine >= 1.030 (1.005-1.025); Urine Blood Negative (Negative); Urine Ketones 80 mg/dL (Negative); Urine Protein Trace mg/dL (Neg-Trace)
--- NOTE | 2024-01-05 13:50 | PC.NURSE ---
Pt requesting chocolate milk, frosted flakes cereal/corn flakes cereal, and chex mix. This RN called the kitchen regarding request. Pt just arrived to ED recently, after lunch trays were administered to the rest of the pod. Was offered a spare lunch tray or sandwiches from the patient fridge, but refused.
--- NOTE | 2024-01-05 13:53 | ED.PSYCH ---
HPI - Psych General Chief Complaint: Psychiatric Symptoms Stated Complaint: SI Time Seen by Provider: 01/05/24 13:22 History of Present Illness HPI Narrative: Patient is a 28-year-old male with a history of having homicidal ideation toward his girlfriend his brother and his father. Patient's admits to recreational cocaine use only. Positive marijuana use from time to time. History of PTSD, bipolar on medications. Unsure if patient has access to firearms. Related Data Home Medications ?Medication ?Instructions ?Recorded ?Confirmed buprenorphine 300 mg/1.5 mL 1.5 mg subcut QMONTH 01/05/24 01/05/24 solution,exten.rel.subcutaneous syringe (Sublocade) buprenorphine 8 mg-naloxone 2 mg 1 film sublingual BID 01/05/24 01/05/24 sublingual film (Suboxone) Previous Rx's ?Medication ?Instructions ?Recorded quetiapine 300 mg tablet 300 mg PO BEDTIME 30 days #30 tabs 07/08/23 quetiapine 100 mg tablet 100 mg PO TID PRN Agitation 30 10/05/23 days #90 tabs Allergies Allergy/AdvReac Type Severity Reaction Status Date / Time lamotrigine [From Lamictal] AdvReac Severe pt reports Verified 01/05/24 13:17 lamictal precipitates panic attacks Review of Systems Review of Systems: No fever no chills no chest pain PMFSH Past Medical History Attestation statement: The following information was validated with the patient. Medical History Polysubstance abuse COVID-19 Drug overdose Substance abuse Social History Social History Household Members: None Household Members Other:: Mother Housing: Homeless Do you presently have visiting nurse or other home services: No Unable to assess alcohol history related to: Refusing to respond Alcohol intake: unknown Patient Tobacco Use Status: Current everyday Tobacco user Tobacco use type: Cigarette and Smokeless Tobacco Cigarette Packs Per Day: 1 Cigarettes Per Day: 5 Years Smoked: 14 years e-Cigarette/Vaping Use: Currently Using Second Hand Smoke Exposure: Yes (people smoking around him) Use of substances other than those prescribed or required for medical reasons: Refusing to respond Substance Use Type: Crack/Cocaine and Heroin Advance Directives: No Advance Directives Information Provided: No Do you have a plan to hurt others: Feasible service: No Sexual orientation: Straight/Heterosexual Physical Exam Vital Signs: Vital Signs: Last Vital Signs Temp 98.3 F 01/05/24 14:32 Pulse 104 H 01/05/24 14:32 Resp 18 01/05/24 14:32 BP 144/86 H 01/05/24 14:32 Pulse Ox 98 01/05/24 14:32 O2 Del Method Room Air 01/05/24 14:32 BMI result Body Mass Index 32.5 Appearance: Alert. Oriented X3. No acute distress. Eyes: Pupils equal, round and reactive to light. ENT: Pharynx normal. Neck: Normal inspection. Neck supple. No lymph nodes noted. No crepitus CVS: Normal heart rate and rhythm. Pulses normal. Normal S1 and S2 Respiratory: No respiratory distress. Breath sounds normal. No Wheezing. No rales Abdomen: Soft and nontender. No rigidity. No distention. good BS x4 Skin: Skin warm and dry. Normal skin color. Normal skin turgor. Extremities: No lower extremity edema. Neurovascular intact to all extremities. No Lacerations. No Rash Neuro: Oriented X 3. No motor deficit. No sensory deficit. Moving all extermities. No slurred speech. Cranial nerves grossly intact Medical Decision Making Medical Decision Making MDM Narrative: Patient is 28 years old. Had homicidal ideations. Has polysubstance abuse history of PTSD. Will give crisis evaluate patient. Patient's tox screen came back positive for multiple substances. Currently awaiting crisis evaluation. Differential Diagnosis Differential Diagnoses: The differential diagnosis associated with the presentation includes Depression, anxiety, Admission/Observation Consideration of admission/observation: Escalation of care including admission/observation considered Consult Healthcare Provider Management of the patient was discussed with: Printing Equipment Mechanic Apprentice (Care team) Lab Data Labs: Lab Results 01/05/24 Range/Units 13:41 Urine Color Dark Yellow Urine Appearance Clear Urine pH 6.0 (5.0-9.0) Ur Specific [place] >= 1.030 H (1.005-1.025) Urine Protein Trace (Neg-Trace) mg/dL Urine Glucose (UA) Negative (Negative) mg/dL Urine Ketones 80 (Negative) mg/dL Urine Blood Negative (Negative) Urine Nitrite Negative (Negative) Ur Leukocyte Esterase Negative (Negative) Urine Opiates Screen POSITIVE H (Not Detect) Ur Buprenorphine Scrn Positive H (Not Detect) ng/mL Ur Oxycodone Screen Not Detected (Not Detect) ng/mL Urine Methadone Screen Not Detected (Not Detect) ng/mL Urine Fentanyl Screen POSITIVE H (Not Detect) Ur Barbiturates Screen Not Detected (Not Detect) Ur Phencyclidine Scrn Not Detected (Not Detect) Ur Amphetamines Screen Not Detected (Not Detect) U Benzodiazepines Scrn Not Detected (Not Detect) Urine Cocaine Screen POSITIVE H (Not Detect) U Marijuana (THC) Screen Not Detected (Not Detect) Discharge Plan Discharge Clinical Impression: Opioid use disorder, Cocaine use disorder, Suicidal ideation Patient Disposition: Still a Patient Prescriptions: No Action quetiapine 300 mg tablet 300 mg PO BEDTIME 30 Days Qty: 30 0RF buprenorphine-naloxone [Suboxone] 8-2 mg film 1 film sublingual BID Sublocade 300 mg/1.5 mL solution, extended rel syringe 1.5 mg subcut QMONTH quetiapine 100 mg tablet 100 mg PO TID PRN (Reason: Agitation) 30 Days Qty: 90 0RF Interventions: [place]-Suicide Risk Severity Scale Last Done: 01/05/24 14:33 Print Language: Portuguese
[2024-01-05 14:09] LABS: Amphetamine Screen Urine Not Detected (Not Detect); Barbiturates, Urine Not Detected (Not Detect); Benzodiazepines Screen Urine Not Detected (Not Detect); Buprenorphine Scr Positive (Not Detect); Cannabinoid Screen Urine Not Detected (Not Detect); Cocaine Screen Urine POSITIVE (Not Detect); Fentanyl, urine POSITIVE (Not Detect); Methadone Screen, Urine Not Detected (Not Detect); Opiate Screen Urine POSITIVE (Not Detect); Oxycodone Screen Urine Not Detected (Not Detect); Phencyclidine Screen Urine Not Detected (Not Detect)
[2024-01-05 14:32] VITALS: BP 144/86; PULSE 104; RESP 18; TEMP 36.8; O2SAT 98
[2024-01-05] MEDS: QUEtiapine Fumarate 300 MG TABLET PO (21:39)
[2024-01-05] MEDS: Acetaminophen 325 MG TABLET 650 MG PO (21:39)
--- NOTE | 2024-01-05 21:41 | PC.NURSE ---
Assumed care of pt at 1900. Pt alert and oriented, agitated at baseline. Ambulating with a steady gait to bathroom. PT requested and provided food and pain medication for 3/10 FARRELL. Medications administrated as per JUN. PT denies SI/HI/AH/VH. Plan of care ongoing
--- NOTE | 2024-01-06 07:09 | PC.NURSE ---
report received from previous RN, patient resting comfortably on stretcher, offering no complaints at this time, respirations even and unlabored
--- NOTE | 2024-01-06 08:01 | PC.NURSE ---
patient refusing blood work for this RN, attempted to educate patient that the blood work is needed for admission, patient still refusing blood work, offered medication to calm patient down for draw, patient continues to refuse blood work and EKG at this time
--- NOTE | 2024-01-06 08:58 | PC.NURSE ---
patient refusing to take suboxone, remains restistant to care at this time
--- NOTE | 2024-01-06 10:14 | PC.NURSE ---
experimental psychologist at bedside
--- NOTE | 2024-01-06 10:18 | ECG_ITS ---
Test Reason : check qt Blood Pressure : / mmHG Vent. Rate : 050 BPM Atrial Rate : 050 BPM P-R Int : 158 ms QRS Dur : 100 ms QT Int : 432 ms P-R-T Axes : 049 060 027 degrees QTc Int : 393 ms Sinus bradycardia with marked sinus arrhythmia Otherwise normal ECG When compared with ECG of 02-OCT-2023 11:25, Non-specific change in ST segment in Inferior leads Nonspecific T wave abnormality, improved in Inferior leads Nonspecific T wave abnormality no longer evident in Lateral leads Referred By: Karina Marinelli Electronically Signed By:ORLANDO RODNEY
[2024-01-06 11:00] LABS: MANUAL DIFF FLAG NO
[2024-01-06 11:02] LABS: Basophils Percent Auto 0.4 % (0-2); Eosinophils Absolute Auto 0.3 X10*3/uL (0.0-0.4); Eosinophils Percent Auto 4.8 % (0-4); Hematocrit 37.2 % (42.0-52.0); Hemoglobin 13.1 g/dl (14.0-18.0); Imm Gran Abs Auto 0.01 X10*3/uL (0.00-0.03); Imm Gran Pct Auto 0.1 % (0.0-0.4); Lymphocytes Absolute Auto 3.3 X10*3/uL (1.2-4.9); Lymphocytes Percent Auto 48.1 % (20-40); Mean Corpuscular HGB Conc 35.2 g/dl (31.0-36.0); Mean Corpuscular Hemoglobin 29.6 pg (27.0-33.0); Mean Platelet Volume 10.1 fL (9.4-12.4); Monocytes Absolute Auto 0.7 X10*3/uL (0.1-1.2); Neutrophils Absolute Auto 2.5 x10*3/uL (2.0-8.3); Neutrophils Percent Auto 36.6 % (45-73); Platelet Count 216 X10*3/uL (160-400); Red Blood Count 4.43 X10*6/uL (4.60-5.80); White Blood Count 6.8 X10*3/uL (4.8-10.8)
[2024-01-06 11:17] LABS: Acetaminophen LAB < 3 mcg/mL (<30); Salicylate < 5.0 mg/dL (15-30)
[2024-01-06 11:18] LABS: Alanine Aminotransferase 21 U/L (0-40); Albumin Level 3.7 g/dL (3.5-5.0); Alkaline Phosphatase 100 U/L (39-117); Anion Gap 10 (12-20); Aspartate Amino Transferase 17 U/L (5-37); Bilirubin Total 0.4 mg/dL (0.0-1.0); Blood Urea Nitrogen 12 mg/dL (9-16); Calcium 8.9 mg/dL (8.4-10.2); Carbon Dioxide 25 mmol/L (22-29); Chloride 111 mmol/L (96-108); Creatinine Clr Calc Pharmacy 149.6; Estimated Glomerular Filt Rate > 60; Ethanol < 10 mg/dL; Glucose Random 98 mg/dL (60-115); Potassium 3.9 mmol/L (3.3-5.1); Sodium 142 mmol/L (135-145); Total Protein 6.4 g/dL (6.5-8.0)
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
[2024-01-06 13:44] VITALS: BMI 30.8
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
[2024-01-06] MEDS: QUEtiapine Fumarate 300 MG TABLET PO (22:03)
[2024-01-07 08:00] VITALS: BP 99/69; PULSE 51; RESP 16; TEMP 36.8; O2SAT 97
[2024-01-07] MEDS: Buprenorphine/Naloxone 8/2 mg FILM 1 FILM SUBLINGUAL (08:54)
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
[2024-01-07 20:00] VITALS: BP 131/80; PULSE 61; RESP 16; TEMP 36.6; O2SAT 99
[2024-01-07] MEDS: QUEtiapine Fumarate 300 MG TABLET PO (21:18)
--- NOTE | 2024-01-07 21:31 | PC.NURSE ---
Pt refused hs suboxone this evening stated he had taken one dose and that was enough for now.
[2024-01-08 07:46] VITALS: BP 102/57; PULSE 56; RESP 14; TEMP 36.4; O2SAT 97
[2024-01-08] MEDS: Buprenorphine/Naloxone 8/2 mg FILM 1 FILM SUBLINGUAL (09:04)
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
[2024-01-08 19:52] VITALS: BP 115/76; PULSE 64; RESP 16; TEMP 36.5; O2SAT 97
[2024-01-08] MEDS: QUEtiapine Fumarate 300 MG TABLET PO (21:43)
[2024-01-09 09:51] VITALS: BP 113/74; PULSE 63; RESP 16; TEMP 36.6; O2SAT 97
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
[2024-01-09] MEDS: QUEtiapine Fumarate 300 MG TABLET PO (20:49)
--- NOTE | 2024-01-10 00:52 | PC.NURSE ---
Pt refused hs suboxone tonight stating that he doesn't always take it at night only when he feels that he needs it.
[2024-01-10 09:20] VITALS: BP 102/60; PULSE 61; RESP 16; TEMP 36.6; O2SAT 96
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
[2024-01-10 19:45] VITALS: BP 119/73; PULSE 76; RESP 18; TEMP 36.7; O2SAT 100
[2024-01-10] MEDS: QUEtiapine Fumarate 300 MG TABLET PO (23:05)
[2024-01-11 08:44] VITALS: RESP 16
[2024-01-11 10:30] VITALS: BP 110/65; PULSE 72; RESP 16; TEMP 36.9; O2SAT 98
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
== END 2024-01-11 12:00 | disposition home or self-care (01) | DRG 752 ==
LOC: HO.ED 15:30 → HO.PADLT16 01-06 12:51
PROVIDERS: Physician Assistant; Admitting Provider Social Worker; Emergency Provider Emergency Medicine Emergency Medical Services; Visit Provider Psychiatry & Neurology Psychiatry
DX: F60.9 Personality disorder, unspecified (principal); R45.851 Suicidal ideations; R45.850 Homicidal ideations; F14.10 Cocaine abuse, uncomplicated; F11.20 Opioid dependence, uncomplicated; F17.210 Nicotine dependence, cigarettes, uncomplicated; Z71.6 Tobacco abuse counseling; Z79.899 Other long term (current) drug therapy
CPT/HCPCS: 36415; 80053; 80143; 80179; 80307; 81003; 83735; 85025; 93005; 99285; S9485

== ENCOUNTER → 2024-01-06 12:12 | Outpatient (BNV) | payer OTHER, SELFPAY | PROVIDERS: Admitting Provider Social Worker; Emergency Provider Emergency Medicine Emergency Medical Services; Visit Provider Social Worker | DX: F60.9 Personality disorder, unspecified (principal); F39 Unspecified mood [affective] disorder; F14.10 Cocaine abuse, uncomplicated; F11.90 Opioid use, unspecified, uncomplicated | CPT/HCPCS: 90792; 99231; 99232; 99239 ==

== ENCOUNTER 2024-01-14 20:49 | Emergency (ER) | payer OTHER, SELFPAY ==
[2024-01-14 20:53] VITALS: BP 121/85; PULSE 121; RESP 20; TEMP 37; O2SAT 96; BMI 30.9
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
[2024-01-14 21:16] LABS: MANUAL DIFF FLAG NO
[2024-01-14 21:22] LABS: Basophils Percent Auto 0.4 % (0-2); Eosinophils Percent Auto 0.1 % (0-4); Hematocrit 38.6 % (42.0-52.0); Hemoglobin 13.3 g/dl (14.0-18.0); Imm Gran Abs Auto 0.03 X10*3/uL (0.00-0.03); Imm Gran Pct Auto 0.4 % (0.0-0.4); Lymphocytes Absolute Auto 1.8 X10*3/uL (1.2-4.9); Lymphocytes Percent Auto 22.9 % (20-40); Mean Corpuscular HGB Conc 34.5 g/dl (31.0-36.0); Mean Corpuscular Volume 84.3 fL (80.0-98.0); Mean Platelet Volume 10.6 fL (9.4-12.4); Monocytes Absolute Auto 0.5 X10*3/uL (0.1-1.2); Monocytes Percent Auto 6.6 % (2-11); Neutrophils Absolute Auto 5.6 x10*3/uL (2.0-8.3); Neutrophils Percent Auto 69.6 % (45-73); Platelet Count 240 X10*3/uL (160-400); Red Blood Count 4.58 X10*6/uL (4.60-5.80); Red Cell Distribution Width 13.8 % (11.0-16.0)
--- NOTE | 2024-01-14 21:40 | MHC.EDTECH ---
This pct just assumed care of Patient ,Patient was price changer into hospital attire ,all Patient belongings are locked up in locker #4 in [facility] .Patient was given food and fluids .
[2024-01-14 21:45] LABS: Alanine Aminotransferase 59 U/L (0-40); Albumin Level 4.3 g/dL (3.5-5.0); Alkaline Phosphatase 121 U/L (39-117); Anion Gap 10 (12-20); Aspartate Amino Transferase 26 U/L (5-37); Bilirubin Direct 0.1 mg/dL (0.0-0.5); Bilirubin Total 0.3 mg/dL (0.0-1.0); Blood Urea Nitrogen 11 mg/dL (9-16); Calcium 9.4 mg/dL (8.4-10.2); Carbon Dioxide 25 mmol/L (22-29); Chloride 110 mmol/L (96-108); Creatinine Clr Calc Pharmacy 131.6; Estimated Glomerular Filt Rate > 60; Ethanol < 10 mg/dL; Glucose Random 107 mg/dL (60-115); Magnesium 1.8 mg/dL (1.6-2.6); Potassium 4.4 mmol/L (3.3-5.1); Sodium 141 mmol/L (135-145); Total Protein 7.7 g/dL (6.5-8.0)
--- NOTE | 2024-01-15 01:37 | ED.PSYCH ---
HPI - Psych General Chief Complaint: Psychiatric Symptoms Stated Complaint: crisis/SI Time Seen by Provider: 01/14/24 23:12 Source: patient Mode of arrival: ambulatory Limitations: no limitations History of Present Illness ED Provider: jasiel FOY Narrative: Patient with history of depression was admitted here 2 days ago discharged comes here as broke up with his girlfriend and feels suicidal and homicidal no current plan did use cocaine yesterday Related Data Home Medications ?Medication ?Instructions ?Recorded ?Confirmed buprenorphine 300 mg/1.5 mL 1.5 mg subcut QMONTH 01/05/24 01/14/24 solution,exten.rel.subcutaneous syringe (Sublocade) Previous Rx's ?Medication ?Instructions ?Recorded buprenorphine 8 mg-naloxone 2 mg 1 film sublingual BID 7 days #14 ea 01/11/24 sublingual film (Suboxone) quetiapine 100 mg tablet 100 mg PO TID PRN Agitation 30 01/11/24 days #90 tabs quetiapine 300 mg tablet 300 mg PO BEDTIME 30 days #30 tabs 01/11/24 Allergies Allergy/AdvReac Type Severity Reaction Status Date / Time lamotrigine [From Lamictal] AdvReac Severe pt reports Verified 01/14/24 20:57 lamictal precipitates panic attacks Review of Systems Review of Systems: Yes all other systems are reviewed and are negative PMFSH Past Medical History Medical History Polysubstance abuse COVID-19 Drug overdose Substance abuse Social History Social History Household Members: Family Household Members Other:: 1 Housing: House Do you presently have visiting nurse or other home services: No Unable to assess alcohol history related to: Refusing to respond Alcohol intake: unknown Patient Tobacco Use Status: Current everyday Tobacco user Tobacco use type: Cigarette Cigarette Packs Per Day: 1 Cigarettes Per Day: 5 Years Smoked: 14 years Smoked in Last 30 Days: No e-Cigarette/Vaping Use: Currently Using Second Hand Smoke Exposure: No Substance Use Type: Crack/Cocaine, Opiates, Painkillers and Caffiene Advance Directives: No Advance Directives Information Provided: No Do you have a plan to hurt others: Vague service: No Sexual orientation: Straight/Heterosexual Physical Exam Vital Signs: Vital Signs: Last Vital Signs Temp 98.6 F 01/14/24 20:53 Pulse 121 H 01/14/24 20:53 Resp 16 01/15/24 06:30 BP 121/85 01/14/24 20:53 Pulse Ox 96 01/14/24 20:53 O2 Del Method Room Air 01/14/24 20:53 BMI result Body Mass Index 30.9 Appearance: Alert. Oriented X3. No acute distress. Eyes: PERRLA, No Nystagmus ENT: Pharynx normal. Oral Mucosa moist Neck: Normal inspection. Neck supple. CVS: Normal heart rate and rhythm. Pulses normal. Respiratory: No respiratory distress. Equal air entry bilateral, no wheezing/rales/rhonchi Abdomen: Soft and nontender. Bowel sounds are present, no mass palpable, no CVA tenderness Skin: Skin warm and dry. Normal skin color. Normal skin turgor. Extremities: No lower extremity edema. No calf tenderness Neuro: Oriented X 3. No motor deficit. Medications Administered Generic Name Dose Route Start Last Admin Trade Name Freq PRN Reason Stop Dose Admin Quetiapine Fumarate 300 mg 01/15/24 01:45 01/15/24 03:49 Quetiapine Fumarate 300 Mg Tablet PO Not Given BEDTIME [facility] Medical Decision Making Medical Decision Making MDM Narrative: Patient with depression with suicidal ideation will get care team involved, medically cleared Lab Data [facility] Lab Attestation statement: I reviewed the patient's lab results. 01/14/24 21:08 01/14/24 21:08 Labs: Lab Results 01/14/24 Range/Units 21:08 WBC 8.0 (4.8-10.8) X10*3/uL RBC 4.58 L (4.60-5.80) X10*6/uL Hgb 13.3 L (14.0-18.0) g/dl Hct 38.6 L (42.0-52.0) % MCV 84.3 (80.0-98.0) fL MCH 29.0 (27.0-33.0) pg MCHC 34.5 (31.0-36.0) g/dl RDW 13.8 (11.0-16.0) % Plt Count 240 (160-400) X10*3/uL MPV 10.6 (9.4-12.4) fL Immature Gran % (Auto) 0.4 (0.0-0.4) % Neut % (Auto) 69.6 (45-73) % Lymph % (Auto) 22.9 (20-40) % [place] % (Auto) 6.6 (2-11) % Eos % (Auto) 0.1 (0-4) % Baso % (Auto) 0.4 (0-2) % Lymph # (Auto) 1.8 (1.2-4.9) X10*3/uL [place] # (Auto) 0.5 (0.1-1.2) X10*3/uL Eos # (Auto) 0.0 (0.0-0.4) X10*3/uL Baso # (Auto) 0.0 (0.0-0.2) X10*3/uL Abs Immat Gran (auto) 0.03 (0.00-0.03) X10*3/uL Absolute Neuts (auto) 5.6 (2.0-8.3) x10*3/uL Absolute Nucleated RBC 0.000 (0.0-0.012) X10*3/uL Nucleated RBC % (auto) 0.0 (0.0-0.2) /100WBC Sodium 141 (135-145) mmol/L Potassium 4.4 (3.3-5.1) mmol/L Chloride 110 H (96-108) mmol/L Carbon Dioxide 25 (22-29) mmol/L Anion Gap 10 L (12-20) BUN 11 (9-16) mg/dL Creatinine 0.92 (0.5-1.4) mg/dL Estim Creat Clear Calc 131.6 Estimated GFR > 60 Random Glucose 107 (60-115) mg/dL Calcium 9.4 (8.4-10.2) mg/dL Magnesium 1.8 (1.6-2.6) mg/dL Total Bilirubin 0.3 (0.0-1.0) mg/dL Direct Bilirubin 0.1 (0.0-0.5) mg/dL AST 26 (5-37) U/L ALT 59 H (0-40) U/L Alkaline Phosphatase 121 H (39-117) U/L Total Protein 7.7 (6.5-8.0) g/dL Albumin 4.3 (3.5-5.0) g/dL Ethyl Alcohol < 10 mg/dL Discharge Plan Discharge Clinical Impression: MDD (major depressive disorder), recurrent episode, Suicidal ideation Patient Disposition: Still a Patient Prescriptions: No Action Sublocade 300 mg/1.5 mL solution, extended rel syringe 1.5 mg subcut QMONTH quetiapine 300 mg tablet 300 mg PO BEDTIME 30 Days Qty: 30 0RF quetiapine 100 mg tablet 100 mg PO TID PRN (Reason: Agitation) 30 Days Qty: 90 0RF buprenorphine-naloxone [Suboxone] 8-2 mg film 1 film sublingual BID 7 Days Qty: 14 0RF Interventions: [place]-Suicide Risk Severity Scale Last Done: 01/15/24 06:30 Print Language: Dominican
[2024-01-15 06:30] VITALS: RESP 16
--- NOTE | 2024-01-15 08:21 | PC.NURSE ---
Assumed care of patient at 0645, patient appears to be in no apparent distress this, offering no complaints to this RN, pt does appear withdrawn, not participating in conversation with staff. Pt aware of need for urine sample to be evaled by CARE team, pt states he will give one when he has to go.
[2024-01-15 08:25] VITALS: BP 106/81; PULSE 64; RESP 16; TEMP 36.4; O2SAT 100
[2024-01-15] MEDS: Buprenorphine/Naloxone 8/2 mg FILM 1 FILM SUBLINGUAL (08:25)
--- NOTE | 2024-01-15 12:00 | PC.NURSE ---
Pt awake, speaking on phone at this time
[2024-01-15 14:33] VITALS: BP 106/81; PULSE 64; RESP 16; TEMP 36.4; O2SAT 100
== END 2024-01-15 14:34 | disposition home or self-care (01) ==
PROVIDERS: Physician Assistant; Emergency Provider Internal Medicine
DX: F33.9 Major depressive disorder, recurrent, unspecified (principal); F11.20 Opioid dependence, uncomplicated; F60.9 Personality disorder, unspecified; F17.210 Nicotine dependence, cigarettes, uncomplicated; Z79.899 Other long term (current) drug therapy
CPT/HCPCS: 36415; 80048; 80076; 80307; 83735; 85025; 99284; 99285; S9485

== ENCOUNTER 2024-01-29 01:15 | Emergency (ER) | payer OTHER, SELFPAY ==
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
[2024-01-29 01:21] VITALS: BP 121/77; PULSE 80; RESP 16; TEMP 36.4; O2SAT 97; BMI 30.1
[2024-01-29 01:59] LABS: Amphetamine Screen Urine Not Detected (Not Detect); Barbiturates, Urine Not Detected (Not Detect); Benzodiazepines Screen Urine Not Detected (Not Detect); Buprenorphine Scr Positive (Not Detect); Cannabinoid Screen Urine Not Detected (Not Detect); Cocaine Screen Urine Not Detected (Not Detect); Fentanyl, urine POSITIVE (Not Detect); Methadone Screen, Urine Not Detected (Not Detect); Opiate Screen Urine POSITIVE (Not Detect); Oxycodone Screen Urine Not Detected (Not Detect); Phencyclidine Screen Urine Not Detected (Not Detect)
[2024-01-29 01:59] LABS: Alanine Aminotransferase 25 U/L (0-40); Albumin Level 4.5 g/dL (3.5-5.0); Alkaline Phosphatase 121 U/L (39-117); Anion Gap 14 (12-20); Aspartate Amino Transferase 18 U/L (5-37); Bilirubin Total 0.4 mg/dL (0.0-1.0); Blood Urea Nitrogen 10 mg/dL (9-16); Calcium 9.8 mg/dL (8.4-10.2); Carbon Dioxide 24 mmol/L (22-29); Chloride 107 mmol/L (96-108); Creatinine Clr Calc Pharmacy 152.5; Estimated Glomerular Filt Rate > 60; Ethanol < 10 mg/dL; Glucose Random 105 mg/dL (60-115); Potassium 4.1 mmol/L (3.3-5.1); Sodium 141 mmol/L (135-145); Total Protein 7.9 g/dL (6.5-8.0)
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
[2024-01-29 02:38] LABS: MANUAL DIFF FLAG NO
[2024-01-29 02:41] LABS: Basophils Percent Auto 0.2 % (0-2); Eosinophils Percent Auto 0.3 % (0-4); Hemoglobin 14.8 g/dl (14.0-18.0); Imm Gran Abs Auto 0.02 X10*3/uL (0.00-0.03); Imm Gran Pct Auto 0.2 % (0.0-0.4); Lymphocytes Absolute Auto 2.3 X10*3/uL (1.2-4.9); Lymphocytes Percent Auto 23.6 % (20-40); Mean Corpuscular HGB Conc 35.2 g/dl (31.0-36.0); Mean Corpuscular Volume 82.4 fL (80.0-98.0); Mean Platelet Volume 10.5 fL (9.4-12.4); Monocytes Absolute Auto 0.6 X10*3/uL (0.1-1.2); Monocytes Percent Auto 6.3 % (2-11); Neutrophils Absolute Auto 6.8 x10*3/uL (2.0-8.3); Neutrophils Percent Auto 69.4 % (45-73); Platelet Count 271 X10*3/uL (160-400); Red Cell Distribution Width 13.6 % (11.0-16.0); White Blood Count 9.8 X10*3/uL (4.8-10.8)
--- NOTE | 2024-01-29 05:36 | MHC.EDTECH ---
Pt belongings in [place] per security.
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
--- NOTE | 2024-01-29 09:33 | PC.NURSE ---
pt provided w/ outpatient resources from care team. belongings obtained from ray. suboxone retrieved from pharmacy. pt refused take home narcan. pt leaving [facility] [place] ED at this time.
[2024-01-29 09:34] VITALS: BP 121/77; PULSE 80; RESP 16; TEMP 36.4; O2SAT 97
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
== END 2024-01-29 09:35 | disposition still patient (30) ==
PROVIDERS: Emergency Provider Emergency Medicine
DX: F32.A Depression, unspecified (principal); F11.10 Opioid abuse, uncomplicated; R45.851 Suicidal ideations; R45.1 Restlessness and agitation; F43.10 Post-traumatic stress disorder, unspecified; F60.9 Personality disorder, unspecified; F14.10 Cocaine abuse, uncomplicated; F19.10 Other psychoactive substance abuse, uncomplicated; Z79.899 Other long term (current) drug therapy; F17.210 Nicotine dependence, cigarettes, uncomplicated
CPT/HCPCS: 36415; 71046; 73564; 80053; 80307; 85025; 99284; S9485

== ENCOUNTER 2024-05-23 00:38 | Emergency (ER) | payer OTHER, SELFPAY ==
--- NOTE | 2024-05-23 00:44 | PC.NURSE ---
Pt not present when called for ekg- per registration pt is outside vaping.
--- OUTSIDE RECORDS SUMMARY | 2024-05-23 00:51 | XMS_ITS | Clinical Summary ---
Author Organization [employer] Address [address] [place] [address] Care Team Providers Care Swedish Masseuse Name Role Phone Unavailable Primary Care Provider Unavailabl e Allergies No known active allergies Medications Sublocade 300 MG/1.5ML injection 12/15/2022 Active ibuprofen 600 MG tabletIndication s:Dental abscess Take 1 tablet (600 mg) by mouth every 6 (six) hours if needed for mild pain for up to 20 doses. 20 tablet 06/11/2023 Active Social History Tobacco Use Types Packs/Day Years Used Date Smoking Tobacco: Every Day Cigarettes Smokeless Tobacco: Current Tobacco Cessation:Ready to Q uit: Not Asked; Counseling Given: Not Answered Alcohol Use Standard Drinks/Week Comments Never 0 (1 standard drink = 0.6 oz pur e alcohol) Sex and Gender Information Value Date Recorded Sex Assigned at Male 01/28/2023 10:19 AM EDT Legal Sex Male 10:12 AM EDT Gender Identity Male 01/28/2023 10:19 AM EDT Sexual Orientation Choose not to disclose 2022 10:19 AM EDT Last Filed Vital Signs Vital Sign Reading Time Taken Comments Blood Pressure 102/64 06/11/2023 11:50 AM EST Pulse 72 06/11/2023 11:50 AM EST Temperature - - Respiratory Rate - - Oxygen Saturation - - Inhaled Oxygen Concentration - - Weight - - Height - - Body Mass Index - - Plan of Treatment Health Maintenance Due Date Last Done Comments Dental Oral Exam 1995 Dental Prophylaxis 1995 Dental X-Ray: Bitewings 1995 Dental X-Ray: Full Mouth 1995 Depression Screening 1995 HIV Screening 1995 Lipid Panel 1995 SDOH Screening 1995 Pneumococcal Vaccine: Pediat rics (0 to 5 Years) and At-Risk Patients (6 to 64 Years) (1 of 2 - PCV) 2001 Alcohol/Substance Use Screening 2007 Family Planning (PISQ) 2010 Hepatitis C Screening 2013 DTaP/Tdap/Td Vaccines (1 - Tdap) 2014 Hepatitis B Vaccines (1 of 3 - 19+ 3-dose series) 2014 COVID-19 Vaccine (1 - 2023-2 5 season) 2023 Influenza Vaccine (#1) 2023 Tobacco Screening 06/11/2024 06/11/2023 Zoster Vaccines (1 of 2) 2045 RSV Patients and Pa tients Aged 60 years or older (1 - 1-dose 75+ series) 2070 HIB Vaccines Aged Out No longer eligi ble based on patient's age to complete this topic HPV Vaccines Aged Out No longer eligi ble based on patient's age to complete this topic Hepatitis A Vaccines Aged Out No long er eligible based on patient's age to complete this topic IPV Vaccines Aged Out No longer eligi ble based on patient's age to complete this topic Meningococcal Vaccine Aged Out No maddy guevara eligible based on patient's age to complete this topic RSV under 20 months Aged Out No longe r eligible based on patient's age to complete this topic Rotavirus Vaccines Aged Out No longer eligible based on patient's age to complete this topic Insurance [facility] MEDICAID STAND ADULT
== END 2024-05-23 00:51 | disposition left against medical advice (07) ==
PROVIDERS: Emergency Provider Emergency Medicine; PCP Physician Assistant
DX: R10.9 Unspecified abdominal pain (principal); R07.9 Chest pain, unspecified; R51.9 Headache, unspecified; Z53.21 Procedure and treatment not carried out due to patient leaving prior to being seen by health care provider

== ENCOUNTER 2024-05-23 13:22 | Emergency (ER) | payer OTHER, SELFPAY ==
[2024-05-23 13:37] VITALS: BP 122/77; PULSE 107; RESP 18; TEMP 36.4; O2SAT 99; BMI 31.2
--- NOTE | 2024-05-23 13:43 | ED.GENADULT ---
HPI - General Adult General Chief complaint: Psychiatric Symptoms Stated complaint: crisis Time Seen by Provider: 05/23/24 13:56 Source: patient, RN notes reviewed and old records reviewed Mode of arrival: ambulatory Limitations: no limitations History of Present Illness ED Provider: Lynne HPI narrative: Patient is a 29-year-old male with history of PTSD, recurrent major depression, mood disorder, personality disorder, cocaine use disorder, opioid use disorder presenting to the emergency department with complaint of increased stressors, depression and suicidal ideation. States plan is to run into traffic. Denies homicidal ideation, auditory or visual hallucinations. States that he has been out of his seroquel for the past 2 days, is asking to have this ordered. Denies any physical complaints. MD complaint: suicidal ideation Onset (ago): day(s) Associated symptoms: denies other symptoms Treatments prior to arrival: none Related Data Home Medications ?Medication ?Instructions ?Recorded ?Confirmed buprenorphine 300 mg/1.5 mL 1.5 mg subcut QMONTH 01/05/24 01/14/24 solution,exten.rel.subcutaneous syringe (Sublocade) Previous Rx's ?Medication ?Instructions ?Recorded buprenorphine 8 mg-naloxone 2 mg 1 film sublingual BID 7 days #14 ea 01/11/24 sublingual film (Suboxone) quetiapine 100 mg tablet 100 mg PO TID PRN Agitation 30 01/11/24 days #90 tabs quetiapine 300 mg tablet 300 mg PO BEDTIME 30 days #30 tabs 01/11/24 naloxone 4 mg/actuation nasal 4 mg intranasal Q2M PRN opioid 01/29/24 spray (Narcan) overdose #2 ea Allergies Allergy/AdvReac Type Severity Reaction Status Date / Time lamotrigine [From Lamictal] AdvReac Severe pt reports Verified 05/23/24 13:40 lamictal precipitates panic attacks Review of Systems Review of Systems: As per HPI Yes all other systems are reviewed and are negative Constitutional: Constitutional: Reports as per HPI PMFSH Past Medical History Medical History Polysubstance abuse COVID-19 Drug overdose Substance abuse Social History Social History Household Members: Family Household Members Other:: 1 Housing: House Do you presently have visiting nurse or other home services: No Unable to assess alcohol history related to: Refusing to respond Alcohol intake: unknown Patient Tobacco Use Status: Current everyday Tobacco user Tobacco use type: Cigarette Cigarette Packs Per Day: 1 Cigarettes Per Day: 5 Years Smoked: 14 years e-Cigarette/Vaping Use: Currently Using Second Hand Smoke Exposure: No Substance Use Type: Crack/Cocaine, Opiates, Painkillers and Caffiene Advance Directives: No Advance Directives Information Provided: Yes Do you have a plan to hurt others: No Plan service: No Sexual orientation: Straight/Heterosexual Physical Exam ED Vital Signs: Vital Signs - 24 hr 05/23/24 13:37 Temperature 97.6 F Pulse Rate 107 H Respiratory Rate 18 Blood Pressure 122/77 Pulse Oximetry 99 Oxygen Delivery Method Room Air BMI result Body Mass Index 31.2 Vital signs have been reviewed and appear to be correct. Blood pressure normal. Heart rate slightly tachycardic. Respiratory rate normal. Temperature normal. Oxygen saturation normal. Const General: cooperative, healthy appearing and no acute distress Orientation/consciousness: oriented to person, oriented to place, oriented to time and patient oriented x3 Limitations: no limitations HENMT Head: Yes normocephalic and Yes atraumatic Ears: external ears normal General nose exam: Normal external nose present Face and sinus: Yes face symmetric Mouth: oropharynx normal and moist mucous membranes Throat: Yes uvula midline Eyes Pupils: Equal, round and reactive pupils present Neck Neck: Yes normal visual inspection and Yes supple Resp Effort & Inspection: normal respiratory effort and able to speak in complete sentences Auscultation: clear to auscultation bilaterally Cardio Rate: regular rate Rhythm: regular rhythm Heart sounds: S1 normal heart sound present and S2 normal heart sound present GI Palpation (GI): Soft to palpation and nontender Auscultation: normoactive bowel sounds General: Yes no CVA tenderness Back/Spine/Pelvis Back: no CVA tenderness Skin General skin exam: elasticity normal and turgor normal Neuro General: oriented to person, oriented to place, oriented to time, patient oriented x3, moves all extremities, no focal motor deficits and CN's II-XI intact bilaterally Cranial nerves: Yes Equal, round and reactive pupils present Cognition (Neuro): normal cognition Extrem General: Yes full ROM, Yes no pedal edema and Yes no calf tenderness Psych Appearance: grossly normal Mental Status: mental status grossly normal Affect: Other affect and mood findings present (flat) Attitude: cooperative Thought process: Normal thought process present Thought content: Suicidality present, no homicidality, no hallucinations and Depressive thoughts present Insight: Fair insight present (Psych) Judgement: Fair judgement present (Psych) Course Course Course Narrative: RME performed by Shirlene Luis PA-C. Patient is a 29 year old assigned male at presenting to the emergency department with suicidal ideation. Patient states he has been having a lot of stressors and feels like hurting himself. Detailed physical exam and review of systems are deferred to the blower and compressor assembler. Crisis orders placed. brick burner aware. Medical Decision Making Medical Decision Making [facility] Narrative: Patient is a 29-year-old male with history of PTSD, recurrent major depression, mood disorder, personality disorder, cocaine use disorder, opioid use disorder presenting to the emergency department with complaint of increased stressors, depression and suicidal ideation. On exam patient is awake, A+Ox3, VS WNL, afebrile, normal neurological exam without focal deficits, physical exam findings as above. Given reported symptoms and physical exam findings, initial differential includes but is not limited to depression, suicidal ideation. Urine drug screen positve for opiates, buprenorphine, fentanyl and cocaine. UA is without evidence of infection. Patient signed out to Dr. Munson pending labs for med clearance. Differential Diagnosis Differential Diagnoses: The differential diagnosis associated with the presentation includes as per [facility] Admission/Observation Consideration of admission/observation: Escalation of care including admission/observation considered Consult Healthcare Provider Management of the patient was discussed with: Behavioral Health Provider Lab Data [facility] Lab Attestation statement: I reviewed the patient's lab results. as per [facility] Labs: Lab Results 05/23/24 Range/Units 15:08 Urine Color Yellow Urine Appearance Clear Urine pH 5.5 (5.0-9.0) Ur Specific [place] >= 1.030 H (1.005-1.025) Urine Protein Negative (Neg-Trace) mg/dL Urine Glucose (UA) Negative (Negative) mg/dL Urine Ketones 80 (Negative) mg/dL Urine Blood Negative (Negative) Urine Nitrite Negative (Negative) Ur Leukocyte Esterase Negative (Negative) Urine Opiates Screen POSITIVE H (Not Detect) Ur Buprenorphine Scrn Positive H (Not Detect) ng/mL Ur Oxycodone Screen Not Detected (Not Detect) ng/mL Urine Methadone Screen Not Detected (Not Detect) ng/mL Urine Fentanyl Screen POSITIVE H (Not Detect) Ur Barbiturates Screen Not Detected (Not Detect) Ur Phencyclidine Scrn Not Detected (Not Detect) Ur Amphetamines Screen Not Detected (Not Detect) U Benzodiazepines Scrn Not Detected (Not Detect) Urine Cocaine Screen POSITIVE H (Not Detect) U Marijuana (THC) Screen Not Detected (Not Detect) External Record Review External record reviewed: Inpatient record, Office record and Outpatient record Discharge Plan Discharge Clinical Impression: Suicidal ideation Patient Disposition: Still a Patient Prescriptions: No Action Sublocade 300 mg/1.5 mL solution, extended rel syringe 1.5 mg subcut QMONTH quetiapine 300 mg tablet 300 mg PO BEDTIME 30 Days Qty: 30 0RF quetiapine 100 mg tablet 100 mg PO TID PRN (Reason: Agitation) 30 Days Qty: 90 0RF buprenorphine-naloxone [Suboxone] 8-2 mg film 1 film sublingual BID 7 Days Qty: 14 0RF naloxone [Narcan] 4 mg/actuation spray,non-aerosol 4 mg intranasal Q2M PRN (Reason: opioid overdose) Qty: 2 0RF Rx Instructions: spray 1 dose into ONE nostril; alternate nostrils w each dose until help arrives Print Language: Tongan
--- NOTE | 2024-05-23 15:06 | MHC.EDTECH ---
pt refusing labs at this time, NICK Roche aware.
[2024-05-23 15:19] LABS: Appearance Urine Clear; Color Urine Yellow; Glucose Urine UA Negative (Negative); Leukocyte Esterase Urine Negative (Negative); Nitrite Urine Negative (Negative); PH 5.5 (5.0-9.0); Specific Gravity - Urine >= 1.030 (1.005-1.025); Urine Blood Negative (Negative); Urine Ketones 80 mg/dL (Negative); Urine Protein Negative (Neg-Trace)
[2024-05-23 15:30] LABS: Amphetamine Screen Urine Not Detected (Not Detect); Barbiturates, Urine Not Detected (Not Detect); Benzodiazepines Screen Urine Not Detected (Not Detect); Buprenorphine Scr Positive (Not Detect); Cannabinoid Screen Urine Not Detected (Not Detect); Cocaine Screen Urine POSITIVE (Not Detect); Fentanyl, urine POSITIVE (Not Detect); Methadone Screen, Urine Not Detected (Not Detect); Opiate Screen Urine POSITIVE (Not Detect); Oxycodone Screen Urine Not Detected (Not Detect); Phencyclidine Screen Urine Not Detected (Not Detect)
[2024-05-23] MEDS: QUEtiapine Fumarate 100 MG TABLET PO (15:54)
--- OUTSIDE RECORDS SUMMARY | 2024-05-23 18:26 | XMS_ITS | Clinical Summary ---
Author Organization [employer] Address [address] [place] [address] Care Team Providers Care Permit Review Assistant Name Role Phone Unavailable Primary Care Provider [...] patient's age to complete this topic Insurance [facility] MEDICAID STAND ADULT
[2024-05-23 18:44] VITALS: BP 120/83; PULSE 95; RESP 15; TEMP 36.5; O2SAT 97
--- NOTE | 2024-05-23 19:41 | PC.NURSE ---
patient appears to remain at rest presently respirations are even and unlabored patient appears in no distress
[2024-05-24 01:26] LABS: MANUAL DIFF FLAG NO
[2024-05-24 01:28] LABS: Basophils Percent Auto 0.4 % (0-2); Eosinophils Absolute Auto 0.2 X10*3/uL (0.0-0.4); Eosinophils Percent Auto 2.8 % (0-4); Hematocrit 38.3 % (42.0-52.0); Hemoglobin 12.9 g/dl (14.0-18.0); Imm Gran Abs Auto 0.01 X10*3/uL (0.00-0.03); Imm Gran Pct Auto 0.1 % (0.0-0.4); Lymphocytes Absolute Auto 3.2 X10*3/uL (1.2-4.9); Lymphocytes Percent Auto 44.2 % (20-40); Mean Corpuscular HGB Conc 33.7 g/dl (31.0-36.0); Mean Corpuscular Hemoglobin 28.2 pg (27.0-33.0); Mean Corpuscular Volume 83.6 fL (80.0-98.0); Mean Platelet Volume 10.4 fL (9.4-12.4); Monocytes Absolute Auto 0.8 X10*3/uL (0.1-1.2); Monocytes Percent Auto 10.5 % (2-11); Platelet Count 248 X10*3/uL (160-400); Red Blood Count 4.58 X10*6/uL (4.60-5.80); Red Cell Distribution Width 14.3 % (11.0-16.0); White Blood Count 7.2 X10*3/uL (4.8-10.8)
[2024-05-24 01:43] LABS: Alanine Aminotransferase 46 U/L (0-40); Albumin Level 4.1 g/dL (3.5-5.0); Anion Gap 13 (12-20); Aspartate Amino Transferase 33 U/L (5-37); Bilirubin Total 0.4 mg/dL (0.0-1.0); Blood Urea Nitrogen 15 mg/dL (9-16); Calcium 9.3 mg/dL (8.4-10.2); Carbon Dioxide 24 mmol/L (22-29); Chloride 106 mmol/L (96-108); Creatinine Clr Calc Pharmacy 148.9; Estimated Glomerular Filt Rate > 60; Ethanol < 10 mg/dL; Glucose Random 93 mg/dL (60-115); Potassium 4.1 mmol/L (3.3-5.1); Sodium 139 mmol/L (135-145); Total Protein 7.7 g/dL (6.5-8.0)
[2024-05-24 02:20] LABS: COVID-19 Test Negative (Negative); IDNOW Serial# 55D5AD1C
[2024-05-24 02:33] LABS: Alkaline Phosphatase 107 U/L (39-117)
[2024-05-24 02:45] LABS: Acetaminophen LAB < 3 mcg/mL (<30); Salicylate < 5.0 mg/dL (15-30)
[2024-05-24 06:00] VITALS: BP 114/61; PULSE 80; RESP 14; TEMP 36.6; O2SAT 99
[2024-05-24 12:16] VITALS: BP 114/61; PULSE 80; RESP 14; TEMP 36.6; O2SAT 99
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
--- NOTE | 2024-05-24 12:23 | MHC.CARE ---
Referral to [facility] complete.
== END 2024-05-24 12:22 | disposition home or self-care (01) ==
PROVIDERS: Physician Assistant Medical; Emergency Provider Emergency Medicine; PCP Physician Assistant
DX: R45.851 Suicidal ideations (principal); F14.10 Cocaine abuse, uncomplicated; F19.10 Other psychoactive substance abuse, uncomplicated; F33.9 Major depressive disorder, recurrent, unspecified; F43.10 Post-traumatic stress disorder, unspecified; F60.9 Personality disorder, unspecified; F11.20 Opioid dependence, uncomplicated; F17.210 Nicotine dependence, cigarettes, uncomplicated; Z79.899 Other long term (current) drug therapy; Z11.52 Encounter for screening for COVID-19
CPT/HCPCS: 80053; 80143; 80179; 80307; 81003; 85025; 87635; 99284; 99285; S9485

== ENCOUNTER 2024-07-20 10:33 | Emergency (ER) | payer OTHER, SELFPAY | END 2024-07-20 11:24 | disposition left against medical advice (07) | PROVIDERS: Emergency Provider Emergency Medicine | DX: R10.9 Unspecified abdominal pain (principal); Z53.21 Procedure and treatment not carried out due to patient leaving prior to being seen by health care provider ==

== ENCOUNTER 2024-07-20 16:18 | Emergency (ER) | payer OTHER, SELFPAY ==
[2024-07-20 16:32] VITALS: BP 128/76; PULSE 115; RESP 19; TEMP 36.6; O2SAT 98; BMI 31.5
--- NOTE | 2024-07-20 16:35 | PC.NURSE ---
pt came in to the ed and immediately spent the next 15 min in the bathroom, vague in triage, insisted on going outside to smoke before going to a room
--- NOTE | 2024-07-20 17:07 | PC.NURSE ---
pt did come back to the ed but decided to not go to a room, states he is not si/hi, Pankaj GONZALEZ went outside to talk with him
--- NOTE | 2024-07-20 17:09 | ED_ITS ---
HPI - General Adult General Chief complaint: Headache Stated complaint: headache for 3+ hours / pain Time Seen by Provider: 07/20/24 16:37 Related Data Home Medications ?Medication ?Instructions ?Recorded ?Confirmed buprenorphine 300 mg/1.5 mL 1.5 mg subcut QMONTH 01/05/24 05/23/24 solution,exten.rel.subcutaneous syringe (Sublocade) Previous Rx's ?Medication ?Instructions ?Recorded quetiapine 100 mg tablet 100 mg PO TID PRN Agitation 30 01/11/24 days #90 tabs quetiapine 300 mg tablet 300 mg PO BEDTIME 30 days #30 tabs 01/11/24 Allergies Allergy/AdvReac Type Severity Reaction Status Date / Time lamotrigine [From Lamictal] AdvReac Severe pt reports Verified 07/20/24 16:34 lamictal precipitates panic attacks PMFSH Past Medical History Medical History Polysubstance abuse COVID-19 Drug overdose Substance abuse Social History Social History Household Members: Family Household Members Other:: 1 Housing: House Do you presently have visiting nurse or other home services: No Unable to assess alcohol history related to: Unknown Alcohol intake: current Alcohol intake frequency: 3 or more drinks per day Patient Tobacco Use Status: Current everyday Tobacco user Tobacco use type: Cigarette Cigarette Packs Per Day: 1 Cigarettes Per Day: 5 Years Smoked: 14 years Smoked in Last 30 Days: No e-Cigarette/Vaping Use: Currently Using Second Hand Smoke Exposure: No Use of substances other than those prescribed or required for medical reasons: Unknown Substance Use Type: Crack/Cocaine and Marijuana Advance Directives: No Advance Directives Information Provided: No Do you have a plan to hurt others: No Plan service: No Sexual orientation: Straight/Heterosexual Physical Exam ED Vital Signs: Vital Signs - 24 hr 07/20/24 16:32 Temperature 98 F Pulse Rate 115 H Respiratory Rate 19 Blood Pressure 128/76 Pulse Oximetry 98 Oxygen Delivery Method Room Air BMI result Body Mass Index 31.5 Course Course Course Narrative: RME, this is a rapid medical exam performed by Pankaj Jo please refer to primary provider for complete H&P- 29-year-old male with past medical history significant for personality disorder, polysubstance abuse, depression, PTSD presents for evaluation of headache and abdominal pain. The patient checked in for the 2nd time today and then ultimately eloped in the emergency department. I was able to discuss with him, he reports he was very anxious and all the people in the hospital her making him more anxious. The patient is adamant that he was not suicidal, he does not have any suicidal thoughts or intention to harm anybody else. I offered to have the patient come in to speak with the care team and he was not interested in that at this time. At the moment, the patient is speaking with a clear sensorium, he does not appear to be a threat to himself or anybody else, he is alert and oriented x4. I do not see any indication to keep this patient here against his will. I advised the patient to come back if he changes his mind, I advised him to call 911 or return immediately if he has any thoughts of harming himself or anybody else. Discharge Plan Discharge Clinical Impression: Headache Patient Disposition: Left Against Medical Advice Prescriptions: No Action Sublocade 300 mg/1.5 mL solution, extended rel syringe 1.5 mg subcut QMONTH quetiapine 300 mg tablet 300 mg PO BEDTIME 30 Days Qty: 30 0RF quetiapine 100 mg tablet 100 mg PO TID PRN (Reason: Agitation) 30 Days Qty: 90 0RF Interventions: LWBS Worksheet Last Done: 07/20/24 16:53 Discharge Date/Time: 07/20/24 17:33 Print Language: Bulgarian
== END 2024-07-20 17:33 | disposition left against medical advice (07) ==
LOC: HO.ED 16:56
PROVIDERS: Emergency Provider Emergency Medicine
DX: R51.9 Headache, unspecified (principal); F11.20 Opioid dependence, uncomplicated; F17.210 Nicotine dependence, cigarettes, uncomplicated; Z53.29 Procedure and treatment not carried out because of patient's decision for other reasons
CPT/HCPCS: 99282; 99283

== ENCOUNTER 2024-08-08 17:13 | Inpatient (IN) | payer MEDICAID, OTHER, SELFPAY ==
--- NOTE | ~2024-08-08 | XR_ITS ---
EXAMINATION: XR ABDOMEN 1 VIEW (KUB) HISTORY: Contraband Rule Out COMPARISON: There are no prior studies for comparison. FINDINGS: Two supine views of the abdomen are submitted. The bowel gas pattern is unremarkable, without evidence of mechanical obstruction. There is a moderate amount of stool throughout the colon. No abnormal calcifications are identified. There are no abnormal soft tissue masses. The bones are intact. No radiopaque foreign body is identified. XR/XR KUB IMPRESSION: No radiopaque foreign body is identified. Electronically signed by: Gallo Bolanos MD 08/09/2024 10:48 AM EDT
[2024-08-08 17:23] VITALS: BP 93/65; PULSE 90; RESP 19; TEMP 36.6; O2SAT 98; BMI 29.3
--- NOTE | 2024-08-08 17:27 | ED.PSYCH ---
HPI - Psych General Chief Complaint: Psychiatric Symptoms Stated Complaint: crisis wants to speak to someone Time Seen by Provider: 08/08/24 18:29 Source: patient Limitations: no limitations History of Present Illness ED Provider: Courtney Mcfadden PA-C HPI Narrative: 29-year-old male with a history of personality disorder, mood disorder, depression, PTSD, polysubstance abuse who presents with suicidal ideation. Patient presents to triage stating that he has a plan to jump off a bridge. Patient was not forthcoming about details at this time. Related Data Home Medications ?Medication ?Instructions ?Recorded ?Confirmed buprenorphine 300 mg/1.5 mL 1.5 mg subcut QMONTH 01/05/24 08/08/24 solution,exten.rel.subcutaneous syringe (Sublocade) buprenorphine 8 mg-naloxone 2 mg 1 film sublingual BID PRN 08/09/24 08/09/24 sublingual film (Suboxone) Withdrawal Symptoms quetiapine 300 mg tablet,extended 300 mg PO BEDTIME 08/09/24 08/09/24 release 24 hr Previous Rx's ?Medication ?Instructions ?Recorded quetiapine 100 mg tablet 100 mg PO TID PRN Agitation 30 01/11/24 days #90 tabs Allergies Allergy/AdvReac Type Severity Reaction Status Date / Time lamotrigine [From Lamictal] AdvReac Severe pt reports Verified 08/08/24 17:25 lamictal precipitates panic attacks Review of Systems Review of Systems: Unable to obtain as the patient was become hostile and belligerent Yes all other systems are reviewed and are negative PMFSH Past Medical History Attestation statement: The following information was validated with the patient. Medical History Polysubstance abuse COVID-19 Drug overdose Substance abuse Social History Social History Household Members: Family Household Members Other:: 1 Housing: House Do you presently have visiting nurse or other home services: No Unable to assess alcohol history related to: Refusing to respond Alcohol intake: current Alcohol intake frequency: 3 or more drinks per day Patient Tobacco Use Status: Current everyday Tobacco user Tobacco use type: Cigarette Cigarette Packs Per Day: 1 Cigarettes Per Day: 7 Years Smoked: 13 Smoked in Last 30 Days: Yes e-Cigarette/Vaping Use: Currently Using Frequency of e-Cigarette/Vaping Use: every couple days Patient Interested in Nicotine Replacement: Yes Second Hand Smoke Exposure: No Use of substances other than those prescribed or required for medical reasons: Yes Substance Use Type: Crack/Cocaine and Heroin Substance Use Frequency: Monthly Last Used Substance: Just Prior to Admission Currently Displaying Signs/Symptoms of Drug Intoxication Withdrawal: No Have you been hit, kicked, punched, or otherwise hurt by someone within the past year? If so, by whom?: No Do you feel safe in your current relationship?: Yes Is there a partner from a previous relationship who is making you feel unsafe now?: No Are you made to feel afraid or neglected: No Yarsanism Healthcare Practices: Catholic Advance Directives: No Advance Directives Information Provided: Yes Do you have a plan to hurt others: No Plan Recently lost weight without trying: No How much weight loss: Not applicable Eating poorly because of decreased appetite: No Nutrition screen score: 0 Nutrition Risks: No Nutritional Risk Poor oral hygiene: No service: No Sexual orientation: Straight/Heterosexual Physical Exam Vital Signs: Vital Signs: Last Vital Signs Temp 97.9 F 08/09/24 06:02 Pulse 59 08/09/24 06:02 Resp 16 08/09/24 06:02 BP 130/86 08/09/24 06:02 Pulse Ox 100 08/09/24 06:02 O2 Del Method Room Air 08/09/24 06:02 BMI result Body Mass Index 29.3 Const: Other: Alert well-appearing Orientation/consciousness: patient oriented x3 Resp: Effort & Inspection: normal respiratory effort Cardio: Other: Normal peripheral perfusion Skin: Other: Warm dry no rash Neuro: General: patient oriented x3, gait normal, no focal motor deficits and CN's II-XI intact bilaterally Psych: Other: Hostile belligerent having said that is somewhat redirectable Course Course Course Narrative: This is a Rapid Medical Examination (RME) performed by Tanner Olson PA-C in triage. Full HPI, ROS, assessment and treatment plan per primary provider in the Main ED. 08/08/24 [id number] CARLOS Barron Hx: 29 yo male hx of MDD, PTSD, polysubstance abuse here for eval of suicidal ideation w/ plan to jump off bridge. states he has a lot going on in his life. he presents with his mother. PE/vitals: anxious appearing Plan: med clearance, care team eval coffee machine technician aware at 1728 -- patient will be brought back to the unit. Reevaluation(s) Reevaluation #1: Having to medically restrained to perform a safety assessment. The patient has a history of inserting illicit substances into various orifices, there was concern that he was attempting to do so after he had been changed over by security, and was in his room in the pod. . The patient was becoming hostile, belligerent and combative, ordering Haldol, Ativan Benadryl. Time: 18:49 Reevaluation #2: Time: 19:17 Date: 08/08/24 Provider: CARLOS Coburn Patient in physician observation for psychiatric evaluation.? No acute events reported overnight. No current complaints. VS stable.? Patient is in bed search status/pending CARE team evaluation. Will continue to monitor. Reevaluation #3: Time: 09:03 Date: 08/09/24 Provider: Galen Powell MD Patient in physician observation for psychiatric evaluation.? No acute events reported overnight. No current complaints. VS stable.? Patient is in bed search status/pending CARE team evaluation. Will continue to monitor. Additional Reevaluation(s): Dr Powell 2 PM pt was admitted to Medications Administered Discontinued Medications Generic Name Dose Route Start Last Admin Trade Name Javierq PRN Reason Stop Dose Admin Diphenhydramine HCl 50 mg 08/08/24 18:55 08/08/24 19:06 Diphenhydramine Hcl 25 Mg Capsule PO 08/08/24 18:56 50 mg ONCE ONE Administration Haloperidol 5 mg 08/08/24 18:55 08/08/24 19:07 Haloperidol 5 Mg Tablet PO 08/08/24 18:56 5 mg ONCE ONE Administration Lorazepam 2 mg 08/08/24 18:55 08/08/24 19:07 Lorazepam 1 Mg Tablet PO 08/08/24 18:56 2 mg ONCE ONE Administration Nicotine 21 mg 08/09/24 08:44 08/09/24 11:26 Nicotine 21 Mg Patch.Td24 TRANSDERMA 08/09/24 08:45 Not Given ONCE ONE Nicotine Polacrilex 4 mg 08/09/24 08:44 08/09/24 11:26 Nicotine Polacrilex Lozenge 4 Mg Lozenge BUCCAL 08/09/24 08:45 Not Given ONCE ONE Medical Decision Making Medical Decision Making MDM Narrative: 29-year-old male with a history of personality disorder, mood disorder, depression, PTSD, polysubstance abuse who presents with suicidal ideation. Patient presents to triage stating that he has a plan to jump off a bridge. Patient was not forthcoming about details at this time. Problem: Psychiatric illness, polysubstance abuse History: Per patient I have considered the following differential diagnoses: SI, HI, decompensated psychiatric illness, drug/alcohol intoxication Plan: Screening labs including serum ethanol and drug screen we will be obtained the patient will be referred to the care team. We already had incident with the patient after he had been wanted by security. He was changed over into a hospital gown, it was suspicious that he may be attempting to hide illicit substances in his rectum. The patient has a history of doing so in the past. Having to medicate, having to have security come back into the pad to do another assessment. I have independently reviewed the following tests: Labs: Not anemic, no leukocytosis, no electrolyte abnormality, ethanol negative, U tox positive for opiates, buprenorphine, fentanyl and cocaine. Salicylate and Tylenol levels are normal Lab Data 08/08/24 18:33 08/09/24 12:46 Labs: Lab Results 08/08/24 08/08/24 08/08/24 Range/Units 18:05 18:33 18:33 WBC 9.1 (4.8-10.8) X10*3/uL RBC 4.93 (4.60-5.80) X10*6/uL Hgb 14.1 (14.0-18.0) g/dl Hct 40.3 L (42.0-52.0) % MCV 81.7 (80.0-98.0) fL MCH 28.6 (27.0-33.0) pg MCHC 35.0 (31.0-36.0) g/dl RDW 13.1 (11.0-16.0) % Plt Count 280 (160-400) X10*3/uL MPV 10.7 (9.4-12.4) fL Immature Gran % (Auto) 0.2 (0.0-0.4) % Neut % (Auto) 68.7 (45-73) % Lymph % (Auto) 25.0 (20-40) % [place] % (Auto) 5.6 (2-11) % Eos % (Auto) 0.2 (0-4) % Baso % (Auto) 0.3 (0-2) % Lymph # (Auto) 2.3 (1.2-4.9) X10*3/uL [place] # (Auto) 0.5 (0.1-1.2) X10*3/uL Eos # (Auto) 0.0 (0.0-0.4) X10*3/uL Baso # (Auto) 0.0 (0.0-0.2) X10*3/uL Abs Immat Gran (auto) 0.02 (0.00-0.03) X10*3/uL Absolute Neuts (auto) 6.2 (2.0-8.3) x10*3/uL Absolute Nucleated RBC 0.000 (0.0-0.012) X10*3/uL Nucleated RBC % (auto) 0.0 (0.0-0.2) /100WBC Sodium 141 (135-145) mmol/L Potassium 3.7 (3.3-5.1) mmol/L Chloride 111 H (96-108) mmol/L Carbon Dioxide 24 (22-29) mmol/L Anion Gap 10 L (12-20) BUN 10 (9-16) mg/dL Creatinine 0.94 (0.5-1.4) mg/dL Estim Creat Clear Calc 124.7 Estimated GFR > 60 Random Glucose 160 H (60-115) mg/dL Calcium 9.2 (8.4-10.2) mg/dL Total Bilirubin 0.3 (0.0-1.0) mg/dL AST 20 (5-37) U/L ALT 25 (0-40) U/L Alkaline Phosphatase 100 (39-117) U/L Total Protein 7.6 (6.5-8.0) g/dL Albumin 4.3 (3.5-5.0) g/dL Urine Color Dark Yellow Urine Appearance Clear Urine pH 6.5 (5.0-9.0) Ur Specific [place] >= 1.030 H (1.005-1.025) Urine Protein Trace (Neg-Trace) mg/dL Urine Glucose (UA) Negative (Negative) mg/dL Urine Ketones Trace (Negative) mg/dL Urine Blood Negative (Negative) Urine Nitrite Negative (Negative) Ur Leukocyte Esterase Negative (Negative) Salicylates < 5.0 L (15-30) mg/dL Urine Opiates Screen POSITIVE H (Not Detect) Ur Buprenorphine Scrn Positive H (Not Detect) ng/mL Ur Oxycodone Screen Not Detected (Not Detect) ng/mL Urine Methadone Screen Not Detected (Not Detect) ng/mL Urine Fentanyl Screen POSITIVE H (Not Detect) Acetaminophen < 3 (<30) mcg/mL Ur Barbiturates Screen Not Detected (Not Detect) Ur Phencyclidine Scrn Not Detected (Not Detect) Ur Amphetamines Screen Not Detected (Not Detect) U Benzodiazepines Scrn Not Detected (Not Detect) Urine Cocaine Screen POSITIVE H (Not Detect) U Marijuana (THC) Screen Not Detected (Not Detect) Ethyl Alcohol < 10 Cancelled mg/dL Discharge Plan Discharge Clinical Impression: Suicidal ideation Patient Disposition: Admitted As Inpatient Interventions: [place]-Suicide Risk Severity Scale Last Done: 08/08/24 18:52 Admission Worksheet (ED) Last Done: 08/09/24 12:10 Discharge Date/Time: 08/09/24 12:11
--- NOTE | 2024-08-08 17:55 | PC.NURSE ---
Patient brought to the pod after being changed over in the family room using new pod changeover process with [place] and Security Mark present. Pt was walked over by [place] after being changed over, pt oriented to pod and room 6. Pt immediately asking for food/drink and medications. This RN educated patient that his medication rec will be completed and food was provided per patient request. Patient aware of plan of care for bloodwork/urine sample and then CARE team kevin
[2024-08-08 18:19] LABS: Appearance Urine Clear; Color Urine Dark Yellow; Glucose Urine UA Negative (Negative); Leukocyte Esterase Urine Negative (Negative); Nitrite Urine Negative (Negative); PH 6.5 (5.0-9.0); Specific Gravity - Urine >= 1.030 (1.005-1.025); Urine Blood Negative (Negative); Urine Ketones Trace mg/dL (Negative); Urine Protein Trace mg/dL (Neg-Trace)
[2024-08-08 18:22] LABS: Amphetamine Screen Urine Not Detected (Not Detect); Barbiturates, Urine Not Detected (Not Detect); Benzodiazepines Screen Urine Not Detected (Not Detect); Buprenorphine Scr Positive (Not Detect); Cannabinoid Screen Urine Not Detected (Not Detect); Cocaine Screen Urine POSITIVE (Not Detect); Fentanyl, urine POSITIVE (Not Detect); Methadone Screen, Urine Not Detected (Not Detect); Opiate Screen Urine POSITIVE (Not Detect); Oxycodone Screen Urine Not Detected (Not Detect); Phencyclidine Screen Urine Not Detected (Not Detect)
[2024-08-08 18:37] LABS: MANUAL DIFF FLAG NO
[2024-08-08 18:42] LABS: Basophils Percent Auto 0.3 % (0-2); Eosinophils Percent Auto 0.2 % (0-4); Hematocrit 40.3 % (42.0-52.0); Hemoglobin 14.1 g/dl (14.0-18.0); Imm Gran Abs Auto 0.02 X10*3/uL (0.00-0.03); Imm Gran Pct Auto 0.2 % (0.0-0.4); Lymphocytes Absolute Auto 2.3 X10*3/uL (1.2-4.9); Mean Corpuscular Hemoglobin 28.6 pg (27.0-33.0); Mean Corpuscular Volume 81.7 fL (80.0-98.0); Mean Platelet Volume 10.7 fL (9.4-12.4); Monocytes Absolute Auto 0.5 X10*3/uL (0.1-1.2); Monocytes Percent Auto 5.6 % (2-11); Neutrophils Absolute Auto 6.2 x10*3/uL (2.0-8.3); Neutrophils Percent Auto 68.7 % (45-73); Platelet Count 280 X10*3/uL (160-400); Red Blood Count 4.93 X10*6/uL (4.60-5.80); Red Cell Distribution Width 13.1 % (11.0-16.0); White Blood Count 9.1 X10*3/uL (4.8-10.8)
--- OUTSIDE RECORDS SUMMARY | 2024-08-08 18:45 | XMS_ITS | Clinical Summary ---
Author Organization [employer] Address [address] [place] [address] Care Team Providers Care Guide Changer Name Role Phone Unavailable Primary Care Provider [...] 1995 Depression Screening 1995 HIV Screening 1995 SDOH Screening 1995 Alcohol/Substance Use Screening 2007 Family Planning (PISQ) 2010 Hepatitis C Screening 2013 DTaP/Tdap/Td Vaccines (1 - Tdap) 2014 Hepatitis B Vaccines (1 of 3 - 19+ 3-dose series) 2014 Pneumococcal Vaccine: Pediat rics (0 to 5 Years) and At-Risk Patients (6 to 49) Years) (1 of 2 - PCV) 2014 COVID-19 Vaccine (1 - 2023-2 5 [...] patient's age to complete this topic Insurance [facility] MEDICAID STAND ADULT ([id number] [id number]
[2024-08-08 18:52] VITALS: RESP 16
--- NOTE | 2024-08-08 18:55 | PC.NURSE ---
Safety Incident: At approximately 1820, ARTUR Nielsen lupe patient's blood, after exiting the room, it was observed on the pod cameras, pt immediately reached into his pants and placed something into his mouth and then laid down with the blanket over his head. This RN called security and then approached patient to have a conversation. With security outside of the door, this RN sat at patient's bedside and asked patient to remove the blanket from his head to have a conversation. Pt was observed by this RN to be moving his hands around under the blanket for about 5-10 seconds before removing the blanket. This RN explained that the last time he was here in the pod he hid heroin and a vape on his person and it was found later in his stay. This RN then explained the behavior seen on the camera and then asked the patient if he had anything like a vape or drugs on his person. patient then became defensive, fuck you talking bout, I aint got shit on me, yall are always targeting me, fuck this, I wanna be discharged . This RN explained that he cannot be discharge yet as he needs to see the provider, pt then continued yelling at this RN. Security continued to remain on standby. this RN exited room to contact provider CARLOS Gomez. Patricia came to bedside to talk with pt, explained that patient will not be discharged until he is seen by CARE team and that he does need to comply with handing over any items he may have. Pt agreeable. When provider left the room and security entered, patient became defensive once again, yelling. Security explained to pt that he needed to change out of his underwear and also change into new pair of pants for thorough search. Pt again, became defensive, and started threatening to square up with one of the security officers. Pt did calm down a bit after some converstion Patient did willingly hand over a white vape to security and changed into hospital underwear as well as new hospital pants. Patient also provided with Benadryl 50mg PO, Ativan 2mg PO and Haldol 5mg PO to help calm down after the event
[2024-08-08 18:56] LABS: Acetaminophen LAB < 3 mcg/mL (<30); Salicylate < 5.0 mg/dL (15-30)
[2024-08-08 19:01] LABS: Alanine Aminotransferase 25 U/L (0-40); Albumin Level 4.3 g/dL (3.5-5.0); Alkaline Phosphatase 100 U/L (39-117); Anion Gap 10 (12-20); Aspartate Amino Transferase 20 U/L (5-37); Bilirubin Total 0.3 mg/dL (0.0-1.0); Blood Urea Nitrogen 10 mg/dL (9-16); Calcium 9.2 mg/dL (8.4-10.2); Carbon Dioxide 24 mmol/L (22-29); Chloride 111 mmol/L (96-108); Creatinine Clr Calc Pharmacy 124.7; Estimated Glomerular Filt Rate > 60; Ethanol < 10 mg/dL; Glucose Random 160 mg/dL (60-115); Potassium 3.7 mmol/L (3.3-5.1); Sodium 141 mmol/L (135-145); Total Protein 7.6 g/dL (6.5-8.0)
[2024-08-08] MEDS: diphenhydrAMINE HCL 25 MG CAPSULE 50 MG PO (19:06)
[2024-08-08] MEDS: HaloperidoL 5 MG TABLET PO (19:07)
[2024-08-08] MEDS: LORazepam 1 MG TABLET 2 MG PO (19:07)
--- NOTE | 2024-08-09 | ECG_ITS ---
Test Reason : CHECK QTC Blood Pressure : */* mmHG Vent. Rate : 50 BPM Atrial Rate : 50 BPM P-R Int : 180 ms QRS Dur : 104 ms QT Int : 394 ms P-R-T Axes : 21 52 32 degrees QTcB Int : 359 ms Sinus bradycardia Otherwise normal ECG When compared with ECG of 06-Jan-2024 10:31, No significant change was found Referred By: Galen Powell Electronically Signed By: TAD REDMOND MD
--- NOTE | 2024-08-09 05:26 | PC.NURSE ---
Patient slept through the night, no distress observed/reported, med rec completed/pending provider's approval, disposition per care team is section 12 dual diagnosis bed search, 15 minutes safety check, no behavior and safety concerns at this time, will continue to monitor.
[2024-08-09 06:02] VITALS: BP 130/86; PULSE 59; RESP 16; TEMP 36.6; O2SAT 100
--- NOTE | 2024-08-09 08:02 | PC.NURSE ---
Safety Incident #2 At approximately 0703 this RN observed Sd sitting on the edge of his bed facing the wall with the blanket over his head grabbing something from under his patient gown. At that time, salvage engineering technician Rick knocked on the patient's door to deliver breakfast to his room. patient stayed facing the wall as Rick, business development officer entered the room. Pt hid item back under his patient gown, then got up, shut the door and sat down to eat breakfast. This RN called security for assistance in approaching patient regarding situation. Pt did hide a vape on his person last night (08/08). Security entered the room, patient handed over a baggie of heroin that he reports he got from the bathroom under the chair . Patient's room was searched by security, patient was also patted down by security and educated that if he has anything else on his person, he should turn it over now. Patient now resting in bed, respirations even and unlabored, no apparent distress
--- NOTE | 2024-08-09 08:02 | PC.NURSE ---
Patient resting in bed at this time, respirations even and unlabored, no apparent distress. Continue plan of care for dual dx bedsearch
[2024-08-09 12:29] VITALS: BMI 29.1
[2024-08-09 13:33] LABS: Alanine Aminotransferase 20 U/L (0-40); Albumin Level 3.9 g/dL (3.5-5.0); Anion Gap 11 (12-20); Aspartate Amino Transferase 17 U/L (5-37); Bilirubin Total 0.3 mg/dL (0.0-1.0); Blood Urea Nitrogen 12 mg/dL (9-16); Carbon Dioxide 24 mmol/L (22-29); Chloride 109 mmol/L (96-108); Creatinine Clr Calc Pharmacy 142.3; Estimated Glomerular Filt Rate > 60; Glucose Random 108 mg/dL (60-115); Potassium 3.9 mmol/L (3.3-5.1); Sodium 140 mmol/L (135-145); Total Protein 7.1 g/dL (6.5-8.0)
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
--- NOTE | 2024-08-09 15:43 | PC.NURSE ---
Patient's med rec was re-evaluated this afternoon when admitted to the unit. According to pt, he uses both [facility] in [facility] along with [facility] in [facility]. This nurse called the pharmacy in [place], whom were able to confirm the pt picked up a supply of 10 films of Suboxone 8-2mg on 08/08 BID PRN. Pharmacy also confirmed patient picked up scripts for 300mg of Seroquel ER at bedtime, and 100mg Seroqel TID PRN on 06/29 as well. Fadumo Roper from addiction was notified in regards to the use of Suboxone.
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
[2024-08-09 17:31] LABS: Alkaline Phosphatase 92 U/L (39-117)
[2024-08-09] MEDS: Buprenorphine/Naloxone 8/2 mg FILM 1 FILM SUBLINGUAL (17:32)
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
[2024-08-09] MEDS: traZODone HCL 50 MG TABLET PO (20:22)
[2024-08-09 20:30] VITALS: BP 119/72; PULSE 55; RESP 16; TEMP 36.7; O2SAT 97
[2024-08-10 07:53] VITALS: BP 117/70; PULSE 56; RESP 16; TEMP 36.4; O2SAT 98
--- NOTE | 2024-08-10 09:46 | HO.PSYCHPN ---
Subjective Subjective Date of Service: 08/10/24 Reason For Visit: crisis Subjective Notes: Conditional Voluntary Interim History: Laying in bed. guarded. patient reports he continues to feel depressed but has low anxiety. Patient stated, I'm trying to catch up on my sleep since I haven't been sleeping well without my meds . denies SI/HI/VH/AH. Pt reports he will try to attend groups today. Change: Seroquel to 300mg PO bedtime Seroquel 100mg PO BID PRN Medication Compliance: Yes Side effects from medications: No Attending Groups: No Mental Status Exam Mental Status Exam Narrative: Pt is alert and oriented; behavior is cooperative and calm; dressed in casual attire; mood is described as depressed ; eye contact appropriate; Speech is normal rate, volume and not pressured; thought process is organized and goal directed; Thought content is on tx; denies SI/HI/VH/AH. Diagnostics Vital Signs (24Hr): Vital Signs - 24 hr 08/09/24 20:30 08/10/24 07:53 Temperature 98.1 F 97.5 F Pulse Rate 55 56 Respiratory Rate 16 16 Blood Pressure 119/72 117/70 Pulse Oximetry 97 98 Oxygen Delivery Method Room Air Room Air BMI result Body Mass Index 29.1 Labs 08/08/24 18:33 08/09/24 12:46 Labs: Laboratory Results - last 48 hr 08/08/24 08/08/24 08/08/24 18:05 18:33 18:33 WBC 9.1 RBC 4.93 Hgb 14.1 Hct 40.3 L MCV 81.7 MCH 28.6 MCHC 35.0 RDW 13.1 Plt Count 280 MPV 10.7 Immature Gran % (Auto) 0.2 Neut % (Auto) 68.7 Lymph % (Auto) 25.0 [place] % (Auto) 5.6 Eos % (Auto) 0.2 Baso % (Auto) 0.3 Lymph # (Auto) 2.3 [place] # (Auto) 0.5 Eos # (Auto) 0.0 Baso # (Auto) 0.0 Abs Immat Gran (auto) 0.02 Absolute Neuts (auto) 6.2 Absolute Nucleated RBC 0.000 Nucleated RBC % (auto) 0.0 Sodium 141 Potassium 3.7 Chloride 111 H Carbon Dioxide 24 Anion Gap 10 L BUN 10 Creatinine 0.94 Estim Creat Clear Calc 124.7 Estimated GFR > 60 Random Glucose 160 H Calcium 9.2 Total Bilirubin 0.3 AST 20 ALT 25 Alkaline Phosphatase 100 Total Protein 7.6 Albumin 4.3 Urine Color Dark Yellow Urine Appearance Clear Urine pH 6.5 Ur Specific [place] >= 1.030 H Urine Protein Trace Urine Glucose (UA) Negative Urine Ketones Trace Urine Blood Negative Urine Nitrite Negative Ur Leukocyte Esterase Negative Salicylates < 5.0 L Urine Opiates Screen POSITIVE H Ur Buprenorphine Scrn Positive H Ur Oxycodone Screen Not Detected Urine Methadone Screen Not Detected Urine Fentanyl Screen POSITIVE H Acetaminophen < 3 Ur Barbiturates Screen Not Detected Ur Phencyclidine Scrn Not Detected Ur Amphetamines Screen Not Detected U Benzodiazepines Scrn Not Detected Urine Cocaine Screen POSITIVE H U Marijuana (THC) Screen Not Detected Ethyl Alcohol < 10 Cancelled 08/09/24 12:46 WBC RBC Hgb Hct MCV MCH MCHC RDW Plt Count MPV Immature Gran % (Auto) Neut % (Auto) Lymph % (Auto) [place] % (Auto) Eos % (Auto) Baso % (Auto) Lymph # (Auto) [place] # (Auto) Eos # (Auto) Baso # (Auto) Abs Immat Gran (auto) Absolute Neuts (auto) Absolute Nucleated RBC Nucleated RBC % (auto) Sodium 140 Potassium 3.9 Chloride 109 H Carbon Dioxide 24 Anion Gap 11 L BUN 12 Creatinine 0.82 Estim Creat Clear Calc 142.3 Estimated GFR > 60 Random Glucose 108 Calcium 9.0 Total Bilirubin 0.3 AST 17 ALT 20 Alkaline Phosphatase 92 Total Protein 7.1 Albumin 3.9 Urine Color Urine Appearance Urine pH Ur Specific [place] Urine Protein Urine Glucose (UA) Urine Ketones Urine Blood Urine Nitrite Ur Leukocyte Esterase Salicylates Urine Opiates Screen Ur Buprenorphine Scrn Ur Oxycodone Screen Urine Methadone Screen Urine Fentanyl Screen Acetaminophen Ur Barbiturates Screen Ur Phencyclidine Scrn Ur Amphetamines Screen U Benzodiazepines Scrn Urine Cocaine Screen U Marijuana (THC) Screen Ethyl Alcohol Imaging Radiology Impressions: ITS Impressions KUB X-Ray 08/09/24 10:33 IMPRESSION: No radiopaque foreign body is identified. Electronically signed by: Gallo Bolanos MD 08/09/2024 10:48 AM EDT Medications Medications Current Medications Acetaminophen (Acetaminophen 325 Mg Tablet) 650 mg PO Q6H PRN PRN Reason: Headache/Pain, Scale 1-10 Al Hydroxide/Mg Hydroxide (Magnesium Hydrox/Alum Hydrox 30 Ml Oral.Susp) 30 ml PO Q6H PRN PRN Reason: Heartburn/Nausea Buprenorphine/Naloxone (Buprenorphine/Naloxone 8/2 Mg Film) 1 film SUBLINGUAL BID@0800,1700 [facility] Last Admin: 08/09/24 17:32 Dose: 1 film Hydroxyzine HCl (Hydroxyzine Hcl 25 Mg Tablet) 25 mg PO Q6H PRN PRN Reason: mild anxiety Magnesium Hydroxide (Milk Of Magnesia 30 Ml Oral.Susp) 30 ml PO DAILY PRN PRN Reason: Constipation Nicotine (Nicotine 21 Mg Patch.Td24) 21 mg TRANSDERMA DAILY [facility] Nicotine Polacrilex (Nicotine Polacrilex 2 Mg Gum) 4 mg BUCCAL Q2H PRN PRN Reason: Nicotine Cravings Non-Formulary Medication (Buprenorphine [Sublocade]) 300 mg SUBCUT Q28D [facility] Quetiapine Fumarate (Quetiapine Fumarate 100 Mg Tablet) 100 mg PO TID PRN PRN Reason: Agitation Quetiapine Fumarate 100 mg/ (Quetiapine Fumarate 50 mg) 150 mg PO BID [facility] Last Admin: 08/09/24 20:22 Dose: 150 mg Trazodone HCl (Trazodone Hcl 50 Mg Tablet) 50 mg PO BEDTIME MRX1 PRN PRN Reason: Insomnia Last Admin: 08/09/24 20:22 Dose: 50 mg Allergies Allergies Allergy/AdvReac Type Severity Reaction Status Date / Time lamotrigine [From Lamictal] AdvReac Severe pt reports Verified 08/08/24 17:25 lamictal precipitates panic attacks Assessment & Plan Assessment & Plan (1) MDD (major depressive disorder), recurrent episode: Status: Acute Code(s): F33.9 - Major depressive disorder, recurrent, unspecified (2) PTSD (post-traumatic stress disorder): Status: Acute Code(s): F43.10 - Post-traumatic stress disorder, unspecified (3) Opioid use disorder: Status: Acute Code(s): F11.90 - Opioid use, unspecified, uncomplicated Assessment and Plan: patient aware of risk for precipitated withdrawal, and states he has been taking suboxone daily suboxone 8mg BID ordered no additional follow up from [facility] required (4) Cocaine use disorder: Status: Acute Code(s): F14.10 - Cocaine abuse, uncomplicated Plan Patient is a 29-year-old male with history of MDD, PTSD, opiate use disorder and cocaine use disorder who self presented to [facility] due to suicidal ideation with plan to jump off a bridge secondary to increased life stressors. Plan: CV 15 minute safety checks Continue home medications Addiction medicine consult Referral to outpatient psychiatric providers Obtain collateral Encourage groups Referral to substance abuse program Discharge planning 08/10: Laying in bed. guarded. patient reports he continues to feel depressed but has low anxiety. Patient stated, I'm trying to catch up on my sleep since I haven't been sleeping well without my meds . denies SI/HI/VH/AH. Pt reports he will try to attend groups today. Change: Seroquel to 300mg PO bedtime Seroquel 100mg PO BID PRN Patient educated on: diagnosis, medication risk/benefits and therapeutic strategies Reason for continued inpatient stay Substantial Risk for: med/psych decompensation Time Spent With Patient Time: Total time managing care of this patient today _10___ minutes.
[2024-08-10] MEDS: Buprenorphine/Naloxone 8/2 mg FILM 1 FILM SUBLINGUAL ×2 (10:20→17:13)
[2024-08-10 19:45] VITALS: BP 116/62; PULSE 63; RESP 16; TEMP 36.7; O2SAT 94
[2024-08-10] MEDS: QUEtiapine Fumarate 300 MG TABLET PO (21:10)
[2024-08-11 10:51] VITALS: BP 116/56; PULSE 56; RESP 16; TEMP 36.8; O2SAT 97
[2024-08-11] MEDS: Buprenorphine/Naloxone 8/2 mg FILM 1 FILM SUBLINGUAL ×2 (10:54→17:17)
--- NOTE | 2024-08-11 15:16 | HO.PSYCHPN ---
Subjective Subjective Date of Service: 08/11/24 Reason For Visit: crisis Interim History: in bed, no eye contact. says he's fine, doesn't need anything. per staff, flat, withdrawn. taking meds. in bed nearly all the time. slept through the night. Mental Status Exam Mental Status Exam Narrative: Pt is alert and oriented; behavior is cooperative and calm; dressed in casual attire; mood is not assessed; no eye contact; Speech is normal rate, volume and not pressured; thought process is organized and goal directed; Thought content is on not needing anything from MD; no SI/HI/VH/AH expressed. Diagnostics Vital Signs (24Hr): Vital Signs - 24 hr 08/10/24 19:45 08/11/24 10:51 Temperature 98.1 F 98.2 F Pulse Rate 63 56 Respiratory Rate 16 16 Blood Pressure 116/62 116/56 L Pulse Oximetry 94 97 Oxygen Delivery Method Room Air Room Air BMI result Body Mass Index 29.1 Labs 08/08/24 18:33 08/09/24 12:46 Labs: Laboratory Results - last 48 hr 08/09/24 12:46 Alkaline Phosphatase 92 Imaging Radiology Impressions: ITS Impressions KUB X-Ray 08/09/24 10:33 IMPRESSION: No radiopaque foreign body is identified. Electronically signed by: Gallo Bolanos MD 08/09/2024 10:48 AM EDT RP Medications Medications Current Medications Acetaminophen (Acetaminophen 325 Mg Tablet) 650 mg PO Q6H PRN PRN Reason: Headache/Pain, Scale 1-10 Al Hydroxide/Mg Hydroxide (Magnesium Hydrox/Alum Hydrox 30 Ml Oral.Susp) 30 ml PO Q6H PRN PRN Reason: Heartburn/Nausea Buprenorphine/Naloxone (Buprenorphine/Naloxone 8/2 Mg Film) 1 film SUBLINGUAL BID@0800,1700 [facility] Last Admin: 08/11/24 10:54 Dose: 1 film Hydroxyzine HCl (Hydroxyzine Hcl 25 Mg Tablet) 25 mg PO Q6H PRN PRN Reason: mild anxiety Magnesium Hydroxide (Milk Of Magnesia 30 Ml Oral.Susp) 30 ml PO DAILY PRN PRN Reason: Constipation Nicotine (Nicotine 21 Mg Patch.Td24) 21 mg TRANSDERMA DAILY PRN PRN Reason: Nicotine Cravings Nicotine Polacrilex (Nicotine Polacrilex 2 Mg Gum) 4 mg BUCCAL Q2H PRN PRN Reason: Nicotine Cravings Non-Formulary Medication (Buprenorphine [Sublocade]) 300 mg SUBCUT Q28D [facility] Quetiapine Fumarate (Quetiapine Fumarate 300 Mg Tablet) 300 mg PO BEDTIME [facility] Last Admin: 08/10/24 21:10 Dose: 300 mg Quetiapine Fumarate (Quetiapine Fumarate 100 Mg Tablet) 100 mg PO BID PRN PRN Reason: Agitation Trazodone HCl (Trazodone Hcl 50 Mg Tablet) 50 mg PO BEDTIME MRX1 PRN PRN Reason: Insomnia Last Admin: 08/09/24 20:22 Dose: 50 mg Allergies Allergies Allergy/AdvReac Type Severity Reaction Status Date / Time lamotrigine [From Lamictal] AdvReac Severe pt reports Verified 08/08/24 17:25 lamictal precipitates panic attacks Assessment & Plan Assessment & Plan (1) MDD (major depressive disorder), recurrent episode: Status: Acute Code(s): F33.9 - Major depressive disorder, recurrent, unspecified (2) PTSD (post-traumatic stress disorder): Status: Acute Code(s): F43.10 - Post-traumatic stress disorder, unspecified (3) Opioid use disorder: Status: Acute Code(s): F11.90 - Opioid use, unspecified, uncomplicated Assessment and Plan: patient aware of risk for precipitated withdrawal, and states he has been taking suboxone daily suboxone 8mg BID ordered no additional follow up from [facility] required (4) Cocaine use disorder: Status: Acute Code(s): F14.10 - Cocaine abuse, uncomplicated Plan Patient is a 29-year-old male with history of MDD, PTSD, opiate use disorder and cocaine use disorder who self presented [place] [facility] due to suicidal ideation with plan to jump off a bridge secondary to increased life stressors. Plan: CV 15 minute safety checks Continue home medications Addiction medicine consult Referral to outpatient psychiatric providers Obtain collateral Encourage groups Referral to substance abuse program Discharge planning 08/10: Laying in bed. guarded. patient reports he continues to feel depressed but has low anxiety. Patient stated, I'm trying to catch up on my sleep since I haven't been sleeping well without my meds . denies SI/HI/VH/AH. Pt reports he will try to attend groups today. Change: Seroquel to 300mg PO bedtime Seroquel 100mg PO BID PRN 08/11: declines much of an interaction with MD. in bed, no eye contact, no questions, problems, complaints, concerns. continue current mgmt for now. per staff, not getting up and about at all. Reason for continued inpatient stay Substantial Risk for: inability to function Time Spent With Patient Time: Total time managing care of this patient today ____ minutes.
[2024-08-11 20:50] VITALS: BP 168/86; PULSE 125; RESP 16; TEMP 36.8; O2SAT 96
[2024-08-11] MEDS: QUEtiapine Fumarate 300 MG TABLET PO (21:01)
[2024-08-11 21:36] VITALS: BP 91/54; PULSE 66; RESP 18
--- NOTE | 2024-08-12 08:07 | PC.NURSE ---
Pt requested that his suboxone be given later when he wakes up .
--- NOTE | 2024-08-12 08:24 | PC.NURSE ---
Sd refused labs to be drawn this morning.
--- NOTE | 2024-08-12 09:19 | HO.PSYCHPN ---
Subjective Subjective Reason For Visit: crisis Diagnostics Vital Signs (24Hr): Vital Signs - 24 hr 08/11/24 10:51 08/11/24 20:50 08/11/24 21:36 Temperature 98.2 F 98.2 F Pulse Rate 56 125 H 66 Respiratory Rate 16 16 18 Blood Pressure 116/56 L 168/86 H 91/54 L Pulse Oximetry 97 96 Oxygen Delivery Method Room Air Room Air BMI result Body Mass Index 29.1 Labs 08/08/24 18:33 08/09/24 12:46 Imaging Radiology Impressions: ITS Impressions KUB X-Ray 08/09/24 10:33 IMPRESSION: No radiopaque foreign body is identified. Electronically signed by: Gallo Bolanos MD 08/09/2024 10:48 AM EDT RP Medications Medications Current Medications Acetaminophen (Acetaminophen 325 Mg Tablet) 650 mg PO Q6H PRN PRN Reason: Headache/Pain, Scale 1-10 Al Hydroxide/Mg Hydroxide (Magnesium Hydrox/Alum Hydrox 30 Ml Oral.Susp) 30 ml PO Q6H PRN PRN Reason: Heartburn/Nausea Buprenorphine/Naloxone (Buprenorphine/Naloxone 8/2 Mg Film) 1 film SUBLINGUAL BID@0800,1700 [facility] Last Admin: 08/11/24 17:17 Dose: 1 film Hydroxyzine HCl (Hydroxyzine Hcl 25 Mg Tablet) 25 mg PO Q6H PRN PRN Reason: mild anxiety Magnesium Hydroxide (Milk Of Magnesia 30 Ml Oral.Susp) 30 ml PO DAILY PRN PRN Reason: Constipation Nicotine (Nicotine 21 Mg Patch.Td24) 21 mg TRANSDERMA DAILY PRN PRN Reason: Nicotine Cravings Nicotine Polacrilex (Nicotine Polacrilex 2 Mg Gum) 4 mg BUCCAL Q2H PRN PRN Reason: Nicotine Cravings Non-Formulary Medication (Buprenorphine [Sublocade]) 300 mg SUBCUT Q28D [facility] Quetiapine Fumarate (Quetiapine Fumarate 300 Mg Tablet) 300 mg PO BEDTIME [facility] Last Admin: 08/11/24 21:01 Dose: 300 mg Quetiapine Fumarate (Quetiapine Fumarate 100 Mg Tablet) 100 mg PO BID PRN PRN Reason: Agitation Trazodone HCl (Trazodone Hcl 50 Mg Tablet) 50 mg PO BEDTIME MRX1 PRN PRN Reason: Insomnia Last Admin: 08/09/24 20:22 Dose: 50 mg Allergies Allergies Allergy/AdvReac Type Severity Reaction Status Date / Time lamotrigine [From Lamictal] AdvReac Severe pt reports Verified 08/08/24 17:25 lamictal precipitates panic attacks Assessment & Plan Assessment & Plan (1) MDD (major depressive disorder), recurrent episode: Status: Acute Code(s): F33.9 - Major depressive disorder, recurrent, unspecified (2) PTSD (post-traumatic stress disorder): Status: Acute Code(s): F43.10 - Post-traumatic stress disorder, unspecified (3) Opioid use disorder: Status: Acute Code(s): F11.90 - Opioid use, unspecified, uncomplicated Assessment and Plan: patient aware of risk for precipitated withdrawal, and states he has been taking suboxone daily suboxone 8mg BID ordered no additional follow up from [facility] required (4) Cocaine use disorder: Status: Acute Code(s): F14.10 - Cocaine abuse, uncomplicated Plan Patient is a 29-year-old male with history of MDD, PTSD, opiate use disorder and cocaine use disorder who self presented [place] [facility] due to suicidal ideation with plan to jump off a bridge secondary to increased life stressors. Plan: CV 15 minute safety checks Continue home medications Addiction medicine consult Referral to outpatient psychiatric providers Obtain collateral Encourage groups Referral to substance abuse program Discharge planning 08/10: Laying in bed. guarded. patient reports he continues to feel depressed but has low anxiety. Patient stated, I'm trying to catch up on my sleep since I haven't been sleeping well without my meds . denies SI/HI/VH/AH. Pt reports he will try to attend groups today. Change: Seroquel to 300mg PO bedtime Seroquel 100mg PO BID PRN 08/11: declines much of an interaction with MD. in bed, no eye contact, no questions, problems, complaints, concerns. continue current mgmt for now. per staff, not getting up and about at all. Time Spent With Patient Time: Total time managing care of this patient today ____ minutes.
[2024-08-12] MEDS: Buprenorphine/Naloxone 8/2 mg FILM 1 FILM SUBLINGUAL (10:35)
--- NOTE | 2024-08-12 10:46 | PM.PSYDC ---
DS: Providers Provider Date of Service: 08/12/24 Date of admission: 08/09/24 11:32 Date of discharge: 08/12/24 Primary care physician: None Physician Admitting clinician: Romelia Ball Attending physician on admission: Jim Wylie Consults: 08/09/24 14:57 Addiction Medicine Provider Routine Consulting Provider: Addiction Covering Reason for consultation: needs to start suboxone Has provider been notified: Yes Attending physician on discharge: Jim Wylie Discharging clinician: Romelia Ball DS: Diagnosis Discharge Diagnosis (1) MDD (major depressive disorder), recurrent episode: Status: Acute (2) PTSD (post-traumatic stress disorder): Status: Acute (3) Opioid use disorder: Status: Acute (4) Cocaine use disorder: Status: Acute DS: Medications Discharge Medications Home Medications: Home Medications ?Medication ?Instructions ?Recorded ?Confirmed buprenorphine 300 mg/1.5 mL 1.5 mg subcut QMONTH 01/05/24 08/08/24 solution,exten.rel.subcutaneous syringe (Sublocade) buprenorphine 8 mg-naloxone 2 mg 1 film sublingual BID PRN 08/09/24 08/09/24 sublingual film (Suboxone) Withdrawal Symptoms quetiapine 300 mg tablet,extended 300 mg PO BEDTIME 08/09/24 08/09/24 release 24 hr Previous Rx's ?Medication ?Instructions ?Recorded quetiapine 100 mg tablet 100 mg PO TID PRN Agitation 30 01/11/24 days #90 tabs Mental Status Exam Mental Status Exam Narrative: Pt is alert and oriented; behavior is cooperative and calm; dressed in casual attire; mood is described as good ; eye contact appropriate; Speech is normal rate, volume and not pressured; thought process is organized and goal directed; Thought content is on tx and discharge; denies SI/HI/VH/AH. Data Data Completed and Pending Completed studies during hospitalization [Text1]: 08/08/24 08/08/24 08/08/24 18:05 18:33 18:33 WBC 9.1 RBC 4.93 Hgb 14.1 Hct 40.3 L MCV 81.7 MCH 28.6 MCHC 35.0 RDW 13.1 Plt Count 280 MPV 10.7 Immature Gran % (Auto) 0.2 Neut % (Auto) 68.7 Lymph % (Auto) 25.0 [place] % (Auto) 5.6 Eos % (Auto) 0.2 Baso % (Auto) 0.3 Lymph # (Auto) 2.3 [place] # (Auto) 0.5 Eos # (Auto) 0.0 Baso # (Auto) 0.0 Abs Immat Gran (auto) 0.02 Absolute Neuts (auto) 6.2 Absolute Nucleated RBC 0.000 Nucleated RBC % (auto) 0.0 Sodium 141 Potassium 3.7 Chloride 111 H Carbon Dioxide 24 Anion Gap 10 L BUN 10 Creatinine 0.94 Estim Creat Clear Calc 124.7 Estimated GFR > 60 Random Glucose 160 H Calcium 9.2 Total Bilirubin 0.3 AST 20 ALT 25 Alkaline Phosphatase 100 Total Protein 7.6 Albumin 4.3 Urine Color Dark Yellow Urine Appearance Clear Urine pH 6.5 Ur Specific [place] >= 1.030 H Urine Protein Trace Urine Glucose (UA) Negative Urine Ketones Trace Urine Blood Negative Urine Nitrite Negative Ur Leukocyte Esterase Negative Salicylates < 5.0 L Urine Opiates Screen POSITIVE H Ur Buprenorphine Scrn Positive H Ur Oxycodone Screen Not Detected Urine Methadone Screen Not Detected Urine Fentanyl Screen POSITIVE H Acetaminophen < 3 Ur Barbiturates Screen Not Detected Ur Phencyclidine Scrn Not Detected Ur Amphetamines Screen Not Detected U Benzodiazepines Scrn Not Detected Urine Cocaine Screen POSITIVE H U Marijuana (THC) Screen Not Detected Ethyl Alcohol < 10 Cancelled 08/09/24 12:46 WBC RBC Hgb Hct MCV MCH MCHC RDW Plt Count MPV Immature Gran % (Auto) Neut % (Auto) Lymph % (Auto) [place] % (Auto) Eos % (Auto) Baso % (Auto) Lymph # (Auto) [place] # (Auto) Eos # (Auto) Baso # (Auto) Abs Immat Gran (auto) Absolute Neuts (auto) Absolute Nucleated RBC Nucleated RBC % (auto) Sodium 140 Potassium 3.9 Chloride 109 H Carbon Dioxide 24 Anion Gap 11 L BUN 12 Creatinine 0.82 Estim Creat Clear Calc 142.3 Estimated GFR > 60 Random Glucose 108 Calcium 9.0 Total Bilirubin 0.3 AST 17 ALT 20 Alkaline Phosphatase 92 Total Protein 7.1 Albumin 3.9 Urine Color Urine Appearance Urine pH Ur Specific [place] Urine Protein Urine Glucose (UA) Urine Ketones Urine Blood Urine Nitrite Ur Leukocyte Esterase Salicylates Urine Opiates Screen Ur Buprenorphine Scrn Ur Oxycodone Screen Urine Methadone Screen Urine Fentanyl Screen Acetaminophen Ur Barbiturates Screen Ur Phencyclidine Scrn Ur Amphetamines Screen U Benzodiazepines Scrn Urine Cocaine Screen U Marijuana (THC) Screen Ethyl Alcohol Imaging Diagnostic Imaging Impressions KUB X-Ray 08/09/24 10:33 IMPRESSION: No radiopaque foreign body is identified. Electronically signed by: Gallo Bolanos MD 08/09/2024 10:48 AM EDT RP DS: Summary Hospital Course Hospital Course: Patient is a 29-year-old male with history of MDD, PTSD, opiate use disorder and cocaine use disorder who self presented to [facility] [place] ER due to suicidal ideation with plan to jump off a bridge secondary to increased life stressors. Per crisis report, patient reported suicidal ideation, substance use and having no current mental health providers. Patient stated having suicidal ideation with plan to jump off a bridge in that earlier today he was standing my bridge. He reports he has not taken his medications for the past few weeks. He was caught with contraband while in the ER and became agitated. Patient reports he is using cocaine and opiates but did not quantify amount. Patient reports that he would like help with his mental health and substance use. Denies HI/VH/AH. During admission assessment, patient presents alert and oriented x3. Calm and cooperative. Patient reports feeling depressed; patient stated, my financial life, trying to find a job and being on probation and stressing me out. I am stressed and depressed. I have not been sleeping well. I have not taken my medications for 2 weeks . denies SI/HI/VH/AH. Patient is requesting for referrals to outpatient psychiatric providers, restarted on his medications and to be referred to a substance abuse program. Plan: CV 15 minute safety checks Continue home medications Addiction medicine consult Referral to outpatient psychiatric providers Obtain collateral Encourage groups Referral to substance abuse program Discharge planning Laying in bed. guarded. patient reports he continues to feel depressed but has low anxiety. Patient stated, I'm trying to catch up on my sleep since I haven't been sleeping well without my meds . denies SI/HI/VH/AH. Pt reports he will try to attend groups today. Change: Seroquel to 300mg PO bedtime Seroquel 100mg PO BID PRN declines much of an interaction with MD. in bed, no eye contact, no questions, problems, complaints, concerns. continue current mgmt for now. per staff, not getting up and about at all. Patient reports feeling good today; pt stated, I talked to my digital controls technical officer and they told me he's going to get me into an IOP . 3 day up on 08/17/24; pt requesting to be discharged today. denies SI/HI/VH/AH. Pt reports he plans on returning to his mother's house and following up with outpatient providers. Status at Discharge Cognitive/behavioral status at discharge: Patient has insight and demonstrates good judgment in terms of wanting to pursue treatment. Patient has a safety plan that includes presenting to the closest ER or calling 911 if feeling unsafe. Functional status at discharge: independent ambulation Overall status at discharge: patient is back to baseline Time Spent with Patient Time attestation: Total time managing care of this patient today _20___ minutes. Time spent: Less than 30 minutes Discharge Plan Discharge Anticipated Discharge Date/Time: 08/12/24 12:00 Patient Disposition: Home, Self-Care Discharge Diagnosis: MDD, PTSD, opioid use d/o, cocaine use d/o Referrals: Therapy & Psychiatry [Other] - 1 Week (You can present to the clinic above, Thursday through Thursday during the hours of 8am and 8pm, in order to obtain outpatient mental health providers. ) Physician,None [Primary Care Provider] - 1 Week Discharge Medications: New quetiapine 300 mg Tablet 300 mg PO BEDTIME 30 Days Qty: 30 0RF quetiapine 100 mg Tablet 100 mg PO BID PRN (Reason: Agitation) 30 Days Qty: 60 0RF Continued Sublocade 300 mg/1.5 mL solution, extended rel syringe 1.5 mg subcut QMONTH Discontinued quetiapine 100 mg tablet 100 mg PO TID PRN (Reason: Agitation) 30 Days Qty: 90 0RF quetiapine 300 mg tablet extended release 24 hr 300 mg PO BEDTIME buprenorphine-naloxone [Suboxone] 8-2 mg film 1 film sublingual BID PRN (Reason: Withdrawal Symptoms) Discharge Orders: Discharge Order (Routine); Ordered 08/12/24 Ordered By: Romelia Ball Diet: Regular diet Activity on Discharge: As tolerated Stand Alone Forms: Patient Portal Discharge page, Community Support Print Language: Algerian Care Plan Goals: Maintain mood and safe behaviors Take medications as prescribed Continue to pursue sobriety Practice coping skills Continue with outpatient providers and reach out to them as needed Health Concerns: Mood stability and behaviors Sobriety Plan of Treatment: Follow up with your PCP, psychiatric provider and other outpatient providers regarding above concerns Take medications as prescribed Assessment: Patient has insight and demonstrates good judgment in terms of wanting to pursue treatment. Patient has a safety plan that includes presenting to the closest ER or calling 911 if feeling unsafe. Discharge Date/Time: 08/12/24 11:47
[2024-08-12] MEDS: Naloxone HCl Nasal TAKE HOME 4 MG SPRAY 8 MG NOSTRILALT (11:19)
== END 2024-08-12 11:47 | disposition home or self-care (01) | DRG 751 ==
LOC: HO.ED 08-09 08:05 → HO.PADLT16 08-09 12:03
PROVIDERS: Physician Assistant Medical; Admitting Provider Registered Nurse; Emergency Provider Emergency Medicine; Responsible Provider Registered Nurse; Visit Provider Psychiatry & Neurology Psychiatry
DX: F33.9 Major depressive disorder, recurrent, unspecified (principal); F11.20 Opioid dependence, uncomplicated; F14.10 Cocaine abuse, uncomplicated; F43.10 Post-traumatic stress disorder, unspecified; F17.210 Nicotine dependence, cigarettes, uncomplicated; Z71.6 Tobacco abuse counseling; Z79.899 Other long term (current) drug therapy
CPT/HCPCS: 36415; 74018; 80053; 80143; 80179; 80307; 81003; 85025; 93005; 99285; S9485

== ENCOUNTER → 2024-08-09 08:07 | Outpatient (BNV) | payer SELFPAY | PROVIDERS: Emergency Provider Emergency Medicine; Visit Provider Internal Medicine Cardiovascular Disease | DX: R00.1 Bradycardia, unspecified (principal) | CPT/HCPCS: 93010 ==

== ENCOUNTER → 2024-08-09 10:33 | Outpatient (BNV) | payer SELFPAY | PROVIDERS: Emergency Provider Emergency Medicine; Visit Provider Radiology Diagnostic Radiology | DX: Z03.89 Encounter for observation for other suspected diseases and conditions ruled out (principal); F19.10 Other psychoactive substance abuse, uncomplicated | CPT/HCPCS: 74018 ==

== ENCOUNTER → 2024-08-09 11:32 | Outpatient (BNV) | payer OTHER, SELFPAY | PROVIDERS: Admitting Provider Registered Nurse; Emergency Provider Emergency Medicine; Responsible Provider Registered Nurse; Visit Provider Nurse Practitioner Psychiatric/Mental Health | DX: F33.2 Major depressive disorder, recurrent severe without psychotic features (principal); F14.10 Cocaine abuse, uncomplicated; F11.90 Opioid use, unspecified, uncomplicated; F43.10 Post-traumatic stress disorder, unspecified | CPT/HCPCS: 99231; 99232; 99233; 99499 ==